=== PATIENT | female | born 1960 | race Caucasian/White ===

== ENCOUNTER 2020-01-31 08:46 | Outpatient (RCR) | payer SELFPAY ==
[2020-01-31 09:18] VITALS: BP 156/62; PULSE 88; RESP 20; TEMP 37.1; BMI 37.9
== END 2020-02-01 23:59 ==
LOC: WC 08:46
PROVIDERS: Visit Provider Nurse Practitioner
DX: Z09 Encounter for follow-up examination after completed treatment for conditions other than malignant neoplasm (principal)

== ENCOUNTER 2020-01-31 10:34 | Inpatient (IN) | payer OTHER, SELFPAY ==
[2020-01-31] VITALS (11 sets, daily range): BP systolic 129–159; BP diastolic 59–79; PULSE 82–95; RESP 16–22; TEMP 36.8–37.7; O2SAT 92–99; BMI 37.9; BMI 42.5; BMI 41.2; BMI 40.4; BMI 89.1
--- NOTE | 2020-01-31 10:47 | EKG12_ITS ---
Test Reason : Blood Pressure : / mmHG Vent. Rate : 082 BPM Atrial Rate : 082 BPM P-R Int : 172 ms QRS Dur : 098 ms QT Int : 390 ms P-R-T Axes : 049 013 017 degrees QTc Int : 455 ms Normal sinus rhythm Normal ECG Confirmed by TYESHA JOLLY, LAURA ([id number]), metropolitan editor RITIKA COCHRAN ([id number] on 02/05/2020 2:14:31 PM Referred By: CATINA/DAVID Confirmed By:LAURA ARAMBULA MD
--- NOTE | 2020-01-31 10:48 | ED.DCSUM_ITS ---
History of Present Illness Chief Complaint: Wound Check Onset: Days - Redness possibly a couple of days, Weeks - Plantar foot ulcer greater than 2 weeks Context: Gradual Onset Timing: Continuous Quality: Redness to the foot with drainage from wound Location: Left foot Current Severity: Moderate Maximum Severity: Moderate Worsened by: Diabetic foot infection Relieved by: Nothing Associated Symptoms: Subjective fever and sore lateral fifth/little toe Narrative: Patient is a 59-year-old woman with history of diabetes who is been followed at the wound center who was sent to the ER for evaluation. Patient complains of subjective fever. She has not checked her blood sugar greater than 24 hours. She denies any other medical problems. She denies groin pain. She denies URI symptoms. She denies urologic symptoms. Her only GI symptom is nausea. She states she is not allergic to any antibiotics. Prior similar symptoms: Yes Recent Illness/Hospitalization: No - Past Medical History (1) Type 2 diabetes mellitus Status: Acute Past Medical History - Allergies and Home Meds Allergies/Adverse Reactions: Allergies No Known Allergies Allergy (Verified 01/31/20 10:37) Primary Care Physician: Noah Levin DO [Primary Care Provider] - Prior records reviewed: Yes Lives: Spouse/ Significant Other Smoking Status: Never smoker Alcohol: None Drugs: None Review of Systems General: Reports: Fever, Malaise, Subjective. Denies: Chills, Sweats, Weight loss, - Eyes: Denies: Visual changes - bilaterally, Blurred Vision - bilaterally ENT: Denies: Rhinorrhea, Sore throat Cardiovascular: Denies: Chest pain, Palpitations Respiratory: Reports: Cough - Intermittent cough for greater than a month. Denies: Dyspnea, Sputum, Dyspnea on exertion, Orthopnea, Paroxysmal nocturnal dyspnea Gastrointestinal: Reports: Nausea. Denies: Abdominal pain, Vomiting, Diarrhea, Constipation, Melena, Hematochezia, -, - Genitourinary: Denies: Dysuria, Hematuria, Frequency Musculoskeletal: Reports: Swelling. Denies: Myalgias, Arthralgias, Neck pain, Back pain, Extremity Pain, -, - Neurological: Denies: Headache, Weakness Endocrine: Denies: Polyuria, Polydipsia Hematologic: Denies: Easy bruising, Easy bleeding Physical Exam Vital Signs/Narrative: Vital Signs Temp Pulse Resp BP Pulse Ox 01/31/20 10:35 98.4 F 87 18 157/79 H 98 Inital Vital Signs reviewed: Yes General: Well nourished, Well developed, No Acute Distress Head: Normocephalic, Atraumatic Eyes: Perrl, EOMI ENT: Moist mucous membranes, No rhinorrhea Neck: Supple, Nontender Cardiovascular: Regular rate, Regular rhythm, No murmurs Respiratory: No distress, CTA bilaterally, Chest nontender Abdomen: Soft, Nontender, Nondistended, Normal bowel sounds Back: Nontender, Normal Inspection Extremities: Nontender, Edema - There is pitting edema of the left foot. There is a dime size ulcer plantar surface with granulation tissue and purulent material noted with pressure applied to the plantar surface. There is also a small wound starting lateral the little toe. There is evidence of cellulitis on the dorsum of the foot. There is no lymphangitis. There is no popliteal or inguinal lymphadenopathy. Skin: Normal color, No Trauma, Rash. Negative for: Cyanosis, Diaphoresis, Jaundice Neurological: Alert, Oriented x3, Cranial nerves II-XII grossly intact, Normal Strength. Negative for: Normal Sensation - There is decreased sensation to her feet., Normal Gait Psychological: Normal affect, Normal Mood Diagnostic/Tx/Re-eval 01/31/20 10:53 Xray Foot [Foot min 3 Views] [RAD] Stat Laboratory Results 01/31/20 11:10 WBC 19.9 H RBC 3.75 L Hgb 10.7 L Hct 31.4 L MCV 83.7 MCH 28.5 MCHC 34.1 RDW Std Deviation 39.6 RDW Coeff of Leticia 13.0 Plt Count 328 MPV 10.0 Immature Gran % (Auto) 2.100 H Neut % (Auto) 78.2 H Lymph % (Auto) 12.2 L [place] % (Auto) 6.9 Eos % (Auto) 0.3 Baso % (Auto) 0.3 Absolute Neuts (auto) 15.6 H Absolute Lymphs (auto) 2.43 Nucleated RBC % 0 Foot x-ray reveals subcutaneous air. There is no periosteal elevation to suggest osteomyelitis. Sodium is 124 and chloride is 87. Lactate is normal at 1.3. - Rhythm Strip Rhythm Strip: Sinus Rhythm Rate: 79 Ectopy: None - EKG Initial EKG Interpretation: Sinus Rhythm - Sinus rhythm with ventricular rate of 82. MN interval 170 ms. QRS duration 98 ms. QT duration 390 ms. Perry is normal. EKG is normal. - Medical Decision Making Patient with diabetic foot ulcer that is infected. Will obtain x-ray to evaluate for evidence of osteomyelitis. Appropriate laboratory tests to evaluate for sepsis. She was treated with Zosyn. ED Disposition - Plan for ED Patient: Disposition: Acute Care Hospital [facility] Diagnosis: Diabetic ulcer of left foot, Cellulitis of foot associated with diabetes mellitus, Hyponatremia, Hyperglycemia due to type 2 diabetes mellitus Referrals: Noah Levin DO [Primary Care Provider] -
--- NOTE | 2020-01-31 10:50 | NURSING ---
no old ekgs
--- NOTE | 2020-01-31 10:53 | RAD_ITS ---
STUDY: X-RAY - LEFT FOOT CLINICAL: Female, 59 years old. Diabetic ulcer bottom of foot TECHNIQUE: 3 view(s) of the foot. COMPARISON: None. FINDINGS: There is an enthesophyte involving the posterior superior calcaneus at the site of insertion of the Achilles tendon. Plantar spur. Normal visualized subtalar, talonavicular, calcaneocuboid, tarsal and tarsometatarsal articulations. Normal metatarsi. Normal metatarsophalangeal joint of the great toe. Normal tibial and fibular sesamoid bones. Normal interphalangeal joint of the great toe. Normal phalanges of the great toe. Normal second through fifth metatarsophalangeal joints. Normal interphalangeal joints and phalanges of the lesser toes. Diffuse soft tissue swelling. RAD/Foot min 3 Views IMPRESSION: Diffuse soft tissue swelling. Calcaneal spurs. Electronically Signed: Bob Ojeda, at 11:44 EDT , Service support ,
[2020-01-31 11:22] LABS: Absolute Lymphocyte Count 2.43 X10^3/uL (0.83-4.51); Absolute Neutrophil Count 15.6 X10^3/uL (2.0-7.7); Basophil# 0.05 X10^3/uL; Basophil% 0.3 % (0-1); Eosinophil# 0.05 X10^3/uL; Eosinophils% 0.3 % (0-5); Hematocrit 31.4 % (37-47); Hemoglobin 10.7 g/dL (12.0-15.0); Lymphocyte # 2.43 X10^3/ul (4.0); Lymphocyte % 12.2 % (19-41); Mean Corp Hgb Conc 34.1 g/dL (32-36); Mean Corpuscular Hgb 28.5 pg (27.0-32.0); Mean Corpuscular Volume 83.7 fL (81-99); Monocyte# 1.38 X10^3/uL; Monocyte% 6.9 % (0-10); NRBC Flagged by Analyzer 0 % (0-5); Neutrophil # 15.61 X10^3/uL (2.7-7.7); Neutrophil % 78.2 % (47-70); Platelet Count 328 K/mm3 (150-450); RBC Distribution Width SD 39.6 fl (35.1-43.9); Red Blood Count 3.75 M/mm3 (4.2-5.4); White Blood Count 19.9 K/mm3 (4.4-11.0)
[2020-01-31 11:42] LABS: ALB/GLOB Ratio 0.6 RATIO (0.9-2.4); AST(SGOT) 9 U/L (15-37); Alanine Aminotransfer ALT/SGPT 23 U/L (13-56); Albumin, Serum 2.7 g/dL (3.2-5.0); Alkaline Phosphatase 86 U/L (45-117); Anion Gap 7 (5-15); BUN 8 mg/dL (7-18); BUN/Creat Ratio 13.2 RATIO (10-20); Calcium,Total 8.3 mg/dL (8.5-10.1); Chloride 90 mmol/L (98-107); EST Glomerular Filtration Rate 108 mL/min (>60); Est Glom Filt Rate - Afr Amer 131 mL/min (>60); Estimated Creatinine Clearance 77.12 ml/min; Globulin 4.5 g/dL (2.2-4.2); Glucose 268 mg/dL (74-106); Potassium 3.2 mmol/L (3.5-5.1); Protein, Total 7.2 g/dL (6.4-8.2); Sodium Level 124 mmol/L (136-145)
--- NOTE | 2020-01-31 11:43 | NURSING ---
DR GRIMES FOR DR DOMINIQUE
[2020-01-31 11:44] LABS: Lactic Acid 1.3 mmol/L (0.4-1.9)
--- NOTE | 2020-01-31 11:52 | NURSING ---
MED SURG TERELETSKY DIABETIC FOOT ULCER WITH CELLULITIS
[2020-01-31 12:30] LABS: International Normalized Ratio 1.2; Prothrombin Time (Protime)PT. 14.3 SECONDS (11.7-14.9)
[2020-01-31 13:15] LABS: Bedside Glucose 233 mg/dL (70-110)
[2020-01-31] MEDS: Lactated Ringers 1,000 ML 100 ML IV ×2 (13:40→17:47)
--- NOTE | 2020-01-31 15:38 | CON.PCM_ITS ---
Reason for Consult Date of Consultation: 01/31/20 Reason for Consultation: Left foot infection History of Present Illness: The patient is a 59 year old female with history of diabetes presented to the ED today from the wound center with necrotic ulceration and infection to the left foot. There is significant redness, swelling, drainage and maloder from the foot. Patient's WBC elevated to 19.9. Left foot xrays show gas to the base of the 4th toe and questionable to the 5th toe. Patient relates ulceration stated ~2 weeks ago, and really worsened over the past couple of days. She relates she should have taken this more seriously. She has minimal pain. Patient was admitted for further workup and evaluation. Patient is afebrile, however she relates she has not been feeling well. Past Medical History Allergies No Known Allergies Allergy (Verified 01/31/20 10:37) Home Medications: Ambulatory Orders Medication Instructions Recorded Cephalexin [Keflex] 500 mg PO 4X/DAY 01/31/20 Glimepiride [Amaryl] 4 mg PO DAILY 01/31/20 Metformin HCl 1,000 mg PO BID 01/31/20 Pioglitazone [Actos] 45 mg PO DAILY 01/31/20 Ramipril 5 mg PO DAILY 01/31/20 Triamterene 75MG/Hctz 50MG 0.5 tab PO DAILY 01/31/20 [Maxzide] Lives: Spouse/ Significant Other Smoking Status: Never smoker Tobacco Use: Non-smoker Alcohol: None Drugs: None Review of Systems Constitutional: Denies: Chills, Fever Gastrointestinal: Denies: Nausea, Vomiting Patient Problems: Active and Suspected Problems Diabetic ulcer of left foot (Acute) Cellulitis of foot associated with diabetes mellitus (Acute) Hyponatremia (Acute) Hyperglycemia due to type 2 diabetes mellitus (Acute) - Physical Exam Vitals/I&O's: Vital Signs Temp Pulse Resp BP Pulse Ox 98.5 F 82 18 155/76 H 99 01/31/20 13:03 01/31/20 13:03 01/31/20 13:03 01/31/20 13:03 01/31/20 13:03 Oxygen Delivery Method Room Air Weight: 97.069 kg Body Mass Index (BMI) 40.4 Intake and Output for Last 24 Hours 01/29/20 01/30/20 01/31/20 23:59 23:59 23:59 Intake Total 100 / 100 Balance 100 / 100 General: Alert, Oriented x3, Cooperative, No apparent distress Extremities: Capillary Refill Less than 3 Seconds, Peripheral Pulses Normal, - - There is quarter sized ulceration sub 3rd met head with significant necrosis to the margins and base, probes deep and tracks laterally to the 4th and 5th toes/met heads, there is severe cellulitis to the foot and significant edema, foot is hot to touch, there is significant purulence, and maloder to the foot, there is visible abscess to the plantar central and lateral forefoot all consistent with significant infection. There are no other open ulcerations bilateral, no evidence of infection to the right foot. Pedal pulses intact bilateral, CFT < 2 seconds to all toes bilateral. There is some tenderness to the left forefoot, but sensation significantly decreased to bilateral foot c\w diabetic neuropathy bilateral. Musculoskeletal: No Muscle Wasting Psych/Mental Status: Normal Affect, Appropriate, Alert and oriented to time, place, person, mood and affect Laboratory Results 01/31/20 11:10: WBC 19.9 H, RBC 3.75 L, Hgb 10.7 L, Hct 31.4 L, MCV 83.7, MCH 28.5, MCHC 34.1, RDW Std Deviation 39.6, RDW Coeff of Leticia 13.0, Plt Count 328, MPV 10.0, Immature Gran % (Auto) 2.100 H, Neut % (Auto) 78.2 H, Lymph % (Auto) 12.2 L, [place] % (Auto) 6.9, Eos % (Auto) 0.3, Baso % (Auto) 0.3, Absolute Neuts (auto) 15.6 H, Absolute Lymphs (auto) 2.43, Nucleated RBC % 0 01/31/20 11:10: PT 14.3, INR 1.2, APTT 29.0 01/31/20 11:10: Sodium 124 L, Potassium 3.2 L, Chloride 90 L, Carbon Dioxide 27.0, Anion Gap 7, BUN 8, Creatinine 0.60, Estim Creat Clear Calc 77.12, Est GFR (MDRD) Af Amer 131, Est GFR (MDRD) Non-Af 108, BUN/Creatinine Ratio 13.2, Glucose 268 H, Calcium 8.3 L, Total Bilirubin 0.60, AST 9 L, ALT 23, Alkaline Phosphatase 86, Total Protein 7.2, Albumin 2.7 L, Globulin 4.5 H, Albumin/Globulin Ratio 0.6 L 01/31/20 11:10: Lactic Acid 1.3 01/31/20 13:11: POC Glucose 233 H 01/31/20 15:13: S.aureus Protein A PCR Pending, MRSA (PCR) Pending Current Medications Dextrose (D50w Syringe) 0 gm IV X1 PRN; Protocol PRN Reason: Hypoglycemia Glimepiride (Amaryl) 4 mg PO DAILY@0800 PAT[facility]ICK Glucagon () 1 mg IM .X1 PRN PRN Reason: Hypoglycemia Heparin Sodium (Porcine) (Heparin Na) 5,000 unit SC Q12 [facility]ICK Piperacillin Sod/Tazobactam (Sod 3.375 gm/ Sodium Chloride) 50 mls @ 12.5 mls/hr IV Q8 PATRICK Vancomycin IV Pharmacy to Dose (1 ea/ Sodium Chloride) 500 mls @ 250 mls/hr IV X1 PRN; Protocol PRN Reason: Rx to Dose Vancomycin HCl 2,000 mg/ (Sodium Chloride) 540 mls @ 250 mls/hr IV X1 ONE Stop: 01/31/20 15:39 Last Admin: 01/31/20 13:30 Dose: 250 mls/hr Documented by: Sodium Chloride () 250 mls @ 15 mls/hr IV .[id number] PRN PRN Reason: Saline Flush Sodium Chloride () 250 mls @ 15 mls/hr IV .[id number] PRN PRN Reason: Additional IVPB Infusion Lactated Ringer's () 1,000 mls @ 100 mls/hr IV .Q10H [facility] Last Admin: 01/31/20 13:40 Dose: 100 mls/hr Documented by: Vancomycin HCl 1,500 mg/ (Sodium Chloride) 530 mls @ 250 mls/hr IV Q12H [facility] Insulin Human Lispro (Humalog Kwikpen (Bkc)) 0 unit SC ACHS [facility]; Protocol Metformin HCl (Glucophage) 1,000 mg PO BIDCM PATRICK Oxycodone HCl (Oxyir) 10 mg PO Q4H PRN PRN PRN Reason: Pain Score 6-10/10 Pioglitazone HCl (Actos) 45 mg PO DAILY PAT[facility]ICK Ramipril (Altace) 5 mg PO DAILY PAT[facility]ICK Sodium Chloride () 10 - 40 ml IV UD PRN PRN Reason: SALINE FLUSH Triamterene/HCTZ (Dyazide (G)) 1 cap PO DAILY [facility] Assessment/Plan All Active Problems Type 2 diabetes mellitus (Acute) Diabetic ulcer of left foot (Acute) Cellulitis of foot associated with diabetes mellitus (Acute) Hyponatremia (Acute) Hyperglycemia due to type 2 diabetes mellitus (Acute) Necrotic ulceration down to fascia and bone layer left foot Severe abscess, and cellulitis left foot Necrotizing fasciitis/gas gangrene left foot Diabetes w/ neuropathy Reviewed diagnostic data. Reviewed left foot xrays - there is gas present, WBC elevated. Given all of the findings we discussed urgent I+D, debridement and partial left foot amputation today. Reviewed rationale of this with patient, re viewed possible benefits vs risks, goals and expectations. Patient agreed with plan. We will plan to proceed with this today. Patient has been started on IV antibiotics - Zosyn, as well as Vancomycin, I did speak with Dr. Winter. Essential Procedure Criteria Risk to Patient if Procedure Delayed: Threat to patient's life if surgery or procedure is delayed
--- NOTE | 2020-01-31 15:42 | PCM.RX.CS ---
Consult Pharmacy has been consulted to manage selected antiobiotic: Vancomycin Type of Consult: New start Suspected Infection: Osteomyelitis Labs: Sodium 124 mmol/L (136-145) L 01/31/20 11:10 Potassium 3.2 mmol/L (3.5-5.1) L 01/31/20 11:10 Chloride 90 mmol/L (98-107) L 01/31/20 11:10 Carbon Dioxide 27.0 mmol/L (21.0-32.0) 01/31/20 11:10 Anion Gap 7 (5-15) 01/31/20 11:10 BUN 8 mg/dL (7-18) 01/31/20 11:10 Creatinine 0.60 mg/dL (0.55-1.02) 01/31/20 11:10 Est GFR (MDRD) Af Amer 131 mL/min (>60) 01/31/20 11:10 Est GFR (MDRD) Non-Af 108 mL/min (>60) 01/31/20 11:10 BUN/Creatinine Ratio 13.2 RATIO (-20) 01/31/20 11:10 Glucose 268 mg/dL (74-106) H 01/31/20 11:10 Weight used for dosin kg Estimated Creatinine Clearance: 108ml/min Goal Trough: 15-20 mcg/mL Pharmacy Plan for Drug Dosin/29--new admitt to [facility] for osteo SrCr 0.6 CrCl 77.12ml/min AdBw 67.51kg CrCl with AdBw 108.9ml/min Loading Dose of 2000mg Vancomycin IV adminsitered 01/31/20 at 1330 Per clinical pharmacology dosing calculator, recommend an initial dose of 1500mg q12h to start 02/01/20 at 0200. Trough: 02/02/20 @ 0130 Pharmacy Service will continue to monitor and adjust dosing as required. Follow-Up Labs: Trough Vancomycin - 02/01 @ 0130
--- NOTE | 2020-01-31 15:49 | ART_ITS ---
Reason For Study: ulcer Procedure A bilateral lower extremity continuous wave Doppler with analog waveform analysis,segmental pressures,and ankle brachial indexes without exercise. Left Segmental Pressures Left brachial= 155mmHg. Left posterior tibial artery = 165mmHg. Left dorsalis pedis artery = 163mmHg. Left digit = 108 mmHg. The left dorsalis pedis waveforms are triphasic. The left posterior tibial artery waveforms are triphasic. Right Segmental Pressures Right posterior tibial artery = 166mmHg. Right dorsalis pedis artery = 153mmHg. Right digit = 123 mmHg. The right dorsalis pedis waveforms are triphasic. The right posterior tibial artery waveforms are triphasic. Indices The right ankle brachial index by the dorsalis pedis is .99. The right ankle brachial index by the posterior tibial artery is 1.07. The right digital-brachial index is .79. The left ankle brachial index by the dorsalis pedis is 1.05. The left ankle brachial index by the posterior tibial artery is 1.06. The left digital-brachial index is .7. Interpretation Summary Triphasic Doppler waveforms are noted at ankle level bilaterally. Pulse-volume recording waveform amplitudes appear slightly diminished on the right. Resting ankle-brachial indices are normal bilaterally. Digital-brachial indices are normal bilaterally. There is no evidence of significant arterial occlusive disease in the lower extremities bilaterally, based upon this resting arterial study. Ordering Physician: Storm Hobbs Referring Physician: SELENA HOBBS Performed By: ELLIOT PARK T
--- NOTE | 2020-01-31 15:50 | OP.PCM_ITS ---
Report of Operation Date of Procedure: 01/31/20 Pre-Operative Diagnosis: Necrotizing fasciitis/gas gangrene left foot. 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 Debrided soft tissue and bone from left foot sent to pathology. 2. Left 4th toe bone culture sent to pathology and microbiology. 3. Left 4th metatarsal clearance fragment sent to pathology and microbiology. 4. Deep wound culture sent to microbiology Estimated Blood Loss (mL): 15mL Description of Procedure: Indications: This is a 59 year old female with history of diabetes presented to the ED today from the wound center with necrotic ulceration and infection to the left foot. There is significant redness, swelling, drainage and maloder from the foot. Patient's WBC elevated to 19.9. Left foot xrays show gas to the base of the 4th toe and questionable to the 5th toe. Patient relates ulceration stated ~2 weeks ago, and really worsened over the past couple of days. She relates she should have taken this more seriously. She has minimal pain. Patient was admitted for further workup and evaluation. Patient is afebrile, however she relates she has not been feeling well. Given the findings we discussed urgent debridement of all nonviable, infected and necrotic soft tissue and bone with partial foot amputation. This was discussed with her in detail. Reviewed the possible benefits vs risks, goals, expectations and estimated healing time. Patient understands he is at risk for further infection, amputation, loss of limb, and loss of life. Also advised patient risks also include but are not limited to need for further surgery, blood clots, weakness, transfer lesions, ischemia, bleeding, pain, chronic pain, deformity, numbness, swelling, inability to walk or wear shoes, charcot foot, complex regional pain syndrome, and again loss of limb, and loss of life. Patient expressed understanding and agreement and patient agreed to proceed forward with the procedure. All of his questions were answered. The consent form was reviewed with patient, and the patient freely signed it. Operative Procedure: The patient was brought back to the operating room and was placed on the operating room table in the supine position. The patient was carefully secured to the operating room table with a safety belt around their waist. The patient was already on IV antibiotics. A time out was performed and the patient was properly identified and the surgical plan was confirmed. The patient received a left ankle block per the anesthesia team, however the patient still has some feeling and pain, so the patient received general anesthesia per the anesthesia team. A well padded pneumatic tourniquet was applied to the left ankle. The left foot was scrubbed, prepped and draped in the usual aseptic fashion. Further attention was directed to the left foot, where there was significant necrosis plantar forefoot where there was an ulceration sub central forefoot probing and tracking deep to fascia and bone, there was significant cellulitis, edema, fluctuance, maloder, abscess, purulence, necrosis to the forefoot - 3rd, 4th and 5th distal rays. A deep wound culture was obtained and sent to microbiology. The left foot was elevated for 3 minutes and the ankle pneumatic tourniquet was inflated to 250mmHg. Using a #15 scalpel blade all nonviable, necrotic, infected tissue soft tissue was removed - this infected, necrotic and nonviable tissue was very extensive involving the sub 3rd metatarsal head, extending to the base of the 4th and 5th toes. The infection tracked all the way to the lateral aspect of the 5th toe. A wide debridement was completed down to bone removing all nonviable, infected, and necrotic tissue, this involved having to remove the 4th and 5th toes. This area debrided measured: 8cm x 7cm and deep to bone (2cm in depth). The bones of the 4th and 5th toes were arora and unhealthy appearing. The debrided tissue was sent to pathology for further evaluation. A bone specimen was obtained from the base of the 4th toe and was sent to microbiology and pathology. There did not appear to be involvement of the bone of the 3rd toe or 3rd metatarsal head. The 4th metatarsal head was visible and there were some yellowish changes otherwise appeared healthy and viable - a bone culture was obtained using different clean instruments from the 4th metatarsal head and was sent to microbiology and pathology. The head of the 5th metatarsal appeared white, and healthy appearing. The site was flushed with copious amount of normal saline solution. The remaining tissues appeared healthy and viable. The site was packed with 1/4in Iodoform gauze packing. At this time a surgical dressing of surgicel, 4x4 gauze, Kerlix, abd pads, and lauren wraps were applied to the foot. The ankle pneumatic tourniquet was deflated (total time was 27 minutes) and there was return of warmth and perfusion to the foot. CFT was less than 3 seconds to the remaining toes. The patient tolerated the above procedure and anesthesia well with no complications. Patient was transported to the recovery Room with vital signs stable and in good condition. Post operative orders were placed. No weightbearing left foot, keep foot elevated. Postoperative xrays of the foot were obtained and reviewed- s/p debridement with excision of 4th and 5th toes, no complications seen. Post-op instructions were reviewed. Patient to be followed as inpatient. Grafts/Implants Used: None - Complications None
--- NOTE | 2020-01-31 16:00 | RAD_ITS ---
STUDY: X-RAY - LEFT FOOT CLINICAL: Female, 59 years old. post op TECHNIQUE: 3 view(s) of the foot. COMPARISON: Earlier the same day FINDINGS: There is a plantar calcaneal spur. Normal visualized subtalar, talonavicular, calcaneocuboid, tarsal and tarsometatarsal articulations. Normal metatarsi. Normal metatarsophalangeal joint of the great toe. Normal tibial and fibular sesamoid bones. Normal interphalangeal joint of the great toe. Normal phalanges of the great toe. There is amputation of the phalanges of the fourth and fifth toes. There is soft tissue bandage. 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 Electronically Signed: James Landaverde MD at 16:23 EDT , Service support ,
[2020-01-31 16:01] LABS: Bedside Glucose 235 mg/dL (70-110)
--- NOTE | 2020-01-31 17:02 | HP.PCM_ITS ---
Problem List (1) Deep wound infection of the left foot Status: Acute History of Present Illness Date of Admission: 01/31/20 Chief Complaint: Deep wound infection of the left foot The patient is a 59 year old F was seen in the emergency room at [facility] after being sent over for evaluation of a left plantar foot wound. Patient has been seen in the wound center at [facility] today and was sent over for evaluation after it was noted that she had a deep wound infection of her left foot. Patient states that she does not know how long that she has had the infection but she feels that she noticed that a couple of weeks ago. She saw her PCP yesterday and he arranged for her to be seen at the wound center at [facility] today. Patient was evaluated in the emergency room by the emergency room physician, after discussing the case with the emergency room physician, I contacted podiatry who saw the patient while she was in the emergency room. The patient was then admitted to [place] [id number] but before I could examine the patient, she was taken to surgery this afternoon for debridement of her left foot wound. At the time of my examination, patient is alert and does not complain of any left foot pain, she does not complain of any chest pain or shortness of breath. 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 Lives: Spouse/ Significant Other Smoking Status: Never smoker Tobacco Use: Non-smoker Alcohol: None Drugs: None - *Family History Maternal History Items: Diabetes Paternal History Items: Heart Disease Review of Systems Constitutional: Denies: Anorexia, Chills, Fever, Night Sweats, Malaise, Weakness, Weight Change, Fatigue Eyes: Denies: Cataracts, Conjunctivae Inflammation, Double vision, Drainage HEENT: Denies: Difficulty Swallowing, Dysphasia, Ear Pain, Eye Pain, Hearing Changes, Nasal bleeding, Nasal Congestion, Post Nasal Drip Cardiovascular: Denies: Chest Pain, Claudication, Chest Pressure, Chest Tightness, Edema, Heaviness, Light Headedness, Palpitations Respiratory: Denies: Cough, Hemoptysis, Pleuritic Pain, Shortness of Breath, Shortness of breath at rest, Shortness of breath upon exertion Gastrointestinal: Denies: Abdominal Pain, Constipation, Diarrhea, Hematemesis, Hematochezia, Nausea, Melena, Vomiting Genitourinary: Denies: Dysuria, Frequency, Hematuria, Hesitancy, Nocturia, Urgency Musculoskeletal: Denies: Back Pain, Foot Pain, Hand Pain, Joint Pain, Joint stiffness, Joint swelling, Joint Tenderness, Leg Pain Skin: Reports: Wounds - left foot wound. Denies: Dryness, Jaundice, Pruritis, Rash Neurological: Reports: Numbness - bilateral decreased sensation to touch in feet. Denies: Balance problems, Blurred vision, Double vision, Change in Speech, Slurred speech, Difficulty swallowing, Focal weakness, Headaches, Incoordination, Tingling Psychiatric: Denies: Anxiety, Depression, Homicidal Ideations, Suicidal Ideations Endocrine: Denies: Change in Body Habitus, Heat/ Cold Intolerance, Polydipsia, Polyuria Hematologic/ Lymphatic: Denies: Adenopathy, Anemia, Easy Bruising, Easy Bleeding, Petechiae, Purpura VTE Information - Inpt Only VTE Present on Admission: No VTE Mechan Device Prophylaxis: None VTE Pharm Prophylaxis ordered?: Yes Patient Problems: Active and Suspected Problems Diabetic ulcer of left foot (Acute) Cellulitis of foot associated with diabetes mellitus (Acute) Hyponatremia (Acute) Hyperglycemia due to type 2 diabetes mellitus (Acute) Deep wound infection of the left foot (Acute) - Physical Exam Vitals/I&O's: Vital Signs Temp Pulse Resp BP Pulse Ox 98.4 F 85 18 129/60 H 93 01/31/20 16:44 01/31/20 16:44 01/31/20 16:44 01/31/20 16:44 01/31/20 16:44 Oxygen Delivery Method Room Air Weight: 97.069 kg Body Mass Index (BMI) 40.4 Finger Stick Blood Glucose 235 Intake and Output for Last 24 Hours 01/29/20 01/30/20 01/31/20 23:59 23:59 23:59 Intake Total 640 / 640 Balance 640 / 640 General: Alert, Oriented x3, Cooperative, No apparent distress, Well developed HEENT: Atraumatic, PERRLA, EOMI, Normocephalic Oral: Moist Mucosa Neck: Supple, No JVD, Negative Carotid Bruits, Trachea Midline, Thyroid Normal Size and Texture Lungs: Clear to auscultation, Normal air movement, No rhonchi, No wheeze Cardiovascular: Regular rate, Regular Rhythm, Normal S1, Normal S2, No murmurs, PMI Normal, No rub noted Abdomen: Bowel Sounds Present, Soft, Non Tender, Non-Distended Extremities: - - Left foot is wrapped with surgical dressing and this dressing was not removed for examination of the left foot at this time Skin: No rashes, No breakdown Musculoskeletal: No Tenderness to Palpation of Joints or Extremities Neurological: Cranial nerves II-XII grossly intact, Neuro grossly intact, Sensory exam intact to light touch and pain, Coordination normal Psych/Mental Status: Normal Affect, Appropriate, Alert and oriented to time, place, person, mood and affect Laboratory Results 01/31/20 11:10: WBC 19.9 H, RBC 3.75 L, Hgb 10.7 L, Hct 31.4 L, MCV 83.7, MCH 28.5, MCHC 34.1, RDW Std Deviation 39.6, RDW Coeff of Leticia 13.0, Plt Count 328, MPV 10.0, Immature Gran % (Auto) 2.100 H, Neut % (Auto) 78.2 H, Lymph % (Auto) 12.2 L, Hanson % (Auto) 6.9, Eos % (Auto) 0.3, Baso % (Auto) 0.3, Absolute Neuts (auto) 15.6 H, Absolute Lymphs (auto) 2.43, Nucleated RBC % 0 01/31/20 11:10: PT 14.3, INR 1.2, APTT 29.0 01/31/20 11:10: Sodium 124 L, Potassium 3.2 L, Chloride 90 L, Carbon Dioxide 27.0, Anion Gap 7, BUN 8, Creatinine 0.60, Estim Creat Clear Calc 77.12, Est GFR (MDRD) Af Amer 131, Est GFR (MDRD) Non-Af 108, BUN/Creatinine Ratio 13.2, Glucose 268 H, Calcium 8.3 L, Total Bilirubin 0.60, AST 9 L, ALT 23, Alkaline Phosphatase 86, Total Protein 7.2, Albumin 2.7 L, Globulin 4.5 H, Albumin/Globulin Ratio 0.6 L 01/31/20 11:10: Lactic Acid 1.3 01/31/20 13:11: POC Glucose 233 H 01/31/20 15:13: S.aureus Protein A PCR Pending, MRSA (PCR) Pending 01/31/20 15:54: POC Glucose 235 H Current Medications Dextrose (D50w Syringe) 0 gm IV X1 PRN; Protocol PRN Reason: Hypoglycemia Glimepiride (Amaryl) 4 mg PO DAILY@0800 [facility] Glucagon () 1 mg IM .X1 PRN PRN Reason: Hypoglycemia Heparin Sodium (Porcine) (Heparin Na) 5,000 unit SC Q12 [facility] Piperacillin Sod/Tazobactam (Sod 3.375 gm/ Sodium Chloride) 50 mls @ 12.5 mls/hr IV Q8 [facility] Vancomycin IV Pharmacy to Dose (1 ea/ Sodium Chloride) 500 mls @ 250 mls/hr IV X1 PRN; Protocol PRN Reason: Rx to Dose Sodium Chloride () 250 mls @ 15 mls/hr IV .[id number] PRN PRN Reason: Saline Flush Sodium Chloride () 250 mls @ 15 mls/hr IV .[id number] PRN PRN Reason: Additional IVPB Infusion Lactated Ringer's () 1,000 mls @ 100 mls/hr IV .Q10H [facility] Last Admin: 01/31/20 13:40 Dose: 100 mls/hr Documented by: Vancomycin HCl 1,500 mg/ (Sodium Chloride) 530 mls @ 250 mls/hr IV Q12H [facility] Insulin Human Lispro (Humalog Kwikpen (Bkc)) 0 unit SC ACHS [facility]; Protocol Metformin HCl (Glucophage) 1,000 mg PO BIDCM [facility] Oxycodone HCl (Oxyir) 10 mg PO Q4H PRN PRN PRN Reason: Pain Score 6-10/10 Pioglitazone HCl (Actos) 45 mg PO DAILY [facility] Ramipril (Altace) 5 mg PO DAILY PATRICK Sodium Chloride () 10 - 40 ml IV UD PRN PRN Reason: SALINE FLUSH Triamterene/HCTZ (Dyazide (G)) 1 cap PO DAILY PATRICK Assessment/Plan All Active Problems Diabetic ulcer of left foot (Acute) Cellulitis of foot associated with diabetes mellitus (Acute) Hyponatremia (Acute) Hyperglycemia due to type 2 diabetes mellitus (Acute) Deep wound infection of the left foot (Acute) #1 deep wound infection of the left foot-neuropathic in nature-again patient underwent surgery today for major debridement of the area, she will be maintained on vancomycin and Zosyn for now, cultures are pending of her left fo ot. #2 type 2 diabetes-I suspect her type 2 diabetes is not under good control, we will monitor blood sugars and she will be placed on sliding scale insulin per protocol. #3 neuropathy of diabetes #4 hypertension Inpatient E&M: 59011 Init Hosp L3
[2020-01-31 17:32] LABS: M R Staph aureus DNA By PCR Negative (Negative); Probe Check PASS; Staph aureus DNA By PCR POSITIVE (Negative)
[2020-01-31] MEDS: metFORMIN HCl 500 MG Tablet 1000 MG PO (17:42)
[2020-01-31 17:45] LABS: Bedside Glucose 241 mg/dL (70-110)
[2020-01-31] MEDS: Insulin Lispro 100 UNIT/ML INSULN.PEN SC ×2 (17:45→22:19)
[2020-01-31] MEDS: Heparin Injection (Vial) 5,000 UNIT/ML VIAL 5000 UNIT SC (22:22)
[2020-01-31 22:46] LABS: Bedside Glucose 293 mg/dL (70-110)
--- NOTE | 2020-02-01 | BON_PTH ---
PATIENT: SHERRI BRASHER LOC: MS3 U#:[id number] AGE/SX: 59/F ROOM: NM320 RE01/31/[address]: Dr. Josefa Murillo MD : 1960 BED: 1 DIS: 02/07/2020 SPEC #: [id number] RECD: 02/01/20 13:59 STATUS: LINDA REQ #: [id number] ARLIN: 02/01/20 00:[address]: Storm Parker DEPT: SURGICAL PATHOLOGY RECD BY: Lon Dent ENTERED: 02/02/20 10:20 SP TYPE: Bone OTHR DR: Dr. Noah Levin, DO Dr. Storm Parker, DPM Dr. Edward Winter, DO Dr. Stephen Hubbard MD Tissues: A - Bone of foot, NOS B - Bone of foot, NOS C - Bone of foot, NOS Procedures: Decalcification bone/plaque Surgery Specimen Level IV Comments: @ Ordering doctor for DEC edited from to @ by SHORTY at 02/02/20 111 @ Ordering doctor for SUIII edited from to DR.JWUNNI Barragan by SHORTY at 02/02/20 1118 @ Submitting doctor edited from to @ by SHORTY at 02/02/20 1118 HEADER OPERATION: Fourth and fifth toe amputation and debridement PRE-OP DIAGNOSIS: Infected diabetic ulcer with cellulitis, left foot TISSUE SUBMITTED: A - Clearance fragment fourth metatarsal, B - Fourth toe bone, C - Debrided soft tissue and bone, left foot MICROSCOPIC DIAGNOSIS A. Clearance fragment fourth metatarsal, biopsy: Bone and soft tissue with no significant pathologic change. No evidence of osteomyelitis. B. Fourth toe bone, biopsy: Collagenous tissue with focal cartilaginous tissue. No evidence of inflammation. C. Debrided soft tissue and bone, left foot: Skin and soft tissue with acute and chronic inflammation and abscess. Bone with reparative and reactive change. No definite evidence of acute osteomyelitis. AM:ophelia 02/07/20 COMMENT Case has been reviewed in consultation with Dr. Morris who concurs with the above diagnosis. IDC:GERMAINE MICROSCOPIC DESCRIPTION Slides are reviewed. GROSS DESCRIPTION A - Received in fixative is one container labeled with the patient's name and designated clearance fragment fourth metatarsal. The specimen consists of a piece of bone measuring 1 x 0.5 x 0.3 cm. The specimen is totally submitted in one cassette after decalcification. B - Received in fixative is one container labeled with the patient's name and designated fourth toe bone. The specimen consists of a piece of bone measuring 0.6 x 0.6 x 0.3 cm. The specimen is totally submitted in one cassette after decalcification. C - Received in fixative is one container labeled with the patient's name and designated debrided soft tissue and bone, left foot. The specimen consists of two separate pieces consisting of a portion of toe measuring 6.5 x 2 x 2 cm and 5 x 2.5 x 2 cm. The nail of both toes appears atrophic. No obvious ulceration is noted. Also present in the container is a detached piece of skin measuring 4 x 2.5 x 1.5 cm. Also present in the container are multiple detached pieces of soft tissue and skin measuring in aggregate 5 x 4 x 1 cm. Tin Can Laborer sections are submitted in four cassettes as follows: 1 & 2 - skin with underlying tissue, 3 & 4 - longitudinal section of bone from each toe submitted after decalcification. / SJ:rg 02/02/20 TC:5 CPT: 72191 x3, 28214 x3
[2020-02-01 02:19] VITALS: BP 128/78; PULSE 81; RESP 18; TEMP 36.9; O2SAT 95
[2020-02-01 05:17] LABS: Absolute Lymphocyte Count 1.98 X10^3/uL (0.83-4.51); Absolute Neutrophil Count 13.6 X10^3/uL (2.0-7.7); Basophil# 0.06 X10^3/uL; Basophil% 0.3 % (0-1); Eosinophil# 0.01 X10^3/uL; Eosinophils% 0.1 % (0-5); Hematocrit 30.6 % (37-47); Hemoglobin 10.4 g/dL (12.0-15.0); Lymphocyte # 1.98 X10^3/ul (4.0); Lymphocyte % 11.3 % (19-41); Mean Corpuscular Hgb 29.5 pg (27.0-32.0); Mean Corpuscular Volume 86.7 fL (81-99); Mean Platelet Vol. 10.1 fl (6.2-12.0); Monocyte# 1.48 X10^3/uL; Monocyte% 8.4 % (0-10); NRBC Flagged by Analyzer 0 % (0-5); Neutrophil # 13.55 X10^3/uL (2.7-7.7); Neutrophil % 77.2 % (47-70); Platelet Count 288 K/mm3 (150-450); RBC Distribution Width CV 13.2 % (11.6-14.6); RBC Distribution Width SD 40.7 fl (35.1-43.9); Red Blood Count 3.53 M/mm3 (4.2-5.4); White Blood Count 17.6 K/mm3 (4.4-11.0)
[2020-02-01 05:45] LABS: Anion Gap 9 (5-15); BUN 20 mg/dL (7-18); Calcium,Total 7.6 mg/dL (8.5-10.1); Chloride 94 mmol/L (98-107); Creatinine, Serum 1.67 mg/dL (0.55-1.02); EST Glomerular Filtration Rate 33 mL/min (>60); Est Glom Filt Rate - Afr Amer 41 mL/min (>60); Estimated Creatinine Clearance 27.71 ml/min; Glucose 249 mg/dL (74-106); Potassium 3.4 mmol/L (3.5-5.1); Sodium Level 127 mmol/L (136-145)
[2020-02-01] MEDS: Insulin Lispro 100 UNIT/ML INSULN.PEN SC ×4 (06:33→21:50)
[2020-02-01 06:41] LABS: Bedside Glucose 280 mg/dL (70-110)
[2020-02-01 09:14] VITALS: BP 145/79; PULSE 86; RESP 18; TEMP 36.7; O2SAT 96
[2020-02-01] MEDS: Glimepiride 4 MG Tablet PO (09:38)
[2020-02-01] MEDS: metFORMIN HCl 500 MG Tablet 1000 MG PO ×2 (09:38→17:10)
[2020-02-01] MEDS: Triamterene 37.5MG/Hctz 25MG Capsule 1 CAP PO (09:39)
[2020-02-01] MEDS: Pioglitazone Hydrochloride 45 MG Tablet PO (09:39)
[2020-02-01] MEDS: Ramipril 5 MG Capsule PO (09:39)
[2020-02-01] MEDS: Heparin Injection (Vial) 5,000 UNIT/ML VIAL 5000 UNIT SC ×2 (09:39→21:45)
[2020-02-01] MEDS: Lactated Ringers 1,000 ML 100 ML IV ×2 (09:43→20:06)
--- NOTE | 2020-02-01 10:59 | CASEMGMT ---
INGE BORRERO assessment: Face to Face with patient for initial transition planning/care coordination assessment. INGE BORRERO introduced self and role at [facility], pt voices understanding and consents to assessment at this time. Pt is sitting up in chair in no distress at this time. Care providers, pharmacy, and demographics verified at this time. Presentation: Sent from wound center for wound evaluation-wound to left foot, black tissue Admitting dx: Neuropathic foot infection left foot PCP: [facility] Specialists: pt states no current specialists. Preferred Pharmacy: [facility] Insurance: Self pay Prescription Benefit: Self pay Living Will/HPOA: Pt states no LW/HPOA at this time and declines AD info at this time. LNOK: [facility] Living Arrangements: Pt states lives with in 1 story home with 3-4 steps in and states no concerns at home at this time. Pt states independent with ADL's. Transportation: Pt states no transportation concerns at this time. DME/HHC: Pt states has a shower chair at home and states no need for any further DME at this time. Pt states no hx of HHC or SNF in the past. Pt states no concerns with going home at time of discharge. 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 Pt states does not smoke or drink ETOH. Pt states no further concerns/needs at this time. CM to follow for IV antibx, PT/OT evals, and for any further discharge planning/needs. Advised pt to ask for CM if any further questions/concerns/needs arise, voices understanding. Pt Goal: Home Plan: Home, pending cultures, PT/OT evals. [place] INGE BORRERO
[2020-02-01 11:50] LABS: Bedside Glucose 303 mg/dL (70-110)
--- NOTE | 2020-02-01 12:02 | PCM.PROGNOTE ---
Patient Problems: Active and Suspected Problems Diabetic ulcer of left foot (Acute) Cellulitis of foot associated with diabetes mellitus (Acute) Hyponatremia (Acute) Hyperglycemia due to type 2 diabetes mellitus (Acute) Deep wound infection of the left foot (Acute) Subjective: Patient was seen today for follow up on left foot. She relates she does not have any pain, no complaints. No complaints of fever, chills, nausea or vomiting. She is resting in recliner. - Physical Exam Vitals/I&O's: Vital Signs Temp Pulse Resp BP Pulse Ox 98.1 F 86 18 145/79 H 96 02/01/20 09:14 02/01/20 09:14 02/01/20 09:14 02/01/20 09:14 02/01/20 09:14 Oxygen Delivery Method Room Air Weight: 97.069 kg Body Mass Index (BMI) 40.4 Finger Stick Blood Glucose 235 Intake and Output for Last 24 Hours 01/30/20 01/31/20 02/01/20 23:59 23:59 23:59 Intake Total 1901.67 / 2251.67 2282.5 / 2282.5 Output Total 300 / 300 Balance 1601.67 / 1951.67 2282.5 / 2282.5 General: Alert, Oriented x3, Cooperative, No apparent distress Extremities: Capillary Refill Less than 3 Seconds, No Calf Tenderness, Peripheral Pulses Normal, - - s/p wide debridement left forefoot with open wound present, tissue granular, serous drainage, there is some purulence to the dorsal base of the 3rd toe, cellulitis much improved, no streaking, no maloder, no fluctuance, no crepitus. Minimal pain to the left foot w/ palpation. Microbiology Past 72 Hours 01/31/20 15:06 Bone - Toe Gram Stain - Final 01/31/20 15:05 Tissue - Toe Gram Stain - Final 01/31/20 15:13 Wound Drainage - Open/Non-Healing Wound Gram Stain - Final Laboratory Results 01/31/20 11:10: PT 14.3, INR 1.2, APTT 29.0 01/31/20 13:11: POC Glucose 233 H 01/31/20 15:13: S.aureus Protein A PCR POSITIVE H, MRSA (PCR) Negative 01/31/20 15:54: POC Glucose 235 H 01/31/20 17:40: POC Glucose 241 H 01/31/20 22:18: POC Glucose 293 H 02/01/20 05:00: WBC 17.6 H, RBC 3.53 L, Hgb 10.4 L, Hct 30.6 L, MCV 86.7, MCH 29.5, MCHC 34.0, RDW Std Deviation 40.7, RDW Coeff of Leticia 13.2, Plt Count 288, MPV 10.1, Immature Gran % (Auto) 2.700 H, Neut % (Auto) 77.2 H, Lymph % (Auto) 11.3 L, [place] % (Auto) 8.4, Eos % (Auto) 0.1, Baso % (Auto) 0.3, Absolute Neuts (auto) 13.6 H, Absolute Lymphs (auto) 1.98, Nucleated RBC % 0 02/01/20 05:00: Sodium 127 L, Potassium 3.4 L, Chloride 94 L, Carbon Dioxide 24.0, Anion Gap 9, BUN 20 H, Creatinine 1.67 H, Estim Creat Clear Calc 27.71, Est GFR (MDRD) Af Amer 41 L, Est GFR (MDRD) Non-Af 33 L, BUN/Creatinine Ratio 12.0, Glucose 249 H, Calcium 7.6 L 02/01/20 06:32: POC Glucose 280 H 02/01/20 07:30: Urine Color Pending, Urine Clarity Pending, Urine pH Pending, Ur Specific [place] Pending, Urine Protein Pending, Urine Glucose (UA) Pending, Urine Ketones Pending, Urine Occult Blood Pending, Urine Nitrite Pending, Urine Bilirubin Pending, Urine Urobilinogen Pending, Ur Leukocyte Esterase Pending, Urine RBC Pending, Urine WBC Pending, Ur Squamous Epith Cells Pending, Urine Bacteria Pending, Urine Mucus Pending 02/01/20 11:44: POC Glucose 303 H Current Medications Dextrose (D50w Syringe) 0 gm IV X1 PRN; Protocol PRN Reason: Hypoglycemia Glimepiride (Amaryl) 4 mg PO DAILY@0800 [facility] Last Admin: 02/01/20 09:38 Dose: 4 mg Documented by: Glucagon () 1 mg IM .X1 PRN PRN Reason: Hypoglycemia Heparin Sodium (Porcine) (Heparin Na) 5,000 unit SC Q12 [facility] Last Admin: 02/01/20 09:39 Dose: 5,000 unit Documented by: Piperacillin Sod/Tazobactam (Sod 3.375 gm/ Sodium Chloride) 50 mls @ 12.5 mls/hr IV Q8 [facility] Last Infusion: 02/01/20 09:23 Dose: Infused Documented by: Vancomycin IV Pharmacy to Dose (1 ea/ Sodium Chloride) 500 mls @ 250 mls/hr IV X1 PRN; Protocol PRN Reason: Rx to Dose Sodium Chloride () 250 mls @ 15 mls/hr IV .[id number] PRN PRN Reason: Saline Flush Last Infusion: 02/01/20 05:28 Dose: 0 mls/hr Documented by: Sodium Chloride () 250 mls @ 15 mls/hr IV .[id number] PRN PRN Reason: Additional IVPB Infusion Lactated Ringer's () 1,000 mls @ 100 mls/hr IV .Q10H [facility] Last Admin: 02/01/20 09:43 Dose: 100 mls/hr Documented by: Insulin Human Lispro (Humalog Kwikpen (Bkc)) 0 unit SC ACHS [facility]; Protocol Last Admin: 02/01/20 06:33 Dose: 9 u Documented by: Metformin HCl (Glucophage) 1,000 mg PO BIDCM [facility] Last Admin: 02/01/20 09:38 Dose: 1,000 mg Documented by: Oxycodone HCl (Oxyir) 10 mg PO Q4H PRN PRN PRN Reason: Pain Score 6-10/10 Pioglitazone HCl (Actos) 45 mg PO DAILY [facility] Last Admin: 02/01/20 09:39 Dose: 45 mg Documented by: Ramipril (Altace) 5 mg PO DAILY [facility] Last Admin: 02/01/20 09:39 Dose: 5 mg Documented by: Sodium Chloride () 10 - 40 ml IV UD PRN PRN Reason: SALINE FLUSH Triamterene/HCTZ (Dyazide (G)) 1 cap PO DAILY [facility] Last Admin: 02/01/20 09:39 Dose: 1 cap Documented by: Medical Necessity - Tobacco Use Smoking Status: Never smoker Tobacco Use: Non-smoker Assessment/Plan All Active Problems Diabetic ulcer of left foot (Acute) Cellulitis of foot associated with diabetes mellitus (Acute) Hyponatremia (Acute) Hyperglycemia due to type 2 diabetes mellitus (Acute) Deep wound infection of the left foot (Acute) Necrotic ulceration down to fascia and bone layer left foot s/p debridement 01/31/2020 Severe abscess, and cellulitis left foot Necrotizing fasciitis/gas gangrene left foot Diabetes w/ neuropathy Re-evaluation performed. Reviewed data. Cellulitis improving, WBC down to 17.6. There was some noted purulence to the dorsal base of 3rd toe which was drained. We will proceed with daily dressing changes - packing w/ Iodoform dorsal base of 3rd toe and betadine wet to dry dressing changes. Continue to follow cultures. Patient on IV antibiotics - ID following. No weightbearing left foot, keep foot elevated at all times. Discussed w/ pt nursing facility once discharged for wound care. Podiatry will continue to follow.
--- NOTE | 2020-02-01 12:50 | NURSING ---
wound photo: left foot
[2020-02-01 14:00] VITALS: BP 136/72; PULSE 82; RESP 18; TEMP 37.2; O2SAT 99
--- NOTE | 2020-02-01 14:20 | CASEMGMT ---
Addendum entered by Marianna Jenkins 02/01/20 14:56: SW received message from Anya at [facility] asking when pt may be ready for discharge, what pt will be coming to SNF for, and that they do require month up front payment of $7,440. SW in to update pt on month up front cost, pt states she will update her . MARCK placed a call back to Anya and answered her questions, Anya states she will let this worker know soon if they are able to accept. SW waiting for call back. Original Note: Social Work Note SW updated that pt is agreeable to SNF for wound care, possibly IV antibiotics at discharge. SW met with pt. SW introduced self and role at [facility]. Pt is alert and orientated x3. Pt confirms that she is agreeable to SNF and requests [facility]. SW explained that since pt has no insurance, SNF would be all private pay. Pt is listed as being Mennonite and per PFS, pt utilizes [facility] for expenses she can't afford. SW provided pt with list of SNF and self pay prices for SNF. Pt states that she would like referral sent to [facility], states that her had been there before and they really liked it. SW placed a call to Anya at [facility], left message regarding referral. SW faxed referral. Plan: [facility] pending acceptance Marianna Jenkins HARDWARE MANAGER, BUSINESS CONSULT
[2020-02-01 14:24] LABS: Vancomycin, Trough Level 24.4 ug/mL (5.0-15.0)
--- NOTE | 2020-02-01 16:06 | PCM.RX.CS ---
Consult Pharmacy has been consulted to manage selected antiobiotic: Vancomycin Type of Consult: Follow-up Suspected Infection: Osteomyelitis Labs: Sodium 127 mmol/L (136-145) L 02/01/20 05:00 Potassium 3.4 mmol/L (3.5-5.1) L 02/01/20 05:00 Chloride 94 mmol/L (98-107) L 02/01/20 05:00 Carbon Dioxide 24.0 mmol/L (21.0-32.0) 02/01/20 05:00 Anion Gap 9 (5-15) 02/01/20 05:00 BUN 20 mg/dL (7-18) H 02/01/20 05:00 Creatinine 1.67 mg/dL (0.55-1.02) H 02/01/20 05:00 Est GFR (MDRD) Af Amer 41 mL/min (>60) L 02/01/20 05:00 Est GFR (MDRD) Non-Af 33 mL/min (>60) L 02/01/20 05:00 BUN/Creatinine Ratio 12.0 RATIO (10-20) 02/01/20 05:00 Glucose 249 mg/dL (74-106) H 02/01/20 05:00 Vancomycin Trough 24.4 ug/mL (5.0-15.0) H 02/01/20 13:35 Microbiology: Microbiology 01/31/20 15:06 Bone - Toe Gram Stain - Final 01/31/20 15:06 Bone - Toe Wound Culture - Preliminary Alpha hemolytic organism Gram positive organism 01/31/20 15:05 Tissue - Toe Gram Stain - Final 01/31/20 15:05 Tissue - Toe Wound Culture - Preliminary No growth-Final to follow 01/31/20 15:13 Wound Drainage - Open/Non-Healing Wound Gram Stain - Final 01/31/20 15:13 Wound Drainage - Open/Non-Healing Wound Wound Culture - Preliminary Alpha hemolytic organism Beta hemolytic organism Goal Trough: 15-20 mcg/mL Pharmacy Plan for Drug Dosing: Pt's SrCr increased by greater than 1.0 01/31--Trough resulted at 24.4. Recommended holding additional doses and checking a random level 02/01 @ 1200. Pharmacy Service will continue to monitor and adjust dosing as required.
[2020-02-01] MEDS: Juven (unflavored) Packet 1 PACKET PO (18:12)
--- NOTE | 2020-02-01 18:34 | PCM.PROGNOTE ---
Patient Problems: Active and Suspected Problems Diabetic ulcer of left foot (Acute) Cellulitis of foot associated with diabetes mellitus (Acute) Hyponatremia (Acute) Hyperglycemia due to type 2 diabetes mellitus (Acute) Deep wound infection of the left foot (Acute) Subjective: Patient was seen and examined today, she has decided it would be a good idea to go to a skilled care facility for short-term rehab, she would like to go to the [facility] in [place]. Patient's wound cultures so far has grown out alpha and beta hemolytic organism as well as gram-negative anthony. Her bone culture grew out an alpha hemolytic organism. Patient's white blood cell count today was 17.6, potassium was slightly low at 3.4, creatinine has risen to 1.67. I have decided to stop the patient's diuretic, she is currently receiving IV fluids. Labs will be rechecked tomorrow - Physical Exam Vitals/I&O's: Vital Signs Temp Pulse Resp BP Pulse Ox 98.9 F 82 18 136/72 H 99 02/01/20 14:00 02/01/20 14:00 02/01/20 14:00 02/01/20 14:00 02/01/20 14:00 Oxygen Delivery Method Room Air Weight: 97.069 kg Body Mass Index (BMI) 40.4 Finger Stick Blood Glucose 235 Intake and Output for Last 24 Hours 01/30/20 01/31/20 02/01/20 23:59 23:59 23:59 Intake Total 1901.67 / 2251.67 3962.5 / 3962.5 Output Total 300 / 300 700 / 700 Balance 1601.67 / 1951.67 3262.5 / 3262.5 General: Alert, Oriented x3, Cooperative, No apparent distress, Well developed, Well nourished HEENT: Atraumatic, PERRLA, EOMI, Normocephalic Neck: Supple, No JVD, Negative Carotid Bruits, Trachea Midline, Thyroid Normal Size and Texture Lungs: Clear to auscultation, Normal air movement, No rhonchi, No wheeze, No rales Cardiovascular: Regular rate, Regular Rhythm, Normal S1, Normal S2, No murmurs Abdomen: Bowel Sounds Present, Soft, Non Tender, Non-Distended, Obese Extremities: No clubbing, No cyanosis, Capillary Refill Less than 3 Seconds, - - Patient's left foot is wrapped with surgical dressing and Kenneth wrap this was not removed for examination Skin: No rashes Neurological: Cranial nerves II-XII grossly intact, Neuro grossly intact, Sensory exam intact to light touch and pain, Coordination normal Psych/Mental Status: Normal Affect, Appropriate, Alert and oriented to time, place, person, mood and affect Microbiology Past 72 Hours 01/31/20 15:06 Bone - Toe Gram Stain - Final 01/31/20 15:06 Bone - Toe Wound Culture - Preliminary Alpha hemolytic organism Gram positive organism 01/31/20 15:05 Tissue - Toe Gram Stain - Final 01/31/20 15:05 Tissue - Toe Wound Culture - Preliminary No growth-Final to follow 01/31/20 15:13 Wound Drainage - Open/Non-Healing Wound Gram Stain - Final 01/31/20 15:13 Wound Drainage - Open/Non-Healing Wound Wound Culture - Preliminary Alpha hemolytic organism Beta hemolytic organism Laboratory Results 01/31/20 22:18: POC Glucose 293 H 02/01/20 05:00: WBC 17.6 H, RBC 3.53 L, Hgb 10.4 L, Hct 30.6 L, MCV 86.7, MCH 29.5, MCHC 34.0, RDW Std Deviation 40.7, RDW Coeff of Leticia 13.2, Plt Count 288, MPV 10.1, Immature Gran % (Auto) 2.700 H, Neut % (Auto) 77.2 H, Lymph % (Auto) 11.3 L, [place] % (Auto) 8.4, Eos % (Auto) 0.1, Baso % (Auto) 0.3, Absolute Neuts (auto) 13.6 H, Absolute Lymphs (auto) 1.98, Nucleated RBC % 0 02/01/20 05:00: Sodium 127 L, Potassium 3.4 L, Chloride 94 L, Carbon Dioxide 24.0, Anion Gap 9, BUN 20 H, Creatinine 1.67 H, Estim Creat Clear Calc 27.71, Est GFR (MDRD) Af Amer 41 L, Est GFR (MDRD) Non-Af 33 L, BUN/Creatinine Ratio 12.0, Glucose 249 H, Calcium 7.6 L 02/01/20 06:32: POC Glucose 280 H 02/01/20 07:30: Urine Color Pending, Urine Clarity Pending, Urine pH Pending, Ur Specific [place] Pending, Urine Protein Pending, Urine Glucose (UA) Pending, Urine Ketones Pending, Urine Occult Blood Pending, Urine Nitrite Pending, Urine Bilirubin Pending, Urine Urobilinogen Pending, Ur Leukocyte Esterase Pending, Urine RBC Pending, Urine WBC Pending, Ur Squamous Epith Cells Pending, Urine Bacteria Pending, Urine Mucus Pending 02/01/20 11:44: POC Glucose 303 H 02/01/20 13:35: Vancomycin Trough 24.4 H Current Medications Dextrose (D50w Syringe) 0 gm IV X1 PRN; Protocol PRN Reason: Hypoglycemia Glimepiride (Amaryl) 4 mg PO DAILY@0800 [facility] Last Admin: 02/01/20 09:38 Dose: 4 mg Documented by: Glucagon () 1 mg IM .X1 PRN PRN Reason: Hypoglycemia Heparin Sodium (Porcine) (Heparin Na) 5,000 unit SC Q12 [facility] Last Admin: 02/01/20 09:39 Dose: 5,000 unit Documented by: Piperacillin Sod/Tazobactam (Sod 3.375 gm/ Sodium Chloride) 50 mls @ 12.5 mls/hr IV Q8 [facility] Last Admin: 02/01/20 14:17 Dose: 12.5 mls/hr Documented by: Vancomycin IV Pharmacy to Dose (1 ea/ Sodium Chloride) 500 mls @ 250 mls/hr IV X1 PRN; Protocol PRN Reason: Rx to Dose Sodium Chloride () 250 mls @ 15 mls/hr IV .[id number] PRN PRN Reason: Saline Flush Last Infusion: 02/01/20 05:28 Dose: 0 mls/hr Documented by: Sodium Chloride () 250 mls @ 15 mls/hr IV .[id number] PRN PRN Reason: Additional IVPB Infusion Lactated Ringer's () 1,000 mls @ 100 mls/hr IV .Q10H [facility] Last Admin: 02/01/20 09:43 Dose: 100 mls/hr Documented by: Insulin Human Lispro (Humalog Kwikpen (Bkc)) 0 unit SC ACHS [facility]; Protocol Last Admin: 02/01/20 17:08 Dose: 9 u Documented by: Metformin HCl (Glucophage) 1,000 mg PO BIDCM [facility] Last Admin: 02/01/20 17:10 Dose: 1,000 mg Documented by: Oxycodone HCl (Oxyir) 10 mg PO Q4H PRN PRN PRN Reason: Pain Score 6-10/10 Pioglitazone HCl (Actos) 45 mg PO DAILY [facility] Last Admin: 02/01/20 09:39 Dose: 45 mg Documented by: Ramipril (Altace) 5 mg PO DAILY [facility] Last Admin: 02/01/20 09:39 Dose: 5 mg Documented by: Sodium Chloride () 10 - 40 ml IV UD PRN PRN Reason: SALINE FLUSH Sodium Hypochlorite (Dakins Solution 0.25% (1/2 Strength)) 1 applic TOPICAL DAILY [facility]; Protocol Triamterene/HCTZ (Dyazide (G)) 1 cap PO DAILY [facility] Last Admin: 02/01/20 09:39 Dose: 1 cap Documented by: Medical Necessity - Tobacco Use Smoking Status: Never smoker Tobacco Use: Non-smoker Assessment/Plan All Active Problems Diabetic ulcer of left foot (Acute) Cellulitis of foot associated with diabetes mellitus (Acute) Hyponatremia (Acute) Hyperglycemia due to type 2 diabetes mellitus (Acute) Deep wound infection of the left foot (Acute) #1 deep wound infection of the left foot-neuropathic in nature-again patient underwent surgery today for major debridement of the area, she will be maintained on vancomycin and Zosyn for now, final cultures with identification of the exact organism are pending of her left foot. 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 Inpatient E&M: 93746 Subs Hosp L2
[2020-02-01 19:54] VITALS: BP 148/67; PULSE 89; RESP 20; TEMP 36.9; O2SAT 96
[2020-02-01 20:00] VITALS: PULSE 89; RESP 20; O2SAT 96
[2020-02-02 00:10] LABS: Bedside Glucose 210 mg/dL (70-110)
[2020-02-02 02:43] VITALS: BP 134/54; PULSE 86; RESP 20; TEMP 36.6; O2SAT 93
[2020-02-02] MEDS: Lactated Ringers 1,000 ML 100 ML IV ×2 (05:51→14:58)
[2020-02-02 06:05] LABS: Absolute Lymphocyte Count 2.84 X10^3/uL (0.83-4.51); Absolute Neutrophil Count 13.4 X10^3/uL (2.0-7.7); Basophil# 0.07 X10^3/uL; Basophil% 0.4 % (0-1); Eosinophil# 0.08 X10^3/uL; Eosinophils% 0.4 % (0-5); Hematocrit 28.4 % (37-47); Hemoglobin 9.5 g/dL (12.0-15.0); Lymphocyte # 2.84 X10^3/ul (4.0); Lymphocyte % 15.6 % (19-41); Mean Corp Hgb Conc 33.5 g/dL (32-36); Mean Corpuscular Hgb 28.6 pg (27.0-32.0); Mean Corpuscular Volume 85.5 fL (81-99); Mean Platelet Vol. 10.1 fl (6.2-12.0); Monocyte# 1.25 X10^3/uL; Monocyte% 6.9 % (0-10); NRBC Flagged by Analyzer 0 % (0-5); Neutrophil # 13.44 X10^3/uL (2.7-7.7); Neutrophil % 73.7 % (47-70); Platelet Count 325 K/mm3 (150-450); RBC Distribution Width CV 13.1 % (11.6-14.6); RBC Distribution Width SD 40.3 fl (35.1-43.9); Red Blood Count 3.32 M/mm3 (4.2-5.4); White Blood Count 18.2 K/mm3 (4.4-11.0)
[2020-02-02 06:31] LABS: Anion Gap 10 (5-15); BUN 31 mg/dL (7-18); BUN/Creat Ratio 13.5 RATIO (10-20); Calcium,Total 7.6 mg/dL (8.5-10.1); Chloride 92 mmol/L (98-107); Creatinine, Serum 2.29 mg/dL (0.55-1.02); EST Glomerular Filtration Rate 23 mL/min (>60); Est Glom Filt Rate - Afr Amer 28 mL/min (>60); Estimated Creatinine Clearance 20.21 ml/min; Glucose 168 mg/dL (74-106); Potassium 3.2 mmol/L (3.5-5.1); Sodium Level 125 mmol/L (136-145)
[2020-02-02] MEDS: Insulin Lispro 100 UNIT/ML INSULN.PEN SC ×4 (06:38→22:47)
[2020-02-02 06:45] LABS: Bedside Glucose 174 mg/dL (70-110)
[2020-02-02 07:29] VITALS: BP 136/71; PULSE 84; RESP 16; TEMP 36.9; O2SAT 94
[2020-02-02] MEDS: metFORMIN HCl 500 MG Tablet 1000 MG PO (07:49)
[2020-02-02] MEDS: Juven (unflavored) Packet 1 PACKET PO ×2 (07:49→16:15)
[2020-02-02] MEDS: Glimepiride 4 MG Tablet PO (07:49)
--- NOTE | 2020-02-02 09:02 | CASEMGMT ---
Addendum entered by Sherron Desir 02/02/20 10:01: Social Work Per Dr. Parker pt is not ready for discharge today but possibly over the weekend. Phone call to Anya at [facility] and updated. Hens 7000 completed. [facility] IBAN Frye Original Note: Social Work Return call from Anya at [facility] and they are able to accept pt. Pt notified and agreeable. Pt states she has spoke with her about need for payment up front and will let him know admission is confirmed. [facility] IBAN Frye
[2020-02-02] MEDS: DAKIN'S SOL HALF STRENGTH (=0.25%) 1 APPLIC TOPICAL ×2 (09:26→23:22)
--- NOTE | 2020-02-02 09:26 | PCM.PROGNOTE ---
Patient Problems: Active and Suspected Problems Diabetic ulcer of left foot (Acute) Cellulitis of foot associated with diabetes mellitus (Acute) Hyponatremia (Acute) Hyperglycemia due to type 2 diabetes mellitus (Acute) Deep wound infection of the left foot (Acute) Subjective: Patient was seen today, she relates to some nausea, no fevers, chills, or vomiting. She relates she had some diarrhea. WBC up to 18.2, no fevers. Creatinine up to 2.29 - nephrology consulted. She denies foot pain. - Physical Exam Vitals/I&O's: Vital Signs Temp Pulse Resp BP Pulse Ox 98.5 F 84 16 136/71 H 94 02/02/20 07:29 02/02/20 07:29 02/02/20 07:29 02/02/20 07:02/02/20 07:29 Oxygen Delivery Method Room Air Weight: 97.069 kg Body Mass Index (BMI) 40.4 Finger Stick Blood Glucose 235 Intake and Output for Last 24 Hours 01/31/20 02/01/20 02/02/20 23:59 23:59 23:59 Intake Total 1901.67 / 2251.67 5012.5 / 5212.5 1727.75 / 1727.75 Output Total 300 / 300 700 / 1500 1600 / 1600 Balance 1601.67 / 1951.67 4312.5 / 3712.5 127.75 / 127.75 General: Alert, Oriented x3, Cooperative, No apparent distress Extremities: Capillary Refill Less than 3 Seconds, - - s/p wide debridement left forefoot with open wound present, tissue granular, serous drainage, there is some scant purulence to the base of the 3rd toe - less than yesterday, cellulitis is resolving, no streaking, no maloder, no fluctuance, no crepitus. Minimal pain to the left foot w/ palpation. Psych/Mental Status: Appropriate, Alert and oriented to time, place, person, mood and affect Microbiology Past 72 Hours 01/31/20 15:05 Tissue - Toe Gram Stain - Final 01/31/20 15:05 Tissue - Toe Wound Culture - Preliminary No growth-Final to follow 01/31/20 15:05 Tissue - Toe Anaerobic Culture - Preliminary No growth in 48 hours. 01/31/20 15:06 Bone - Toe Gram Stain - Final 01/31/20 15:06 Bone - Toe Wound Culture - Preliminary Alpha hemolytic organism Gram positive organism 01/31/20 15:13 Wound Drainage - Open/Non-Healing Wound Gram Stain - Final 01/31/20 15:13 Wound Drainage - Open/Non-Healing Wound Wound Culture - Preliminary Alpha hemolytic organism Beta hemolytic organism Laboratory Results 02/01/20 07:30: Urine Color Cancelled, Urine Clarity Cancelled, Urine pH Cancelled, Ur Specific [place] Cancelled, U Specif Grav (Refrac) Cancelled, Urine Protein Cancelled, Urine Glucose (UA) Cancelled, Urine Ketones Cancelled, Urine Occult Blood Cancelled, Urine Nitrite Cancelled, Urine Bilirubin Cancelled, Urine Urobilinogen Cancelled, Ur Leukocyte Esterase Cancelled, Urine RBC Cancelled, Urine WBC Cancelled, Ur Squamous Epith Cells Cancelled, Ur Transition Epith Cell Cancelled, Ur Renal Epithelial Cell Cancelled, Calcium Oxalate Crystal Cancelled, Uric Acid Crystals Cancelled, Triple Phos Crystals Cancelled, Other Crystals Cancelled, Amorphous Sediment Cancelled, Urine Bacteria Cancelled, Hyaline Casts Cancelled, Fine Granular Casts Cancelled, Coarse Granular Casts Cancelled, Waxy Casts Cancelled, RBC Casts Cancelled, WBC Casts Cancelled, Urine Mucus Cancelled, Urine Trichomonas Cancelled, Urine Yeast Cancelled 02/01/20 11:44: POC Glucose 303 H 02/01/20 13:35: Vancomycin Trough 24.4 H 02/01/20 21:49: POC Glucose 210 H 02/02/20 05:12: WBC 18.2 H, RBC 3.32 L, Hgb 9.5 L, Hct 28.4 L, MCV 85.5, MCH 28.6, MCHC 33.5, RDW Std Deviation 40.3, RDW Coeff of Leticia 13.1, Plt Count 325, MPV 10.1, Immature Gran % (Auto) 3.000 H, Neut % (Auto) 73.7 H, Lymph % (Auto) 15.6 L, [place] % (Auto) 6.9, Eos % (Auto) 0.4, Baso % (Auto) 0.4, Absolute Neuts (auto) 13.4 H, Absolute Lymphs (auto) 2.84, Nucleated RBC % 0 02/02/20 05:12: Sodium 125 L, Potassium 3.2 L, Chloride 92 L, Carbon Dioxide 23.0, Anion Gap 10, BUN 31 H, Creatinine 2.29 H, Estim Creat Clear Calc 20.21, Est GFR (MDRD) Af Amer 28 L, Est GFR (MDRD) Non-Af 23 L, BUN/Creatinine Ratio 13.5, Glucose 168 H, Calcium 7.6 L 02/02/20 06:37: POC Glucose 174 H Current Medications Dextrose (D50w Syringe) 0 gm IV X1 PRN; Protocol PRN Reason: Hypoglycemia Glimepiride (Amaryl) 4 mg PO DAILY@0800 [facility] Last Admin: 02/02/20 07:49 Dose: 4 mg Documented by: Glucagon () 1 mg IM .X1 PRN PRN Reason: Hypoglycemia Heparin Sodium (Porcine) (Heparin Na) 5,000 unit SC Q12 [facility] Last Admin: 02/01/20 21:45 Dose: 5,000 unit Documented by: Piperacillin Sod/Tazobactam (Sod 3.375 gm/ Sodium Chloride) 50 mls @ 12.5 mls/hr IV Q8 [facility] Last Admin: 02/02/20 05:15 Dose: 12.5 mls/hr Documented by: Vancomycin IV Pharmacy to Dose (1 ea/ Sodium Chloride) 500 mls @ 250 mls/hr IV X1 PRN; Protocol PRN Reason: Rx to Dose Sodium Chloride () 250 mls @ 15 mls/hr IV .[id number] PRN PRN Reason: Saline Flush Last Infusion: 02/02/20 05:15 Dose: 0 mls/hr Documented by: Sodium Chloride () 250 mls @ 15 mls/hr IV .[id number] PRN PRN Reason: Additional IVPB Infusion Lactated Ringer's () 1,000 mls @ 100 mls/hr IV .Q10H [facility] Last Admin: 02/02/20 05:51 Dose: 100 mls/hr Documented by: Insulin Human Lispro (Humalog Kwikpen (Bkc)) 0 unit SC ACHS [facility]; Protocol Last Admin: 02/02/20 06:38 Dose: 3 u Documented by: Metformin HCl (Glucophage) 1,000 mg PO BIDCM [facility] Last Admin: 02/02/20 07:49 Dose: 1,000 mg Documented by: Oxycodone HCl (Oxyir) 10 mg PO Q4H PRN PRN PRN Reason: Pain Score 6-10/10 Pioglitazone HCl (Actos) 45 mg PO DAILY [facility] Last Admin: 02/01/20 09:39 Dose: 45 mg Documented by: Ramipril (Altace) 5 mg PO DAILY [facility] Last Admin: 02/01/20 09:39 Dose: 5 mg Documented by: Sodium Chloride () 10 - 40 ml IV UD PRN PRN Reason: SALINE FLUSH Sodium Hypochlorite (Dakins Solution 0.25% (1/2 Strength)) 1 applic TOPICAL DAILY [facility]; Protocol Medical Necessity - Tobacco Use Smoking Status: Never smoker Tobacco Use: Non-smoker Assessment/Plan All Active Problems Diabetic ulcer of left foot (Acute) Cellulitis of foot associated with diabetes mellitus (Acute) Hyponatremia (Acute) Hyperglycemia due to type 2 diabetes mellitus (Acute) Deep wound infection of the left foot (Acute) Necrotic ulceration down to fascia and bone layer left foot s/p debridement 01/31/2020 Severe abscess, and cellulitis left foot Necrotizing fasciitis/gas gangrene left foot Diabetes w/ neuropathy Re-evaluation performed. Reviewed data. WBC still elevated, but no fevers and clinical improvement to foot noted, there was some small scant purulence to base of 3rd toe, but less than yesterday, cellulitis is receding and overall tissues appear healthy and viable. Site flushed out with normal saline solution, continue w/ dressing changes - packing w/ Iodoform dorsal base of 3rd toe and Dakins wet to dry dressing changes but switch to BID - discussed with Dee/wound nurse. Continue to follow cultures. Patient on IV antibiotics - ID/Dr. Hubbard consulted. No weightbearing left foot, keep foot elevated at all times. Patient planning to go to nursing facility once discharged for wound care. Discussed with Dr. Winter. Podiatry will continue to follow.
[2020-02-02] MEDS: Heparin Injection (Vial) 5,000 UNIT/ML VIAL 5000 UNIT SC ×2 (11:28→22:48)
[2020-02-02] MEDS: Ramipril 5 MG Capsule PO (11:28)
[2020-02-02] MEDS: Pioglitazone Hydrochloride 45 MG Tablet PO (11:28)
[2020-02-02 11:56] LABS: Bedside Glucose 247 mg/dL (70-110)
[2020-02-02 12:47] LABS: Vancomycin, Random Level 16.3 ug/mL (0.0-15.0)
[2020-02-02 14:00] VITALS: BP 134/64; PULSE 77; RESP 18; TEMP 36.6; O2SAT 98
[2020-02-02 16:25] LABS: Bedside Glucose 177 mg/dL (70-110)
--- NOTE | 2020-02-02 16:37 | CT_ITS ---
Exam: Noncontrast CT of the left foot. Recent amputations of the fourth and fifth digits. HISTORY: Left foot ulcer. COMPARISON: Radiographs 01/31/2020 FINDINGS: Amputations are seen of the fourth and fifth digits. Extensive soft tissue wound. The heads of the fourth and fifth metatarsals are directly exposed with no overlying soft tissues. This appearance is almost by definition osteomyelitis and in fact there is a focal osteolytic lesion in the head of the fourth metatarsal. Diffuse soft tissue swelling without definite focal fluid collection or abscess. No gross soft tissue air. No other acute abnormalities. CT/Extremity Lower without Contra IMPRESSION: Amputations of the fourth and fifth digits, with a very large soft tissue defect through which the heads of the fourth and fifth metatarsals protrude. Correlate with physical exam. No gross focal fluid collection, abscess or soft tissue air. Electronically Signed: Angel Luis Badillo MD at 17:35 EDT , Service support ,
--- NOTE | 2020-02-02 16:41 | CON.PCM_ITS ---
Problem List (1) Cellulitis of foot associated with diabetes mellitus Status: Acute Reason for Consult: osteo Consulted by: Dr. Winter History of Present Illness: The patient is a 59 year old F with DM, presented 01/30 with several weeks of progressive L foot wound with redness, swelling, odor. Denies fever/chills, no drainage, no pain. Denies any h/o neuropathy. Seen by podiatry, started on vanc/zosyn, taken to OR for nec fasc and removal of 4th and 5th toes. Feeling ok, no pain. Now with worsening CHRISTINA. No n/v/d. Full ROS Performed and neg except as noted above. - Medical History Past Medical History (Chronic Problems): Chronic Problems Type 2 diabetes mellitus (Chronic) Allergies/Adverse Reactions: Allergies No Known Allergies Allergy (Verified 01/31/20 10:37) Home Medications: Ambulatory Orders Medication Instructions Recorded Cephalexin [Keflex] 500 mg PO 4X/DAY 01/31/20 Glimepiride [Amaryl] 4 mg PO DAILY 01/31/20 Metformin HCl 1,000 mg PO BID 01/31/20 Pioglitazone [Actos] 45 mg PO DAILY 01/31/20 Ramipril 5 mg PO DAILY 01/31/20 Triamterene 75MG/Hctz 50MG 0.5 tab PO DAILY 01/31/20 [Maxzide] - Social History Tobacco Use: non-smoker Vital Signs Temp Pulse Resp BP Pulse Ox 97.9 F 77 18 134/64 H 98 02/02/20 14:00 02/02/20 14:00 02/02/20 14:00 02/02/20 14:00 02/02/20 14:00 Oxygen Delivery Method Room Air Weight: 97.069 kg Body Mass Index (BMI) 40.4 Finger Stick Blood Glucose 235 Microbiology Past 72 Hours 01/31/20 15:06 Gram Stain - Final Bone - Toe Wound Culture - Preliminary Staphylococcus species Gram positive organism Gram positive anthony Gram positive organism#2 Anaerobic Culture - Preliminary 01/31/20 15:13 Gram Stain - Final Wound Drainage - Open/Non-Healing Wound Wound Culture - Preliminary Gram positive anthony Streptococcus group B Alpha hemolytic organism Anaerobic Culture - Preliminary Checking for anaerobes, further studies to follow. 02/01/20 11:30 Urine Culture - Preliminary Urine, Clean Catch Culture exhibits no growth. 01/31/20 15:05 Gram Stain - Final Tissue - Toe Wound Culture - Preliminary No growth-Final to follow Anaerobic Culture - Preliminary No growth in 48 hours. Laboratory Tests Past 24 Hrs 02/01/20 02/02/20 02/02/20 07:30 05:12 05:12 WBC 18.2 H RBC 3.32 L Hgb 9.5 L Hct 28.4 L MCV 85.5 MCH 28.6 MCHC 33.5 RDW Std Deviation 40.3 RDW Coeff of Leticia 13.1 Plt Count 325 MPV 10.1 Immature Gran % (Auto) 3.000 H Neut % (Auto) 73.7 H Lymph % (Auto) 15.6 L [place] % (Auto) 6.9 Eos % (Auto) 0.4 Baso % (Auto) 0.4 Absolute Neuts (auto) 13.4 H Absolute Lymphs (auto) 2.84 Nucleated RBC % 0 Sodium 125 L Potassium 3.2 L Chloride 92 L Carbon Dioxide 23.0 Anion Gap 10 BUN 31 H Creatinine 2.29 H Estim Creat Clear Calc 20.21 Est GFR (MDRD) Af Amer 28 L Est GFR (MDRD) Non-Af 23 L BUN/Creatinine Ratio 13.5 Glucose 168 H Calcium 7.6 L Urine Color Cancelled Urine Clarity Cancelled Urine pH Cancelled Ur Specific [place] Cancelled U Specif Grav (Refrac) Cancelled Urine Protein Cancelled Urine Glucose (UA) Cancelled Urine Ketones Cancelled Urine Occult Blood Cancelled Urine Nitrite Cancelled Urine Bilirubin Cancelled Urine Urobilinogen Cancelled Ur Leukocyte Esterase Cancelled Urine RBC Cancelled Urine WBC Cancelled Ur Squamous Epith Cells Cancelled Ur Transition Epith Cell Cancelled Ur Renal Epithelial Cell Cancelled Calcium Oxalate Crystal Cancelled Uric Acid Crystals Cancelled Triple Phos Crystals Cancelled Other Crystals Cancelled Amorphous Sediment Cancelled Urine Bacteria Cancelled Hyaline Casts Cancelled Fine Granular Casts Cancelled Coarse Granular Casts Cancelled Waxy Casts Cancelled RBC Casts Cancelled WBC Casts Cancelled Urine Mucus Cancelled Urine Trichomonas Cancelled Urine Yeast Cancelled Random Vancomycin 02/02/20 12:05 WBC RBC Hgb Hct MCV MCH MCHC RDW Std Deviation RDW Coeff of Leticia Plt Count MPV Immature Gran % (Auto) Neut % (Auto) Lymph % (Auto) [place] % (Auto) Eos % (Auto) Baso % (Auto) Absolute Neuts (auto) Absolute Lymphs (auto) Nucleated RBC % Sodium Potassium Chloride Carbon Dioxide Anion Gap BUN Creatinine Estim Creat Clear Calc Est GFR (MDRD) Af Amer Est GFR (MDRD) Non-Af BUN/Creatinine Ratio Glucose Calcium Urine Color Urine Clarity Urine pH Ur Specific [place] U Specif Grav (Refrac) Urine Protein Urine Glucose (UA) Urine Ketones Urine Occult Blood Urine Nitrite Urine Bilirubin Urine Urobilinogen Ur Leukocyte Esterase Urine RBC Urine WBC Ur Squamous Epith Cells Ur Transition Epith Cell Ur Renal Epithelial Cell Calcium Oxalate Crystal Uric Acid Crystals Triple Phos Crystals Other Crystals Amorphous Sediment Urine Bacteria Hyaline Casts Fine Granular Casts Coarse Granular Casts Waxy Casts RBC Casts WBC Casts Urine Mucus Urine Trichomonas Urine Yeast Random Vancomycin 16.3 H - Other Studies Radiology: [] reviewed Other Studies: [] Route of nutrition/ use of supplements: [] Nutritional Intake: [] IV Site: [] [place] Catheter: [] - Physical Exam General: Alert, Oriented x3, Cooperative, No apparent distress HEENT: Atraumatic, PERRLA, EOMI Neck: Supple, No Nodes Lungs: Clear to auscultation, Normal air movement Cardiovascular: Regular rate, Regular Rhythm, No murmurs Abdomen: Soft, Non Tender, Non-Distended Extremities: Edema - LLE Skin: Ulcer/ Wound - foot wrapped IV Site: Peripheral, without redness Musculoskeletal: No Tenderness to Palpation of Joints or Extremities Neurological: Cranial nerves II-XII grossly intact - Assessment/Plan Antibiotics: [] Assessment/Plan: [] Active and Suspected Problems Diabetic ulcer of left foot (Acute) Cellulitis of foot associated with diabetes mellitus (Acute) Hyponatremia (Acute) Hyperglycemia due to type 2 diabetes mellitus (Acute) Deep wound infection of the left foot (Acute) L foot necrotizing fasciitis and osteo with h/o DM - taken to OR 01/31/[address] Parker. Clearance fragment showing some bacteria. Surgical/wound cxs with GPR , GBS, alpha hemolytic organism, staph. MRSA screen neg. Now with CHRISTINA. Wbc still elevated. On vanc/zosyn. Will check L foot noncontrast CT to help eval for any gas/necrosis deeper in the foot. Will stop vanc due to CHRISTINA, change to linezolid and cefepime. Adding clinda for anti-toxin effect in setting of nec fasc. Will follow, thank you, d/w Dr. Winter.
--- NOTE | 2020-02-02 17:10 | PCM.CONS.R ---
Problem List (1) CHRISTINA (acute kidney injury) Status: Acute Consultation - Renal 02/02/20 PCP/ Referring MD: Requesting physician: [] Primary care physician: Noah Levin DO Reason for Consultation:: CHRISTINA - History of Present Illness History of Present Illness: The patient is a 59 year old F admitted with left foot cellulitis and necrotizing fasciitis. s/p debridement and toe resection. baseline cr normal cr on admission normal now more than 2 no contrast no NSAIDs abx for cellulitis - Allergies Allergies: Allergies No Known Allergies Allergy (Verified 01/31/20 10:37) - Current Medications Current Medications: Current Medications Dextrose (D50w Syringe) 0 gm IV X1 PRN; Protocol PRN Reason: Hypoglycemia Glimepiride (Amaryl) 4 mg PO DAILY@0800 [facility] Last Admin: 02/02/20 07:49 Dose: 4 mg Documented by: Glucagon () 1 mg IM .X1 PRN PRN Reason: Hypoglycemia Guaifenesin (Robitussin Dm) 10 ml PO Q6H PRN PRN PRN Reason: COUGH Heparin Sodium (Porcine) (Heparin Na) 5,000 unit SC Q12 [facility] Last Admin: 02/02/20 11:28 Dose: 5,000 unit Documented by: Sodium Chloride () 250 mls @ 15 mls/hr IV .[id number] PRN PRN Reason: Saline Flush Last Infusion: 02/02/20 05:15 Dose: 0 mls/hr Documented by: Sodium Chloride () 250 mls @ 15 mls/hr IV .[id number] PRN PRN Reason: Additional IVPB Infusion Lactated Ringer's () 1,000 mls @ 100 mls/hr IV .Q10H [facility] Last Admin: 02/02/20 14:58 Dose: 100 mls/hr Documented by: Clindamycin Phosphate 600 mg/ (Dextrose) 54 mls @ 100 mls/hr IV Q8 [facility] Last Infusion: 02/02/20 15:31 Dose: Infused Documented by: Cefepime HCl 1 gm/ Sodium (Chloride) 50 mls @ 100 mls/hr IV Q24@2200 [facility] Insulin Human Lispro (Humalog Kwikpen (Bkc)) 0 unit SC ACHS [facility]; Protocol Last Admin: 02/02/20 16:15 Dose: 3 u Documented by: Linezolid (Zyvox) 600 mg PO BID [facility] Oxycodone HCl (Oxyir) 10 mg PO Q4H PRN PRN PRN Reason: Pain Score 6-10/10 Pioglitazone HCl (Actos) 45 mg PO DAILY [facility] Last Admin: 02/02/20 11:28 Dose: 45 mg Documented by: Sodium Chloride () 10 - 40 ml IV UD PRN PRN Reason: SALINE FLUSH Sodium Hypochlorite (Dakins Solution 0.25% (1/2 Strength)) 1 applic TOPICAL BID [facility]; Protocol - Past Medical History Past Medical History (Chronic Problems): Chronic Problems Type 2 diabetes mellitus (Chronic) - Past Surgical History Surgical History: no surgical history - Social History Smoking Status: Never smoker Alcohol: None Drugs: None - Family History Maternal History Items: Diabetes Paternal History Items: Heart Disease Review of Systems Constitutional: Denies: Chills, Fever, Weight Change HEENT: Denies: Head Aches, Sinus Congestion, Sinus Drainage Cardiovascular: Denies: Chest Pain, Palpitations Respiratory: Denies: Cough, Shortness of breath at rest, Sputum production Gastrointestinal: Denies: Abdominal Pain, Nausea, Vomiting Genitourinary: Denies: Dysuria Musculoskeletal: Denies: Joint Pain, Joint Tenderness Skin: Denies: Rash, Wounds Neurological: Denies: Numbness, Tingling, Focal weakness Psychiatric: Denies: Anxiety, Depression, Homicidal Ideations, Suicidal Ideations Hematologic/ Lymphatic: Denies: Easy Bruising, Easy Bleeding Patient Problems: Active and Suspected Problems CHRISTINA (acute kidney injury) (Acute) Diabetic ulcer of left foot (Acute) Cellulitis of foot associated with diabetes mellitus (Acute) Hyponatremia (Acute) Hyperglycemia due to type 2 diabetes mellitus (Acute) Deep wound infection of the left foot (Acute) - Physical Exam Vitals/I&O's: Vital Signs Temp Pulse Resp BP Pulse Ox 97.9 F 77 18 134/64 H 98 02/02/20 14:00 02/02/20 14:00 02/02/20 14:00 02/02/20 14:02/02/20 14:00 Oxygen Delivery Method Room Air Weight: 97.069 kg Body Mass Index (BMI) 40.4 Finger Stick Blood Glucose 235 Intake and Output for Last 24 Hours 01/31/20 02/01/20 02/02/20 23:59 23:59 23:59 Intake Total 1901.67 / 2251.67 5012.5 / 5212.5 3801.55 / 3801.55 Output Total 300 / 300 700 / 1500 1600 / 1600 Balance 1601.67 / 1951.67 4312.5 / 3712.5 2201.55 / 2201.55 General: Alert, Oriented x3, Cooperative HEENT: Atraumatic, PERRLA, EOMI, Normocephalic Neck: Supple, No JVD, Negative Carotid Bruits Lungs: Clear to auscultation, Normal air movement Cardiovascular: Regular rate, No murmurs Abdomen: Bowel Sounds Present, Soft, Non Tender Extremities: No edema, Capillary Refill Less than 3 Seconds Skin: No rashes, No breakdown Musculoskeletal: No Tenderness to Palpation of Joints or Extremities Neurological: Cranial nerves II-XII grossly intact Psych/Mental Status: Normal Affect, Appropriate Microbiology Past 72 Hours 01/31/20 15:06 Bone - Toe Gram Stain - Final 01/31/20 15:06 Bone - Toe Wound Culture - Preliminary Staphylococcus species Gram positive organism Gram positive anthony Gram positive organism#2 01/31/20 15:06 Bone - Toe Anaerobic Culture - Preliminary 01/31/20 15:13 Wound Drainage - Open/Non-Healing Wound Gram Stain - Final 01/31/20 15:13 Wound Drainage - Open/Non-Healing Wound Wound Culture - Preliminary Gram positive anthony Streptococcus group B Alpha hemolytic organism 01/31/20 15:13 Wound Drainage - Open/Non-Healing Wound Anaerobic Culture - Preliminary Checking for anaerobes, further studies to follow. 02/01/20 11:30 Urine, Clean Catch Urine Culture - Preliminary Culture exhibits no growth. 01/31/20 15:05 Tissue - Toe Gram Stain - Final 01/31/20 15:05 Tissue - Toe Wound Culture - Preliminary No growth-Final to follow 01/31/20 15:05 Tissue - Toe Anaerobic Culture - Preliminary No growth in 48 hours. Laboratory Results 02/01/20 07:30: Urine Color Cancelled, Urine Clarity Cancelled, Urine pH Cancelled, Ur Specific [place] Cancelled, U Specif Grav (Refrac) Cancelled, Urine Protein Cancelled, Urine Glucose (UA) Cancelled, Urine Ketones Cancelled, Urine Occult Blood Cancelled, Urine Nitrite Cancelled, Urine Bilirubin Cancelled, Urine Urobilinogen Cancelled, Ur Leukocyte Esterase Cancelled, Urine RBC Cancelled, Urine WBC Cancelled, Ur Squamous Epith Cells Cancelled, Ur Transition Epith Cell Cancelled, Ur Renal Epithelial Cell Cancelled, Calcium Oxalate Crystal Cancelled, Uric Acid Crystals Cancelled, Triple Phos Crystals Cancelled, Other Crystals Cancelled, Amorphous Sediment Cancelled, Urine Bacteria Cancelled, Hyaline Casts Cancelled, Fine Granular Casts Cancelled, Coarse Granular Casts Cancelled, Waxy Casts Cancelled, RBC Casts Cancelled, WBC Casts Cancelled, Urine Mucus Cancelled, Urine Trichomonas Cancelled, Urine Yeast Cancelled 02/01/20 21:49: POC Glucose 210 H 02/02/20 05:12: WBC 18.2 H, RBC 3.32 L, Hgb 9.5 L, Hct 28.4 L, MCV 85.5, MCH 28.6, MCHC 33.5, RDW Std Deviation 40.3, RDW Coeff of Leticia 13.1, Plt Count 325, MPV 10.1, Immature Gran % (Auto) 3.000 H, Neut % (Auto) 73.7 H, Lymph % (Auto) 15.6 L, Clare % (Auto) 6.9, Eos % (Auto) 0.4, Baso % (Auto) 0.4, Absolute Neuts (auto) 13.4 H, Absolute Lymphs (auto) 2.84, Nucleated RBC % 0 02/02/20 05:12: Sodium 125 L, Potassium 3.2 L, Chloride 92 L, Carbon Dioxide 23.0, Anion Gap 10, BUN 31 H, Creatinine 2.29 H, Estim Creat Clear Calc 20.21, Est GFR (MDRD) Af Amer 28 L, Est GFR (MDRD) Non-Af 23 L, BUN/Creatinine Ratio 13.5, Glucose 168 H, Calcium 7.6 L 02/02/20 06:37: POC Glucose 174 H 02/02/20 11:26: POC Glucose 247 H 02/02/20 12:05: Random Vancomycin 16.3 H 02/02/20 16:13: POC Glucose 177 H Current Medications Dextrose (D50w Syringe) 0 gm IV X1 PRN; Protocol PRN Reason: Hypoglycemia Glimepiride (Amaryl) 4 mg PO DAILY@0800 [facility] Last Admin: 02/02/20 07:49 Dose: 4 mg Documented by: Glucagon () 1 mg IM .X1 PRN PRN Reason: Hypoglycemia Guaifenesin (Robitussin Dm) 10 ml PO Q6H PRN PRN PRN Reason: COUGH Heparin Sodium (Porcine) (Heparin Na) 5,000 unit SC Q12 [facility] Last Admin: 02/02/20 11:28 Dose: 5,000 unit Documented by: Sodium Chloride () 250 mls @ 15 mls/hr IV .[id number] PRN PRN Reason: Saline Flush Last Infusion: 02/02/20 05:15 Dose: 0 mls/hr Documented by: Sodium Chloride () 250 mls @ 15 mls/hr IV .[id number] PRN PRN Reason: Additional IVPB Infusion Lactated Ringer's () 1,000 mls @ 100 mls/hr IV .Q10H [facility] Last Admin: 02/02/20 14:58 Dose: 100 mls/hr Documented by: Clindamycin Phosphate 600 mg/ (Dextrose) 54 mls @ 100 mls/hr IV Q8 [facility] Last Infusion: 02/02/20 15:31 Dose: Infused Documented by: Cefepime HCl 1 gm/ Sodium (Chloride) 50 mls @ 100 mls/hr IV Q24@2200 [facility] Insulin Human Lispro (Humalog Kwikpen (Bkc)) 0 unit SC ACHS [facility]; Protocol Last Admin: 02/02/20 16:15 Dose: 3 u Documented by: Linezolid (Zyvox) 600 mg PO BID [facility] Oxycodone HCl (Oxyir) 10 mg PO Q4H PRN PRN PRN Reason: Pain Score 6-10/10 Pioglitazone HCl (Actos) 45 mg PO DAILY [facility] Last Admin: 02/02/20 11:28 Dose: 45 mg Documented by: Sodium Chloride () 10 - 40 ml IV UD PRN PRN Reason: SALINE FLUSH Sodium Hypochlorite (Dakins Solution 0.25% (1/2 Strength)) 1 applic TOPICAL BID [facility]; Protocol Assessment/Plan All Active Problems CHRISTINA (acute kidney injury) (Acute) Diabetic ulcer of left foot (Acute) Cellulitis of foot associated with diabetes mellitus (Acute) Hyponatremia (Acute) Hyperglycemia due to type 2 diabetes mellitus (Acute) Deep wound infection of the left foot (Acute) CHRISTINA. normal baseline. no obstructive symptoms. ? sepsis related vs vanco related. dorita ID. vanco will be stopped today. hyponatremia. ? hypovolemic. continue fluids for now hypokalemia. repleted this am dorita Winter
--- NOTE | 2020-02-02 17:19 | PCM.PROGNOTE ---
Patient Problems: Active and Suspected Problems CHRISTINA (acute kidney injury) (Acute) Diabetic ulcer of left foot (Acute) Cellulitis of foot associated with diabetes mellitus (Acute) Hyponatremia (Acute) Hyperglycemia due to type 2 diabetes mellitus (Acute) Deep wound infection of the left foot (Acute) Subjective: She was seen and examined today, she has no complaints of any shortness of breath or chest pain. Patient's white blood cell count today remains elevated, she is afebrile however - Physical Exam Vitals/I&O's: Vital Signs Temp Pulse Resp BP Pulse Ox 97.9 F 77 18 134/64 H 98 02/02/20 14:00 02/02/20 14:00 02/02/20 14:00 02/02/20 14:00 02/02/20 14:00 Oxygen Delivery Method Room Air Weight: 97.069 kg Body Mass Index (BMI) 40.4 Finger Stick Blood Glucose 235 Intake and Output for Last 24 Hours 01/31/20 02/01/20 02/02/20 23:59 23:59 23:59 Intake Total 1901.67 / 2251.67 5012.5 / 5212.5 3801.55 / 3801.55 Output Total 300 / 300 700 / 1500 1600 / 1600 Balance 1601.67 / 1951.67 4312.5 / 3712.5 2201.55 / 2201.55 General: Alert, Oriented x3, Cooperative HEENT: Atraumatic, PERRLA, EOMI, Normocephalic Oral: Moist Mucosa Neck: Supple, No JVD, Negative Carotid Bruits, Trachea Midline, Thyroid Normal Size and Texture Lungs: Clear to auscultation, Normal air movement, No rhonchi, No wheeze, No rales Cardiovascular: Regular rate, Regular Rhythm, Normal S1, Normal S2, No murmurs, PMI Normal, No rub noted, No Gallop Abdomen: Bowel Sounds Present, Soft, Non Tender, Non-Distended, No hernias noted Extremities: No clubbing, No cyanosis, Capillary Refill Less than 3 Seconds, - - Left lower leg is wrapped with surgical dressing and Kenneth wrap, this was not removed for examination Skin: No rashes, No breakdown Neurological: Cranial nerves II-XII grossly intact, Neuro grossly intact, Sensory exam intact to light touch and pain Psych/Mental Status: Normal Affect, Appropriate, Alert and oriented to time, place, person, mood and affect Microbiology Past 72 Hours 01/31/20 15:06 Bone - Toe Gram Stain - Final 01/31/20 15:06 Bone - Toe Wound Culture - Preliminary Staphylococcus species Gram positive organism Gram positive anthony Gram positive organism#2 01/31/20 15:06 Bone - Toe Anaerobic Culture - Preliminary 01/31/20 15:13 Wound Drainage - Open/Non-Healing Wound Gram Stain - Final 01/31/20 15:13 Wound Drainage - Open/Non-Healing Wound Wound Culture - Preliminary Gram positive anthony Streptococcus group B Alpha hemolytic organism 01/31/20 15:13 Wound Drainage - Open/Non-Healing Wound Anaerobic Culture - Preliminary Checking for anaerobes, further studies to follow. 02/01/20 11:30 Urine, Clean Catch Urine Culture - Preliminary Culture exhibits no growth. 01/31/20 15:05 Tissue - Toe Gram Stain - Final 01/31/20 15:05 Tissue - Toe Wound Culture - Preliminary No growth-Final to follow 01/31/20 15:05 Tissue - Toe Anaerobic Culture - Preliminary No growth in 48 hours. Laboratory Results 02/01/20 07:30: Urine Color Cancelled, Urine Clarity Cancelled, Urine pH Cancelled, Ur Specific [place] Cancelled, U Specif Grav (Refrac) Cancelled, Urine Protein Cancelled, Urine Glucose (UA) Cancelled, Urine Ketones Cancelled, Urine Occult Blood Cancelled, Urine Nitrite Cancelled, Urine Bilirubin Cancelled, Urine Urobilinogen Cancelled, Ur Leukocyte Esterase Cancelled, Urine RBC Cancelled, Urine WBC Cancelled, Ur Squamous Epith Cells Cancelled, Ur Transition Epith Cell Cancelled, Ur Renal Epithelial Cell Cancelled, Calcium Oxalate Crystal Cancelled, Uric Acid Crystals Cancelled, Triple Phos Crystals Cancelled, Other Crystals Cancelled, Amorphous Sediment Cancelled, Urine Bacteria Cancelled, Hyaline Casts Cancelled, Fine Granular Casts Cancelled, Coarse Granular Casts Cancelled, Waxy Casts Cancelled, RBC Casts Cancelled, WBC Casts Cancelled, Urine Mucus Cancelled, Urine Trichomonas Cancelled, Urine Yeast Cancelled 02/01/20 21:49: POC Glucose 210 H 02/02/20 05:12: WBC 18.2 H, RBC 3.32 L, Hgb 9.5 L, Hct 28.4 L, MCV 85.5, MCH 28.6, MCHC 33.5, RDW Std Deviation 40.3, RDW Coeff of Leticia 13.1, Plt Count 325, MPV 10.1, Immature Gran % (Auto) 3.000 H, Neut % (Auto) 73.7 H, Lymph % (Auto) 15.6 L, [place] % (Auto) 6.9, Eos % (Auto) 0.4, Baso % (Auto) 0.4, Absolute Neuts (auto) 13.4 H, Absolute Lymphs (auto) 2.84, Nucleated RBC % 0 02/02/20 05:12: Sodium 125 L, Potassium 3.2 L, Chloride 92 L, Carbon Dioxide 23.0, Anion Gap 10, BUN 31 H, Creatinine 2.29 H, Estim Creat Clear Calc 20.21, Est GFR (MDRD) Af Amer 28 L, Est GFR (MDRD) Non-Af 23 L, BUN/Creatinine Ratio 13.5, Glucose 168 H, Calcium 7.6 L 02/02/20 06:37: POC Glucose 174 H 02/02/20 11:26: POC Glucose 247 H 02/02/20 12:05: Random Vancomycin 16.3 H 02/02/20 16:13: POC Glucose 177 H Current Medications Dextrose (D50w Syringe) 0 gm IV X1 PRN; Protocol PRN Reason: Hypoglycemia Glimepiride (Amaryl) 4 mg PO DAILY@0800 [facility] Last Admin: 02/02/20 07:49 Dose: 4 mg Documented by: Glucagon () 1 mg IM .X1 PRN PRN Reason: Hypoglycemia Guaifenesin (Robitussin Dm) 10 ml PO Q6H PRN PRN PRN Reason: COUGH Heparin Sodium (Porcine) (Heparin Na) 5,000 unit SC Q12 [facility] Last Admin: 02/02/20 11:28 Dose: 5,000 unit Documented by: Sodium Chloride () 250 mls @ 15 mls/hr IV .[id number] PRN PRN Reason: Saline Flush Last Infusion: 02/02/20 05:15 Dose: 0 mls/hr Documented by: Sodium Chloride () 250 mls @ 15 mls/hr IV .[id number] PRN PRN Reason: Additional IVPB Infusion Lactated Ringer's () 1,000 mls @ 100 mls/hr IV .Q10H [facility] Last Admin: 02/02/20 14:58 Dose: 100 mls/hr Documented by: Clindamycin Phosphate 600 mg/ (Dextrose) 54 mls @ 100 mls/hr IV Q8 [facility] Last Infusion: 02/02/20 15:31 Dose: Infused Documented by: Cefepime HCl 1 gm/ Sodium (Chloride) 50 mls @ 100 mls/hr IV Q24@2200 [facility] Insulin Human Lispro (Humalog Kwikpen (Bkc)) 0 unit SC ACHS [facility]; Protocol Last Admin: 02/02/20 16:15 Dose: 3 u Documented by: Linezolid (Zyvox) 600 mg PO BID [facility] Oxycodone HCl (Oxyir) 10 mg PO Q4H PRN PRN PRN Reason: Pain Score 6-10/10 Pioglitazone HCl (Actos) 45 mg PO DAILY [facility] Last Admin: 02/02/20 11:28 Dose: 45 mg Documented by: Sodium Chloride () 10 - 40 ml IV UD PRN PRN Reason: SALINE FLUSH Sodium Hypochlorite (Dakins Solution 0.25% (1/2 Strength)) 1 applic TOPICAL BID [facility]; Protocol Medical Necessity - Tobacco Use Smoking Status: Never smoker Tobacco Use: Non-smoker Assessment/Plan All Active Problems CHRISTINA (acute kidney injury) (Acute) Diabetic ulcer of left foot (Acute) Cellulitis of foot associated with diabetes mellitus (Acute) Hyponatremia (Acute) Hyperglycemia due to type 2 diabetes mellitus (Acute) Deep wound infection of the left foot (Acute) #1 deep wound infection of the left foot-neuropathic in nature, gram-positive anthony, strep group B and and alpha hemolytic organism and staph- Postop day #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 Infectious diseases has ordered a CT of the patient's left foot for today. #2 type 2 diabetes- continue present care #3 neuropathy of diabetes #4 hypertension #5 elevated creatinine-etiology unclear at this time, continue to administer IV fluids and monitor creatinine, patient is no longer on vancomycin, nephrology is seeing the patient in consultation. It is planned that the patient will go to a longterm facility for a short-term stay for rehab services when she is stable to be discharged from the hospital. Inpatient E&M: 56768 Subs Hosp L2
[2020-02-02 23:00] LABS: Bedside Glucose 160 mg/dL (70-110)
[2020-02-02] MEDS: Linezolid 600 MG Tablet PO (23:02)
[2020-02-02 23:48] VITALS: BP 138/69; PULSE 81; RESP 20; TEMP 36.9; O2SAT 97
[2020-02-03 03:08] VITALS: BP 115/59; PULSE 79; RESP 20; TEMP 37.2; O2SAT 94
[2020-02-03] MEDS: Lactated Ringers 1,000 ML 100 ML IV (05:04)
[2020-02-03] MEDS: Insulin Lispro 100 UNIT/ML INSULN.PEN SC ×4 (06:37→21:42)
[2020-02-03 07:15] LABS: Bedside Glucose 160 mg/dL (70-110)
[2020-02-03 07:49] LABS: Absolute Neutrophil Count 12.1 X10^3/uL (2.0-7.7); Basophil# 0.06 X10^3/uL; Basophil% 0.4 % (0-1); Eosinophil# 0.11 X10^3/uL; Eosinophils% 0.6 % (0-5); Hematocrit 28.3 % (37-47); Hemoglobin 9.5 g/dL (12.0-15.0); Lymphocyte % 17.6 % (19-41); Mean Corp Hgb Conc 33.6 g/dL (32-36); Mean Corpuscular Hgb 28.1 pg (27.0-32.0); Mean Corpuscular Volume 83.7 fL (81-99); Mean Platelet Vol. 9.9 fl (6.2-12.0); Monocyte# 1.15 X10^3/uL; Monocyte% 6.7 % (0-10); NRBC Flagged by Analyzer 0 % (0-5); Neutrophil # 12.06 X10^3/uL (2.7-7.7); Neutrophil % 70.7 % (47-70); POSITIVE MORPHOLOGY YES; Platelet Count 345 K/mm3 (150-450); RBC Distribution Width CV 13.1 % (11.6-14.6); RBC Distribution Width SD 39.8 fl (35.1-43.9); Red Blood Count 3.38 M/mm3 (4.2-5.4); White Blood Count 17.1 K/mm3 (4.4-11.0)
[2020-02-03 07:52] LABS: Differential Indicated SCAN CRITERIA MET
[2020-02-03 08:14] LABS: Anion Gap 10 (5-15); BUN 38 mg/dL (7-18); BUN/Creat Ratio 14.6 RATIO (10-20); Calcium,Total 7.7 mg/dL (8.5-10.1); Chloride 90 mmol/L (98-107); EST Glomerular Filtration Rate 20 mL/min (>60); Est Glom Filt Rate - Afr Amer 24 mL/min (>60); Glucose 157 mg/dL (74-106); Potassium 3.2 mmol/L (3.5-5.1); Sodium Level 123 mmol/L (136-145)
[2020-02-03 09:01] LABS: Reactive Lymphocyte 1+
--- NOTE | 2020-02-03 09:09 | PCM.PROGNOTE ---
Patient Problems: Active and Suspected Problems CHRISTINA (acute kidney injury) (Acute) Diabetic ulcer of left foot (Acute) Cellulitis of foot associated with diabetes mellitus (Acute) Hyponatremia (Acute) Hyperglycemia due to type 2 diabetes mellitus (Acute) Deep wound infection of the left foot (Acute) Subjective: Patient was seen this morning for follow up on left foot. She denies any foot pain, she has no new complaints. She denies fever, chills, or vomiting. She relates nausea is getting better. WBC still elevated at 17.1, creatinine going up to 2.6. - Physical Exam Vitals/I&O's: Vital Signs Temp Pulse Resp BP Pulse Ox 98.9 F 79 20 H 115/59 L 94 02/03/20 03:08 02/03/20 03:08 02/03/20 03:08 02/03/20 03:08 02/03/20 03:08 Oxygen Delivery Method Room Air Weight: 97.069 kg Body Mass Index (BMI) 40.4 Finger Stick Blood Glucose 235 Intake and Output for Last 24 Hours 02/01/20 02/02/20 02/03/20 23:59 23:59 23:59 Intake Total 5012.5 / 5212.5 6185.55 / 6685.55 1717.33 / 1717.33 Output Total 700 / 1500 2800 / 3700 2400 / 2400 Balance 4312.5 / 3712.5 3385.55 / 2985.55 -682.67 / -682.67 General: Alert, Oriented x3, Cooperative, No apparent distress Extremities: Capillary Refill Less than 3 Seconds, No Calf Tenderness, Peripheral Pulses Normal, - - s/p wide debridement left forefoot with open wound present, tissue granular, some serous drainage, no visible abscess, minimal to no remaining cellulitis, no streaking, no maloder, no fluctuance, no crepitus, clinically infection much improved. Minimal pain to the left foot w/ palpation. Psych/Mental Status: Alert and oriented to time, place, person, mood and affect Microbiology Past 72 Hours 02/01/20 11:30 Urine, Clean Catch Urine Culture - Final Culture exhibits no growth. 01/31/20 15:13 Wound Drainage - Open/Non-Healing Wound Gram Stain - Final 01/31/20 15:13 Wound Drainage - Open/Non-Healing Wound Wound Culture - Preliminary Streptococcus group B Alpha hemolytic organism GPC Poss Enterococcus sp Gram positive anthony 01/31/20 15:13 Wound Drainage - Open/Non-Healing Wound Anaerobic Culture - Preliminary Checking for anaerobes, further studies to follow. 01/31/20 15:06 Bone - Toe Gram Stain - Final 01/31/20 15:06 Bone - Toe Wound Culture - Preliminary Staphylococcus epidermidis Staphylococcus carnosus carnos Gram positive anthony Gram positive organism#2 01/31/20 15:05 Tissue - Toe Gram Stain - Final 01/31/20 15:05 Tissue - Toe Wound Culture - Preliminary No growth-Final to follow 01/31/20 15:05 Tissue - Toe Anaerobic Culture - Preliminary No growth in 48 hours. Laboratory Results 02/02/20 11:26: POC Glucose 247 H 02/02/20 12:05: Random Vancomycin 16.3 H 02/02/20 16:13: POC Glucose 177 H 02/02/20 22:43: POC Glucose 160 H 02/03/20 06:37: POC Glucose 160 H 02/03/20 07:08: Sodium 123 L, Potassium 3.2 L, Chloride 90 L, Carbon Dioxide 23.0, Anion Gap 10, BUN 38 H, Creatinine 2.60 H, Estim Creat Clear Calc 17.80, Est GFR (MDRD) Af Amer 24 L, Est GFR (MDRD) Non-Af 20 L, BUN/Creatinine Ratio 14.6, Glucose 157 H, Calcium 7.7 L 02/03/20 07:08: Hemoglobin A1c Pending 02/03/20 07:08: WBC 17.1 H, RBC 3.38 L, Hgb 9.5 L, Hct 28.3 L, MCV 83.7, MCH 28.1, MCHC 33.6, RDW Std Deviation 39.8, RDW Coeff of Leticia 13.1, Plt Count 345, MPV 9.9, Immature Gran % (Auto) 4.000 H, Neut % (Auto) 70.7 H, Lymph % (Auto) 17.6 L, [place] % (Auto) 6.7, Eos % (Auto) 0.6, Baso % (Auto) 0.4, Absolute Neuts (auto) 12.1 H, Absolute Lymphs (auto) 3.00, Nucleated RBC % 0, Reactive Lymphocytes 1+ Current Medications Dextrose (D50w Syringe) 0 gm IV X1 PRN; Protocol PRN Reason: Hypoglycemia Glimepiride (Amaryl) 4 mg PO DAILY@0800 [facility] Last Admin: 02/02/20 07:49 Dose: 4 mg Documented by: Glucagon () 1 mg IM .X1 PRN PRN Reason: Hypoglycemia Guaifenesin (Robitussin Dm) 10 ml PO Q6H PRN PRN PRN Reason: COUGH Heparin Sodium (Porcine) (Heparin Na) 5,000 unit SC Q12 [facility] Last Admin: 02/02/20 22:48 Dose: 5,000 unit Documented by: Sodium Chloride () 250 mls @ 15 mls/hr IV .[id number] PRN PRN Reason: Saline Flush Last Infusion: 02/02/20 17:36 Dose: Infused Documented by: Sodium Chloride () 250 mls @ 15 mls/hr IV .[id number] PRN PRN Reason: Additional IVPB Infusion Lactated Ringer's () 1,000 mls @ 100 mls/hr IV .Q10H [facility] Last Infusion: 02/03/20 07:02 Dose: 100 mls/hr Documented by: Clindamycin Phosphate 600 mg/ (Dextrose) 54 mls @ 100 mls/hr IV Q8 [facility] Last Infusion: 02/03/20 07:03 Dose: Infused Documented by: Cefepime HCl 1 gm/ Sodium (Chloride) 50 mls @ 100 mls/hr IV Q24@2200 [facility] Last Infusion: 02/02/20 23:21 Dose: Infused Documented by: Insulin Human Lispro (Humalog Kwikpen (Bkc)) 0 unit SC ACHS [facility]; Protocol Last Admin: 02/03/20 06:37 Dose: 3 u Documented by: Linezolid (Zyvox) 600 mg PO BID [facility] Last Admin: 02/02/20 23:02 Dose: 600 mg Documented by: Oxycodone HCl (Oxyir) 10 mg PO Q4H PRN PRN PRN Reason: Pain Score 6-10/10 Pioglitazone HCl (Actos) 45 mg PO DAILY [facility] Last Admin: 02/02/20 11:28 Dose: 45 mg Documented by: Sodium Chloride () 10 - 40 ml IV UD PRN PRN Reason: SALINE FLUSH Sodium Hypochlorite (Dakins Solution 0.25% (1/2 Strength)) 1 applic TOPICAL BID [facility]; Protocol Last Admin: 02/02/20 23:22 Dose: 1 applicatio Documented by: Medical Necessity - Tobacco Use Smoking Status: Never smoker Tobacco Use: Non-smoker Assessment/Plan All Active Problems CHRISTINA (acute kidney injury) (Acute) Diabetic ulcer of left foot (Acute) Cellulitis of foot associated with diabetes mellitus (Acute) Hyponatremia (Acute) Hyperglycemia due to type 2 diabetes mellitus (Acute) Deep wound infection of the left foot (Acute) Necrotic ulceration down to fascia and bone layer left foot s/p debridement 01/31/2020 Severe abscess, and cellulitis left foot Necrotizing fasciitis/gas gangrene left foot Diabetes w/ neuropathy Re-evaluation performed. Reviewed data. WBC still elevated, but no fevers and clinically foot significantly improved. Reviewed CT scan and no remaining gas and no abscess noted. Area of osteolysis 4th metatarsal could be from bone biopsy - reviewed culture results and no growth from 4th metatarsal clearance fragment. Continue to follow cultures - growing multiple organisms. Patient on antibiotics - linezolid, clindamycin, and cefepime per ID/Dr. Hubbard. Nephrology following for CHRISTINA. Again noted clinical improvement to foot, minimal to no cellulitis remaining, clinically tissues appear healthy and viable. Site flushed out with normal saline solution, continue w/ dressing changes - Dakins wet to dry dressing changes but switch to BID. No weightbearing left foot, keep foot elevated at all times. Patient planning to go to nursing facility once discharged for wound care - maybe discharge Wednesday. Podiatry will continue to follow.
[2020-02-03] MEDS: Glimepiride 4 MG Tablet PO (09:14)
[2020-02-03] MEDS: Pioglitazone Hydrochloride 45 MG Tablet PO (09:14)
[2020-02-03] MEDS: Linezolid 600 MG Tablet PO ×2 (09:15→21:39)
[2020-02-03] MEDS: DAKIN'S SOL HALF STRENGTH (=0.25%) 1 APPLIC TOPICAL ×2 (09:15→21:39)
[2020-02-03] MEDS: Heparin Injection (Vial) 5,000 UNIT/ML VIAL 5000 UNIT SC ×2 (09:15→21:38)
[2020-02-03] MEDS: Juven (unflavored) Packet 1 PACKET PO ×2 (09:15→16:38)
[2020-02-03 09:16] LABS: Hemoglobin A1c 9.4 % (4.2-6.3)
[2020-02-03 09:22] VITALS: BP 156/69; PULSE 75; RESP 18; TEMP 36.4; O2SAT 97
--- NOTE | 2020-02-03 10:47 | PCM.PN.HOSP ---
Patient Problems: Active and Suspected Problems CHRISTINA (acute kidney injury) (Acute) Diabetic ulcer of left foot (Acute) Cellulitis of foot associated with diabetes mellitus (Acute) Hyponatremia (Acute) Hyperglycemia due to type 2 diabetes mellitus (Acute) Deep wound infection of the left foot (Acute) Subjective: Patient seen and examined. She had no complaints this morning and felt well. Review of systems otherwise negative. Labs and vitals reviewed. Sodium is down to 123 today creatinine of trended up to 2.6. Potassium is also 3.2. WBC is 17.1. Vitals/I&O's: Vital Signs Temp Pulse Resp BP Pulse Ox 97.5 F L 75 18 156/69 H 97 02/03/20 09:22 02/03/20 09:22 02/03/20 09:22 02/03/20 09:22 02/03/20 09:22 Oxygen Delivery Method Room Air Weight: 214 lb 0.008 oz Body Mass Index (BMI) 40.4 Finger Stick Blood Glucose 235 Intake and Output for Last 24 Hours 02/01/20 02/02/20 02/03/20 23:59 23:59 23:59 Intake Total 5012.5 / 5212.5 6185.55 / 6685.55 1717.33 / 1717.33 Output Total 700 / 1500 2800 / 3700 2400 / 2400 Balance 4312.5 / 3712.5 3385.55 / 2985.55 -682.67 / -682.67 General: Alert, Oriented x3, Cooperative HEENT: Atraumatic, PERRLA, EOMI, Normocephalic Oral: Moist Mucosa Neck: Supple, No JVD, Negative Carotid Bruits Lungs: Clear to auscultation, Normal air movement, No rhonchi, No wheeze Cardiovascular: Regular rate, Regular Rhythm, Normal S1, Normal S2, No murmurs Abdomen: Bowel Sounds Present, Soft, Non Tender, Non-Distended, No Hepato-splenomegaly Extremities: No clubbing, No cyanosis, No edema, Capillary Refill Less than 3 Seconds, - - left foot wrapped in bandage. Skin: - - left foot wrapped in bandage Musculoskeletal: No Tenderness to Palpation of Joints or Extremities Neurological: Cranial nerves II-XII grossly intact Psych/Mental Status: Normal Affect, Appropriate, Alert and oriented to time, place, person, mood and affect Microbiology Past 72 Hours 01/31/20 15:05 Tissue - Toe Gram Stain - Final 01/31/20 15:05 Tissue - Toe Wound Culture - Preliminary Streptococcus agalactiae (B) 01/31/20 15:05 Tissue - Toe Anaerobic Culture - Preliminary No growth in 48 hours. 02/01/20 11:30 Urine, Clean Catch Urine Culture - Final Culture exhibits no growth. 01/31/20 15:13 Wound Drainage - Open/Non-Healing Wound Gram Stain - Final 01/31/20 15:13 Wound Drainage - Open/Non-Healing Wound Wound Culture - Preliminary Streptococcus group B Alpha hemolytic organism GPC Poss Enterococcus sp Gram positive anthony 01/31/20 15:13 Wound Drainage - Open/Non-Healing Wound Anaerobic Culture - Preliminary Checking for anaerobes, further studies to follow. 01/31/20 15:06 Bone - Toe Gram Stain - Final 01/31/20 15:06 Bone - Toe Wound Culture - Preliminary Staphylococcus epidermidis Staphylococcus carnosus carnos Gram positive anthony Gram positive organism#2 Laboratory Results 02/02/20 11:26: POC Glucose 247 H 02/02/20 12:05: Random Vancomycin 16.3 H 02/02/20 16:13: POC Glucose 177 H 02/02/20 22:43: POC Glucose 160 H 02/03/20 06:37: POC Glucose 160 H 02/03/20 07:08: Sodium 123 L, Potassium 3.2 L, Chloride 90 L, Carbon Dioxide 23.0, Anion Gap 10, BUN 38 H, Creatinine 2.60 H, Estim Creat Clear Calc 17.80, Est GFR (MDRD) Af Amer 24 L, Est GFR (MDRD) Non-Af 20 L, BUN/Creatinine Ratio 14.6, Glucose 157 H, Calcium 7.7 L 02/03/20 07:08: Hemoglobin A1c 9.4 H 02/03/20 07:08: WBC 17.1 H, RBC 3.38 L, Hgb 9.5 L, Hct 28.3 L, MCV 83.7, MCH 28.1, MCHC 33.6, RDW Std Deviation 39.8, RDW Coeff of Leticia 13.1, Plt Count 345, MPV 9.9, Immature Gran % (Auto) 4.000 H, Neut % (Auto) 70.7 H, Lymph % (Auto) 17.6 L, [place] % (Auto) 6.7, Eos % (Auto) 0.6, Baso % (Auto) 0.4, Absolute Neuts (auto) 12.1 H, Absolute Lymphs (auto) 3.00, Nucleated RBC % 0, Reactive Lymphocytes 1+ Diagnostic Data Foot X-Ray 01/31/20 16:00 IMPRESSION: Amputation of the fourth and fifth phalanges. Electronically Signed: James Landaverde MD at 16:23 EDT , Service support , Lower Extremity CT 02/02/20 16:37 IMPRESSION: Amputations of the fourth and fifth digits, with a very large soft tissue defect through which the heads of the fourth and fifth metatarsals protrude. Correlate with physical exam. No gross focal fluid collection, abscess or soft tissue air. Electronically Signed: Angel Luis Badillo MD at 17:35 EDT , Service support , Current Medications Dextrose (D50w Syringe) 0 gm IV X1 PRN; Protocol PRN Reason: Hypoglycemia Glimepiride (Amaryl) 4 mg PO DAILY@0800 [facility] Last Admin: 02/03/20 09:14 Dose: 4 mg Documented by: Glucagon () 1 mg IM .X1 PRN PRN Reason: Hypoglycemia Guaifenesin (Robitussin Dm) 10 ml PO Q6H PRN PRN PRN Reason: COUGH Heparin Sodium (Porcine) (Heparin Na) 5,000 unit SC Q12 [facility] Last Admin: 02/03/20 09:15 Dose: 5,000 unit Documented by: Sodium Chloride () 250 mls @ 15 mls/hr IV .[id number] PRN PRN Reason: Saline Flush Last Infusion: 02/02/20 17:36 Dose: Infused Documented by: Sodium Chloride () 250 mls @ 15 mls/hr IV .[id number] PRN PRN Reason: Additional IVPB Infusion Lactated Ringer's () 1,000 mls @ 100 mls/hr IV .Q10H [facility] Last Infusion: 02/03/20 07:02 Dose: 100 mls/hr Documented by: Clindamycin Phosphate 600 mg/ (Dextrose) 54 mls @ 100 mls/hr IV Q8 [facility] Last Infusion: 02/03/20 07:03 Dose: Infused Documented by: Cefepime HCl 1 gm/ Sodium (Chloride) 50 mls @ 100 mls/hr IV Q24@2200 [facility] Last Infusion: 02/02/20 23:21 Dose: Infused Documented by: Insulin Human Lispro (Humalog Kwikpen (Bkc)) 0 unit SC ACHS [facility]; Protocol Last Admin: 02/03/20 06:37 Dose: 3 u Documented by: Linezolid (Zyvox) 600 mg PO BID [facility] Last Admin: 02/03/20 09:15 Dose: 600 mg Documented by: Oxycodone HCl (Oxyir) 10 mg PO Q4H PRN PRN PRN Reason: Pain Score 6-10/10 Pioglitazone HCl (Actos) 45 mg PO DAILY [facility] Last Admin: 02/03/20 09:14 Dose: 45 mg Documented by: Sodium Chloride () 10 - 40 ml IV UD PRN PRN Reason: SALINE FLUSH Sodium Hypochlorite (Dakins Solution 0.25% (1/2 Strength)) 1 applic TOPICAL BID [facility]; Protocol Last Admin: 02/03/20 09:15 Dose: 1 applicatio Documented by: STROKE Vital Signs/Narrative: Vital Signs Temp Pulse Resp BP Pulse Ox 02/03/20 09:22 97.5 F L 75 18 156/69 H 97 Medical Necessity - Tobacco Use Smoking Status: Never smoker Tobacco Use: Non-smoker Assessment/Plan All Active Problems CHRISTINA (acute kidney injury) (Acute) Diabetic ulcer of left foot (Acute) Cellulitis of foot associated with diabetes mellitus (Acute) Hyponatremia (Acute) Hyperglycemia due to type 2 diabetes mellitus (Acute) Deep wound infection of the left foot (Acute) 1.Necrotising fasciitis of left foot due to diabetic neuropathy Status post debridement of left foot by podiatry. Today's postop day 3. WBC is around 17. CT of the left foot done on 02/02/2020 showed amputation of the fourth and fifth digits with a very large soft tissue defect through which the heads of the fourth and fifth metatarsals protrude with no gross focal fluid collection, abscess or soft tissue air ID and podiatry on board. On IV vancomycin and cefepime. wound cultures grew Str possible enterococcus. Bone cultures grew Staph carnosus and staph epidermidis with a gram-positive anthony. Strep Grp B, Gram positive rods on IV cefepime and clindamycin 2. Hyponatremia sodium is 123 today;has trended down gradually on IV RInger's lactate; will switch to IV normal saline check serum and urine osmolality, as well as urine sodium nephrology on board 3. CHRISTINA Creatinine today is up to 2.6. Cause of CHRISTINA is not clear. Creatinine was 0.6 on 01/31/2020. Patient had been on vancomycin so this could possibly be contributing to her CHRISTINA. Nephrology on board. Vancomycin DC'd. Will switch IV fluids to normal saline 150 cc/h. Renal ultrasound ordered. Nephrology on board. Await recs. Will check urinalysis. 4. Hypokalemia: Potassium is 3.2 today. Will replace and monitor. 5. Diabetes with neuropathy: on glimepiride and p.o. glitazone. Insulin sliding scale. Accu-Cheks AC at bedtime. 6. Hypertension: Ramipril and Maxide on hold on account of CHRISTINA. IV hydralazine PRN. DVT prophylaxis: heparin Disposition: Plan is for patient to go to [facility] [place] when she is medically stable. Inpatient E&M: [id number] [place] [id number]
[2020-02-03] MEDS: 0.9% Normal Saline 1,000 ML 150 ML IV ×2 (11:34→17:56)
[2020-02-03 11:59] LABS: Osmolality, Serum 270 mOsm/KG (275-295)
[2020-02-03 12:16] LABS: Bedside Glucose 241 mg/dL (70-110)
[2020-02-03 13:55] LABS: Bacteria 0 SEEN /hpf (None Seen); Mucous, Urine 0 SEEN /hpf (<or=2+); Red Blood Cells-Urine 0 SEEN /hpf (0-5); White Blood Cells 0 SEEN /hpf (0-5)
[2020-02-03 13:56] LABS: Color, Urine Yellow (Yellow); Glucose, Dipstick 100 mg/dl (Normal); Ketone-Dipstick Negative (Negative); Leukocyte Esterase-Dipstick Negative /ul (Negative); Nitrite-Dipstick Negative (Negative); Occult Blood-Urine 10 /ul (Negative); Protein-Dipstick Negative (Negative); Specific Gravity, Urine 1.005 (1.002-1.030); Urine Bilirubin Dipstick Negative (Negative); Urine Clarity Clear (Clear); Urine Urobilinogen Normal (Normal); Urine pH 6.5 (5.0 - 8.0)
[2020-02-03 13:59] LABS: Urine Sodium 32 mmol/L (Not Establ.)
[2020-02-03 14:10] LABS: Osmolality, Urine 147 mOsm/KG
[2020-02-03 14:12] LABS: Squamous Epithelial Cells - UA 0-5 SEEN /hpf (5-10)
[2020-02-03 15:25] VITALS: BP 149/77; PULSE 71; RESP 18; TEMP 36.7; O2SAT 98
[2020-02-03 16:03] LABS: Anion Gap 8 (5-15); BUN 43 mg/dL (7-18); BUN/Creat Ratio 16.3 RATIO (10-20); Calcium,Total 7.6 mg/dL (8.5-10.1); Chloride 92 mmol/L (98-107); Creatinine, Serum 2.64 mg/dL (0.55-1.02); EST Glomerular Filtration Rate 20 mL/min (>60); Est Glom Filt Rate - Afr Amer 24 mL/min (>60); Estimated Creatinine Clearance 17.53 ml/min; Glucose 192 mg/dL (74-106); Potassium 3.3 mmol/L (3.5-5.1); Sodium Level 124 mmol/L (136-145)
[2020-02-03 16:46] LABS: Bedside Glucose 192 mg/dL (70-110)
--- NOTE | 2020-02-03 18:05 | PN.RENAL_ITS ---
Patient Problems: Active and Suspected Problems CHRISTINA (acute kidney injury) (Acute) Diabetic ulcer of left foot (Acute) Cellulitis of foot associated with diabetes mellitus (Acute) Hyponatremia (Acute) Hyperglycemia due to type 2 diabetes mellitus (Acute) Deep wound infection of the left foot (Acute) Subjective: no new complaints - Physical Exam Vitals/I&O's: Vital Signs Temp Pulse Resp BP Pulse Ox 98.1 F 71 18 149/77 H 98 02/03/20 15:25 02/03/20 15:25 02/03/20 15:25 02/03/20 15:25 02/03/20 15:25 Oxygen Delivery Method Room Air Weight: 97.069 kg Body Mass Index (BMI) 40.4 Finger Stick Blood Glucose 235 Intake and Output for Last 24 Hours 02/01/20 02/02/20 02/03/20 23:59 23:59 23:59 Intake Total 5012.5 / 5212.5 6185.55 / 6685.55 5093.83 / 5093.83 Output Total 700 / 1500 2800 / 3700 4100 / 4100 Balance 4312.5 / 3712.5 3385.55 / 2985.55 993.83 / 993.83 General: Alert, Oriented x3, Cooperative HEENT: Atraumatic, PERRLA, EOMI, Normocephalic Neck: Supple, No JVD, Negative Carotid Bruits Lungs: Clear to auscultation, Normal air movement Cardiovascular: Regular rate, No murmurs Abdomen: Bowel Sounds Present, Soft, Non Tender Extremities: No edema, Capillary Refill Less than 3 Seconds Skin: No rashes, No breakdown Musculoskeletal: No Tenderness to Palpation of Joints or Extremities Neurological: Cranial nerves II-XII grossly intact Psych/Mental Status: Normal Affect, Appropriate Microbiology Past 72 Hours 01/31/20 15:13 Wound Drainage - Open/Non-Healing Wound Gram Stain - Final 01/31/20 15:13 Wound Drainage - Open/Non-Healing Wound Wound Culture - Preliminary Streptococcus group B Alpha hemolytic organism GPC Poss Enterococcus sp Gram positive anthony 01/31/20 15:13 Wound Drainage - Open/Non-Healing Wound Anaerobic Culture - Preliminary Checking for anaerobes, further studies to follow. 01/31/20 15:05 Tissue - Toe Gram Stain - Final 01/31/20 15:05 Tissue - Toe Wound Culture - Preliminary Streptococcus agalactiae (B) 01/31/20 15:05 Tissue - Toe Anaerobic Culture - Preliminary No growth in 48 hours. 02/01/20 11:30 Urine, Clean Catch Urine Culture - Final Culture exhibits no growth. 01/31/20 15:06 Bone - Toe Gram Stain - Final 01/31/20 15:06 Bone - Toe Wound Culture - Preliminary Staphylococcus epidermidis Staphylococcus carnosus carnos Gram positive anthony Gram positive organism#2 Laboratory Results 02/02/20 22:43: POC Glucose 160 H 02/03/20 06:37: POC Glucose 160 H 02/03/20 07:08: Sodium 123 L, Potassium 3.2 L, Chloride 90 L, Carbon Dioxide 23.0, Anion Gap 10, BUN 38 H, Creatinine 2.60 H, Estim Creat Clear Calc 17.80, Est GFR (MDRD) Af Amer 24 L, Est GFR (MDRD) Non-Af 20 L, BUN/Creatinine Ratio 14.6, Glucose 157 H, Calcium 7.7 L 02/03/20 07:08: Hemoglobin A1c 9.4 H 02/03/20 07:08: WBC 17.1 H, RBC 3.38 L, Hgb 9.5 L, Hct 28.3 L, MCV 83.7, MCH 28.1, MCHC 33.6, RDW Std Deviation 39.8, RDW Coeff of Leticia 13.1, Plt Count 345, MPV 9.9, Immature Gran % (Auto) 4.000 H, Neut % (Auto) 70.7 H, Lymph % (Auto) 17.6 L, [place] % (Auto) 6.7, Eos % (Auto) 0.6, Baso % (Auto) 0.4, Absolute Neuts (auto) 12.1 H, Absolute Lymphs (auto) 3.00, Nucleated RBC % 0, Reactive Lymphocytes 1+ 02/03/20 11:20: Serum Osmolality 270 L 02/03/20 11:29: POC Glucose 241 H 02/03/20 13:20: Urine Osmolality 147 02/03/20 13:20: Ur Random Sodium 32 02/03/20 13:20: Urine Color Yellow, Urine Clarity Clear, Urine pH 6.5, Ur Specific [place] 1.005, Urine Protein Negative, Urine Glucose (UA) 100 H, Urine Ketones Negative, Urine Occult Blood 10 H, Urine Nitrite Negative, Urine Bilirubin Negative, Urine Urobilinogen Normal, Ur Leukocyte Esterase Negative, Urine RBC 0 SEEN, Urine WBC 0 SEEN, Ur Squamous Epith Cells 0-5 SEEN, Urine Bacteria 0 SEEN, Urine Mucus 0 SEEN 02/03/20 15:40: Sodium 124 L, Potassium 3.3 L, Chloride 92 L, Carbon Dioxide 24.0, Anion Gap 8, BUN 43 H, Creatinine 2.64 H, Estim Creat Clear Calc 17.53, Est GFR (MDRD) Af Amer 24 L, Est GFR (MDRD) Non-Af 20 L, BUN/Creatinine Ratio 16.3, Glucose 192 H, Calcium 7.6 L 02/03/20 16:36: POC Glucose 192 H Current Medications Dextrose (D50w Syringe) 0 gm IV X1 PRN; Protocol PRN Reason: Hypoglycemia Glimepiride (Amaryl) 4 mg PO DAILY@0800 [facility] Last Admin: 02/03/20 09:14 Dose: 4 mg Documented by: Glucagon () 1 mg IM .X1 PRN PRN Reason: Hypoglycemia Guaifenesin (Robitussin Dm) 10 ml PO Q6H PRN PRN PRN Reason: COUGH Heparin Sodium (Porcine) (Heparin Na) 5,000 unit SC Q12 [facility] Last Admin: 02/03/20 09:15 Dose: 5,000 unit Documented by: Sodium Chloride () 250 mls @ 15 mls/hr IV .[id number] PRN PRN Reason: Saline Flush Last Infusion: 02/02/20 17:36 Dose: Infused Documented by: Sodium Chloride () 250 mls @ 15 mls/hr IV .[id number] PRN PRN Reason: Additional IVPB Infusion Clindamycin Phosphate 600 mg/ (Dextrose) 54 mls @ 100 mls/hr IV Q8 [facility] Last Infusion: 02/03/20 16:20 Dose: Infused Documented by: Cefepime HCl 1 gm/ Sodium (Chloride) 50 mls @ 100 mls/hr IV Q24@2200 [facility] Last Infusion: 02/02/20 23:21 Dose: Infused Documented by: Sodium Chloride () 1,000 mls @ 150 mls/hr IV .[id number] [facility] Stop: 02/04/20 00:34 Last Admin: 02/03/20 17:56 Dose: 150 mls/hr Documented by: Insulin Human Lispro (Humalog Kwikpen (Bkc)) 0 unit SC ACHS [facility]; Protocol Last Admin: 02/03/20 16:37 Dose: 3 u Documented by: Linezolid (Zyvox) 600 mg PO BID [facility] Last Admin: 02/03/20 09:15 Dose: 600 mg Documented by: Oxycodone HCl (Oxyir) 10 mg PO Q4H PRN PRN PRN Reason: Pain Score 6-10/10 Pioglitazone HCl (Actos) 45 mg PO DAILY [facility] Last Admin: 02/03/20 09:14 Dose: 45 mg Documented by: Sodium Chloride () 10 - 40 ml IV UD PRN PRN Reason: SALINE FLUSH Sodium Hypochlorite (Dakins Solution 0.25% (1/2 Strength)) 1 applic TOPICAL BID [facility]; Protocol Last Admin: 02/03/20 09:15 Dose: 1 applicatio Documented by: Medical Necessity - Tobacco Use Smoking Status: Never smoker Tobacco Use: Non-smoker Assessment/Plan All Active Problems CHRISTINA (acute kidney injury) (Acute) Diabetic ulcer of left foot (Acute) Cellulitis of foot associated with diabetes mellitus (Acute) Hyponatremia (Acute) Hyperglycemia due to type 2 diabetes mellitus (Acute) Deep wound infection of the left foot (Acute) CHRISTINA. normal baseline. no obstructive symptoms. Creatinine has increased over the last 2 days. From yesterday to today, creatinine is about the same. Repeat urine analysis is fairly benign except for microscopic hematuria. Renal ultrasound has been ordered, pending. Given CHRISTINA in hospital most likely this is either sepsis related or antibiotic related. Non-oliguric. Since creatinine is about the same today, compared to yesterday hopefully she will recover soon. hyponatremia. Urine osmolality is 140. In acute renal failure setting, this is relatively low urine osmolality. Most likely some polydipsia complement. I did advise her to cut back on oral fluid intake for now. Continue IV fluid. Urine sodium is more than 20. hypokalemia. repleted this am
[2020-02-03 20:01] LABS: Anion Gap 8 (5-15); BUN 45 mg/dL (7-18); Calcium,Total 7.7 mg/dL (8.5-10.1); Chloride 94 mmol/L (98-107); Creatinine, Serum 2.64 mg/dL (0.55-1.02); EST Glomerular Filtration Rate 20 mL/min (>60); Est Glom Filt Rate - Afr Amer 24 mL/min (>60); Estimated Creatinine Clearance 17.53 ml/min; Glucose 263 mg/dL (74-106); Sodium Level 126 mmol/L (136-145)
[2020-02-03 21:23] VITALS: BP 152/60; PULSE 80; RESP 18; TEMP 37.3; O2SAT 98
[2020-02-03 22:15] LABS: Bedside Glucose 235 mg/dL (70-110)
[2020-02-04 02:14] VITALS: BP 148/64; PULSE 80; RESP 18; TEMP 36.9; O2SAT 98
[2020-02-04 05:38] LABS: Hematocrit 28.6 % (37-47); Hemoglobin 9.6 g/dL (12.0-15.0); Mean Corp Hgb Conc 33.6 g/dL (32-36); Mean Corpuscular Hgb 28.5 pg (27.0-32.0); Mean Corpuscular Volume 84.9 fL (81-99); Mean Platelet Vol. 9.9 fl (6.2-12.0); POSITIVE COUNT YES; POSITIVE MORPHOLOGY YES; Platelet Count 333 K/mm3 (150-450); RBC Distribution Width CV 13.2 % (11.6-14.6); Red Blood Count 3.37 M/mm3 (4.2-5.4)
[2020-02-04 05:47] LABS: Differential Indicated MANUAL DIFF
[2020-02-04 06:01] LABS: Anion Gap 8 (5-15); BUN 45 mg/dL (7-18); Calcium,Total 7.3 mg/dL (8.5-10.1); Chloride 98 mmol/L (98-107); Creatinine, Serum 2.65 mg/dL (0.55-1.02); EST Glomerular Filtration Rate 20 mL/min (>60); Est Glom Filt Rate - Afr Amer 24 mL/min (>60); Estimated Creatinine Clearance 17.46 ml/min; Glucose 183 mg/dL (74-106); Potassium 3.9 mmol/L (3.5-5.1); Sodium Level 128 mmol/L (136-145)
[2020-02-04 06:20] LABS: Absolute Lymphocyte Count 2.56 X10^3/uL (0.83-4.51); Lymphocyte # 2.56 X10^3/ul (4.0); Neutrophil # 10.97 X10^3/uL (2.7-7.7)
[2020-02-04 06:21] LABS: Monocyte# 1.05 X10^3/uL
[2020-02-04] MEDS: Insulin Lispro 100 UNIT/ML INSULN.PEN SC ×4 (06:41→21:32)
[2020-02-04 06:55] LABS: Bedside Glucose 175 mg/dL (70-110)
[2020-02-04 08:08] VITALS: BP 152/71; PULSE 82; RESP 18; TEMP 36.7; O2SAT 96
[2020-02-04] MEDS: DAKIN'S SOL HALF STRENGTH (=0.25%) 1 APPLIC TOPICAL ×2 (08:12→21:31)
[2020-02-04] MEDS: Pioglitazone Hydrochloride 45 MG Tablet PO (08:12)
[2020-02-04] MEDS: Linezolid 600 MG Tablet PO ×2 (08:12→21:33)
[2020-02-04] MEDS: Juven (unflavored) Packet 1 PACKET PO ×2 (08:12→16:52)
[2020-02-04] MEDS: Heparin Injection (Vial) 5,000 UNIT/ML VIAL 5000 UNIT SC ×2 (08:12→21:32)
[2020-02-04] MEDS: Glimepiride 4 MG Tablet PO (08:12)
--- NOTE | 2020-02-04 10:06 | PN_ITS ---
Patient Problems: Active and Suspected Problems CHRISTINA (acute kidney injury) (Acute) Diabetic ulcer of left foot (Acute) Cellulitis of foot associated with diabetes mellitus (Acute) Hyponatremia (Acute) Hyperglycemia due to type 2 diabetes mellitus (Acute) Deep wound infection of the left foot (Acute) Subjective: Patient was seen this morning for follow up on left foot. She relates nausea has resolved. No complaints of fever, chills, or vomiting. She is resting comfortable in bed. WBC down to 15.0, creatine at 2.65; patient afebrile. No complaints of foot pain. - Physical Exam Vitals/I&O's: Vital Signs Temp Pulse Resp BP Pulse Ox 98.0 F 82 18 152/71 H 96 02/04/20 08:08 02/04/20 08:08 02/04/20 08:08 02/04/20 08:08 02/04/20 08:08 Oxygen Delivery Method Room Air Weight: 97.069 kg Body Mass Index (BMI) 40.4 Finger Stick Blood Glucose 235 Intake and Output for Last 24 Hours 02/02/20 02/03/20 02/04/20 23:59 23:59 23:59 Intake Total 6185.55 / 6685.55 5800.33 / 5800.33 961.5 / 961.5 Output Total 2800 / 3700 5760 / 5760 1000 / 1000 Balance 3385.55 / 2985.55 40.33 / 40.33 -38.5 / -38.5 General: Alert, Oriented x3, Cooperative, No apparent distress Extremities: Capillary Refill Less than 3 Seconds, No Calf Tenderness, - - s/p wide debridement left forefoot with open wound present, tissue granular, some serous drainage, no visible abscess, trace to no remaining cellulitis, no s treaking, no maloder, no fluctuance, no crepitus, clinically foot continues to improve. Minimal pain to the left foot w/ palpation. Microbiology Past 72 Hours 01/31/20 15:06 Bone - Toe Gram Stain - Final 01/31/20 15:06 Bone - Toe Wound Culture - Preliminary Staphylococcus epidermidis Staphylococcus carnosus carnos Staphylococcus caprae Streptococcus parasanguinis Alpha hemolytic organism 01/31/20 15:13 Wound Drainage - Open/Non-Healing Wound Gram Stain - Final 01/31/20 15:13 Wound Drainage - Open/Non-Healing Wound Wound Culture - Preliminary Streptococcus agalactiae (B) Alpha hemolytic organism GPC Poss Enterococcus sp Alpha Hemolytic Streptococcus Gram positive anthony 01/31/20 15:13 Wound Drainage - Open/Non-Healing Wound Anaerobic Culture - Preliminary Checking for anaerobes, further studies to follow. 01/31/20 15:05 Tissue - Toe Gram Stain - Final 01/31/20 15:05 Tissue - Toe Wound Culture - Final Streptococcus agalactiae (B) 01/31/20 15:05 Tissue - Toe Anaerobic Culture - Preliminary No growth in 48 hours. 02/01/20 11:30 Urine, Clean Catch Urine Culture - Final Culture exhibits no growth. Laboratory Results 02/03/20 11:20: Serum Osmolality 270 L 02/03/20 11:29: POC Glucose 241 H 02/03/20 13:20: Urine Osmolality 147 02/03/20 13:20: Ur Random Sodium 32 02/03/20 13:20: Urine Color Yellow, Urine Clarity Clear, Urine pH 6.5, Ur Specific [place] 1.005, Urine Protein Negative, Urine Glucose (UA) 100 H, Urine Ketones Negative, Urine Occult Blood 10 H, Urine Nitrite Negative, Urine Bilirubin Negative, Urine Urobilinogen Normal, Ur Leukocyte Esterase Negative, Urine RBC 0 SEEN, Urine WBC 0 SEEN, Ur Squamous Epith Cells 0-5 SEEN, Urine Bacteria 0 SEEN, Urine Mucus 0 SEEN 02/03/20 15:40: Sodium 124 L, Potassium 3.3 L, Chloride 92 L, Carbon Dioxide 24.0, Anion Gap 8, BUN 43 H, Creatinine 2.64 H, Estim Creat Clear Calc 17.53, Est GFR (MDRD) Af Amer 24 L, Est GFR (MDRD) Non-Af 20 L, BUN/Creatinine Ratio 16.3, Glucose 192 H, Calcium 7.6 L 02/03/20 16:36: POC Glucose 192 H 02/03/20 19:30: Sodium 126 L, Potassium 4.0, Chloride 94 L, Carbon Dioxide 24.0, Anion Gap 8, BUN 45 H, Creatinine 2.64 H, Estim Creat Clear Calc 17.53, Est GFR (MDRD) Af Amer 24 L, Est GFR (MDRD) Non-Af 20 L, BUN/Creatinine Ratio 17.0, Glucose 263 H, Calcium 7.7 L 02/03/20 21:42: POC Glucose 235 H 02/04/20 05:21: WBC 15.0 H, RBC 3.37 L, Hgb 9.6 L, Hct 28.6 L, MCV 84.9, MCH 28.5, MCHC 33.6, RDW Std Deviation 41.0, RDW Coeff of Leticia 13.2, Plt Count 333, MPV 9.9, Neut % (Auto) Not Reportable, Absolute Neuts (auto) 11.0 H, Absolute Lymphs (auto) 2.56, Diff Path Review February02/04/20 05:21: Sodium 128 L, Potassium 3.9, Chloride 98, Carbon Dioxide 22.0, Anion Gap 8, BUN 45 H, Creatinine 2.65 H, Estim Creat Clear Calc 17.46, Est GFR (MDRD) Af Amer 24 L, Est GFR (MDRD) Non-Af 20 L, BUN/Creatinine Ratio 17.0, Glucose 183 H, Calcium 7.3 L 02/04/20 06:41: POC Glucose 175 H Current Medications Dextrose (D50w Syringe) 0 gm IV X1 PRN; Protocol PRN Reason: Hypoglycemia Glimepiride (Amaryl) 4 mg PO DAILY@0800 [facility] Last Admin: 02/04/20 08:12 Dose: 4 mg Documented by: Glucagon () 1 mg IM .X1 PRN PRN Reason: Hypoglycemia Guaifenesin (Robitussin Dm) 10 ml PO Q6H PRN PRN PRN Reason: COUGH Heparin Sodium (Porcine) (Heparin Na) 5,000 unit SC Q12 [facility] Last Admin: 02/04/20 08:12 Dose: 5,000 unit Documented by: Sodium Chloride () 250 mls @ 15 mls/hr IV .[id number] PRN PRN Reason: Saline Flush Last Infusion: 02/02/20 17:36 Dose: Infused Documented by: Sodium Chloride () 250 mls @ 15 mls/hr IV .[id number] PRN PRN Reason: Additional IVPB Infusion Clindamycin Phosphate 600 mg/ (Dextrose) 54 mls @ 100 mls/hr IV Q8 [facility] Last Infusion: 02/04/20 07:21 Dose: Infused Documented by: Cefepime HCl 1 gm/ Sodium (Chloride) 50 mls @ 100 mls/hr IV Q24@2200 [facility] Last Infusion: 02/03/20 22:33 Dose: Infused Documented by: Insulin Human Lispro (Humalog Kwikpen (Bkc)) 0 unit SC ACHS [facility]; Protocol Last Admin: 02/04/20 06:41 Dose: 3 u Documented by: Linezolid (Zyvox) 600 mg PO BID [facility] Last Admin: 02/04/20 08:12 Dose: 600 mg Documented by: Oxycodone HCl (Oxyir) 10 mg PO Q4H PRN PRN PRN Reason: Pain Score 6-10/10 Pioglitazone HCl (Actos) 45 mg PO DAILY [facility] Last Admin: 02/04/20 08:12 Dose: 45 mg Documented by: Sodium Chloride () 10 - 40 ml IV UD PRN PRN Reason: SALINE FLUSH Sodium Hypochlorite (Dakins Solution 0.25% (1/2 Strength)) 1 applic TOPICAL BID [facility]; Protocol Last Admin: 02/04/20 08:12 Dose: 1 applicatio Documented by: Medical Necessity - Tobacco Use Smoking Status: Never smoker Tobacco Use: Non-smoker Assessment/Plan All Active Problems CHRISTINA (acute kidney injury) (Acute) Diabetic ulcer of left foot (Acute) Cellulitis of foot associated with diabetes mellitus (Acute) Hyponatremia (Acute) Hyperglycemia due to type 2 diabetes mellitus (Acute) Deep wound infection of the left foot (Acute) Necrotic ulceration down to fascia and bone layer left foot s/p debridement 01/31/2020 Severe abscess, and cellulitis left foot Necrotizing fasciitis/gas gangrene left foot Diabetes w/ neuropathy Re-evaluation performed. Reviewed data. WBC still elevated but down to 15.0, no fevers and clinically foot continues to improve, CT scan and no remaining gas and no abscess noted. Continue to follow cultures - growing multiple organisms. 4th metatarsal clearance fragment with strep B. Patient on antibiotics - linezolid, clindamycin, and cefepime per ID/Dr. Hubbard. Nephrology following for CHRISTINA. Again noted clinical improvement to foot, minimal to no cellulitis remaining, clinically tissues appear healthy and viable. Site flushed out with normal saline solution, continue w/ dressing changes - Dakins wet to dry dressing changes BID. LEAS reviewed and good arterial flow to foot. No weightbearing left foot, keep foot elevated at all times. Noted patient's ha1c was 9.4 - reviewed importance of proper blood sugar control. Diabetes management per medicine team, patient will need close follow up by PCP/practice support specialist as outpt for diabetes management. Patient planning to go to nursing facility once discharged for wound care - maybe discharge Wednesday. Podiatry will continue to follow.
--- NOTE | 2020-02-04 11:07 | PN_ITS ---
Patient Problems: Active and Suspected Problems CHRISTINA (acute kidney injury) (Acute) Diabetic ulcer of left foot (Acute) Cellulitis of foot associated with diabetes mellitus (Acute) Hyponatremia (Acute) Hyperglycemia due to type 2 diabetes mellitus (Acute) Deep wound infection of the left foot (Acute) Subjective: Patient seen and examined. She has no complaints and an uneventful night. Review systems otherwise negative. Labs and vitals reviewed. She has remained hemodynamically stable. Sodium is up to 128 today. Creatinine has remained stable at 2.65. White cell count is down to 15 and calcium is down to 7.3 today. Vitals/I&O's: Vital Signs Temp Pulse Resp BP Pulse Ox 98.0 F 82 18 152/71 H 96 02/04/20 08:08 02/04/20 08:08 02/04/20 08:08 02/04/20 08:08 02/04/20 08:08 Oxygen Delivery Method Room Air Weight: 214 lb 0.008 oz Body Mass Index (BMI) 40.4 Finger Stick Blood Glucose 235 Intake and Output for Last 24 Hours 02/02/20 02/03/20 02/04/20 23:59 23:59 23:59 Intake Total 6185.55 / 6685.55 5800.33 / 5800.33 961.5 / 961.5 Output Total 2800 / 3700 5760 / 5760 1000 / 1000 Balance 3385.55 / 2985.55 40.33 / 40.33 -38.5 / -38.5 General: Alert, Oriented x3, Cooperative HEENT: Atraumatic, PERRLA, EOMI, Normocephalic Oral: Moist Mucosa Neck: Supple, No JVD, Negative Carotid Bruits Lungs: Clear to auscultation, Normal air movement, No rhonchi, No wheeze Cardiovascular: Regular rate, Regular Rhythm, Normal S1, Normal S2, No murmurs Abdomen: Bowel Sounds Present, Soft, Non Tender, Non-Distended, No Hepato- splenomegaly Extremities: No clubbing, No cyanosis, No edema, Capillary Refill Less than 3 Seconds, - - left foot wrapped in bandage. Skin: - - left foot wrapped in bandage Musculoskeletal: No Tenderness to Palpation of Joints or Extremities Neurological: Cranial nerves II-XII grossly intact Psych/Mental Status: Normal Affect, Appropriate, Alert and oriented to time, place, person, mood and affect Microbiology Past 72 Hours 01/31/20 15:06 Bone - Toe Gram Stain - Final 01/31/20 15:06 Bone - Toe Wound Culture - Preliminary Staphylococcus epidermidis Staphylococcus carnosus carnos Staphylococcus caprae Streptococcus parasanguinis Alpha hemolytic organism 01/31/20 15:13 Wound Drainage - Open/Non-Healing Wound Gram Stain - Final 01/31/20 15:13 Wound Drainage - Open/Non-Healing Wound Wound Culture - Preliminary Streptococcus agalactiae (B) Alpha hemolytic organism GPC Poss Enterococcus sp Alpha Hemolytic Streptococcus Gram positive anthony 01/31/20 15:13 Wound Drainage - Open/Non-Healing Wound Anaerobic Culture - Preliminary Checking for anaerobes, further studies to follow. 01/31/20 15:05 Tissue - Toe Gram Stain - Final 01/31/20 15:05 Tissue - Toe Wound Culture - Final Streptococcus agalactiae (B) 01/31/20 15:05 Tissue - Toe Anaerobic Culture - Preliminary No growth in 48 hours. 02/01/20 11:30 Urine, Clean Catch Urine Culture - Final Culture exhibits no growth. Laboratory Results 02/03/20 11:20: Serum Osmolality 270 L 02/03/20 11:29: POC Glucose 241 H 02/03/20 13:20: Urine Osmolality 147 02/03/20 13:20: Ur Random Sodium 32 02/03/20 13:20: Urine Color Yellow, Urine Clarity Clear, Urine pH 6.5, Ur Specific [place] 1.005, Urine Protein Negative, Urine Glucose (UA) 100 H, Urine Ketones Negative, Urine Occult Blood 10 H, Urine Nitrite Negative, Urine Bilirubin Negative, Urine Urobilinogen Normal, Ur Leukocyte Esterase Negative, Urine RBC 0 SEEN, Urine WBC 0 SEEN, Ur Squamous Epith Cells 0-5 SEEN, Urine Bacteria 0 SEEN, Urine Mucus 0 SEEN 02/03/20 15:40: Sodium 124 L, Potassium 3.3 L, Chloride 92 L, Carbon Dioxide 24.0, Anion Gap 8, BUN 43 H, Creatinine 2.64 H, Estim Creat Clear Calc 17.53, Est GFR (MDRD) Af Amer 24 L, Est GFR (MDRD) Non-Af 20 L, BUN/Creatinine Ratio 16.3, Glucose 192 H, Calcium 7.6 L 02/03/20 16:36: POC Glucose 192 H 02/03/20 19:30: Sodium 126 L, Potassium 4.0, Chloride 94 L, Carbon Dioxide 24.0, Anion Gap 8, BUN 45 H, Creatinine 2.64 H, Estim Creat Clear Calc 17.53, Est GFR (MDRD) Af Amer 24 L, Est GFR (MDRD) Non-Af 20 L, BUN/Creatinine Ratio 17.0, Glucose 263 H, Calcium 7.7 L 02/03/20 21:42: POC Glucose 235 H 02/04/20 05:21: WBC 15.0 H, RBC 3.37 L, Hgb 9.6 L, Hct 28.6 L, MCV 84.9, MCH 28.5, MCHC 33.6, RDW Std Deviation 41.0, RDW Coeff of Leticia 13.2, Plt Count 333, MPV 9.9, Neut % (Auto) Not Reportable, Absolute Neuts (auto) 11.0 H, Absolute Lymphs (auto) 2.56, Diff Path Review February02/04/20 05:21: Sodium 128 L, Potassium 3.9, Chloride 98, Carbon Dioxide 22.0, A nion Gap 8, BUN 45 H, Creatinine 2.65 H, Estim Creat Clear Calc 17.46, Est GFR (MDRD) Af Amer 24 L, Est GFR (MDRD) Non-Af 20 L, BUN/Creatinine Ratio 17.0, Glucose 183 H, Calcium 7.3 L 02/04/20 06:41: POC Glucose 175 H Current Medications Dextrose (D50w Syringe) 0 gm IV X1 PRN; Protocol PRN Reason: Hypoglycemia Glimepiride (Amaryl) 4 mg PO DAILY@0800 [facility] Last Admin: 02/04/20 08:12 Dose: 4 mg Documented by: Glucagon () 1 mg IM .X1 PRN PRN Reason: Hypoglycemia Guaifenesin (Robitussin Dm) 10 ml PO Q6H PRN PRN PRN Reason: COUGH Heparin Sodium (Porcine) (Heparin Na) 5,000 unit SC Q12 [facility] Last Admin: 02/04/20 08:12 Dose: 5,000 unit Documented by: Sodium Chloride () 250 mls @ 15 mls/hr IV .[id number] PRN PRN Reason: Saline Flush Last Infusion: 02/02/20 17:36 Dose: Infused Documented by: Sodium Chloride () 250 mls @ 15 mls/hr IV .[id number] PRN PRN Reason: Additional IVPB Infusion Clindamycin Phosphate 600 mg/ (Dextrose) 54 mls @ 100 mls/hr IV Q8 [facility] Last Infusion: 02/04/20 07:21 Dose: Infused Documented by: Cefepime HCl 1 gm/ Sodium (Chloride) 50 mls @ 100 mls/hr IV Q24@2200 [facility] Last Infusion: 02/03/20 22:33 Dose: Infused Documented by: Insulin Human Lispro (Humalog Kwikpen (Bkc)) 0 unit SC ACHS [facility]; Protocol Last Admin: 02/04/20 06:41 Dose: 3 u Documented by: Linezolid (Zyvox) 600 mg PO BID [facility] Last Admin: 02/04/20 08:12 Dose: 600 mg Documented by: Oxycodone HCl (Oxyir) 10 mg PO Q4H PRN PRN PRN Reason: Pain Score 6-10/10 Pioglitazone HCl (Actos) 45 mg PO DAILY [facility] Last Admin: 02/04/20 08:12 Dose: 45 mg Documented by: Sodium Chloride () 10 - 40 ml IV UD PRN PRN Reason: SALINE FLUSH Sodium Hypochlorite (Dakins Solution 0.25% (1/2 Strength)) 1 applic TOPICAL BID [facility]; Protocol Last Admin: 02/04/20 08:12 Dose: 1 applicatio Documented by: STROKE Vital Signs/Narrative: Vital Signs Temp Pulse Resp BP Pulse Ox 02/04/20 08:08 98.0 F 82 18 152/71 H 96 Medical Necessity - Tobacco Use Smoking Status: Never smoker Tobacco Use: Non-smoker Assessment/Plan All Active Problems CHRISTINA (acute kidney injury) (Acute) Diabetic ulcer of left foot (Acute) Cellulitis of foot associated with diabetes mellitus (Acute) Hyponatremia (Acute) Hyperglycemia due to type 2 diabetes mellitus (Acute) Deep wound infection of the left foot (Acute) 1.Necrotising fasciitis of left foot due to diabetic neuropathy * Status post debridement of left foot by podiatry. Today's postop day 4 * WBC is 15 today * ID and podiatry on board. On IV vancomycin and cefepime. * wound cultures grew Str possible enterococcus. Bone cultures grew Staph carnosus and staph epidermidis with a gram-positive anthony. Strep Grp B, Gram positive rods * on IV cefepime and clindamycin * 2. Hyponatremia * sodium is up to 128 today * on IV normal saline * serum osmolality was low at 270; urine osmolality was 147 and urine sodium was 132. * nephrology on board * * 3. CHRISTINA * Creatinine today is 2.65. Cause of CHRISTINA is not clear. Creatinine was 0.6 on 01/31/2020. * Patient had been on vancomycin so this could possibly be contributing to her CHRISTINA. * Nephrology on board. Vancomycin DC'd. * on IV normal saline * Renal ultrasound ordered and pending * Nephrology on board. * 4. Hypokalemia: Potassium is 3.9 today. 5. Diabetes with neuropathy: on glimepiride and p.o. glitazone. Insulin sliding scale. Accu-Cheks AC at bedtime. 6. Hypertension: Ramipril and Maxide on hold on account of CHRISTINA. IV hydralazine PRN. DVT prophylaxis: heparin Disposition: Plan is for patient to go to [facility] when she is medically stable. Inpatient E&M: [id number] [facility] L3
[2020-02-04 12:20] LABS: Bedside Glucose 238 mg/dL (70-110)
[2020-02-04 13:58] VITALS: BP 132/59; PULSE 80; RESP 18; TEMP 36.6; O2SAT 97
[2020-02-04 16:45] LABS: Bedside Glucose 201 mg/dL (70-110)
--- NOTE | 2020-02-04 17:00 | PN.RENAL_ITS ---
Patient Problems: Active and Suspected Problems CHRISTINA (acute kidney injury) (Acute) Diabetic ulcer of left foot (Acute) Cellulitis of foot associated with diabetes mellitus (Acute) Hyponatremia (Acute) Hyperglycemia due to type 2 diabetes mellitus (Acute) Deep wound infection of the left foot (Acute) Subjective: no new complaints - Physical Exam Vitals/I&O's: Vital Signs Temp Pulse Resp BP Pulse Ox 97.9 F 80 18 132/59 H 97 02/04/20 13:58 02/04/20 13:58 02/04/20 13:58 02/04/20 13:58 02/04/20 13:58 Oxygen Delivery Method Room Air Weight: 97.069 kg Body Mass Index (BMI) 40.4 Finger Stick Blood Glucose 235 Intake and Output for Last 24 Hours 02/02/20 02/03/20 02/04/20 23:59 23:59 23:59 Intake Total 6185.55 / 6685.55 5800.33 / 5800.33 1815.5 / 1815.5 Output Total 2800 / 3700 5760 / 5760 2500 / 2500 Balance 3385.55 / 2985.55 40.33 / 40.33 -684.5 / -684.5 General: Alert, Oriented x3, Cooperative HEENT: Atraumatic, PERRLA, EOMI, Normocephalic Neck: Supple, No JVD, Negative Carotid Bruits Lungs: Clear to auscultation, Normal air movement Cardiovascular: Regular rate, No murmurs Abdomen: Bowel Sounds Present, Soft, Non Tender Extremities: No edema, Capillary Refill Less than 3 Seconds Skin: No rashes, No breakdown Musculoskeletal: No Tenderness to Palpation of Joints or Extremities Neurological: Cranial nerves II-XII grossly intact Psych/Mental Status: Normal Affect, Appropriate Microbiology Past 72 Hours 01/31/20 15:06 Bone - Toe Gram Stain - Final 01/31/20 15:06 Bone - Toe Wound Culture - Preliminary Staphylococcus epidermidis Staphylococcus carnosus carnos Staphylococcus caprae Streptococcus parasanguinis Alpha hemolytic organism 01/31/20 15:13 Wound Drainage - Open/Non-Healing Wound Gram Stain - Final 01/31/20 15:13 Wound Drainage - Open/Non-Healing Wound Wound Culture - Preliminary Streptococcus agalactiae (B) Alpha hemolytic organism GPC Poss Enterococcus sp Alpha Hemolytic Streptococcus Gram positive anthony 01/31/20 15:13 Wound Drainage - Open/Non-Healing Wound Anaerobic Culture - Preliminary Checking for anaerobes, further studies to follow. 01/31/20 15:05 Tissue - Toe Gram Stain - Final 01/31/20 15:05 Tissue - Toe Wound Culture - Final Streptococcus agalactiae (B) 01/31/20 15:05 Tissue - Toe Anaerobic Culture - Preliminary No growth in 48 hours. 02/01/20 11:30 Urine, Clean Catch Urine Culture - Final Culture exhibits no growth. Laboratory Results 02/03/20 19:30: Sodium 126 L, Potassium 4.0, Chloride 94 L, Carbon Dioxide 24.0, Anion Gap 8, BUN 45 H, Creatinine 2.64 H, Estim Creat Clear Calc 17.53, Est GFR (MDRD) Af Amer 24 L, Est GFR (MDRD) Non-Af 20 L, BUN/Creatinine Ratio 17.0, Glucose 263 H, Calcium 7.7 L 02/03/20 21:42: POC Glucose 235 H 02/04/20 05:21: WBC 15.0 H, RBC 3.37 L, Hgb 9.6 L, Hct 28.6 L, MCV 84.9, MCH 28.5, MCHC 33.6, RDW Std Deviation 41.0, RDW Coeff of Leticia 13.2, Plt Count 333, MPV 9.9, Neut % (Auto) Not Reportable, Absolute Neuts (auto) 11.0 H, Absolute Lymphs (auto) 2.56, Diff Path Review February02/04/20 05:21: Sodium 128 L, Potassium 3.9, Chloride 98, Carbon Dioxide 22.0, Anion Gap 8, BUN 45 H, Creatinine 2.65 H, Estim Creat Clear Calc 17.46, Est GFR (MDRD) Af Amer 24 L, Est GFR (MDRD) Non-Af 20 L, BUN/Creatinine Ratio 17.0, Glucose 183 H, Calcium 7.3 L 02/04/20 06:41: POC Glucose 175 H 02/04/20 12:13: POC Glucose 238 H 02/04/20 16:39: POC Glucose 201 H Current Medications Dextrose (D50w Syringe) 0 gm IV X1 PRN; Protocol PRN Reason: Hypoglycemia Glimepiride (Amaryl) 4 mg PO DAILY@0800 [facility] Last Admin: 02/04/20 08:12 Dose: 4 mg Documented by: Glucagon () 1 mg IM .X1 PRN PRN Reason: Hypoglycemia Guaifenesin (Robitussin Dm) 10 ml PO Q6H PRN PRN PRN Reason: COUGH Heparin Sodium (Porcine) (Heparin Na) 5,000 unit SC Q12 [facility] Last Admin: 02/04/20 08:12 Dose: 5,000 unit Documented by: Sodium Chloride () 250 mls @ 15 mls/hr IV .[id number] PRN PRN Reason: Saline Flush Last Infusion: 02/02/20 17:36 Dose: Infused Documented by: Sodium Chloride () 250 mls @ 15 mls/hr IV .[id number] PRN PRN Reason: Additional IVPB Infusion Clindamycin Phosphate 600 mg/ (Dextrose) 54 mls @ 100 mls/hr IV Q8 [facility] Last Infusion: 02/04/20 15:16 Dose: Infused Documented by: Cefepime HCl 1 gm/ Sodium (Chloride) 50 mls @ 100 mls/hr IV Q24@2200 [facility] Last Infusion: 02/03/20 22:33 Dose: Infused Documented by: Insulin Human Lispro (Humalog Kwikpen (Bkc)) 0 unit SC ACHS [facility]; Protocol Last Admin: 02/04/20 16:52 Dose: 3 u Documented by: Linezolid (Zyvox) 600 mg PO BID [facility] Last Admin: 02/04/20 08:12 Dose: 600 mg Documented by: Oxycodone HCl (Oxyir) 10 mg PO Q4H PRN PRN PRN Reason: Pain Score 6-10/10 Pioglitazone HCl (Actos) 45 mg PO DAILY [facility] Last Admin: 02/04/20 08:12 Dose: 45 mg Documented by: Sodium Chloride () 10 - 40 ml IV UD PRN PRN Reason: SALINE FLUSH Sodium Hypochlorite (Dakins Solution 0.25% (1/2 Strength)) 1 applic TOPICAL BID [facility]; Protocol Last Admin: 02/04/20 08:12 Dose: 1 applicatio Documented by: Medical Necessity - Tobacco Use Smoking Status: Never smoker Tobacco Use: Non-smoker Assessment/Plan All Active Problems CHRISTINA (acute kidney injury) (Acute) Diabetic ulcer of left foot (Acute) Cellulitis of foot associated with diabetes mellitus (Acute) Hyponatremia (Acute) Hyperglycemia due to type 2 diabetes mellitus (Acute) Deep wound infection of the left foot (Acute) CHRISTINA. normal baseline. no obstructive symptoms. Creatinine has increased over the last 3 days. From yesterday to today, creatinine is about the same. Repeat urine analysis is fairly benign except for microscopic hematuria. Renal ultrasound has been ordered, pending. Given CHRISTINA in hospital most likely this is either sepsis related or antibiotic related. Non-oliguric. Since creatinine is about the same today, compared to yesterday hopefully she will recover soon. hyponatremia. Urine osmolality is 140. In acute renal failure setting, this is relatively low urine osmolality. Most likely some polydipsia complement. I did advise her to cut back on oral fluid intake for now. Continue IV fluid. Urine sodium is more than 20. sodium is better at 128 hypokalemia. better
[2020-02-04 20:00] VITALS: BP 158/79; PULSE 82; RESP 18; TEMP 36.8; O2SAT 98
[2020-02-04 21:11] LABS: Bedside Glucose 231 mg/dL (70-110)
[2020-02-05 03:00] VITALS: BP 132/53; PULSE 95; RESP 18; TEMP 37.2; O2SAT 96
[2020-02-05] MEDS: Insulin Lispro 100 UNIT/ML INSULN.PEN SC ×4 (06:50→21:18)
[2020-02-05 06:56] LABS: Bedside Glucose 158 mg/dL (70-110)
--- NOTE | 2020-02-05 07:15 | US_ITS ---
STUDY: RENAL ULTRASOUND - COMPLETE REASON FOR EXAM: Female, 59 years old. CHRISTINA TECHNIQUE: Ultrasound evaluation of the kidneys was performed with real-time and static patrick-scale imaging. COMPARISON: None. FINDINGS: RIGHT KIDNEY: Normal location of the right kidney, which is normal in size. The right kidney measures 14 cm x 6.7 cm x 5.5 cm. There is a normal cortex of the right kidney. The renal cortex measures 1.5 cm. There is no right renal mass or cyst. There are no right renal calculi. There is no right hydronephrosis. DISTAL RIGHT URETER: There is non-visualization of the distal right ureter. There is no demonstrated right ureterovesical junction calculus. There is a visualized right ureteral jet. LEFT KIDNEY: Normal location of the left kidney, which is normal in size. The left kidney measures 14.2 cm x 5.7 cm x 6.4 cm. There is a normal cortex of the left kidney. The renal cortex measures 1.4 cm. There is no left renal mass or cyst. There are no left renal calculi. There is no left hydronephrosis. DISTAL LEFT URETER: There is non-visualization of the distal left ureter. There is no demonstrated left ureterovesical junction calculus. There is a visualized left ureteral jet. BLADDER: The distended urinary bladder has a volume of 578 ml. There is a normal wall thickness of the distended urinary bladder. There is no demonstrated mass within the urinary bladder. There are no demonstrated bladder calculi. US/Kidney and Bladder IMPRESSION: Normal ultrasound of the kidneys and urinary bladder. Electronically Signed: Bob Ojeda, at 8:26 EDT , Service support ,
[2020-02-05 07:28] LABS: Differential Indicated MANUAL DIFF; Hematocrit 28.2 % (37-47); Hemoglobin 9.5 g/dL (12.0-15.0); Mean Corp Hgb Conc 33.7 g/dL (32-36); Mean Corpuscular Hgb 28.9 pg (27.0-32.0); Mean Corpuscular Volume 85.7 fL (81-99); Mean Platelet Vol. 9.6 fl (6.2-12.0); POSITIVE COUNT YES; POSITIVE MORPHOLOGY YES; Platelet Count 362 K/mm3 (150-450); RBC Distribution Width CV 13.8 % (11.6-14.6); RBC Distribution Width SD 43.4 fl (35.1-43.9); Red Blood Count 3.29 M/mm3 (4.2-5.4); White Blood Count 16.3 K/mm3 (4.4-11.0)
[2020-02-05 07:45] LABS: Lymphocyte 23 % (19-41); Metamyelocyte 5 % (0-1); Monocyte 5 % (0-10); Neutrophil-Band 2 % (0-5); Neutrophil-Segmented 64 % (47-70)
[2020-02-05 07:46] LABS: Absolute Lymphocyte Count 3.74 X10^3/uL (0.83-4.51); Absolute Neutrophil Count 10.7 X10^3/uL (2.0-7.7); Lymphocyte # 3.74 X10^3/ul (4.0); Neutrophil # 10.74 X10^3/uL (2.7-7.7)
[2020-02-05 07:47] LABS: Monocyte# 0.81 X10^3/uL
[2020-02-05 07:53] LABS: Anion Gap 7 (5-15); BUN 53 mg/dL (7-18); BUN/Creat Ratio 17.3 RATIO (10-20); Calcium,Total 7.8 mg/dL (8.5-10.1); Chloride 106 mmol/L (98-107); Creatinine, Serum 3.06 mg/dL (0.55-1.02); EST Glomerular Filtration Rate 17 mL/min (>60); Est Glom Filt Rate - Afr Amer 20 mL/min (>60); Estimated Creatinine Clearance 15.12 ml/min; Glucose 162 mg/dL (74-106); Sodium Level 135 mmol/L (136-145)
[2020-02-05 09:25] VITALS: BP 146/67; PULSE 84; RESP 18; TEMP 36.9; O2SAT 96
[2020-02-05] MEDS: Pioglitazone Hydrochloride 45 MG Tablet PO (09:29)
[2020-02-05] MEDS: Juven (unflavored) Packet 1 PACKET PO ×2 (09:29→17:07)
[2020-02-05] MEDS: Glimepiride 4 MG Tablet PO (09:30)
[2020-02-05] MEDS: Linezolid 600 MG Tablet PO ×2 (09:30→21:09)
[2020-02-05] MEDS: Heparin Injection (Vial) 5,000 UNIT/ML VIAL 5000 UNIT SC ×2 (09:31→21:08)
[2020-02-05 11:17] LABS: Pathologist Review Reviewed
[2020-02-05 11:41] LABS: Bedside Glucose 202 mg/dL (70-110)
--- NOTE | 2020-02-05 11:57 | PN_ITS ---
Patient Problems: Active and Suspected Problems CHRISTINA (acute kidney injury) (Acute) Diabetic ulcer of left foot (Acute) Cellulitis of foot associated with diabetes mellitus (Acute) Hyponatremia (Acute) Hyperglycemia due to type 2 diabetes mellitus (Acute) Deep wound infection of the left foot (Acute) Subjective: Patient seen and examined. She had no complaints today. Review of systems is otherwise negative. Vitals/I&O's: Vital Signs Temp Pulse Resp BP Pulse Ox 98.5 F 84 18 146/67 H 96 02/05/20 09:25 02/05/20 09:25 02/05/20 09:25 02/05/20 09:25 02/05/20 09:25 Oxygen Delivery Method Room Air Weight: 214 lb 0.008 oz Body Mass Index (BMI) 40.4 Finger Stick Blood Glucose 235 Intake and Output for Last 24 Hours 02/03/20 02/04/20 02/05/20 23:59 23:59 23:59 Intake Total 5800.33 / 5800.33 2919.5 / 2919.5 504 / 504 Output Total 5760 / 5760 4250 / 5250 2700 / 2700 Balance 40.33 / 40.33 -1330.5 / -2330.5 -2196 / -2196 General: Alert, Oriented x3, Cooperative HEENT: Atraumatic, PERRLA, EOMI, Normocephalic Oral: Moist Mucosa Neck: Supple, No JVD, Negative Carotid Bruits Lungs: Clear to auscultation, Normal air movement, No rhonchi, No wheeze Cardiovascular: Regular rate, Regular Rhythm, Normal S1, Normal S2, No murmurs Abdomen: Bowel Sounds Present, Soft, Non Tender, Non-Distended, No Hepato- splenomegaly Extremities: No clubbing, No cyanosis, No edema, Capillary Refill Less than 3 Seconds, - - left foot wrapped in bandage. Skin: - - left foot wrapped in bandage Musculoskeletal: No Tenderness to Palpation of Joints or Extremities Neurological: Cranial nerves II-XII grossly intact Psych/Mental Status: Normal Affect, Appropriate, Alert and oriented to time, place, person, mood and affect Microbiology Past 72 Hours 01/31/20 15:05 Tissue - Toe Gram Stain - Final 01/31/20 15:05 Tissue - Toe Wound Culture - Final Streptococcus agalactiae (B) 01/31/20 15:05 Tissue - Toe Anaerobic Culture - Final No anaerobic bacteria isolated. 01/31/20 15:13 Wound Drainage - Open/Non-Healing Wound Gram Stain - Final 01/31/20 15:13 Wound Drainage - Open/Non-Healing Wound Wound Culture - Preliminary Streptococcus agalactiae (B) Streptococcus mitis/ oralis Enterococcus faecalis Streptococcus intermedius Bacillus species 01/31/20 15:13 Wound Drainage - Open/Non-Healing Wound Anaerobic Culture - Preliminary Checking for anaerobes, further studies to follow. 01/31/20 15:06 Bone - Toe Gram Stain - Final 01/31/20 15:06 Bone - Toe Wound Culture - Final Streptococcus intermedius Staphylococcus carnosus carnos Staphylococcus caprae Streptococcus parasanguinis 02/01/20 11:30 Urine, Clean Catch Urine Culture - Final Culture exhibits no growth. Laboratory Results 02/03/20 13:20: Eos Smear Total Cells Pending, Complement C3 Pending, Complement C4 Pending 02/04/20 05:21: Diff Path Review Reviewed 02/04/20 12:13: POC Glucose 238 H 02/04/20 16:39: POC Glucose 201 H 02/04/20 21:05: POC Glucose 231 H 02/05/20 06:47: POC Glucose 158 H 02/05/20 07:05: WBC 16.3 H, RBC 3.29 L, Hgb 9.5 L, Hct 28.2 L, MCV 85.7, MCH 28.9, MCHC 33.7, RDW Std Deviation 43.4, RDW Coeff of Leticia 13.8, Plt Count 362, MPV 9.6, Neut % (Auto) Not Reportable, Absolute Neuts (auto) 10.7 H, Absolute Lymphs (auto) 3.74, Neutrophils % (Manual) 64, Band Neutrophils % 2, Lymphocytes % (Manual) 23, Monocytes % (Manual) 5, Metamyelocytes % 5 H, Diff Path Review May 02/05/20 07:05: Sodium 135 L, Potassium 4.0, Chloride 106, Carbon Dioxide 22.0, Anion Gap 7, BUN 53 H, Creatinine 3.06 H, Estim Creat Clear Calc 15.12, Est GFR (MDRD) Af Amer 20 L, Est GFR (MDRD) Non-Af 17 L, BUN/Creatinine Ratio 17.3, Glucose 162 H, Calcium 7.8 L 02/05/20 11:33: POC Glucose 202 H Current Medications Dextrose (D50w Syringe) 0 gm IV X1 PRN; Protocol PRN Reason: Hypoglycemia Glimepiride (Amaryl) 4 mg PO DAILY@0800 [facility] Last Admin: 02/05/20 09:30 Dose: 4 mg Documented by: Glucagon () 1 mg IM .X1 PRN PRN Reason: Hypoglycemia Guaifenesin (Robitussin Dm) 10 ml PO Q6H PRN PRN PRN Reason: COUGH Heparin Sodium (Porcine) (Heparin Na) 5,000 unit SC Q12 [facility] Last Admin: 02/05/20 09:31 Dose: 5,000 unit Documented by: Sodium Chloride () 250 mls @ 15 mls/hr IV .[id number] PRN PRN Reason: Saline Flush Last Infusion: 02/02/20 17:36 Dose: Infused Documented by: Sodium Chloride () 250 mls @ 15 mls/hr IV .[id number] PRN PRN Reason: Additional IVPB Infusion Clindamycin Phosphate 600 mg/ (Dextrose) 54 mls @ 100 mls/hr IV Q8 [facility] Last Infusion: 02/05/20 05:44 Dose: Infused Documented by: Cefepime HCl 1 gm/ Sodium (Chloride) 50 mls @ 100 mls/hr IV Q24@2200 [facility] Last Infusion: 02/04/20 22:11 Dose: Infused Documented by: Insulin Human Lispro (Humalog Kwikpen (Bkc)) 0 unit SC ACHS [facility]; Protocol Last Admin: 02/05/20 11:35 Dose: 3 u Documented by: Linezolid (Zyvox) 600 mg PO BID [facility] Last Admin: 02/05/20 09:30 Dose: 600 mg Documented by: Oxycodone HCl (Oxyir) 10 mg PO Q4H PRN PRN PRN Reason: Pain Score 6-10/10 Pioglitazone HCl (Actos) 45 mg PO DAILY [facility] Last Admin: 02/05/20 09:29 Dose: 45 mg Documented by: Sodium Chloride () 10 - 40 ml IV UD PRN PRN Reason: SALINE FLUSH Sodium Hypochlorite (Dakins Solution 0.25% (1/2 Strength)) 1 applic TOPICAL BID [facility]; Protocol Last Admin: 02/04/20 21:31 Dose: 1 applicatio Documented by: STROKE Vital Signs/Narrative: Vital Signs Temp Pulse Resp BP Pulse Ox 02/05/20 09:25 98.5 F 84 18 146/67 H 96 Medical Necessity - Tobacco Use Smoking Status: Never smoker Tobacco Use: Non-smoker Assessment/Plan All Active Problems CHRISTINA (acute kidney injury) (Acute) Diabetic ulcer of left foot (Acute) Cellulitis of foot associated with diabetes mellitus (Acute) Hyponatremia (Acute) Hyperglycemia due to type 2 diabetes mellitus (Acute) Deep wound infection of the left foot (Acute) 1.Necrotising fasciitis of left foot due to diabetic neuropathy * Status post debridement of left foot by podiatry. Today's postop day 5 * WBC is 16 today * ID and podiatry on board. On IV vancomycin and cefepime. * wound cultures grew Strep enterococcus. Bone cultures grew Staph carnosus and staph epidermidis with a gram-positive anthony. Strep Grp B, Gram positive rods * on IV cefepime and clindamycin * 2. Hyponatremia * sodium is up to 135 today * on IV normal saline * nephrology on board * * 3. CHRISTINA * Creatinine today is up to 3.06. Cause of CHRISTINA is not clear. Creatinine was 0.6 on 01/31/2020. * Patient had been on vancomycin so this could possibly be contributing to her CHRISTINA. * Nephrology on board. * on IV normal saline * Renal ultrasound ordered showed normal kidneys and bladder. * Nephrology on board. 4. Diabetes with neuropathy: on glimepiride and p.o. glitazone. Insulin sliding scale. Accu-Cheks AC at bedtime. 5. Hypertension: Ramipril and Maxide on hold on account of CHRISTINA. IV hydralazine PRN. DVT prophylaxis: heparin Disposition: Plan is for patient to go to [facility] when she is medically stable. Inpatient E&M: 79138 Subs Hosp L2
--- NOTE | 2020-02-05 12:00 | CASEMGMT ---
Social Work Note Plan is for pt to discharge to [facility] once medically cleared. SW faxed updated clinicals to [facility]. Plan: [facility] once medically cleared Marianna Jenkins [employer] [place], [employer]
--- NOTE | 2020-02-05 13:22 | PCM.PROGNOTE ---
Patient Problems: Active and Suspected Problems CHRISTINA (acute kidney injury) (Acute) Diabetic ulcer of left foot (Acute) Cellulitis of foot associated with diabetes mellitus (Acute) Hyponatremia (Acute) Hyperglycemia due to type 2 diabetes mellitus (Acute) Deep wound infection of the left foot (Acute) Subjective: Patient was seen today for follow up on left foot. She has no new complaints. - Physical Exam Vitals/I&O's: Vital Signs Temp Pulse Resp BP Pulse Ox 98.5 F 84 18 146/67 H 96 02/05/20 09:25 02/05/20 09:25 02/05/20 09:25 02/05/20 09:25 02/05/20 09:25 Oxygen Delivery Method Room Air Weight: 97.069 kg Body Mass Index (BMI) 40.4 Finger Stick Blood Glucose 235 Intake and Output for Last 24 Hours 02/03/20 02/04/20 02/05/20 23:59 23:59 23:59 Intake Total 5800.33 / 5800.33 2919.5 / 2919.5 504 / 504 Output Total 5760 / 5760 4250 / 5250 2700 / 2700 Balance 40.33 / 40.33 -1330.5 / -2330.5 -2196 / -2196 General: Alert, Oriented x3, Cooperative, No apparent distress Extremities: Capillary Refill Less than 3 Seconds, No Calf Tenderness, - - s/p wide debridement left forefoot with open wound present, tissue granular, some serous drainage, no visible abscess, no streaking, no maloder, no fluctuance, no crepitus, clinically foot continues to improve. Minimal pain to the left foot w/ palpation. Psych/Mental Status: Alert and oriented to time, place, person, mood and affect Microbiology Past 72 Hours 01/31/20 11:15 Blood Culture (Wb) - Right Hand Blood Culture - Final No growth in 5 days. 01/31/20 11:10 Blood Culture (Wb) - Left Forearm Blood Culture - Final No growth in 5 days. 01/31/20 15:05 Tissue - Toe Gram Stain - Final 01/31/20 15:05 Tissue - Toe Wound Culture - Final Streptococcus agalactiae (B) 01/31/20 15:05 Tissue - Toe Anaerobic Culture - Final No anaerobic bacteria isolated. 01/31/20 15:13 Wound Drainage - Open/Non-Healing Wound Gram Stain - Final 01/31/20 15:13 Wound Drainage - Open/Non-Healing Wound Wound Culture - Preliminary Streptococcus agalactiae (B) Streptococcus mitis/ oralis Enterococcus faecalis Streptococcus intermedius Bacillus species 01/31/20 15:13 Wound Drainage - Open/Non-Healing Wound Anaerobic Culture - Preliminary Checking for anaerobes, further studies to follow. 01/31/20 15:06 Bone - Toe Gram Stain - Final 01/31/20 15:06 Bone - Toe Wound Culture - Final Streptococcus intermedius Staphylococcus carnosus carnos Staphylococcus caprae Streptococcus parasanguinis 02/01/20 11:30 Urine, Clean Catch Urine Culture - Final Culture exhibits no growth. Laboratory Results 02/03/20 13:20: Eos Smear Total Cells Pending, Complement C3 Pending, Complement C4 Pending 02/04/20 05:21: Diff Path Review Reviewed 02/04/20 16:39: POC Glucose 201 H 02/04/20 21:05: POC Glucose 231 H 02/05/20 06:47: POC Glucose 158 H 02/05/20 07:05: WBC 16.3 H, RBC 3.29 L, Hgb 9.5 L, Hct 28.2 L, MCV 85.7, MCH 28.9, MCHC 33.7, RDW Std Deviation 43.4, RDW Coeff of Leticia 13.8, Plt Count 362, MPV 9.6, Neut % (Auto) Not Reportable, Absolute Neuts (auto) 10.7 H, Absolute Lymphs (auto) 3.74, Neutrophils % (Manual) 64, Band Neutrophils % 2, Lymphocytes % (Manual) 23, Monocytes % (Manual) 5, Metamyelocytes % 5 H, Diff Path Review May 02/05/20 07:05: Sodium 135 L, Potassium 4.0, Chloride 106, Carbon Dioxide 22.0, Anion Gap 7, BUN 53 H, Creatinine 3.06 H, Estim Creat Clear Calc 15.12, Est GFR (MDRD) Af Amer 20 L, Est GFR (MDRD) Non-Af 17 L, BUN/Creatinine Ratio 17.3, Glucose 162 H, Calcium 7.8 L 02/05/20 11:33: POC Glucose 202 H Current Medications Dextrose (D50w Syringe) 0 gm IV X1 PRN; Protocol PRN Reason: Hypoglycemia Glimepiride (Amaryl) 4 mg PO DAILY@0800 [facility] Last Admin: 02/05/20 09:30 Dose: 4 mg Documented by: Glucagon () 1 mg IM .X1 PRN PRN Reason: Hypoglycemia Guaifenesin (Robitussin Dm) 10 ml PO Q6H PRN PRN PRN Reason: COUGH Heparin Sodium (Porcine) (Heparin Na) 5,000 unit SC Q12 [facility] Last Admin: 02/05/20 09:31 Dose: 5,000 unit Documented by: Sodium Chloride () 250 mls @ 15 mls/hr IV .[id number] PRN PRN Reason: Saline Flush Last Infusion: 02/02/20 17:36 Dose: Infused Documented by: Sodium Chloride () 250 mls @ 15 mls/hr IV .[id number] PRN PRN Reason: Additional IVPB Infusion Clindamycin Phosphate 600 mg/ (Dextrose) 54 mls @ 100 mls/hr IV Q8 [facility] Last Infusion: 02/05/20 05:44 Dose: Infused Documented by: Cefepime HCl 1 gm/ Sodium (Chloride) 50 mls @ 100 mls/hr IV Q24@2200 [facility] Last Infusion: 02/04/20 22:11 Dose: Infused Documented by: Insulin Human Lispro (Humalog Kwikpen (Bkc)) 0 unit SC ACHS [facility]; Protocol Last Admin: 02/05/20 11:35 Dose: 3 u Documented by: Linezolid (Zyvox) 600 mg PO BID [facility] Last Admin: 02/05/20 09:30 Dose: 600 mg Documented by: Oxycodone HCl (Oxyir) 10 mg PO Q4H PRN PRN PRN Reason: Pain Score 6-10/10 Pioglitazone HCl (Actos) 45 mg PO DAILY [facility] Last Admin: 02/05/20 09:29 Dose: 45 mg Documented by: Sodium Chloride () 10 - 40 ml IV UD PRN PRN Reason: SALINE FLUSH Sodium Hypochlorite (Dakins Solution 0.25% (1/2 Strength)) 1 applic TOPICAL BID [facility]; Protocol Last Admin: 02/04/20 21:31 Dose: 1 applicatio Documented by: Medical Necessity - Tobacco Use Smoking Status: Never smoker Tobacco Use: Non-smoker Assessment/Plan All Active Problems CHRISTINA (acute kidney injury) (Acute) Diabetic ulcer of left foot (Acute) Cellulitis of foot associated with diabetes mellitus (Acute) Hyponatremia (Acute) Hyperglycemia due to type 2 diabetes mellitus (Acute) Deep wound infection of the left foot (Acute) Necrotic ulceration down to fascia and bone layer left foot s/p debridement 01/31/2020 Severe abscess, and cellulitis left foot Necrotizing fasciitis/gas gangrene left foot Diabetes w/ neuropathy Re-evaluation performed. Reviewed data. WBC still elevated, no fevers and clinically foot with no clinical evidence of remaining infection, tissues appear healthy and viable, CT scan w/ no remaining gas and no abscess noted. Continue to follow cultures - growing multiple organisms. 4th metatarsal clearance fragment with strep B. Patient on antibiotics - linezolid, clindamycin, and cefepime per ID/Dr. Hubbard. Nephrology following for CHRISTINA. Continue w/ dressing changes - Dakins wet to dry dressing changes BID. LEAS reviewed and good arterial flow to foot. No weightbearing left foot, keep foot elevated at all times. Noted patient's ha1c was 9.4 - reviewed importance of proper blood sugar control. Diabetes management per medicine team, patient will need close follow up by PCP/digital content specialist as outpt for diabetes management. Patient planning to go to nursing facility once discharged for wound care. Podiatry will continue to follow.
--- NOTE | 2020-02-05 13:26 | DCINST_ITS ---
Weight Bearing Status: No weight bearing - No weightbearing left foot, keep foot elevated. Keep extremity elevated above heart level: Left Leg Call your doctor if your incision/area has: Sudden Increased Bleeding, Increased Pain/ Swelling, Increased Redness, Foul Smelling Discharge Call your doctor if you observe: Fever of 101 or Higher Cleanse incision/area with: - - Dressing changes left foot - Dakins wet to dry dressing changes w/ gauze, kerlix and lauren dressing - change BID. Allergies/Adverse Reactions: Allergies No Known Allergies Allergy (Verified 01/31/20 10:37) Medications to take at Discharge Cephalexin [Keflex] 500 mg PO 4X/DAY 01/31/20 Glimepiride [Amaryl] 4 mg PO DAILY 01/31/20 Metformin HCl 1,000 mg PO BID 01/31/20 Pioglitazone [Actos] 45 mg PO DAILY 01/31/20 Ramipril 5 mg PO DAILY 01/31/20 Triamterene 75MG/Hctz 50MG [Maxzide] 0.5 tab PO DAILY 01/31/20 Primary Care Physician: Noah Levin DO [Primary Care Provider] - Test Results: Test results from this visit will be discussed in further detail at your follow- up appointment, if applicable. Please Follow Up With: Arlyn Godwin DPM When: at [facility] in 1 week, sooner if needed
[2020-02-05] MEDS: 0.9% Normal Saline 1,000 ML 125 ML IV ×2 (14:14→21:13)
[2020-02-05] MEDS: 0.9% Saline Lock 10 ML Syringe IV (14:15)
--- NOTE | 2020-02-05 15:24 | NURSING ---
wound photo: left foot
--- NOTE | 2020-02-05 15:25 | NURSING ---
wound photo: left foot
[2020-02-05 15:41] VITALS: BP 149/74; PULSE 82; RESP 18; TEMP 36.3; O2SAT 99
[2020-02-05 17:16] LABS: Bedside Glucose 151 mg/dL (70-110)
--- NOTE | 2020-02-05 17:42 | PN.RENAL_ITS ---
Patient Problems: Active and Suspected Problems CHRISTINA (acute kidney injury) (Acute) Diabetic ulcer of left foot (Acute) Cellulitis of foot associated with diabetes mellitus (Acute) Hyponatremia (Acute) Hyperglycemia due to type 2 diabetes mellitus (Acute) Deep wound infection of the left foot (Acute) Subjective: no new complaints - Physical Exam Vitals/I&O's: Vital Signs Temp Pulse Resp BP Pulse Ox 97.4 F L 82 18 149/74 H 99 02/05/20 15:41 02/05/20 15:41 02/05/20 15:41 02/05/20 15:41 02/05/20 15:41 Oxygen Delivery Method Room Air Weight: 97.069 kg Body Mass Index (BMI) 40.4 Finger Stick Blood Glucose 235 Intake and Output for Last 24 Hours 02/03/20 02/04/20 02/05/20 23:59 23:59 23:59 Intake Total 5800.33 / 5800.33 2919.5 / 2919.5 2560.08 / 2560.08 Output Total 5760 / 5760 4250 / 5250 5700 / 5700 Balance 40.33 / 40.33 -1330.5 / -2330.5 -3139.92 / -3139.92 General: Alert, Oriented x3, Cooperative HEENT: Atraumatic, PERRLA, EOMI, Normocephalic Neck: Supple, No JVD, Negative Carotid Bruits Lungs: Clear to auscultation, Normal air movement Cardiovascular: Regular rate, No murmurs Abdomen: Bowel Sounds Present, Soft, Non Tender Extremities: No edema, Capillary Refill Less than 3 Seconds Skin: No rashes, No breakdown Musculoskeletal: No Tenderness to Palpation of Joints or Extremities Neurological: Cranial nerves II-XII grossly intact Psych/Mental Status: Normal Affect, Appropriate Microbiology Past 72 Hours 01/31/20 11:15 Blood Culture (Wb) - Right Hand Blood Culture - Final No growth in 5 days. 01/31/20 11:10 Blood Culture (Wb) - Left Forearm Blood Culture - Final No growth in 5 days. 01/31/20 15:05 Tissue - Toe Gram Stain - Final 01/31/20 15:05 Tissue - Toe Wound Culture - Final Streptococcus agalactiae (B) 01/31/20 15:05 Tissue - Toe Anaerobic Culture - Final No anaerobic bacteria isolated. 01/31/20 15:13 Wound Drainage - Open/Non-Healing Wound Gram Stain - Final 01/31/20 15:13 Wound Drainage - Open/Non-Healing Wound Wound Culture - Preliminary Streptococcus agalactiae (B) Streptococcus mitis/ oralis Enterococcus faecalis Streptococcus intermedius Bacillus species 01/31/20 15:13 Wound Drainage - Open/Non-Healing Wound Anaerobic Culture - Preliminary Checking for anaerobes, further studies to follow. 01/31/20 15:06 Bone - Toe Gram Stain - Final 01/31/20 15:06 Bone - Toe Wound Culture - Final Streptococcus intermedius Staphylococcus carnosus carnos Staphylococcus caprae Streptococcus parasanguinis 02/01/20 11:30 Urine, Clean Catch Urine Culture - Final Culture exhibits no growth. Laboratory Results 02/03/20 13:20: Eos Smear Total Cells Pending, Complement C3 Pending, Complement C4 Pending 02/04/20 05:21: Diff Path Review Reviewed 02/04/20 21:05: POC Glucose 231 H 02/05/20 06:47: POC Glucose 158 H 02/05/20 07:05: WBC 16.3 H, RBC 3.29 L, Hgb 9.5 L, Hct 28.2 L, MCV 85.7, MCH 28.9, MCHC 33.7, RDW Std Deviation 43.4, RDW Coeff of Leticia 13.8, Plt Count 362, MPV 9.6, Neut % (Auto) Not Reportable, Absolute Neuts (auto) 10.7 H, Absolute Lymphs (auto) 3.74, Neutrophils % (Manual) 64, Band Neutrophils % 2, Lymphocytes % (Manual) 23, Monocytes % (Manual) 5, Metamyelocytes % 5 H, Diff Path Review May 02/05/20 07:05: Sodium 135 L, Potassium 4.0, Chloride 106, Carbon Dioxide 22.0, Anion Gap 7, BUN 53 H, Creatinine 3.06 H, Estim Creat Clear Calc 15.12, Est GFR (MDRD) Af Amer 20 L, Est GFR (MDRD) Non-Af 17 L, BUN/Creatinine Ratio 17.3, Glucose 162 H, Calcium 7.8 L 02/05/20 11:33: POC Glucose 202 H 02/05/20 17:03: POC Glucose 151 H Current Medications Dextrose (D50w Syringe) 0 gm IV X1 PRN; Protocol PRN Reason: Hypoglycemia Glimepiride (Amaryl) 4 mg PO DAILY@0800 [facility] Last Admin: 02/05/20 09:30 Dose: 4 mg Documented by: Glucagon () 1 mg IM .X1 PRN PRN Reason: Hypoglycemia Guaifenesin (Robitussin Dm) 10 ml PO Q6H PRN PRN PRN Reason: COUGH Heparin Sodium (Porcine) (Heparin Na) 5,000 unit SC Q12 [facility] Last Admin: 02/05/20 09:31 Dose: 5,000 unit Documented by: Sodium Chloride () 250 mls @ 15 mls/hr IV .[id number] PRN PRN Reason: Saline Flush Last Infusion: 02/02/20 17:36 Dose: Infused Documented by: Sodium Chloride () 250 mls @ 15 mls/hr IV .[id number] PRN PRN Reason: Additional IVPB Infusion Clindamycin Phosphate 600 mg/ (Dextrose) 54 mls @ 100 mls/hr IV Q8 [facility] Last Infusion: 02/05/20 14:50 Dose: Infused Documented by: Cefepime HCl 1 gm/ Sodium (Chloride) 50 mls @ 100 mls/hr IV Q24@2200 [facility] Last Infusion: 02/04/20 22:11 Dose: Infused Documented by: Sodium Chloride () 1,000 mls @ 125 mls/hr IV .Q8H [facility] Stop: 02/06/20 13:39 Last Infusion: 02/05/20 15:11 Dose: 125 mls/hr Documented by: Insulin Human Lispro (Humalog Kwikpen (Bkc)) 0 unit SC ACHS [facility]; Protocol Last Admin: 02/05/20 17:07 Dose: 3 u Documented by: Linezolid (Zyvox) 600 mg PO BID [facility] Last Admin: 02/05/20 09:30 Dose: 600 mg Documented by: Nutritional Formula ([place] Flavor) [facility] Last Admin: 02/05/20 17:06 Dose: Not Given Documented by: Oxycodone HCl (Oxyir) 10 mg PO Q4H PRN PRN PRN Reason: Pain Score 6-10/10 Pioglitazone HCl (Actos) 45 mg PO DAILY [facility] Last Admin: 02/05/20 09:29 Dose: 45 mg Documented by: Sodium Chloride () 10 - 40 ml IV UD PRN PRN Reason: SALINE FLUSH Last Admin: 02/05/20 14:15 Dose: 10 ml Documented by: Sodium Hypochlorite (Dakins Solution 0.25% (1/2 Strength)) 1 applic TOPICAL BID [facility]; Protocol Last Admin: 02/05/20 14:03 Dose: Not Given Documented by: Medical Necessity - Tobacco Use Smoking Status: Never smoker Tobacco Use: Non-smoker Assessment/Plan All Active Problems CHRISTINA (acute kidney injury) (Acute) Diabetic ulcer of left foot (Acute) Cellulitis of foot associated with diabetes mellitus (Acute) Hyponatremia (Acute) Hyperglycemia due to type 2 diabetes mellitus (Acute) Deep wound infection of the left foot (Acute) CHRISTINA. normal baseline. no obstructive symptoms. Creatinine has increased over the last 3 days. From yesterday to today, creatinine is about the same. Repeat urine analysis is fairly benign except for microscopic hematuria. Renal ultrasound has been ordered and is ok. Given CHRISTINA in hospital most likely this is either sepsis related or antibiotic related. Non-oliguric. start fluids. check complements and urine eos for now. dorita Murillo hyponatremia. Urine osmolality is 140. In acute renal failure setting, this is relatively low urine osmolality. Most likely some polydipsia complement. I did advise her to cut back on oral fluid intake for now. Continue IV fluid. Urine sodium is more than 20. sodium is better at 135 hypokalemia. better
[2020-02-05 21:36] LABS: Bedside Glucose 244 mg/dL (70-110)
[2020-02-05 21:40] VITALS: BP 151/64; PULSE 86; RESP 16; TEMP 36.8; O2SAT 97
--- NOTE | 2020-02-05 21:51 | PCM.PN.ID ---
Patient Problems: Active and Suspected Problems CHRISTINA (acute kidney injury) (Acute) Diabetic ulcer of left foot (Acute) Cellulitis of foot associated with diabetes mellitus (Acute) Hyponatremia (Acute) Hyperglycemia due to type 2 diabetes mellitus (Acute) Deep wound infection of the left foot (Acute) Subjective: Feeling better, no fever, no n/v/d. - Physical Exam Vitals/I&O's: Vital Signs Temp Pulse Resp BP Pulse Ox 97.4 F L 82 18 149/74 H 99 02/05/20 15:41 02/05/20 15:41 02/05/20 15:41 02/05/20 15:41 02/05/20 15:41 Oxygen Delivery Method Room Air Weight: 97.069 kg Body Mass Index (BMI) 40.4 Finger Stick Blood Glucose 235 Intake and Output for Last 24 Hours 02/03/20 02/04/20 02/05/20 23:59 23:59 23:59 Intake Total 5800.33 / 5800.33 2919.5 / 2919.5 3314.25 / 3314.25 Output Total 5760 / 5760 4250 / 5250 5700 / 5700 Balance 40.33 / 40.33 -1330.5 / -2330.5 -2385.75 / -2385.75 General: Alert, Cooperative Lungs: Clear to auscultation, Normal air movement Cardiovascular: Regular rate, Regular Rhythm Abdomen: Soft, Non Tender, Non-Distended Skin: Ulcer/ Wound - reviewed photo Microbiology Past 72 Hours 01/31/20 11:15 Blood Culture (Wb) - Right Hand Blood Culture - Final No growth in 5 days. 01/31/20 11:10 Blood Culture (Wb) - Left Forearm Blood Culture - Final No growth in 5 days. 01/31/20 15:05 Tissue - Toe Gram Stain - Final 01/31/20 15:05 Tissue - Toe Wound Culture - Final Streptococcus agalactiae (B) 01/31/20 15:05 Tissue - Toe Anaerobic Culture - Final No anaerobic bacteria isolated. 01/31/20 15:13 Wound Drainage - Open/Non-Healing Wound Gram Stain - Final 01/31/20 15:13 Wound Drainage - Open/Non-Healing Wound Wound Culture - Preliminary Streptococcus agalactiae (B) Streptococcus mitis/ oralis Enterococcus faecalis Streptococcus intermedius Bacillus species 01/31/20 15:13 Wound Drainage - Open/Non-Healing Wound Anaerobic Culture - Preliminary Checking for anaerobes, further studies to follow. 01/31/20 15:06 Bone - Toe Gram Stain - Final 01/31/20 15:06 Bone - Toe Wound Culture - Final Streptococcus intermedius Staphylococcus carnosus carnos Staphylococcus caprae Streptococcus parasanguinis 02/01/20 11:30 Urine, Clean Catch Urine Culture - Final Culture exhibits no growth. Laboratory Results 02/03/20 13:20: Eos Smear Total Cells Pending, Complement C3 Pending, Complement C4 Pending 02/04/20 05:21: Diff Path Review Reviewed 02/05/20 06:47: POC Glucose 158 H 02/05/20 07:05: WBC 16.3 H, RBC 3.29 L, Hgb 9.5 L, Hct 28.2 L, MCV 85.7, MCH 28.9, MCHC 33.7, RDW Std Deviation 43.4, RDW Coeff of Leticia 13.8, Plt Count 362, MPV 9.6, Neut % (Auto) Not Reportable, Absolute Neuts (auto) 10.7 H, Absolute Lymphs (auto) 3.74, Neutrophils % (Manual) 64, Band Neutrophils % 2, Lymphocytes % (Manual) 23, Monocytes % (Manual) 5, Metamyelocytes % 5 H, Diff Path Review May 02/05/20 07:05: Sodium 135 L, Potassium 4.0, Chloride 106, Carbon Dioxide 22.0, Anion Gap 7, BUN 53 H, Creatinine 3.06 H, Estim Creat Clear Calc 15.12, Est GFR (MDRD) Af Amer 20 L, Est GFR (MDRD) Non-Af 17 L, BUN/Creatinine Ratio 17.3, Glucose 162 H, Calcium 7.8 L 02/05/20 11:33: POC Glucose 202 H 02/05/20 17:03: POC Glucose 151 H 02/05/20 21:18: POC Glucose 244 H Current Medications Dextrose (D50w Syringe) 0 gm IV X1 PRN; Protocol PRN Reason: Hypoglycemia Glimepiride (Amaryl) 4 mg PO DAILY@0800 [facility] Last Admin: 02/05/20 09:30 Dose: 4 mg Documented by: Glucagon () 1 mg IM .X1 PRN PRN Reason: Hypoglycemia Guaifenesin (Robitussin Dm) 10 ml PO Q6H PRN PRN PRN Reason: COUGH Heparin Sodium (Porcine) (Heparin Na) 5,000 unit SC Q12 [facility] Last Admin: 02/05/20 21:08 Dose: 5,000 unit Documented by: Sodium Chloride () 250 mls @ 15 mls/hr IV .[id number] PRN PRN Reason: Saline Flush Last Infusion: 02/02/20 17:36 Dose: Infused Documented by: Sodium Chloride () 250 mls @ 15 mls/hr IV .[id number] PRN PRN Reason: Additional IVPB Infusion Cefepime HCl 1 gm/ Sodium (Chloride) 50 mls @ 100 mls/hr IV Q24@2200 [facility] Last Admin: 02/05/20 21:20 Dose: 100 mls/hr Documented by: Sodium Chloride () 1,000 mls @ 125 mls/hr IV .Q8H [facility] Stop: 02/06/20 13:39 Last Admin: 02/05/20 21:13 Dose: 125 mls/hr Documented by: Insulin Human Lispro (Humalog Kwikpen (Bkc)) 0 unit SC ACHS [facility]; Protocol Last Admin: 02/05/20 21:18 Dose: 6 u Documented by: Linezolid (Zyvox) 600 mg PO BID [facility] Last Admin: 02/05/20 21:09 Dose: 600 mg Documented by: Nutritional Formula (Bartolome - [place] Flavor) 1 packet PO BIDCM [facility] Last Admin: 02/05/20 17:06 Dose: Not Given Documented by: Oxycodone HCl (Oxyir) 10 mg PO Q4H PRN PRN PRN Reason: Pain Score 6-10/10 Pioglitazone HCl (Actos) 45 mg PO DAILY [facility] Last Admin: 02/05/20 09:29 Dose: 45 mg Documented by: Sodium Chloride () 10 - 40 ml IV UD PRN PRN Reason: SALINE FLUSH Last Admin: 02/05/20 14:15 Dose: 10 ml Documented by: Sodium Hypochlorite (Dakins Solution 0.25% (1/2 Strength)) 1 applic TOPICAL BID [facility]; Protocol Last Admin: 02/05/20 14:03 Dose: Not Given Documented by: Medical Necessity - Tobacco Use Smoking Status: Never smoker Tobacco Use: Non-smoker Route of nutrition/ use of supplements: [] Nutritional Intake: [] IV Site: [] [place] Catheter: [] - Assessment/Plan Antibiotics: [] Assessment/Plan: [] Active and Suspected Problems Diabetic ulcer of left foot (Acute) Cellulitis of foot associated with diabetes mellitus (Acute) Hyponatremia (Acute) Hyperglycemia due to type 2 diabetes mellitus (Acute) Deep wound infection of the left foot (Acute) L foot necrotizing fasciitis and osteo with h/o DM - taken to OR 01/31/[address] Parker. Clearance fragment showing some bacteria. Surgical/wound cxs with CoNS x2, enterococcus, strep x4, GPR. No sign of residual gas/abscess on CT. Will stop clinda. Still with worsening CHRISTINA. Cont linezolid/cefepime. Will follow
[2020-02-05] MEDS: DAKIN'S SOL HALF STRENGTH (=0.25%) 1 APPLIC TOPICAL (22:55)
--- NOTE | 2020-02-06 06:50 | PN_ITS ---
Patient Problems: Active and Suspected Problems CHRISTINA (acute kidney injury) (Acute) Diabetic ulcer of left foot (Acute) Cellulitis of foot associated with diabetes mellitus (Acute) Hyponatremia (Acute) Hyperglycemia due to type 2 diabetes mellitus (Acute) Deep wound infection of the left foot (Acute) Subjective: This 59-year-old female seen postoperative day 6 left foot debridement of nonviable soft tissue and bone including fourth and fifth toe amputations. She denies fever, chill, nausea, vomiting. She denies pain. - Physical Exam Vitals/I&O's: Vital Signs Temp Pulse Resp BP Pulse Ox 98.3 F 86 16 151/64 H 97 02/05/20 21:40 02/05/20 21:40 02/05/20 21:40 02/05/20 21:40 02/05/20 21:40 Oxygen Delivery Method Room Air Weight: 97.069 kg Body Mass Index (BMI) 40.4 Finger Stick Blood Glucose 235 Intake and Output for Last 24 Hours 02/04/20 02/05/20 02/06/20 23:59 23:59 23:59 Intake Total 2919.5 / 2919.5 3418.25 / 4018.25 600 / 600 Output Total 4250 / 5250 5700 / 6200 500 / 500 Balance -1330.5 / -2330.5 -2281.75 / -2181.75 100 / 100 General: Alert, Oriented x3, Cooperative HEENT: Atraumatic Extremities: No cyanosis, Capillary Refill Less than 3 Seconds - To adjacent amputation site and digits 1, 2, 3 left foot, No Calf Tenderness - Negative Richard and Camejo sign left, Peripheral Pulses Normal - Palpable left DP pulse Skin: Ulcer/ Wound - Granular and fibrous base fourth and fifth toe amputation site with widespread debridement. There is no purulence on expression, odor, erythema, streaking. There is no necrosis. There is no adjacent bogginess or fluctuance. The skin is atrophic and hairless. Musculoskeletal: No Tenderness to Palpation of Joints or Extremities, Muscle Wasting, - - Open fourth and fifth toe amputation Neurological: - - Lack of normal epicritic sensation light touch is consistent with neuropathy status Psych/Mental Status: Normal Affect, Appropriate Microbiology Past 72 Hours 01/31/20 11:15 Blood Culture (Wb) - Right Hand Blood Culture - Final No growth in 5 days. 01/31/20 11:10 Blood Culture (Wb) - Left Forearm Blood Culture - Final No growth in 5 days. 01/31/20 15:05 Tissue - Toe Gram Stain - Final 01/31/20 15:05 Tissue - Toe Wound Culture - Final Streptococcus agalactiae (B) 01/31/20 15:05 Tissue - Toe Anaerobic Culture - Final No anaerobic bacteria isolated. 01/31/20 15:13 Wound Drainage - Open/Non-Healing Wound Gram Stain - Final 01/31/20 15:13 Wound Drainage - Open/Non-Healing Wound Wound Culture - Preliminary Streptococcus agalactiae (B) Streptococcus mitis/ oralis Enterococcus faecalis Streptococcus intermedius Bacillus species 01/31/20 15:13 Wound Drainage - Open/Non-Healing Wound Anaerobic Culture - Preliminary Checking for anaerobes, further studies to follow. 01/31/20 15:06 Bone - Toe Gram Stain - Final 01/31/20 15:06 Bone - Toe Wound Culture - Final Streptococcus intermedius Staphylococcus carnosus carnos Staphylococcus caprae Streptococcus parasanguinis 02/01/20 11:30 Urine, Clean Catch Urine Culture - Final Culture exhibits no growth. Laboratory Results 02/03/20 13:20: Eos Smear Total Cells Pending, Complement C3 Pending, Complement C4 Pending 02/04/20 05:21: Diff Path Review Reviewed 02/05/20 06:47: POC Glucose 158 H 02/05/20 07:05: WBC 16.3 H, RBC 3.29 L, Hgb 9.5 L, Hct 28.2 L, MCV 85.7, MCH 28.9, MCHC 33.7, RDW Std Deviation 43.4, RDW Coeff of Leticia 13.8, Plt Count 362, MPV 9.6, Neut % (Auto) Not Reportable, Absolute Neuts (auto) 10.7 H, Absolute Lymphs (auto) 3.74, Neutrophils % (Manual) 64, Band Neutrophils % 2, Lymphocytes % (Manual) 23, Monocytes % (Manual) 5, Metamyelocytes % 5 H, Diff Path Review May 02/05/20 07:05: Sodium 135 L, Potassium 4.0, Chloride 106, Carbon Dioxide 22.0, Anion Gap 7, BUN 53 H, Creatinine 3.06 H, Estim Creat Clear Calc 15.12, Est GFR (MDRD) Af Amer 20 L, Est GFR (MDRD) Non-Af 17 L, BUN/Creatinine Ratio 17.3, Glucose 162 H, Calcium 7.8 L 02/05/20 11:33: POC Glucose 202 H 02/05/20 17:03: POC Glucose 151 H 02/05/20 21:18: POC Glucose 244 H Current Medications Dextrose (D50w Syringe) 0 gm IV X1 PRN; Protocol PRN Reason: Hypoglycemia Glimepiride (Amaryl) 4 mg PO DAILY@0800 [facility] Last Admin: 02/05/20 09:30 Dose: 4 mg Documented by: Glucagon () 1 mg IM .X1 PRN PRN Reason: Hypoglycemia Guaifenesin (Robitussin Dm) 10 ml PO Q6H PRN PRN PRN Reason: COUGH Heparin Sodium (Porcine) (Heparin Na) 5,000 unit SC Q12 [facility] Last Admin: 02/05/20 21:08 Dose: 5,000 unit Documented by: Sodium Chloride () 250 mls @ 15 mls/hr IV .[id number] PRN PRN Reason: Saline Flush Last Infusion: 02/02/20 17:36 Dose: Infused Documented by: Sodium Chloride () 250 mls @ 15 mls/hr IV .[id number] PRN PRN Reason: Additional IVPB Infusion Cefepime HCl 1 gm/ Sodium (Chloride) 50 mls @ 100 mls/hr IV Q24@2200 [facility] Last Infusion: 02/05/20 22:56 Dose: Infused Documented by: Sodium Chloride () 1,000 mls @ 125 mls/hr IV .Q8H [facility] Stop: 02/06/20 13:39 Last Admin: 02/05/20 21:13 Dose: 125 mls/hr Documented by: Insulin Human Lispro (Humalog Kwikpen (Bkc)) 0 unit SC ACHS [facility]; Protocol Last Admin: 02/05/20 21:18 Dose: 6 u Documented by: Linezolid (Zyvox) 600 mg PO BID [facility] Last Admin: 02/05/20 21:09 Dose: 600 mg Documented by: Nutritional Formula (Bartolome - [place] Flavor) 1 packet PO BIDCM [facility] Last Admin: 02/05/20 17:06 Dose: Not Given Documented by: Oxycodone HCl (Oxyir) 10 mg PO Q4H PRN PRN PRN Reason: Pain Score 6-10/10 Pioglitazone HCl (Actos) 45 mg PO DAILY [facility] Last Admin: 02/05/20 09:29 Dose: 45 mg Documented by: Sodium Chloride () 10 - 40 ml IV UD PRN PRN Reason: SALINE FLUSH Last Admin: 02/05/20 14:15 Dose: 10 ml Documented by: Sodium Hypochlorite (Dakins Solution 0.25% (1/2 Strength)) 1 applic TOPICAL BID [facility]; Protocol Last Admin: 02/05/20 22:55 Dose: 1 applicatio Documented by: Medical Necessity - Tobacco Use Smoking Status: Never smoker Tobacco Use: Non-smoker Assessment/Plan All Active Problems CHRISTINA (acute kidney injury) (Acute) Diabetic ulcer of left foot (Acute) Cellulitis of foot associated with diabetes mellitus (Acute) Hyponatremia (Acute) Hyperglycemia due to type 2 diabetes mellitus (Acute) Deep wound infection of the left foot (Acute) Necrotic ulceration down to fascia and bone layer left foot s/p debridement 01/31/2020 Severe abscess, and cellulitis left foot Necrotizing fasciitis/gas gangrene left foot Diabetes w/ neuropathy Re-evaluation performed. Reviewed data. WBC still elevated, no fevers and clinically foot with no clinical evidence of remaining infection, tissues appear healthy and viable, CT scan w/ no remaining gas and no abscess noted. Continue to follow cultures - growing multiple organisms (strep x 4, CoNS x2, enterococcus, GPR). 4th metatarsal clearance fragment with strep B. Patient on antibiotics - linezolid, and cefepime per ID/Dr. Hubbard. Nephrology following for acute kidney injury. Continue w/ dressing changes - Dakins wet to dry dressing changes BID. LEAS reviewed and good arterial flow to foot. No weightbearing left foot, keep foot elevated at all times. Noted patient's ha1c was 9.4 - reviewed importance of proper blood sugar control. Diabetes management per medicine team, patient will need close follow up by PCP/corporate law specialist as outpt for diabetes management. Patient planning to go to nursing facility once discharged for wound care. Podiatry will continue to follow. Arlyn Godwin DPM, [facility] [phone]
[2020-02-06] MEDS: Insulin Lispro 100 UNIT/ML INSULN.PEN SC ×4 (07:20→21:16)
[2020-02-06 07:36] LABS: Bedside Glucose 187 mg/dL (70-110)
[2020-02-06 07:43] LABS: Hematocrit 29.9 % (37-47); Hemoglobin 9.9 g/dL (12.0-15.0); Mean Corp Hgb Conc 33.1 g/dL (32-36); Mean Corpuscular Hgb 29.4 pg (27.0-32.0); Mean Corpuscular Volume 88.7 fL (81-99); Mean Platelet Vol. 9.5 fl (6.2-12.0); POSITIVE COUNT YES; POSITIVE MORPHOLOGY YES; Platelet Count 371 K/mm3 (150-450); RBC Distribution Width CV 14.4 % (11.6-14.6); RBC Distribution Width SD 46.1 fl (35.1-43.9); Red Blood Count 3.37 M/mm3 (4.2-5.4); White Blood Count 16.1 K/mm3 (4.4-11.0)
--- NOTE | 2020-02-06 07:43 | NURSING ---
Dr Godwin was in this am to change dressing to the left foot.
[2020-02-06 08:04] LABS: Anion Gap 5 (5-15); BUN 54 mg/dL (7-18); BUN/Creat Ratio 18.5 RATIO (10-20); Calcium,Total 7.5 mg/dL (8.5-10.1); Chloride 110 mmol/L (98-107); Creatinine, Serum 2.92 mg/dL (0.55-1.02); EST Glomerular Filtration Rate 18 mL/min (>60); Est Glom Filt Rate - Afr Amer 21 mL/min (>60); Estimated Creatinine Clearance 15.85 ml/min; Glucose 181 mg/dL (74-106); Potassium 4.1 mmol/L (3.5-5.1); Sodium Level 138 mmol/L (136-145)
[2020-02-06 08:06] LABS: Differential Indicated MANUAL DIFF
[2020-02-06] MEDS: 0.9% Normal Saline 1,000 ML 125 ML IV (08:33)
[2020-02-06] MEDS: Pioglitazone Hydrochloride 45 MG Tablet PO (08:34)
[2020-02-06] MEDS: Juven (unflavored) Packet 1 PACKET PO ×2 (08:34→16:16)
[2020-02-06] MEDS: Glimepiride 4 MG Tablet PO (08:34)
[2020-02-06] MEDS: Linezolid 600 MG Tablet PO ×2 (08:34→21:13)
[2020-02-06 09:16] LABS: Eosinophil 2 % (0-5); Lymphocyte 17 % (19-41); Monocyte 7 % (0-10); Myelocyte 5 (0-0); Neutrophil-Band 7 % (0-5); Neutrophil-Segmented 61 % (47-70); Promyelocyte 1 (0-0); Total Cells Counted 100 (MANUAL DIFF)
[2020-02-06 09:17] LABS: Platelet Estimate ADEQUATE (ADEQ); Red Cell Morphology NORM C+C NORMAL (NORM C&C)
[2020-02-06 09:19] LABS: Absolute Lymphocyte Count 2.74 X10^3/uL (0.83-4.51); Absolute Neutrophil Count 10.9 X10^3/uL (2.0-7.7)
[2020-02-06 09:23] LABS: Pathologist Review Reviewed
[2020-02-06 09:50] VITALS: BP 148/80; PULSE 84; RESP 18; TEMP 36.7; O2SAT 98
[2020-02-06] MEDS: Heparin Injection (Vial) 5,000 UNIT/ML VIAL 5000 UNIT SC ×2 (09:51→21:11)
[2020-02-06 12:05] LABS: Bedside Glucose 170 mg/dL (70-110)
--- NOTE | 2020-02-06 12:29 | NURSING ---
pt notifying her family of POC
--- NOTE | 2020-02-06 15:04 | CASEMGMT ---
Social Work Note MARCK received call from Anya at [facility] asking about discharge for pt. MARCK informed Anya that pt's labs were being rechecked and this worker is not sure if pt will still be discharged today or tomorrow. MARCK faxed updated clinicals to [facility]. Plan: [facility] once medically cleared Marianna Jenkins [employer] DEVEL[employer], [employer]
--- NOTE | 2020-02-06 15:13 | PN_ITS ---
Patient Problems: Active and Suspected Problems CHRISTINA (acute kidney injury) (Acute) Diabetic ulcer of left foot (Acute) Cellulitis of foot associated with diabetes mellitus (Acute) Hyponatremia (Acute) Hyperglycemia due to type 2 diabetes mellitus (Acute) Deep wound infection of the left foot (Acute) Subjective: Patient seen and examined. She had no complaints. Review systems otherwise negative. Labs and vitals reviewed. Creatinine is trended down slightly to 2.92. She has remained hemodynamically stable. Vitals/I&O's: Vital Signs Temp Pulse Resp BP Pulse Ox 98.1 F 84 18 148/80 H 98 02/06/20 09:50 02/06/20 09:50 02/06/20 09:50 02/06/20 09:50 02/06/20 09:50 Oxygen Delivery Method Room Air Weight: 214 lb 0.008 oz Body Mass Index (BMI) 40.4 Finger Stick Blood Glucose 235 Intake and Output for Last 24 Hours 02/04/20 02/05/20 02/06/20 23:59 23:59 23:59 Intake Total 2919.5 / 2919.5 3418.25 / 4018.25 2600 / 2600 Output Total 4250 / 5250 5700 / 6200 3100 / 3100 Balance -1330.5 / -2330.5 -2281.75 / -2181.75 -500 / -500 General: Alert, Oriented x3, Cooperative HEENT: Atraumatic, PERRLA, EOMI, Normocephalic Oral: Moist Mucosa Neck: Supple, No JVD, Negative Carotid Bruits Lungs: Clear to auscultation, Normal air movement, No rhonchi, No wheeze Cardiovascular: Regular rate, Regular Rhythm, Normal S1, Normal S2, No murmurs Abdomen: Bowel Sounds Present, Soft, Non Tender, Non-Distended, No Hepato- splenomegaly Extremities: No clubbing, No cyanosis, No edema, Capillary Refill Less than 3 Seconds, - - left foot wrapped in bandage. Skin: - - left foot wrapped in bandage Musculoskeletal: No Tenderness to Palpation of Joints or Extremities Neurological: Cranial nerves II-XII grossly intact Psych/Mental Status: Normal Affect, Appropriate, Alert and oriented to time, place, person, mood and affect Microbiology Past 72 Hours 01/31/20 15:06 Bone - Toe Gram Stain - Final 01/31/20 15:06 Bone - Toe Wound Culture - Final Streptococcus intermedius Staphylococcus carnosus carnos Staphylococcus caprae Streptococcus parasanguinis 01/31/20 15:06 Bone - Toe Anaerobic Culture - Final Prevotella bivia Prevotella disiens 01/31/20 11:15 Blood Culture (Wb) - Right Hand Blood Culture - Final No growth in 5 days. 01/31/20 11:10 Blood Culture (Wb) - Left Forearm Blood Culture - Final No growth in 5 days. 01/31/20 15:05 Tissue - Toe Gram Stain - Final 01/31/20 15:05 Tissue - Toe Wound Culture - Final Streptococcus agalactiae (B) 01/31/20 15:05 Tissue - Toe Anaerobic Culture - Final No anaerobic bacteria isolated. 01/31/20 15:13 Wound Drainage - Open/Non-Healing Wound Gram Stain - Final 01/31/20 15:13 Wound Drainage - Open/Non-Healing Wound Wound Culture - Preliminary Streptococcus agalactiae (B) Streptococcus mitis/ oralis Enterococcus faecalis Streptococcus intermedius Bacillus species 01/31/20 15:13 Wound Drainage - Open/Non-Healing Wound Anaerobic Culture - Preliminary Checking for anaerobes, further studies to follow. Laboratory Results 02/05/20 07:05: Diff Path Review Reviewed 02/05/20 17:03: POC Glucose 151 H 02/05/20 21:18: POC Glucose 244 H 02/06/20 07:11: POC Glucose 187 H 02/06/20 07:30: WBC 16.1 H, RBC 3.37 L, Hgb 9.9 L, Hct 29.9 L, MCV 88.7, MCH 29.4, MCHC 33.1, RDW Std Deviation 46.1 H, RDW Coeff of Leticia 14.4, Plt Count 371, MPV 9.5, Neut % (Auto) Not Reportable, Absolute Neuts (auto) 10.9 H, Absolute Lymphs (auto) 2.74, Total Counted 100, Neutrophils % (Manual) 61, Band Neutr ophils % 7 H, Lymphocytes % (Manual) 17 L, Monocytes % (Manual) 7, Eosinophils % (Manual) 2, Myelocytes % 5 H, Promyelocytes % 1 H, Diff Path Review May , Platelet Estimate ADEQUATE, RBC Morphology NORM C+C 02/06/20 07:30: Sodium 138, Potassium 4.1, Chloride 110 H, Carbon Dioxide 23.0, Anion Gap 5, BUN 54 H, Creatinine 2.92 H, Estim Creat Clear Calc 15.85, Est GFR (MDRD) Af Amer 21 L, Est GFR (MDRD) Non-Af 18 L, BUN/Creatinine Ratio 18.5, Glucose 181 H, Calcium 7.5 L 02/06/20 11:57: POC Glucose 170 H Current Medications Dextrose (D50w Syringe) 0 gm IV X1 PRN; Protocol PRN Reason: Hypoglycemia Glimepiride (Amaryl) 4 mg PO DAILY@0800 [facility] Last Admin: 02/06/20 08:34 Dose: 4 mg Documented by: Glucagon () 1 mg IM .X1 PRN PRN Reason: Hypoglycemia Guaifenesin (Robitussin Dm) 10 ml PO Q6H PRN PRN PRN Reason: COUGH Heparin Sodium (Porcine) (Heparin Na) 5,000 unit SC Q12 [facility] Last Admin: 02/06/20 09:51 Dose: 5,000 unit Documented by: Sodium Chloride () 250 mls @ 15 mls/hr IV .[id number] PRN PRN Reason: Saline Flush Last Infusion: 02/02/20 17:36 Dose: Infused Documented by: Sodium Chloride () 250 mls @ 15 mls/hr IV .[id number] PRN PRN Reason: Additional IVPB Infusion Cefepime HCl 1 gm/ Sodium (Chloride) 50 mls @ 100 mls/hr IV Q24@2200 [facility] Last Infusion: 02/05/20 22:56 Dose: Infused Documented by: Insulin Human Lispro (Humalog Kwikpen (Bkc)) 0 unit SC ACHS [facility]; Protocol Last Admin: 02/06/20 11:59 Dose: 3 u Documented by: Linezolid (Zyvox) 600 mg PO BID [facility] Last Admin: 02/06/20 08:34 Dose: 600 mg Documented by: Nutritional Formula (Bartolome - [place] Flavor) [facility] Last Admin: 02/06/20 08:34 Dose: Not Given Documented by: Oxycodone HCl (Oxyir) 10 mg PO Q4H PRN PRN PRN Reason: Pain Score 6-10/10 Pioglitazone HCl (Actos) 45 mg PO DAILY [facility] Last Admin: 02/06/20 08:34 Dose: 45 mg Documented by: Sodium Chloride () 10 - 40 ml IV UD PRN PRN Reason: SALINE FLUSH Last Admin: 02/05/20 14:15 Dose: 10 ml Documented by: Sodium Hypochlorite (Dakins Solution 0.25% (1/2 Strength)) 1 applic TOPICAL BID [facility]; Protocol Last Admin: 02/06/20 08:34 Dose: Not Given Documented by: Medical Necessity - Tobacco Use Smoking Status: Never smoker Tobacco Use: Non-smoker Assessment/Plan All Active Problems CHRISTINA (acute kidney injury) (Acute) Diabetic ulcer of left foot (Acute) Cellulitis of foot associated with diabetes mellitus (Acute) Hyponatremia (Acute) Hyperglycemia due to type 2 diabetes mellitus (Acute) Deep wound infection of the left foot (Acute) 1.Necrotising fasciitis of left foot due to diabetic neuropathy * Status post debridement of left foot by podiatry. Today's postop day 6 * ID and podiatry on board. On IV vancomycin and cefepime. * wound cultures grew Strep enterococcus. Bone cultures grew Staph carnosus and staph epidermidis with a gram-positive anthony. Strep Grp B, Gram positive rods * Under my cystoscopy. ID. To continue linezolid on IV cefepime. * 2. Hyponatremia * sodium is up to 138 today * 3. CHRISTINA * Creatinine today is 2.92. * Nephrology on board. * on IV normal saline * Renal ultrasound ordered showed normal kidneys and bladder. * Nephrology on board. 4. Diabetes with neuropathy: * on glimepiride and p.o. glitazone. * Insulin sliding scale. Accu-Cheks AC at bedtime. 5. Hypertension: * Ramipril and Maxide on hold on account of CHRISTINA. * IV hydralazine PRN. * will start oN PO amlodipine 10 mg daily as blood pressure has been in the 140s and 150s systolic. DVT prophylaxis: heparin Disposition: Plan is for patient to go to [facility] when she is medically stable. Inpatient E&M: [id number] [facility] L[facility]
--- NOTE | 2020-02-06 15:27 | PN.RENAL_ITS ---
Patient Problems: Active and Suspected Problems CHRISTINA (acute kidney injury) (Acute) Diabetic ulcer of left foot (Acute) Cellulitis of foot associated with diabetes mellitus (Acute) Hyponatremia (Acute) Hyperglycemia due to type 2 diabetes mellitus (Acute) Deep wound infection of the left foot (Acute) Subjective: no new complaints - Physical Exam Vitals/I&O's: Vital Signs Temp Pulse Resp BP Pulse Ox 98.1 F 84 18 148/80 H 98 02/06/20 09:50 02/06/20 09:50 02/06/20 09:50 02/06/20 09:50 02/06/20 09:50 Oxygen Delivery Method Room Air Weight: 97.069 kg Body Mass Index (BMI) 40.4 Finger Stick Blood Glucose 235 Intake and Output for Last 24 Hours 02/04/20 02/05/20 02/06/20 23:59 23:59 23:59 Intake Total 2919.5 / 2919.5 3418.25 / 4018.25 2600 / 2600 Output Total 4250 / 5250 5700 / 6200 3100 / 3100 Balance -1330.5 / -2330.5 -2281.75 / -2181.75 -500 / -500 General: Alert, Oriented x3, Cooperative HEENT: Atraumatic, PERRLA, EOMI, Normocephalic Neck: Supple, No JVD, Negative Carotid Bruits Lungs: Clear to auscultation, Normal air movement Cardiovascular: Regular rate, No murmurs Abdomen: Bowel Sounds Present, Soft, Non Tender Extremities: No edema, Capillary Refill Less than 3 Seconds Skin: No rashes, No breakdown Musculoskeletal: No Tenderness to Palpation of Joints or Extremities Neurological: Cranial nerves II-XII grossly intact Psych/Mental Status: Normal Affect, Appropriate Microbiology Past 72 Hours 01/31/20 15:06 Bone - Toe Gram Stain - Final 01/31/20 15:06 Bone - Toe Wound Culture - Final Streptococcus intermedius Staphylococcus carnosus carnos Staphylococcus caprae Streptococcus parasanguinis 01/31/20 15:06 Bone - Toe Anaerobic Culture - Final Prevotella bivia Prevotella disiens 01/31/20 11:15 Blood Culture (Wb) - Right Hand Blood Culture - Final No growth in 5 days. 01/31/20 11:10 Blood Culture (Wb) - Left Forearm Blood Culture - Final No growth in 5 days. 01/31/20 15:05 Tissue - Toe Gram Stain - Final 01/31/20 15:05 Tissue - Toe Wound Culture - Final Streptococcus agalactiae (B) 01/31/20 15:05 Tissue - Toe Anaerobic Culture - Final No anaerobic bacteria isolated. 01/31/20 15:13 Wound Drainage - Open/Non-Healing Wound Gram Stain - Final 01/31/20 15:13 Wound Drainage - Open/Non-Healing Wound Wound Culture - Preliminary Streptococcus agalactiae (B) Streptococcus mitis/ oralis Enterococcus faecalis Streptococcus intermedius Bacillus species 01/31/20 15:13 Wound Drainage - Open/Non-Healing Wound Anaerobic Culture - Preliminary Checking for anaerobes, further studies to follow. Laboratory Results 02/05/20 07:05: Diff Path Review Reviewed 02/05/20 17:03: POC Glucose 151 H 02/05/20 21:18: POC Glucose 244 H 02/06/20 07:11: POC Glucose 187 H 02/06/20 07:30: WBC 16.1 H, RBC 3.37 L, Hgb 9.9 L, Hct 29.9 L, MCV 88.7, MCH 29.4, MCHC 33.1, RDW Std Deviation 46.1 H, RDW Coeff of Leticia 14.4, Plt Count 371, MPV 9.5, Neut % (Auto) Not Reportable, Absolute Neuts (auto) 10.9 H, Absolute Lymphs (auto) 2.74, Total Counted 100, Neutrophils % (Manual) 61, Band Neutrophils % 7 H, Lymphocytes % (Manual) 17 L, Monocytes % (Manual) 7, Eosinophils % (Manual) 2, Myelocytes % 5 H, Promyelocytes % 1 H, Diff Path Review May , Platelet Estimate ADEQUATE, RBC Morphology NORM C+C 02/06/20 07:30: Sodium 138, Potassium 4.1, Chloride 110 H, Carbon Dioxide 23.0, Anion Gap 5, BUN 54 H, Creatinine 2.92 H, Estim Creat Clear Calc 15.85, Est GFR (MDRD) Af Amer 21 L, Est GFR (MDRD) Non-Af 18 L, BUN/Creatinine Ratio 18.5, Glucose 181 H, Calcium 7.5 L 02/06/20 11:57: POC Glucose 170 H Current Medications Amlodipine Besylate (Norvasc) 10 mg PO DAILY [facility] Dextrose (D50w Syringe) 0 gm IV X1 PRN; Protocol PRN Reason: Hypoglycemia Glimepiride (Amaryl) 4 mg PO DAILY@0800 [facility] Last Admin: 02/06/20 08:34 Dose: 4 mg Documented by: Glucagon () 1 mg IM .X1 PRN PRN Reason: Hypoglycemia Guaifenesin (Robitussin Dm) 10 ml PO Q6H PRN PRN PRN Reason: COUGH Heparin Sodium (Porcine) (Heparin Na) 5,000 unit SC Q12 [facility] Last Admin: 02/06/20 09:51 Dose: 5,000 unit Documented by: Sodium Chloride () 250 mls @ 15 mls/hr IV .[id number] PRN PRN Reason: Saline Flush Last Infusion: 02/02/20 17:36 Dose: Infused Documented by: Sodium Chloride () 250 mls @ 15 mls/hr IV .[id number] PRN PRN Reason: Additional IVPB Infusion Cefepime HCl 1 gm/ Sodium (Chloride) 50 mls @ 100 mls/hr IV Q24@2200 [facility] Last Infusion: 02/05/20 22:56 Dose: Infused Documented by: Insulin Human Lispro (Humalog Kwikpen (Bkc)) 0 unit SC ACHS [facility]; Protocol Last Admin: 02/06/20 11:59 Dose: 3 u Documented by: Linezolid (Zyvox) 600 mg PO BID [facility] Last Admin: 02/06/20 08:34 Dose: 600 mg Documented by: Nutritional Formula (Bartolome - [place] Flavor) 1 packet PO BIDCM [facility] Last Admin: 02/06/20 08:34 Dose: Not Given Documented by: Oxycodone HCl (Oxyir) 10 mg PO Q4H PRN PRN PRN Reason: Pain Score 6-10/10 Pioglitazone HCl (Actos) 45 mg PO DAILY [facility] Last Admin: 02/06/20 08:34 Dose: 45 mg Documented by: Sodium Chloride () 10 - 40 ml IV UD PRN PRN Reason: SALINE FLUSH Last Admin: 02/05/20 14:15 Dose: 10 ml Documented by: Sodium Hypochlorite (Dakins Solution 0.25% (1/2 Strength)) 1 applic TOPICAL BID [facility]; Protocol Last Admin: 02/06/20 08:34 Dose: Not Given Documented by: Medical Necessity - Tobacco Use Smoking Status: Never smoker Tobacco Use: Non-smoker Assessment/Plan All Active Problems CHRISTINA (acute kidney injury) (Acute) Diabetic ulcer of left foot (Acute) Cellulitis of foot associated with diabetes mellitus (Acute) Hyponatremia (Acute) Hyperglycemia due to type 2 diabetes mellitus (Acute) Deep wound infection of the left foot (Acute) CHRISTINA. normal baseline. no obstructive symptoms. Creatinine has increased over the last 3 days. From yesterday to today, creatinine is about the same. Repeat urine analysis is fairly benign except for microscopic hematuria. Renal ultrasound has been ordered and is ok. Given CHRISTINA in hospital most likely this is either sepsis related or antibiotic related. Non-oliguric. cr is about the same. continue same meds for now. if cr better tomorrow, likely can dc. urine eos, complements are pending. hyponatremia. Urine osmolality is 140. In acute renal failure setting, this is relatively low urine osmolality. Most likely some polydipsia complement. I did advise her to cut back on oral fluid intake for now. Continue IV fluid. Urine sodium is more than 20. sodium is better at [address] better [address] Dr Murillo
[2020-02-06 16:07] VITALS: BP 153/64; PULSE 70; RESP 18; TEMP 36.4; O2SAT 99
[2020-02-06 16:07] LABS: Complement C3 116 mg/dL (82-167)
[2020-02-06] MEDS: amLODIPine 10 MG Tablet PO (16:15)
[2020-02-06 16:20] LABS: Bedside Glucose 275 mg/dL (70-110)
--- NOTE | 2020-02-06 17:12 | PN.ID_ITS ---
Patient Problems: Active and Suspected Problems CHRISTINA (acute kidney injury) (Acute) Diabetic ulcer of left foot (Acute) Cellulitis of foot associated with diabetes mellitus (Acute) Hyponatremia (Acute) Hyperglycemia due to type 2 diabetes mellitus (Acute) Deep wound infection of the left foot (Acute) Subjective: Feeling ok, no fever, no n/v/d. - Physical Exam Vitals/I&O's: Vital Signs Temp Pulse Resp BP Pulse Ox 97.6 F L 70 18 153/64 H 99 02/06/20 16:07 02/06/20 16:07 02/06/20 16:07 02/06/20 16:07 02/06/20 16:07 Oxygen Delivery Method Room Air Weight: 97.069 kg Body Mass Index (BMI) 40.4 Finger Stick Blood Glucose 235 Intake and Output for Last 24 Hours 02/04/20 02/05/20 02/06/20 23:59 23:59 23:59 Intake Total 2919.5 / 2919.5 3418.25 / 4018.25 3600 / 3600 Output Total 4250 / 5250 5700 / 6200 3100 / 3100 Balance -1330.5 / -2330.5 -2281.75 / -2181.75 500 / 500 General: Alert, Cooperative, No apparent distress Lungs: Clear to auscultation, Normal air movement Cardiovascular: Regular rate, Regular Rhythm Abdomen: Soft, Non Tender, Non-Distended Skin: Ulcer/ Wound - foot wrapped Microbiology Past 72 Hours 01/31/20 15:06 Bone - Toe Gram Stain - Final 01/31/20 15:06 Bone - Toe Wound Culture - Final Streptococcus intermedius Staphylococcus carnosus carnos Staphylococcus caprae Streptococcus parasanguinis 01/31/20 15:06 Bone - Toe Anaerobic Culture - Final Prevotella bivia Prevotella disiens 01/31/20 11:15 Blood Culture (Wb) - Right Hand Blood Culture - Final No growth in 5 days. 01/31/20 11:10 Blood Culture (Wb) - Left Forearm Blood Culture - Final No growth in 5 days. 01/31/20 15:05 Tissue - Toe Gram Stain - Final 01/31/20 15:05 Tissue - Toe Wound Culture - Final Streptococcus agalactiae (B) 01/31/20 15:05 Tissue - Toe Anaerobic Culture - Final No anaerobic bacteria isolated. 01/31/20 15:13 Wound Drainage - Open/Non-Healing Wound Gram Stain - Final 01/31/20 15:13 Wound Drainage - Open/Non-Healing Wound Wound Culture - Preliminary Streptococcus agalactiae (B) Streptococcus mitis/ oralis Enterococcus faecalis Streptococcus intermedius Bacillus species 01/31/20 15:13 Wound Drainage - Open/Non-Healing Wound Anaerobic Culture - Preliminary Checking for anaerobes, further studies to follow. Laboratory Results 02/05/20 07:05: Diff Path Review Reviewed 02/05/20 17:03: POC Glucose 151 H 02/05/20 21:18: POC Glucose 244 H 02/06/20 07:11: POC Glucose 187 H 02/06/20 07:30: WBC 16.1 H, RBC 3.37 L, Hgb 9.9 L, Hct 29.9 L, MCV 88.7, MCH 29.4, MCHC 33.1, RDW Std Deviation 46.1 H, RDW Coeff of Leticia 14.4, Plt Count 371, MPV 9.5, Neut % (Auto) Not Reportable, Absolute Neuts (auto) 10.9 H, Absolute Lymphs (auto) 2.74, Total Counted 100, Neutrophils % (Manual) 61, Band Neutrophils % 7 H, Lymphocytes % (Manual) 17 L, Monocytes % (Manual) 7, Eosinop hils % (Manual) 2, Myelocytes % 5 H, Promyelocytes % 1 H, Diff Path Review May , Platelet Estimate ADEQUATE, RBC Morphology NORM C+C 02/06/20 07:30: Sodium 138, Potassium 4.1, Chloride 110 H, Carbon Dioxide 23.0, Anion Gap 5, BUN 54 H, Creatinine 2.92 H, Estim Creat Clear Calc 15.85, Est GFR (MDRD) Af Amer 21 L, Est GFR (MDRD) Non-Af 18 L, BUN/Creatinine Ratio 18.5, Glucose 181 H, Calcium 7.5 L 02/06/20 11:57: POC Glucose 170 H 02/06/20 16:14: POC Glucose 275 H Current Medications Amlodipine Besylate (Norvasc) 10 mg PO DAILY [facility] Last Admin: 02/06/20 16:15 Dose: 10 mg Documented by: Dextrose (D50w Syringe) 0 gm IV X1 PRN; Protocol PRN Reason: Hypoglycemia Glimepiride (Amaryl) 4 mg PO DAILY@0800 [facility] Last Admin: 02/06/20 08:34 Dose: 4 mg Documented by: Glucagon () 1 mg IM .X1 PRN PRN Reason: Hypoglycemia Guaifenesin (Robitussin Dm) 10 ml PO Q6H PRN PRN PRN Reason: COUGH Heparin Sodium (Porcine) (Heparin Na) 5,000 unit SC Q12 [facility] Last Admin: 02/06/20 09:51 Dose: 5,000 unit Documented by: Sodium Chloride () 250 mls @ 15 mls/hr IV .[id number] PRN PRN Reason: Saline Flush Last Infusion: 02/02/20 17:36 Dose: Infused Documented by: Sodium Chloride () 250 mls @ 15 mls/hr IV .[id number] PRN PRN Reason: Additional IVPB Infusion Cefepime HCl 1 gm/ Sodium (Chloride) 50 mls @ 100 mls/hr IV Q24@2200 [facility] Last Infusion: 02/05/20 22:56 Dose: Infused Documented by: Insulin Human Lispro (Humalog Kwikpen (Bkc)) 0 unit SC ACHS [facility]; Protocol Last Admin: 02/06/20 16:15 Dose: 9 u Documented by: Linezolid (Zyvox) 600 mg PO BID [facility] Last Admin: 02/06/20 08:34 Dose: 600 mg Documented by: Nutritional Formula (Bartolome - [place] Flavor) 1 packet PO BIDCM [facility] Last Admin: 02/06/20 16:16 Dose: Not Given Documented by: Oxycodone HCl (Oxyir) 10 mg PO Q4H PRN PRN PRN Reason: Pain Score 6-10/10 Pioglitazone HCl (Actos) 45 mg PO DAILY [facility] Last Admin: 02/06/20 08:34 Dose: 45 mg Documented by: Sodium Chloride () 10 - 40 ml IV UD PRN PRN Reason: SALINE FLUSH Last Admin: 02/05/20 14:15 Dose: 10 ml Documented by: Sodium Hypochlorite (Dakins Solution 0.25% (1/2 Strength)) 1 applic TOPICAL BID [facility]; Protocol Last Admin: 02/06/20 08:34 Dose: Not Given Documented by: Medical Necessity - Tobacco Use Smoking Status: Never smoker Tobacco Use: Non-smoker Route of nutrition/ use of supplements: [] Nutritional Intake: [] IV Site: [] [place] Catheter: [] - Assessment/Plan Antibiotics: [] Assessment/Plan: [] Active and Suspected Problems Diabetic ulcer of left foot (Acute) Cellulitis of foot associated with diabetes mellitus (Acute) Hyponatremia (Acute) Hyperglycemia due to type 2 diabetes mellitus (Acute) Deep wound infection of the left foot (Acute) L foot necrotizing fasciitis and osteo with h/o DM - taken to OR 01/31/[address] Parker. Clearance fragment showing some bacteria. Surgical/wound cxs with CoNS x2, enterococcus, strep x4, GPR. No sign of residual gas/abscess on CT. Cr slightly improved today. Cont linezolid/cefepime. Plan is for home with po abx. Will follow
[2020-02-06 21:01] LABS: Eosinophil Ct. Urine No Eosinophils Seen % (.)
[2020-02-06] MEDS: DAKIN'S SOL HALF STRENGTH (=0.25%) 1 APPLIC TOPICAL (21:14)
[2020-02-06 21:26] LABS: Bedside Glucose 267 mg/dL (70-110)
[2020-02-06 22:00] VITALS: BP 158/73; PULSE 87; RESP 16; TEMP 37; O2SAT 99
[2020-02-07 04:00] VITALS: BP 154/81; PULSE 82; RESP 16; TEMP 36.8; O2SAT 97
[2020-02-07] MEDS: Insulin Lispro 100 UNIT/ML INSULN.PEN SC ×2 (06:29→12:30)
[2020-02-07 06:36] LABS: Bedside Glucose 170 mg/dL (70-110)
[2020-02-07 07:48] LABS: Anion Gap 8 (5-15); BUN 52 mg/dL (7-18); BUN/Creat Ratio 19.5 RATIO (10-20); Calcium,Total 7.8 mg/dL (8.5-10.1); Chloride 107 mmol/L (98-107); Creatinine, Serum 2.67 mg/dL (0.55-1.02); EST Glomerular Filtration Rate 20 mL/min (>60); Est Glom Filt Rate - Afr Amer 24 mL/min (>60); Estimated Creatinine Clearance 17.33 ml/min; Glucose 164 mg/dL (74-106); Sodium Level 138 mmol/L (136-145)
[2020-02-07] MEDS: Glimepiride 4 MG Tablet PO (08:06)
[2020-02-07] MEDS: Juven (unflavored) Packet 1 PACKET PO (08:06)
--- NOTE | 2020-02-07 08:59 | DCINST_ITS ---
Discharge Activity: Use Walker Weight Bearing Status: No weight bearing - No weightbearing left foot, keep foot elevated. Keep extremity elevated above heart level: Left Leg Call your doctor if your incision/area has: Sudden Increased Bleeding, Increased Pain/ Swelling, Increased Redness, Foul Smelling Discharge Call your doctor if you observe: Fever of 101 or Higher Cleanse incision/area with: - - Dressing changes left foot - aquacell ag daily, gauze, abd, kerlix, lauren wrap Allergies/Adverse Reactions: Allergies No Known Allergies Allergy (Verified 01/31/20 10:37) Medications to take at Discharge Cephalexin [Keflex] 500 mg PO 4X/DAY 01/31/20 Glimepiride [Amaryl] 4 mg PO DAILY 01/31/20 Metformin HCl 1,000 mg PO BID 01/31/20 Pioglitazone [Actos] 45 mg PO DAILY 01/31/20 Ramipril 5 mg PO DAILY 01/31/20 Triamterene 75MG/Hctz 50MG [Maxzide] 0.5 tab PO DAILY 01/31/20 Primary Care Physician: Noah Levin DO [Primary Care Provider] - Test Results: Test results from this visit will be discussed in further detail at your follow- up appointment, if applicable. Please Follow Up With: Dr. Godwin or Dr. Parker When: wound center or [facility] 1 [phone] Proposed Discharge Date: 02/07/20
[2020-02-07 09:24] VITALS: BP 132/50; PULSE 90; RESP 18; TEMP 36.7; O2SAT 94
[2020-02-07] MEDS: 0.9% Saline Lock 10 ML Syringe IV (09:25)
[2020-02-07] MEDS: Linezolid 600 MG Tablet PO (09:26)
[2020-02-07] MEDS: Pioglitazone Hydrochloride 45 MG Tablet PO (09:26)
[2020-02-07] MEDS: Heparin Injection (Vial) 5,000 UNIT/ML VIAL 5000 UNIT SC (09:26)
[2020-02-07] MEDS: amLODIPine 10 MG Tablet PO (09:29)
[2020-02-07] MEDS: DAKIN'S SOL HALF STRENGTH (=0.25%) 1 APPLIC TOPICAL (09:29)
[2020-02-07 11:50] LABS: Bedside Glucose 224 mg/dL (70-110)
--- NOTE | 2020-02-07 11:51 | PCM.PN.REN ---
Patient Problems: Active and Suspected Problems CHRISTINA (acute kidney injury) (Acute) Diabetic ulcer of left foot (Acute) Cellulitis of foot associated with diabetes mellitus (Acute) Hyponatremia (Acute) Hyperglycemia due to type 2 diabetes mellitus (Acute) Deep wound infection of the left foot (Acute) Subjective: no new complaints - Physical Exam Vitals/I&O's: Vital Signs Temp Pulse Resp BP Pulse Ox 98.1 F 90 18 132/50 H 94 02/07/20 09:24 02/07/20 09:24 02/07/20 09:24 02/07/20 09:24 02/07/20 09:24 Oxygen Delivery Method Room Air Weight: 97.069 kg Body Mass Index (BMI) 40.4 Finger Stick Blood Glucose 235 Intake and Output for Last 24 Hours 02/05/20 02/06/20 02/07/20 23:59 23:59 23:59 Intake Total 3418.25 / 4018.25 4000 / 4000 890 / 890 Output Total 5700 / 6200 3100 / 3100 900 / 900 Balance -2281.75 / -2181.75 900 / 900 -10 / -10 General: Alert, Oriented x3, Cooperative HEENT: Atraumatic, PERRLA, EOMI, Normocephalic Neck: Supple, No JVD, Negative Carotid Bruits Lungs: Clear to auscultation, Normal air movement Cardiovascular: Regular rate, No murmurs Abdomen: Bowel Sounds Present, Soft, Non Tender Extremities: No edema, Capillary Refill Less than 3 Seconds Skin: No rashes, No breakdown Musculoskeletal: No Tenderness to Palpation of Joints or Extremities Neurological: Cranial nerves II-XII grossly intact Psych/Mental Status: Normal Affect, Appropriate Microbiology Past 72 Hours 01/31/20 15:06 Bone - Toe Gram Stain - Final 01/31/20 15:06 Bone - Toe Wound Culture - Final Streptococcus intermedius Staphylococcus carnosus carnos Staphylococcus caprae Streptococcus parasanguinis 01/31/20 15:06 Bone - Toe Anaerobic Culture - Final Prevotella bivia Prevotella disiens 01/31/20 11:15 Blood Culture (Wb) - Right Hand Blood Culture - Final No growth in 5 days. 01/31/20 11:10 Blood Culture (Wb) - Left Forearm Blood Culture - Final No growth in 5 days. 01/31/20 15:05 Tissue - Toe Gram Stain - Final 01/31/20 15:05 Tissue - Toe Wound Culture - Final Streptococcus agalactiae (B) 01/31/20 15:05 Tissue - Toe Anaerobic Culture - Final No anaerobic bacteria isolated. 01/31/20 15:13 Wound Drainage - Open/Non-Healing Wound Gram Stain - Final 01/31/20 15:13 Wound Drainage - Open/Non-Healing Wound Wound Culture - Preliminary Streptococcus agalactiae (B) Streptococcus mitis/ oralis Enterococcus faecalis Streptococcus intermedius Bacillus species 01/31/20 15:13 Wound Drainage - Open/Non-Healing Wound Anaerobic Culture - Preliminary Checking for anaerobes, further studies to follow. Laboratory Results 02/03/20 13:20: Eos Smear Total Cells No Eosinophils Seen, Complement C3 116, Complement C4 11 L 02/06/20 11:57: POC Glucose 170 H 02/06/20 16:14: POC Glucose 275 H 02/06/20 21:16: POC Glucose 267 H 02/07/20 06:27: POC Glucose 170 H 02/07/20 07:05: Sodium 138, Potassium 4.0, Chloride 107, Carbon Dioxide 23.0, Anion Gap 8, BUN 52 H, Creatinine 2.67 H, Estim Creat Clear Calc 17.33, Est GFR (MDRD) Af Amer 24 L, Est GFR (MDRD) Non-Af 20 L, BUN/Creatinine Ratio 19.5, Glucose 164 H, Calcium 7.8 L 02/07/20 11:35: POC Glucose 224 H Current Medications Amlodipine Besylate (Norvasc) 10 mg PO DAILY [facility] Last Admin: 02/07/20 09:29 Dose: 10 mg Documented by: Dextrose (D50w Syringe) 0 gm IV X1 PRN; Protocol PRN Reason: Hypoglycemia Glimepiride (Amaryl) 4 mg PO DAILY@0800 [facility] Last Admin: 02/07/20 08:06 Dose: 4 mg Documented by: Glucagon () 1 mg IM .X1 PRN PRN Reason: Hypoglycemia Guaifenesin (Robitussin Dm) 10 ml PO Q6H PRN PRN PRN Reason: COUGH Heparin Sodium (Porcine) (Heparin Na) 5,000 unit SC Q12 [facility] Last Admin: 02/07/20 09:26 Dose: 5,000 unit Documented by: Sodium Chloride () 250 mls @ 15 mls/hr IV .[id number] PRN PRN Reason: Saline Flush Last Infusion: 02/02/20 17:36 Dose: Infused Documented by: Sodium Chloride () 250 mls @ 15 mls/hr IV .[id number] PRN PRN Reason: Additional IVPB Infusion Cefepime HCl 1 gm/ Sodium (Chloride) 50 mls @ 100 mls/hr IV Q24@2200 [facility] Last Infusion: 02/07/20 00:05 Dose: Infused Documented by: Insulin Human Lispro (Humalog Kwikpen (Bkc)) 0 unit SC ACHS [facility]; Protocol Last Admin: 02/07/20 06:29 Dose: 3 u Documented by: Linezolid (Zyvox) 600 mg PO BID [facility] Last Admin: 02/07/20 09:26 Dose: 600 mg Documented by: Nutritional Formula (Bartolome - [place] Flavor) 1 packet PO BIDCM [facility] Last Admin: 02/07/20 08:07 Dose: Not Given Documented by: Oxycodone HCl (Oxyir) 10 mg PO Q4H PRN PRN PRN Reason: Pain Score 6-10/10 Pioglitazone HCl (Actos) 45 mg PO DAILY [facility] Last Admin: 02/07/20 09:26 Dose: 45 mg Documented by: Sodium Chloride () 10 - 40 ml IV UD PRN PRN Reason: SALINE FLUSH Last Admin: 02/07/20 09:25 Dose: 10 ml Documented by: Sodium Hypochlorite (Dakins Solution 0.25% (1/2 Strength)) 1 applic TOPICAL BID [facility]; Protocol Last Admin: 02/07/20 09:29 Dose: 1 applicatio Documented by: Medical Necessity - Tobacco Use Smoking Status: Never smoker Tobacco Use: Non-smoker Assessment/Plan All Active Problems CHRISTINA (acute kidney injury) (Acute) Diabetic ulcer of left foot (Acute) Cellulitis of foot associated with diabetes mellitus (Acute) Hyponatremia (Acute) Hyperglycemia due to type 2 diabetes mellitus (Acute) Deep wound infection of the left foot (Acute) CHRISTINA. normal baseline. no obstructive symptoms. Creatinine has increased over the last 3 days. From yesterday to today, creatinine is about the same. Repeat urine analysis is fairly benign except for microscopic hematuria. Renal ultrasound has been ordered and is ok. Given CHRISTINA in hospital most likely this is either sepsis related or antibiotic related. Non-oliguric. cr is about the same. continue same meds for now. cr better hyponatremia. Urine osmolality is 140. In acute renal failure setting, this is relatively low urine osmolality. Most likely some polydipsia complement. I did advise her to cut back on oral fluid intake for now. Continue IV fluid. Urine sodium is more than 20. sodium is better at [address] better dw Dr Lidia lane to dc today
[2020-02-07 12:01] LABS: Pathologist Review Reviewed
--- NOTE | 2020-02-07 13:43 | PCM.TXEXTCAR ---
- Diet 02/01/20 12:30 Diet: Calorie Controlled Food consistency:: Regular Liquid Consistency:: Regular/Thin Is pt able to select menu?: Yes How many daily calories?: 1800 calorie - Routine Orders/Code Status Enema Type: Fleetz Enema Frequency: Daily PRN Suppository Type: Dulcolax 10mg Suppository Frequency: Daily PRN O2 Frequency: PRN Keep PO Greater than or Equal to (%): 90 - Wound(s) bottom lt foot Wound Type: Neuropathic/Diabetic Foot Ulcer left foot Wound Type: Neuropathic/Diabetic Foot Ulcer Dressing Change: Dakins moistened gazue - Therapies Weight Bearing: Non weight bearing Physical Therapy: Eval and Treat Occupational Therapy: Eval and Treat - Allergies/Procedures Done in Hospital Allergies/Adverse Reactions: Allergies No Known Allergies Allergy (Verified 01/31/20 10:37) Procedures: None - Type of Care/Length of Stay Estimated LOS: Convalescent Care Less Than 30 days Type of Care Needed: Skilled Rehab Potential: Fair Prognosis: Fair - Additional Orders/Day of Discharge Day of Discharge: 02/07/20 - Dietary and Speech Recommendations Dietitian Recommendations/Changes: Continue 1800 calorie controlled diet and Bartolome BID to help w/ wound healing. - Follow Up Care Primary Care Physician: Noah Levin DO [Primary Care Provider] - Please follow up with your Primary Care Physician in: 1-2 weeks Please Follow Up With: Dr. Godwin or Dr. Parker When: wound center or [facility] 1 [phone] Please Follow Up With: Lakshmi Aguirre MD When: 1-2 weeks Please Follow Up With: Storm Parker DPM When: 1-2 weeks
--- NOTE | 2020-02-07 13:45 | PCM.DC.SUM ---
Discharge Date and Diagnosis Date of Admission: 01/31/20 Date of Discharge: 02/07/20 - Primary Discharge Diagnosis Active and Suspected Problems CHRISTINA (acute kidney injury) (Acute) Diabetic ulcer of left foot (Acute) Cellulitis of foot associated with diabetes mellitus (Acute) Hyponatremia (Acute) Hyperglycemia due to type 2 diabetes mellitus (Acute) Deep wound infection of the left foot (Acute) - Secondary Discharge Diagnosis Chronic Problems Type 2 diabetes mellitus (Chronic) Hospital Course and Treatment Imaging Results: Diagnostic Data Foot X-Ray 01/31/20 16:00 IMPRESSION: Amputation of the fourth and fifth phalanges. Electronically Signed: James Landaverde MD at 16:23 EDT , Service support , Lower Extremity CT 02/02/20 16:37 IMPRESSION: Amputations of the fourth and fifth digits, with a very large soft tissue defect through which the heads of the fourth and fifth metatarsals protrude. Correlate with physical exam. No gross focal fluid collection, abscess or soft tissue air. Electronically Signed: Angel Luis Badillo MD at 17:35 EDT , Service support , Renal Ultrasound 02/05/20 07:15 IMPRESSION: Normal ultrasound of the kidneys and urinary bladder. Electronically Signed: Bob Ojeda at 8:26 EDT , Service support , Consultations 02/01/20 12:07 Consult: Onc/Wound/industrial relations commissioner Routine Comment: left foot wound podiatry nephrology infectious diseases Procedures: None Summary of Care Provided: The patient is a 59 year old F with a past medical history as outlined was admitted through the ED on 01/31/2020 after being sent over from the wound care center for a deep wound infection of her left foot. She could not tell how long she had had the infection but thought it may have been a couple of weeks at the very least. She had no associated fever or chills. Patient had diabetes with neuropathy. She was admitted to manage for left foot ulceration and cellulitis due to diabetic foot. Podiatry was consulted. She was started on IV vancomycin and Zosyn. She had amputation of the left fourth and fifth toes with debridement of necrotic tissue of the left foot. Wound cultures gram-positive rods with strep group B and alpha hemolytic organism and Staphylococcus carnosus and Staph carprae. Patient subsequently developed CHRISTINA with creatinine trending upwards. Vancomycin was discontinued. Stay was also further complicated by hyponatremia and hypokalemia. And peaked at around 3 but subsequently started trending downwards. Hyponatremia also resolved with IV fluid administration. Her ramipril and Maxide were held on account of CHRISTINA. Patient remains clinically stable. Factious disease was also on board on account of necrotizing fasciitis of the left foot. Creatinine gradually trended down and was at 2.6 at time of discharge. Of note her baseline was around 0.6. Patient remained stable and was discharged to the [facility] on 02/07/2020. She was discharged on p.o. amoxicillin 1 tablet twice daily for 6-week course. Her lisinopril and Maxide were discontinued on account of CHRISTINA and she was started on amlodipine to be taken together with her metoprolol for blood pressure control. She is to follow-up with her primary care doctor, podiatry and nephrology and infectious diseases. Patient seen and examined prior to discharge. She had no complaints and felt well. Review of symptoms otherwise negative. Labs and vitals reviewed. Home medication reviewed and reconciled. o/e: Vital Signs Temp Pulse Resp BP Pulse Ox 98.6 F 97 18 156/71 H 97 02/07/20 14:47 02/07/20 14:47 02/07/20 14:47 02/07/20 14:47 02/07/20 14:47 [] General: Alert, Oriented x3, Cooperative HEENT: Atraumatic, PERRLA, EOMI, Normocephalic Oral: Moist Mucosa Neck: Supple, No JVD, Negative Carotid Bruits Lungs: Clear to auscultation, Normal air movement, No rhonchi, No wheeze Cardiovascular: Regular rate, Regular Rhythm, Normal S1, Normal S2, No murmurs Abdomen: Bowel Sounds Present, Soft, Non Tender, Non-Distended, No Hepato-splenomegaly Extremities: No clubbing, No cyanosis, No edema, Capillary Refill Less than 3 Seconds, - - left foot wrapped in bandage. Skin: - - left foot wrapped in bandage Musculoskeletal: No Tenderness to Palpation of Joints or Extremities Neurological: Cranial nerves II-XII grossly intact Psych/Mental Status: Normal Affect, Appropriate, Alert and oriented to time, place, person, mood and affect Plan is for discharge to [facility] today. Of note, she is to have periodic BMPs to assess kidney function. - Physical Exam Vitals/I&O's: Vital Signs Temp Pulse Resp BP Pulse Ox 98.1 F 90 18 132/50 H 94 02/07/20 09:24 02/07/20 09:24 02/07/20 09:24 02/07/20 09:24 02/07/20 09:24 Oxygen Delivery Method Room Air Weight: 214 lb 0.008 oz Body Mass Index (BMI) 40.4 Finger Stick Blood Glucose 235 Intake and Output for Last 24 Hours 02/05/20 02/06/20 02/07/20 23:59 23:59 23:59 Intake Total 3418.25 / 4018.25 4000 / 4000 890 / 890 Output Total 5700 / 6200 3100 / 3100 900 / 900 Balance -2281.75 / -2181.75 900 / 900 -10 / -10 Microbiology Past 72 Hours 01/31/20 15:06 Bone - Toe Gram Stain - Final 01/31/20 15:06 Bone - Toe Wound Culture - Final Streptococcus intermedius Staphylococcus carnosus carnos Staphylococcus caprae Streptococcus parasanguinis 01/31/20 15:06 Bone - Toe Anaerobic Culture - Final Prevotella bivia Prevotella disiens 01/31/20 11:15 Blood Culture (Wb) - Right Hand Blood Culture - Final No growth in 5 days. 01/31/20 11:10 Blood Culture (Wb) - Left Forearm Blood Culture - Final No growth in 5 days. 01/31/20 15:05 Tissue - Toe Gram Stain - Final 01/31/20 15:05 Tissue - Toe Wound Culture - Final Streptococcus agalactiae (B) 01/31/20 15:05 Tissue - Toe Anaerobic Culture - Final No anaerobic bacteria isolated. 01/31/20 15:13 Wound Drainage - Open/Non-Healing Wound Gram Stain - Final 01/31/20 15:13 Wound Drainage - Open/Non-Healing Wound Wound Culture - Preliminary Streptococcus agalactiae (B) Streptococcus mitis/ oralis Enterococcus faecalis Streptococcus intermedius Bacillus species 01/31/20 15:13 Wound Drainage - Open/Non-Healing Wound Anaerobic Culture - Preliminary Checking for anaerobes, further studies to follow. Laboratory Results 02/03/20 13:20: Eos Smear Total Cells No Eosinophils Seen, Complement C3 116, Complement C4 11 L 02/06/20 07:30: Diff Path Review Reviewed 02/06/20 16:14: POC Glucose 275 H 02/06/20 21:16: POC Glucose 267 H 02/07/20 06:27: POC Glucose 170 H 02/07/20 07:05: Sodium 138, Potassium 4.0, Chloride 107, Carbon Dioxide 23.0, Anion Gap 8, BUN 52 H, Creatinine 2.67 H, Estim Creat Clear Calc 17.33, Est GFR (MDRD) Af Amer 24 L, Est GFR (MDRD) Non-Af 20 L, BUN/Creatinine Ratio 19.5, Glucose 164 H, Calcium 7.8 L 02/07/20 11:35: POC Glucose 224 H Current Medications Amlodipine Besylate (Norvasc) 10 mg PO DAILY [facility] Last Admin: 02/07/20 09:29 Dose: 10 mg Documented by: Dextrose (D50w Syringe) 0 gm IV X1 PRN; Protocol PRN Reason: Hypoglycemia Glimepiride (Amaryl) 4 mg PO DAILY@0800 [facility] Last Admin: 02/07/20 08:06 Dose: 4 mg Documented by: Glucagon () 1 mg IM .X1 PRN PRN Reason: Hypoglycemia Guaifenesin (Robitussin Dm) 10 ml PO Q6H PRN PRN PRN Reason: COUGH Heparin Sodium (Porcine) (Heparin Na) 5,000 unit SC Q12 [facility] Last Admin: 02/07/20 09:26 Dose: 5,000 unit Documented by: Sodium Chloride () 250 mls @ 15 mls/hr IV .[id number] PRN PRN Reason: Saline Flush Last Infusion: 02/02/20 17:36 Dose: Infused Documented by: Sodium Chloride () 250 mls @ 15 mls/hr IV .[id number] PRN PRN Reason: Additional IVPB Infusion Cefepime HCl 1 gm/ Sodium (Chloride) 50 mls @ 100 mls/hr IV Q24@2200 [facility] Last Infusion: 02/07/20 00:05 Dose: Infused Documented by: Insulin Human Lispro (Humalog Kwikpen (Bkc)) 0 unit SC ACHS [facility]; Protocol Last Admin: 02/07/20 12:30 Dose: 6 u Documented by: Linezolid (Zyvox) 600 mg PO BID [facility] Last Admin: 02/07/20 09:26 Dose: 600 mg Documented by: Oxycodone HCl (Oxyir) 10 mg PO Q4H PRN PRN PRN Reason: Pain Score 6-10/10 Pioglitazone HCl (Actos) 45 mg PO DAILY [facility] Last Admin: 02/07/20 09:26 Dose: 45 mg Documented by: Sodium Chloride () 10 - 40 ml IV UD PRN PRN Reason: SALINE FLUSH Last Admin: 02/07/20 09:25 Dose: 10 ml Documented by: Sodium Hypochlorite (Dakins Solution 0.25% (1/2 Strength)) 1 applic TOPICAL BID [facility]; Protocol Last Admin: 02/07/20 09:29 Dose: 1 applicatio Documented by: Discharge Diet: Low fat/ Low Cholesterol Discharge Activity: Use Walker Weight Bearing Status: No weight bearing - No weightbearing left foot, keep foot elevated. Keep extremity elevated above heart level: Left Leg Call your doctor if your incision/area has: Sudden Increased Bleeding, Increased Pain/ Swelling, Increased Redness, Foul Smelling Discharge Call your doctor if you observe: Fever of 101 or Higher Cleanse incision/area with: - - Dressing changes left foot - aquacell ag daily, gauze, abd, kerlix, lauren wrap Home Medications: Medications to take at Discharge Glimepiride [Amaryl] 4 mg PO DAILY 01/31/20 Pioglitazone [Actos] 45 mg PO DAILY 01/31/20 Amlodipine [Norvasc] 10 mg PO DAILY #30 tab 02/07/20 Amoxicillin/Potassium Clav [Augmentin 500-125 Tablet] 1 ea PO BID #80 tab 02/07/20 Metoprolol Tartrate 25 mg PO BID #60 tab 02/07/20 Following Prescrptions Were Given to Patient: Amoxicillin/Potassium Clav [Augmentin 500-125 Tablet] 1 ea PO BID #80 tab Prescription Printed Metoprolol Tartrate 25 mg PO BID #60 tab Prescription Printed Amlodipine [Norvasc] 10 mg PO DAILY #30 tab Prescription Printed Primary Care Physician: Noah Levin DO [Primary Care Provider] - Please follow up with your Primary Care Physician in: 1-2 weeks Please Follow Up With: Dr. Godwin or Dr. Parker When: wound center [facility] 1 [phone] Please Follow Up With: Lakshmi Aguirre MD When: 1-2 weeks Please Follow Up With: Storm Parker DPM When: 1-2 weeks Disposition: [facility] facility Minutes spent on discharge:: 50 Patient Condition:: Stable Medical Necessity - Tobacco Use Smoking Status: Never smoker Tobacco Use: Non-smoker Meaningful Use Info Meaningful Use Diagnoses (Choose all that apply): None applicable Inpatient E&M: [id number] [facility]
--- NOTE | 2020-02-07 14:26 | CASEMGMT ---
Social Work Note Pt is discharging today to [facility]. MARCK faxed completed discharge paperwork to Anya at [facility] including transfer to extended care facility, signed medication list and any scripts. Hospital to Post-Acute COVID 19 transfer communication tool also completed and faxed to [facility], copy on pt's chart. Original in SNF folder and copy on pt's chart. HENS was completed previously for pt this [facility] admission, original HENS in SNF folder and copy on pt's chart. SW spoke with pt, updated her on discharge. Pt states that her is able to transport pt and will be at [facility] at around 3:00pm. SW updated RN. SW placed a call to Anya at [facility] and updated her on discharge and transportation time. Plan: [facility] skilled today with pt's transporting pt at 3:00pm Marianna BUI, AMMUNITION OFFICER
[2020-02-07 14:47] VITALS: BP 156/71; PULSE 97; RESP 18; TEMP 37; O2SAT 97
--- NOTE | 2020-02-07 15:07 | NURSING ---
report called and talked with lolis dennison at [facility]
== END 2020-02-07 15:00 | disposition skilled nursing facility (03) | DRG 255 ==
LOC: ED 11:43 → MS3 12:05
PROVIDERS: Internal Medicine Infectious Disease; Internal Medicine Nephrology; Podiatrist; Admitting Provider Internal Medicine; Emergency Provider Emergency Medicine; PCP Family Medicine; Visit Provider Student in an Organized Health Care Education/Training Program
PROC: 0Y6W0Z0 Detachment at Left 4th Toe, Complete, Open Approach (ICD-10-PCS; principal; 2020-01-31 13:40)
DX: E11.52 Type 2 diabetes mellitus with diabetic peripheral angiopathy with gangrene (principal); A48.0 Gas gangrene; M72.6 Necrotizing fasciitis; L03.116 Cellulitis of left lower limb; L02.612 Cutaneous abscess of left foot; E87.1 Hypo-osmolality and hyponatremia; N17.9 Acute kidney failure, unspecified; B95.1 Streptococcus, group B, as the cause of diseases classified elsewhere; B95.8 Unspecified staphylococcus as the cause of diseases classified elsewhere; E11.621 Type 2 diabetes mellitus with foot ulcer; L97.524 Non-pressure chronic ulcer of other part of left foot with necrosis of bone; E11.40 Type 2 diabetes mellitus with diabetic neuropathy, unspecified; E11.65 Type 2 diabetes mellitus with hyperglycemia; E87.6 Hypokalemia; E86.1 Hypovolemia; R31.29 Other microscopic hematuria; E11.628 Type 2 diabetes mellitus with other skin complications; I10 Essential (primary) hypertension; Z78.0 Asymptomatic menopausal state; Z79.84 Long term (current) use of oral hypoglycemic drugs; Z79.899 Other long term (current) drug therapy
CPT/HCPCS: 36415; 73630; 73700; 76770; 80048; 80053; 80202; 81001; 82962; 83036; 83605; 83930; 83935; 84300; 85025; 85610; 85730; 86160; 87015; 87040; 87070; 87075; 87077; 87086; 87102; 87106; 87116; 87176; 87186; 87205; 87206; 87640; 88304; 88305; 88311; 93005; 93923; 97110; 97116; 97161; 97166; 97530; 97535; 97803; 99285; J7030; J7040; J7050; J7120; A4216; J0610; J3490

== ENCOUNTER → 2020-02-07 15:50 | Outpatient (REF) | payer SELFPAY ==
[2020-01-31 13:12] VITALS: BMI 40.4
== END ==
LOC: OLS.ACH 15:50
PROVIDERS: PCP Family Medicine; Visit Provider Family Medicine
DX: M86.172 Other acute osteomyelitis, left ankle and foot (principal)
CPT/HCPCS: 87635; U0004

== ENCOUNTER → 2020-02-12 04:30 | Outpatient (REF) | payer SELFPAY ==
[2020-01-31 13:12] VITALS: BMI 40.4
[2020-02-12 08:56] LABS: Vitamin B12 225 pg/mL (211-911)
[2020-02-12 09:20] LABS: Anion Gap 11 (5-15); BUN 39 mg/dL (7-18); BUN/Creat Ratio 24.4 RATIO (10-20); Calcium,Total 7.2 mg/dL (8.5-10.1); Chloride 108 mmol/L (98-107); EST Glomerular Filtration Rate 35 mL/min (>60); Est Glom Filt Rate - Afr Amer 43 mL/min (>60); Ferritin 238 ng/mL (8-252); Glucose 145 mg/dL (74-106); Iron 60 ug/dL (50-170); Iron Binding Capacity,Total 529 ug/dL (250-450); PERCENT IRON SATURATION 11.3 % (15.0-55.0); Potassium 4.4 mmol/L (3.5-5.1); Sodium Level 138 mmol/L (136-145)
[2020-02-13 14:07] LABS: PROEL- A/G Ratio 0.8 (0.7-1.7); PROEL- Albumin 2.8 g/dL (2.9-4.4); PROEL- Alpha-1 Globulin 0.3 g/dL (0.0-0.4); PROEL- Alpha-2 Globulin 0.9 g/dL (0.4-1.0); PROEL- Beta Globulin 1.2 g/dL (0.7-1.3); PROEL- Gamma Globulin 1.2 g/dL (0.4-1.8); PROEL- Globulin, Total 3.5 g/dL (2.2-3.9); PROEL- TOTAL PROTEIN 6.3 g/dL (6.0-8.5)
== END ==
LOC: OLS.ACH 04:30
PROVIDERS: PCP Family Medicine; Visit Provider Family Medicine
DX: E87.1 Hypo-osmolality and hyponatremia (principal); E87.6 Hypokalemia; E11.40 Type 2 diabetes mellitus with diabetic neuropathy, unspecified; I10 Essential (primary) hypertension; M86.172 Other acute osteomyelitis, left ankle and foot; N17.9 Acute kidney failure, unspecified; Z89.422 Acquired absence of other left toe(s)
CPT/HCPCS: 36415; 80048; 82607; 82728; 83540; 83550; 84165

== ENCOUNTER → 2020-02-22 05:00 | Outpatient (REF) | payer SELFPAY ==
[2020-01-31 13:12] VITALS: BMI 40.4
[2020-02-22 08:47] LABS: Absolute Lymphocyte Count 3.02 X10^3/uL (0.83-4.51); Absolute Neutrophil Count 3.6 X10^3/uL (2.0-7.7); Basophil# 0.07 X10^3/uL; Basophil% 0.9 % (0-1); Eosinophil# 0.51 X10^3/uL; Eosinophils% 6.5 % (0-5); Hematocrit 31.3 % (37-47); Hemoglobin 10.1 g/dL (12.0-15.0); Lymphocyte # 3.02 X10^3/ul (4.0); Lymphocyte % 38.6 % (19-41); Mean Corp Hgb Conc 32.3 g/dL (32-36); Mean Corpuscular Hgb 28.4 pg (27.0-32.0); Mean Corpuscular Volume 87.9 fL (81-99); Mean Platelet Vol. 11.4 fl (6.2-12.0); Monocyte# 0.58 X10^3/uL; Monocyte% 7.4 % (0-10); NRBC Flagged by Analyzer 0 % (0-5); Neutrophil # 3.61 X10^3/uL (2.7-7.7); Neutrophil % 46.1 % (47-70); Platelet Count 292 K/mm3 (150-450); RBC Distribution Width CV 13.8 % (11.6-14.6); RBC Distribution Width SD 44.3 fl (35.1-43.9); Red Blood Count 3.56 M/mm3 (4.2-5.4); White Blood Count 7.8 K/mm3 (4.4-11.0)
[2020-02-22 08:56] LABS: Anion Gap 5 (5-15); BUN 25 mg/dL (7-18); BUN/Creat Ratio 28.2 RATIO (10-20); Chloride 107 mmol/L (98-107); Creatinine, Serum 0.89 mg/dL (0.55-1.02); EST Glomerular Filtration Rate 69 mL/min (>60); Est Glom Filt Rate - Afr Amer 84 mL/min (>60); Glucose 159 mg/dL (74-106); Sodium Level 141 mmol/L (136-145)
== END ==
LOC: OLS.ACH 05:00
PROVIDERS: PCP Family Medicine; Visit Provider Family Medicine
DX: E11.621 Type 2 diabetes mellitus with foot ulcer (principal)
CPT/HCPCS: 36415; 80048; 85025

== ENCOUNTER → 2020-07-04 | Outpatient (CLI) | payer SELFPAY ==
[2020-01-31 13:12] VITALS: BMI 40.4
== END | disposition home or self-care (01) ==
PROVIDERS: PCP Family Medicine; Referring Provider Podiatrist; Visit Provider Podiatrist
DX: L97.529 Non-pressure chronic ulcer of other part of left foot with unspecified severity (principal)
CPT/HCPCS: 87070; 87186; 87205

== ENCOUNTER → 2020-08-19 | Outpatient (CLI) | payer SELFPAY ==
[2020-01-31 13:12] VITALS: BMI 40.4
== END | disposition home or self-care (01) ==
PROVIDERS: PCP Family Medicine; Referring Provider Podiatrist; Visit Provider Podiatrist
DX: L97.529 Non-pressure chronic ulcer of other part of left foot with unspecified severity (principal); L03.116 Cellulitis of left lower limb
CPT/HCPCS: 87070; 87075; 87077; 87186; 87205

== ENCOUNTER 2025-02-28 08:15 | Outpatient (RCR) | payer SELFPAY ==
[2025-02-01 09:23] VITALS: BP 166/67; PULSE 64; RESP 16; TEMP 36.3; BMI 50.0
--- NOTE | 2025-02-01 11:25 | RAD_ITS ---
EXAM: Foot minimum three views x-ray CLINICAL HISTORY: Ulcer COMPARISON: 01/31/2020 TECHNIQUE: Three views left foot FINDINGS: No fracture or dislocation. There is again note of amputation of the 4th and 5th phalanges. There appears to be a soft tissue ulceration at the dorsal aspect of the amputation site near the 3rd ray seen on the oblique and lateral views, clinically correlate. No radiopaque foreign body identified. Since 2019 there now appears to be cortical thickening of the 3rd and lateral aspect of the 2nd proximal phalanx which may represent sequela of previous osteomyelitis with a chronic osteomyelitis not excluded. No osseous destruction identified. 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 Forefoot soft tissue swelling. Enthesophyte formation at the plantar greater than Achilles surfaces of the calcaneus. Vascular calcifications. RAD/Foot min 3 Views IMPRESSION: No fracture or dislocation. There is again note of amputation of the 4th and 5th phalanges. There appears to be a soft tissue ulceration at the dorsal aspect of the amputa tion site near the 3rd ray seen on the oblique and lateral views, clinically correlate. No radiopaque foreign body identified. Since 2019 there now appears to be cortical thickening of the 3rd and lateral a spect of the 2nd proximal phalanx which may represent sequela of previous osteomyelitis with a chronic osteomyelitis not ex cluded. No osseous destruction identified. Forefoot soft tissue swelling. Reading Location: [id number]
[2025-02-01 11:47] LABS: Erythrocyte Sedimentation Rate 26 mm/hr (0-30)
[2025-02-01 11:52] LABS: Absolute Neutrophil Count 5.8 X10^3/uL (2.0-7.7); Basophil# 0.06 X10^3/uL; Basophil% 0.6 % (0-1); Hematocrit 37.8 % (37-47); Hemoglobin 12.7 g/dL (12.0-15.0); Lymphocyte % 30.9 % (19-41); Mean Corp Hgb Conc 33.6 g/dL (32-36); Mean Corpuscular Hgb 29.3 pg (27.0-32.0); Mean Corpuscular Volume 87.1 fL (81-99); Mean Platelet Vol. 10.7 fl (6.2-12.0); Monocyte# 0.66 X10^3/uL; Monocyte% 6.8 % (0-10); NRBC Flagged by Analyzer 0 % (0-5); Neutrophil # 5.84 X10^3/uL (2.7-7.7); Neutrophil % 60.1 % (47-70); Platelet Count 312 K/mm3 (150-450); RBC Distribution Width CV 14.6 % (11.6-14.6); RBC Distribution Width SD 46.3 fl (35.1-43.9); Red Blood Count 4.34 M/mm3 (4.2-5.4); White Blood Count 9.7 K/mm3 (4.4-11.0)
[2025-02-01 12:06] LABS: Hemoglobin A1c 7.6 % (<=5.6)
--- NOTE | 2025-02-01 12:48 | HP.PCM_ITS ---
History of Present Illness Date of Service: 02/01/25 Chief Complaint: Left foot ulcer History of Wound: Ms. Lowe is a 64-year-old who presents to the wound center due to nonhealing left foot ulcer. Believes that it started almost 2 months ago. Just noted it. No known precipitating factor. Does not have as much feeling in her foot due to diabetes. Prior history of diabetic foot surgery/amputation. She states that over the last 2 months, she has been applying peroxide however due to none improvement her daughter recommended she come to the wound center. Had seen podiatry in the past but last saw podiatry a few years ago. She states that she was given a however it was too tight so she does not wear these. Walks barefooted at home. Not sure about her diabetes control but reports compliance with her medication. Feels well otherwise. Reports a good diet [facility] Medical History (Updated 02/01/25 @ 13:[address] Laney Jackson MD) History of necrotizing fasciitis Obesity Deep wound infection of the left foot Home Medications ?Medication ?Instructions ?Recorded ?Last Taken ?Type glimepiride 4 mg tablet 4 mg PO DAILY diabetes 01/30 Unknown History pioglitazone 45 mg tablet 90 mg PO DAILY diabetes 01/03 06/23 Unknown History metoprolol tartrate 25 mg tablet 25 mg PO BID #60 tabs 02/07/20 Unknown Rx amlodipine 10 mg tablet 5 mg PO DAILY 02/01/25 Unkno wn History metformin 500 mg tablet,extended 1,000 mg PO BID 02/01 Unknown History release 24 hr ramipril 5 mg capsule (Altace) 5 mg PO DAILY 02/01/25 Unknown History rosuvastatin 20 mg tablet (Crestor) 20 mg PO .COMPLEX 02/01/25 Unknown History Allergy/AdvReac Type Severity Reaction Status Date / Time No Known Allergies Allergy Verified 02/01/25 09:35 Surgical History (Updated 02/01/25 @ 13:[address] Laney Jackson MD) History of partial amputation of toe of left foot Social History Smoking Status: Former smoker ROS Constitutional Constitutional: Denies anorexia, body ache(s), fatigue, fever(s), frequent falls or headache(s) Eyes Eyes: Denies blindness, blind spots, change in eye color, change in vision, discharge from eye(s) or discongugate gaze ENT HEENT: Denies bleeding gums, change in voice, dysphagia, ear discharge, facial pain, foreign body in nose, halitosis or headache(s) Cardiovascular Cardiovascular: Denies abdominal pain, chest pain with activity, claudication, clubbing, cold extremities, cyanosis, dyspnea on exertion, easily tiring during activity or flutter in chest Respiratory/Chest Respiratory/Chest: Denies change in mental status, change in phlegm color, chest congestion, chest tightness, hoarseness, inability to speak or nail bed cyanosis Gastrointestinal Gastrointestinal: Denies abdominal pain, change in bowel habits, chewing difficulty, coffee ground emesis, dry heaves or fecal incontinence Genitourinary Genitourinary: Denies abdominal discomfort, burning urination, difficulty urinating or flank pain Musculoskeletal Musculoskeletal: Denies joint stiffness, muscle spasms, muscle weakness, stiffness, tingling or tremors Integumentary Integumentary: Reports skin ulcer; Denies change in hair, changing lesions, erythema, hirsutism or jaundice Neurologic Neurologic: Denies abnormal speech, behavior changes, frequent falls, lack of coordination, memory loss or numbness Psychiatric Psychiatric: Denies auditory hallucinations, behavioral changes, change in appetite, cognitive impairment, confusion, difficulty concentrating or hallucinations Endocrine Endocrinology: Denies cold intolerance, deepening of the voice, excessive sweating, fatigue or flushing Hematologic/Lymphatic Hematologic/Lymphatic: Denies easy bleeding or lymphadenopathy Allergic/Immunologic Allergic/Immunologic: Denies lip swelling, rhinitis, throat swelling, tongue swelling, hives or wheezing Vital Signs Vital Signs Vital Signs: 02/01/25 09:23 Temperature 97.4 F L Temperature Source Temporal Pulse Rate 64 Respiratory Rate 16 Blood Pressure 166/67 H Blood Pressure Mean 100 Blood Pressure Source Monitor Blood Pressure Position Semi-Fowlers Blood Pressure Location Right Arm Weight Weight: 256 lb Body Mass Index (BMI) 50.0 Physical Exam Const alert, oriented x3 and no apparent distress General Appearance: cooperative, comfortable and well kempt HEENT normocephalic and head/scalp atraumatic Head and Scalp: normal to inspection Eyes EOMs intact bilaterally General Eye: normal appearance of both eyes Neck full ROM and supple General: normal visual inspection Resp normal respiratory effort, normal air movement and clear to auscultation bilaterally Effort and Inspection: able to speak in complete sentences Cardio regular rate, regular rhythm, S1 normal heart sound and S2 normal heart sound GI soft to palpation and non-tender Extremity General Extremity: edema Skin Wounds: wounds noted size Size: See clinical note, bed granulating well and with undermining, margins well approximated, no odor and open Neuro oriented x3, CN's II-XII intact bilaterally, moves all extremities and no focal motor deficits Psych mental status grossly normal, thought process normal, cooperative and affect normal Debridement Note Debridement Note Wound debrided: Left foot (plantar) Type of Debridement: Excisional debridement Anesthesia Used: 5% Lidocaine Gel Depth: Down to and including healthy tissue and in the subcutaneous layer Percentage of wound debrided: 100 Instrument Used: 7mm curette Severity: Fat Layer Exposed Amount of bleeding with debridement: Mild Bleeding Controlled with: Pressure Patient tolerated procedure: Patient tolerated procedure well Post-Debridement Measurements and Additional Note: Post-Debridement Measurements/Treatment - Nurse 1 - General Ulcer Assessment Start: 02/01/25 09:21 Freq: Status: Active Protocol: YONAS Activity Type Activity Date Activity User E-sign Co-sign Detail Recorded Client Recorded Date Recorded By Document 02/01/25 09:23 [id number] 02/01/25 09:35 CP 02/01/25 09:23 - Today's Visit Information Type of service Follow-up Visit (Physician/WIRING INSPECTOR ) Arrival Mode Ambulatory Patient Identification Verified (Name & Yes ) Patient Requires Transmission-Based No Precautions Finger Stick Blood Sugar(mg/dl) (if 124 indicated): Blood Sugar Stated by Patient Height and Weight Height 5 ft Weight 256 lb Weight in Pounds 256.0 lbs Weight Measurement Method Standing Scale Body Mass Index (BMI) 50.0 BMI Classification Obese Vital Signs Temperature (97.8 F-99.1 F) 97.4 F L Temperature Source Temporal Pulse Rate (60-100) 64 Pulse Location Monitor Respiratory Rate (12-18) 16 Respiratory rate source Observation Blood Pressure (90/60-120/80) 166/67 H Blood Pressure Mean 100 Source Monitor Position Semi-Fowlers Blood Pressure Location Right Arm History Since Last Visit- (Skip if this is Patient's initial visit) Left Footwear Regular Shoe Right Footwear Regular Shoe Pain Scale: 0-10 Numeric Is Patient Pain Free? Yes Lower Extremity Assessment/ Foot Assessment/ Toe Nail Assessment Right -Posterior Tibial Palpable Yes -Posterior Tibial Doppler Multiphasic -Dorsalis Pedis Palpable Yes -Dorsalis Pedis Doppler Multiphasic -Extremity Color Normal -Hair Growth on Legs Yes -Hair Growth on Toes No -Temperature of Extremity Warm -Capillary Refill Less than 3 Seconds -Dependent Rubor No -Blanched when Elevated No -Prior Foot Ulcer No -Prior Amputation No -Thick Yes -Deformed Yes -Improper Length & Hygeine No Left -Posterior Tibial Palpable Yes -Posterior Tibial Doppler Multiphasic -Dorsalis Pedis Palpable Yes -Dorsalis Pedis Doppler Multiphasic -Extremity Color Normal -Hair Growth on Legs Yes -Hair Growth on Toes No -Temperature of Extremity Warm -Capillary Refill Less than 3 Seconds -Dependent Rubor No -Blanched when Elevated No -Lipodermatosclerosis No -Prior Foot Ulcer Yes -Prior Amputation Yes -Thick Yes -Deformed Yes -Improper Length & Hygeine No Neuropathy Assessment Feet - Top Side and Bottom <Entered> (a) Communication Assessment Preferred language Algerian Waste Picker Required No Able to Read Yes Able to Write Yes Communication Tools None Caregiver Communication Skills No Impairment Impairment Right Hearing Abillity Normal Left Hearing Abillity Normal Visual Assistive Devices Glasses Teaching Assessment Preferences Verbal,Written, Demonstration Barriers to Learning Knowledge Deficit Readiness To Learn Excellent Willingness to Engage in Self Management High Activies Readiness to Engage in Self Management High Activities Anxiety Level Calm Cooperation Cooperative Perception Coherent Interest in Health Problem Asks Questions Education Importance Acknowledges Need Does Patient Smoke tobacco or other No substances Smoking Status Former smoker Is Patient Diabetic Yes Functional Assessment Recent Decline in Ability to Perform Denies Any Declines Culture/Sabianism/Process Improvement Specialist Cultural/Sabianism Needs that may affect No Treatment Plan (a) 1 - - 2 - + 3 - + 4 - + WC - Nurse 1 - General Ulcer Measurement Start: 02/01/25 09:21 Freq: Status: Active Protocol: Activity Type Activity Date Activity User E-sign Co-sign Detail Recorded Client Recorded Date Recorded By Document 02/01/25 09:23 CP [id number] 02/01/25 09:35 CP 02/01/25 09:23 Wound Center Nurse 1 #1 L Plantar -Current Size (cm) - Length 1 -Current Size (cm) - Width 1.1 -Current Size (cm) - Depth 0.3 -Total Square Cm 1.1 -Date of Last Picture (Recall this 05/01/25 field) -Photo Taken Yes -Epithelialization None Present -Tunneling No -Undermining/Tunneling Yes -Undermining/Tunneling Starts (O'clock 11 ) -Undermining/Tunneling Ends (O'clock) 5 -Maximum Distance (cm) 0.5 -Circular Undermining Yes -Exudate Amt Small -Exudate Type Serosanguineous -Wound Margin Thickened & Rolled Under -Granulation Amt Large (67-100%) -Granulation Quality [place] -Slough/Fibrin No -Structure Exposed N/A -Texture (Kelsi-wound Skin Appearance) Callus -Moisture (Kelsi-wound Skin Appearance) No Abnormality -Color (Kelsi-wound Skin Appearance) No Abnormality -Temperature (Kelsi-wound Skin No Abnormality Appearance) (Pt Warm) -Tenderness on Palpation (Kelsi-wound No Skin Appearance) -Ulcer Cleansing Soap and Water -Foul Odor after Cleansing No -Anesthetic Used 5% Lidocaine Gel WC - Nurse 2 - General Ulcer CM Notes Start: 02/01/25 09:21 Freq: Status: Active Protocol: Activity Type Activity Date Activity User E-sign Co-sign Detail Recorded Client Recorded Date Recorded By Document 02/01/25 09:50 [id number] 02/01/25 10:04 02/01/25 09:50 Wound Center Nurse 2 -Time 09:51 -Correct Patient Yes -Correct Side, Site, Position Yes -Correct Procedure Yes -Procedure Performed Yes -Type of Procedure Debridement -Clinical Debridement Subcutaneous -Tissue Removed Subcutaneous -Post Debridement (cm) - Length 1.7 -Post Debridement (cm) - Width 1.0 -Post Debridement (cm) - Depth 0.4 -Total Square (Post) (cm) 1.70 -Area of Debridement (cm) - Length 1.7 -Area of Debridement (cm) - Width 1.0 -Total Square (Area) (cm) 1.70 -Tunneling Yes -Tunneling Position (O'clock) 2 -Tunneling Distance (cm) 0.5 -Undermining/Tunneling No -Circular Undermining No -Wound/Ulcer Outcome Not Healed -Ulcer Cleansing Rinsed/ Irrigated with Saline -Foul Odor after Cleansing No -Bioengineered Tissue No -Bleeding Controlled with Pressure -Treatment Response Procedure Tolerated Well -Offloading No -Debridement - Subq, 1st 20sq cm Yes Pain Scale: 0-10 Numeric Is Patient Pain Free? Yes WC - Nurse 3 - General Ulcer D/C NN Start: 02/01/25 09:21 Freq: Status: Active Protocol: Activity Type Activity Date Activity User E-sign Co-sign Detail Recorded Client Recorded Date Recorded By Document 02/01/25 10:35 CP [id number] 02/01/25 10:37 CP Edit Result 02/01/25 10:35 CP (1) [id number] 02/01/25 11:53 CP (1) #1 L Plantar - Primary Dressing Applied Fibracol Plus 4x4 => Fibracol Plus 4x4, => Silicone Border => Foam 4x4 BLE - Tubular Bandage => Double Layer - Size of Tubigrip Used => Size F - Size F ($) => 2 02/01/25 10:35 Wound Care Center Nurse 3 #1 L Plantar -Ulcer Cleansing Rinsed/ Irrigated with Saline -Foul Odor after Cleansing No -Primary Dressing Applied Fibracol Plus 4x4,Silicone Border Foam 4x4 -Fibracol Plus 4x4 1 -Silicone Border Foam 4x4 1 BLE -Tubular Bandage Double Layer -Size of Tubigrip Used Size F -Size F ($) 2 Pain Scale: 0-10 Numeric Is Patient Pain Free? Yes WC - Visit Discharge Discharge Condition Stable Ambulatory Status Ambulatory Transportation Private Auto Clinical Summary of Care Provided Yes Orders Sent Yes Lab / Micro Data 02/01/25 11:11 02/01/25 11:11 Labs: Laboratory Results - last 24 hr 02/01/25 11:11: WBC 9.7, RBC 4.34, Hgb 12.7, Hct 37.8, MCV 87.1, MCH 29.3, MCHC 33.6, RDW Std Deviation 46.3 H, RDW Coeff of Leticia 14.6, Plt Count 312, MPV 10.7, Immature Gran % (Auto) 0.600, Neut % (Auto) 60.1, Lymph % (Auto) 30.9, [place] % (Auto) 6.8, Eos % (Auto) 1.0, Baso % (Auto) 0.6, Absolute Neuts (auto) 5.8, Absolute Lymphs (auto) 3.00, Nucleated RBC % 0, ESR 26, Hemoglobin A1c 7.6 H Charges/Coding Visit Charges Office Visits / Consults: [id number] OV L4 New 45min Procedures Integumentary [id number]: [id number] Peyton subq tissue 20 sq cm/< Assessment/Plan Assessment/Plan (1) Diabetic ulcer of left foot: CODE(S): E11.621 - Type 2 diabetes mellitus with foot ulcer; L97.529 - Non-pressure chronic ulcer of other part of left foot with unspecified severity PLAN: Clarke II (2) Type 2 diabetes mellitus with diabetic polyneuropathy: CODE(S): E11.42 - Type 2 diabetes mellitus with diabetic polyneuropathy (3) Type 2 diabetes mellitus: CODE(S): E11.9 - Type 2 diabetes mellitus without complications (4) Obesity: CODE(S): E66.9 - Obesity, unspecified (5) History of partial amputation of toe of left foot: CODE(S): Z89.422 - Acquired absence of other left toe(s) (6) History of necrotizing fasciitis: CODE(S): Z87.39 - Personal history of other diseases of the musculoskeletal system and connective tissue PLAN: Plan Debridement done as documented above, procedure was well-tolerated. At this time, no clinical concern for infection however due to prior history including history of necrotizing fasciitis and status post left 4th and 5th toe amputation due to significant infection/abscess, cultures and x-ray ordered, will review. CBC, CMP, ESR, CRP and A1c also ordered, will review. Very lengthy discussion had with the patient and her , at significant risk for further amputation and recurrent diabetic foot ulcers due to prior history and poorly controlled diabetes. Close follow-up with a solutions development analyst and recommendation on footwear strongly recommended, she voiced understanding. For now, Fibracol daily to twice daily, cover with foam dressing. She was advised to wear her offloading boots as previously recommended and if she has any problems with this, discuss with her solutions development analyst, again she voiced understanding. Will hold off a total contact cast at this time. I am concerned about ambulating well with 1. Continue metformin, Actos and glimepiride for diabetes control, dietary modifications also very strongly recommended. Their questions were answered and they were advised to let us know if they have any further questions or concerns. Follow-up in a week or sooner if needed. This note was generated with [employer] software. It may contain incorrect words, spelling, and punctuation that were not noted in checking the note before signing.
[2025-02-01 13:21] LABS: ALB/GLOB Ratio 1.5 RATIO (0.9-2.4); AST(SGOT) 21 U/L (<=31); Alanine Aminotransfer ALT/SGPT 17 U/L (<=34); Albumin, Serum 4.1 g/dL (3.4-4.8); Alkaline Phosphatase 88 U/L (35-104); Anion Gap 12 (5-15); BUN 12 mg/dL (4-19); BUN/Creat Ratio 16.3 RATIO (10-20); CRP 4.76 mg/L (0.0-3.0); Calcium,Total 8.9 mg/dL (7.6-11.0); Carbon Dioxide 23.8 mmol/L (21.0-32.0); Chloride 104 mmol/L (98-108); Creatinine, Serum 0.71 mg/dL (0.70-1.20); EST Glomerular Filtration Rate 95 (>60); Estimated Creatinine Clearance 94.42 ml/min (50-250); Globulin 2.8 g/dL (2.2-4.2); Glucose 127 mg/dL (70-99); Potassium 4.2 mmol/L (3.3-5.1); Protein, Total 6.9 g/dL (5.9-8.4); Sodium Level 140 mmol/L (133-145); Total Bilirubin 0.38 mg/dL (0.00-1.30)
[2025-02-02 04:07] LABS: Prealbumin 25 mg/dL (10-36)
--- NOTE | 2025-02-02 12:11 | WC ---
PHOTO 02/01/25 LEFT PLANTAR FOOT
--- NOTE | 2025-02-07 10:02 | WC ---
Called patient in regards to positive wound culture, left voicemail letting patient know Dr. Jackson called in 2 antibiotics and for her to call back if she has any questions.
[2025-02-08 09:32] VITALS: BP 153/66; PULSE 71; RESP 18; TEMP 36.3; BMI 50.0
--- NOTE | 2025-02-08 11:21 | PCM.WC.PN ---
History of Present Illness Date of Service: 02/08/25 Chief Complaint: Left foot ulcer History of Wound: Ms. Lowe is a 64-year-old who presents to the wound center due to nonhealing left foot ulcer. Believes that it started almost 2 months ago. Just noted it. No known precipitating factor. Does not have as much feeling in her foot due to diabetes. Prior history of diabetic foot surgery/amputation. She states that over the last 2 months, she has been applying peroxide however due to none improvement her daughter recommended she come to the wound center. Had seen podiatry in the past but last saw podiatry a few years ago. She states that she was given a however it was too tight so she does not wear these. Walks barefooted at home. Not sure about her diabetes control but reports compliance with her medication. Feels well otherwise. Reports a good diet Progress of Wound: No new concerns reported at this time she states that she has been doing dressing changes as recommended. No significant drainage reported. 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 Objective Data Objective Data Vital Signs: Vital Signs Temp Pulse Resp BP 97.4 F L 71 18 153/66 H 02/08/25 09:32 02/08/25 09:32 02/08/25 09:32 02/08/25 09:32 Weight: 256 lb Body Mass Index (BMI) 50.0 Lab / Micro Data 02/01/25 11:11 02/01/25 11:11 Micro: Microbiology 02/01/25 10:03 Wound - Left Foot Gram Stain - Final 02/01/25 10:03 Wound - Left Foot Wound Culture - Final Streptococcus agalactiae (B) Staphylococcus aureus [place] odontolyticus 02/01/25 10:03 Wound - Left Foot Anaerobic Culture - Final Bacteroides fragilis Anaerobic cocci Charges/Coding Procedures Integumentary 111xxx-113xx: [id number] [place] subq tissue 20 sq cm/< Physical Exam Const alert, oriented x3 and no apparent distress General Appearance: cooperative, comfortable and well kempt HEENT normocephalic and head/scalp atraumatic Head and Scalp: normal to inspection Eyes EOMs intact bilaterally General Eye: normal appearance of both eyes Neck full ROM and supple General: normal visual inspection Resp normal respiratory effort and normal air movement Effort and Inspection: able to speak in complete sentences Extremity General Extremity: edema Skin Wounds: wounds noted size Size: See clinical note, bed granulating well and with undermining, margins well approximated, no odor and open Neuro oriented x3, CN's II-XII intact bilaterally, moves all extremities and no focal motor deficits Psych mental status grossly normal, thought process normal, cooperative and affect normal Debridement Note Debridement Note Wound debrided: Left foot (plantar) Type of Debridement: Excisional debridement Anesthesia Used: 5% Lidocaine Gel Depth: Down to and including healthy tissue and in the subcutaneous layer Instrument Used: 5mm curette and 7mm curette Tissue Removed: Slough and devitalized tissue Severity: Fat Layer Exposed Amount of bleeding with debridement: Mild Bleeding Controlled with: Pressure Patient tolerated procedure: Patient tolerated procedure well Post-Debridement Measurements and Additional Note: Post-Debridement Measurements/Treatment - Nurse 1 - General Ulcer Assessment Start: 02/01/25 09:21 Freq: Status: Active Protocol: YONAS Activity Type Activity Date Activity User E-sign Co-sign Detail Recorded Client Recorded Date Recorded By Document 02/01/25 09:23 [id number] 02/01/25 09:35 Document 02/08/25 09:32 TN [id number] 02/08/25 09:41 TN 02/01/25 02/08/25 09:23 09:32 - Today's Visit Information Type of service Follow-up Visit Follow-up Visit (Physician/MATERIAL STRESS TESTER (Physician/MATERIAL STRESS TESTER ) ) Arrival Mode Ambulatory Ambulatory Accompanied by ELA Patient Identification Verified (Name & Yes Yes ) Patient Requires Transmission-Based No Precautions Safety Precautions Fall Prevention Finger Stick Blood Sugar(mg/dl) (if 124 120 indicated): Blood Sugar Stated by Stated by Patient Patient Height and Weight Height 5 ft Weight 256 lb Weight in Pounds 256.0 lbs Weight Measurement Method Standing Scale Body Mass Index (BMI) 50.0 50.0 BMI Classification Obese Obese Vital Signs Temperature (97.8 F-99.1 F) 97.4 F L 97.4 F L Temperature Source Temporal Temporal Pulse Rate (60-100) 64 71 Pulse Location Monitor Monitor Respiratory Rate (12-18) 16 18 Respiratory rate source Observation Observation Blood Pressure (90/60-120/80) 166/67 H 153/66 H Blood Pressure Mean (mm Hg) 100 95 Source Monitor Monitor Position Semi-Fowlers Sitting Blood Pressure Location Right Arm Left Arm History Since Last Visit- (Skip if this is Patient's initial visit) Has dressing in place as prescribed Yes Has compression in place as prescribed Yes Has offloadiing in place as prescribed Yes Experienced any changes in pain level or Yes management Left Footwear Regular Shoe Regular Shoe Right Footwear Regular Shoe Regular Shoe Pain Scale: 0-10 Numeric Is Patient Pain Free? Yes Yes Lower Extremity Assessment/ Foot Assessment/ Toe Nail Assessment Right -Posterior Tibial Palpable Yes -Posterior Tibial Doppler Multiphasic -Dorsalis Pedis Palpable Yes -Dorsalis Pedis Doppler Multiphasic -Extremity Color Normal -Hair Growth on Legs Yes -Hair Growth on Toes No -Temperature of Extremity Warm -Capillary Refill Less than 3 Seconds -Dependent Rubor No -Blanched when Elevated No -Prior Foot Ulcer No -Prior Amputation No -Thick Yes -Deformed Yes -Improper Length & Hygeine No Left -Posterior Tibial Palpable Yes -Posterior Tibial Doppler Multiphasic -Dorsalis Pedis Palpable Yes -Dorsalis Pedis Doppler Multiphasic -Extremity Color Normal -Hair Growth on Legs Yes -Hair Growth on Toes No -Temperature of Extremity Warm -Capillary Refill Less than 3 Seconds -Dependent Rubor No -Blanched when Elevated No -Lipodermatosclerosis No -Prior Foot Ulcer Yes -Prior Amputation Yes -Thick Yes -Deformed Yes -Improper Length & Hygeine No Neuropathy Assessment Feet - Top Side and Bottom <Entered> (a) Communication Assessment Preferred language Thai Topper Packer Required No Able to Read Yes Able to Write Yes Communication Tools None Caregiver Communication Skills No Impairment Impairment Right Hearing Abillity Normal Left Hearing Abillity Normal Visual Assistive Devices Glasses Teaching Assessment Preferences Verbal,Written, Demonstration Barriers to Learning Knowledge Deficit Readiness To Learn Excellent Willingness to Engage in Self Management High Activies Readiness to Engage in Self Management High Activities Anxiety Level Calm Cooperation Cooperative Perception Coherent Interest in Health Problem Asks Questions Education Importance Acknowledges Need Does Patient Smoke tobacco or other No substances Smoking Status Former smoker Is Patient Diabetic Yes Functional Assessment Recent Decline in Ability to Perform Denies Any Declines Culture/Anglican/Wellness Assistant Cultural/Anglican Needs that may affect No Treatment Plan (a) 1 - - 2 - + 3 - + 4 - + WC - Nurse 1 - General Ulcer Measurement Start: 02/01/25 09:21 Freq: Status: Active Protocol: Activity Type Activity Date Activity User E-sign Co-sign Detail Recorded Client Recorded Date Recorded By Document 02/01/25 09:23 CP [id number] 02/01/25 09:35 CP Document 02/08/25 09:32 MT [id number] 02/08/25 09:41 TN 02/01/25 02/08/25 09:23 09:32 Wound Center Nurse 1 #1 L Plantar -Current Size (cm) - Length 1 1.5 -Current Size (cm) - Width 1.1 1.4 -Current Size (cm) - Depth 0.3 0.3 -Total Square Cm 1.1 2.10 -Date of Last Picture (Recall this 02/01/25 02/08/25 field) -Photo Taken Yes Yes -Epithelialization None Present Small 1-33% -Tunneling No No -Undermining/Tunneling Yes No -Undermining/Tunneling Starts (O'clock 11 ) -Undermining/Tunneling Ends (O'clock) 5 -Maximum Distance (cm) 0.5 -Circular Undermining Yes Yes -Exudate Amt Small Medium -Exudate Type Serosanguineous Serosanguineous -Wound Margin Thickened & Thickened & Rolled Under Rolled Under -Granulation Amt Large (67-100%) Medium (34-66%) -Granulation Quality [place] Pale,[place] -Slough/Fibrin No -Necrosis Amt Medium (34-66%) -Necrotic Tissue Type Adherent Slough -Structure Exposed N/A -Texture (Kelsi-wound Skin Appearance) Callus Assessed,Callus -Moisture (Kelsi-wound Skin Appearance) No Abnormality Assessed -Color (Kelsi-wound Skin Appearance) No Abnormality Assessed -Temperature (Kelsi-wound Skin No Abnormality No Abnormality Appearance) (Pt Warm) (Pt Warm) -Tenderness on Palpation (Kelsi-wound No No Skin Appearance) -Ulcer Cleansing Soap and Water Soap and Water -Foul Odor after Cleansing No No -Anesthetic Used 5% Lidocaine 5% Lidocaine Gel Gel WC - Nurse 2 - General Ulcer CM Notes Start: 02/01/25 09:21 Freq: Status: Active Protocol: Activity Type Activity Date Activity User E-sign Co-sign Detail Recorded Client Recorded Date Recorded By Document 02/01/25 09:50 GM [id number] 02/01/25 10:04 GM Document 02/08/25 09:50 [id number] 02/08/25 09:59 GM 02/01/25 02/08/25 09:50 09:50 Wound Center Nurse 2 #1 L Plantar -Time 09:51 09:50 -Correct Patient Yes Yes -Correct Side, Site, Position Yes Yes -Correct Procedure Yes Yes -Procedure Performed Yes Yes -Type of Procedure Debridement Debridement -Clinical Debridement Subcutaneous Subcutaneous -Tissue Removed Subcutaneous Subcutaneous -Post Debridement (cm) - Length 1.7 1.2 -Post Debridement (cm) - Width 1.0 1.0 -Post Debridement (cm) - Depth 0.4 0.3 -Total Square (Post) (cm) 1.70 1.20 -Area of Debridement (cm) - Length 1.7 1.2 -Area of Debridement (cm) - Width 1.0 1.0 -Total Square (Area) (cm) 1.70 1.20 -Tunneling Yes Yes -Tunneling Position (O'clock) 2 2 -Tunneling Distance (cm) 0.5 0.5 -Undermining/Tunneling No No -Circular Undermining No No -Wound/Ulcer Outcome Not Healed Not Healed -Ulcer Cleansing Rinsed/ Rinsed/ Irrigated with Irrigated with Saline Saline -Foul Odor after Cleansing No No -Bioengineered Tissue No No -Bleeding Controlled with Pressure Pressure -Treatment Response Procedure Procedure Tolerated Well Tolerated Well -Offloading No Yes -Type of Offloading Surgical Shoe -Total Non-Weight Bearing to Left Lower Extremity -Debridement - Subq, 1st 20sq cm Yes Yes Pain Scale: 0-10 Numeric Is Patient Pain Free? Yes Yes WC - Nurse 3 - General Ulcer D/C NN Start: 02/01/25 09:21 Freq: Status: Active Protocol: Activity Type Activity Date Activity User E-sign Co-sign Detail Recorded Client Recorded Date Recorded By Document 02/01/25 10:35 CP [id number] 02/01/25 10:37 CP Edit Result 02/01/25 10:35 CP (1) [id number] 02/01/25 11:53 CP Document 02/08/25 10:31 RB [id number] 02/08/25 10:32 RB (1) #1 L Plantar - Primary Dressing Applied Fibracol Plus 4x4 => Fibracol Plus 4x4, => Silicone Border => Foam 4x4 BLE - Tubular Bandage => Double Layer - Size of Tubigrip Used => Size F - Size F ($) => 2 02/01/25 02/08/25 10:35 10:31 Wound Care Center Nurse 3 #1 L Plantar -Ulcer Cleansing Rinsed/ Rinsed/ Irrigated with Irrigated with Saline Saline -Foul Odor after Cleansing No -Primary Dressing Applied Fibracol Plus Fibracol Plus 4x4,Silicone 4x4,Silicone Border Foam 4x4 Border Foam 4x4 -Fibracol Plus 4x4 1 1 -Silicone Border Foam 4x4 1 1 BLE -Tubular Bandage Double Layer -Size of Tubigrip Used Size F -Size F ($) 2 -Stockings Yes: PT OWN DOUBLE TUBIGRIP Treatment Response Procedure Tolerated Well Pain Scale: 0-10 Numeric Is Patient Pain Free? Yes Yes WC - Visit Discharge Discharge Condition Stable Stable Ambulatory Status Ambulatory Ambulatory Transportation Private Auto Private Auto Accompanied by Medication Reconcilliation completed & No provided to patient/care provider Clinical Summary of Care Provided Yes Yes Orders Sent Yes Assessment/Plan Assessment/Plan (1) Diabetic ulcer of left foot: CODE(S): E11.621 - Type 2 diabetes mellitus with foot ulcer; L97.529 - Non-pressure chronic ulcer of other part of left foot with unspecified severity PLAN: Clarke II (2) Type 2 diabetes mellitus with diabetic polyneuropathy: CODE(S): E11.42 - Type 2 diabetes mellitus with diabetic polyneuropathy (3) Type 2 diabetes mellitus: CODE(S): E11.9 - Type 2 diabetes mellitus without complications (4) Obesity: CODE(S): E66.9 - Obesity, unspecified (5) History of partial amputation of toe of left foot: CODE(S): Z89.422 - Acquired absence of other left toe(s) (6) History of necrotizing fasciitis: CODE(S): Z87.39 - Personal history of other diseases of the musculoskeletal system and connective tissue PLAN: Plan Debridement done as documented above, procedure was well-tolerated. No acute concerns reported at this time. Some improvement since her last visit, as above she states that she has been doing dressing changes consistently and trying to stay off of the foot. Prescription for clindamycin and metronidazole sent per culture and sensitivity however, she is yet to begin this. Strongly advised that she take clindamycin with probiotics and call if she notes any concern for diarrhea, she voiced understanding. X-ray with no significant concern for acute osteomyelitis. However, there was concern for possible sequelae of prior osteomyelitis or chronic osteomyelitis. Will get an MRI, if chronic osteomyelitis is present she will benefit from HBO. Labs also grossly unremarkable. Total white count within range, ESR 26 and CRP very slightly elevated at 4.73 likely due to obesity than an infectious process. Continue Fibracol daily to twice daily, cover with foam dressing. 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 Offloading strongly recommended. Will hold off a total contact cast at this time. I am concerned about ambulating well with 1. Continue metformin, Actos and glimepiride for diabetes control, dietary modifications also very strongly recommended. Recent A1c was at 7.6, goal is for an A1c of less than 7. Their questions were answered and they were advised to let us know if they have any further questions or concerns. Follow-up in a week or sooner if needed. This note was generated with [employer] dictation software. It may contain incorrect words, spelling, and punctuation that were not noted in checking the note before signing.
--- NOTE | 2025-02-09 10:00 | WC ---
PHOTO 02/08/25 LEFT PLANTAR
[2025-02-15 09:38] VITALS: BP 143/73; PULSE 69; RESP 18; TEMP 36.3; BMI 50.0
--- NOTE | 2025-02-15 11:53 | PCM.WC.PN ---
History of Present Illness Date of Service: 02/15/25 Chief Complaint: Left foot ulcer History of Wound: Ms. Lowe is a 64-year-old who presents to the wound center due to nonhealing left foot ulcer. Believes that it started almost 2 months ago. Just noted it. No known precipitating factor. Does not have as much feeling in her foot due to diabetes. Prior history of diabetic foot surgery/amputation. She states that over the last 2 months, she has been applying peroxide however due to none improvement her daughter recommended she come to the wound center. Had seen podiatry in the past but last saw podiatry a few years ago. She states that she was given a however it was too tight so she does not wear these. Walks barefooted at home. Not sure about her diabetes control but reports compliance with her medication. Feels well otherwise. Reports a good diet Progress of Wound: No new concerns reported at this time. Has started antibiotics and denies any concerns with this. Stable ulcer. Objective Data Objective Data Vital Signs: Vital Signs Temp Pulse Resp BP 97.3 F L 69 18 143/73 H 02/15/25 09:38 02/15/25 09:38 02/15/25 09:38 02/15/25 09:38 Weight: 256 lb Body Mass Index (BMI) 50.0 Lab / Micro Data 02/01/25 11:11 02/01/25 11:11 Micro: Microbiology 02/01/25 10:03 Wound - Left Foot Gram Stain - Final 02/01/25 10:03 Wound - Left Foot Wound Culture - Final Streptococcus agalactiae (B) Staphylococcus aureus [place] odontolyticus 02/01/25 10:03 Wound - Left Foot Anaerobic Culture - Final Bacteroides fragilis Anaerobic cocci Charges/Coding Procedures Integumentary [id number]: [id number] Peyton subq tissue 20 sq cm/< Physical Exam Const alert, oriented x3 and no apparent distress General Appearance: cooperative, comfortable and well kempt HEENT normocephalic and head/scalp atraumatic Head and Scalp: normal to inspection Eyes EOMs intact bilaterally General Eye: normal appearance of both eyes Neck full ROM and supple General: normal visual inspection Resp normal respiratory effort Effort and Inspection: able to speak in complete sentences Extremity General Extremity: edema Skin Wounds: wounds noted size Size: See clinical note, bed granulating well and with undermining, margins well approximated, no odor and open Neuro oriented x3, CN's II-XII intact bilaterally, moves all extremities and no focal motor deficits Psych mental status grossly normal, thought process normal, cooperative and affect normal Debridement Note Debridement Note Wound debrided: Left foot (plantar) Type of Debridement: Excisional debridement Anesthesia Used: 5% Lidocaine Gel Depth: Down to and including healthy tissue and in the subcutaneous layer Percentage of wound debrided: 100 Instrument Used: 5mm curette Tissue Removed: Slough and devitalized tissue Severity: Fat Layer Exposed Amount of bleeding with debridement: Mild Bleeding Controlled with: Pressure Patient tolerated procedure: Patient tolerated procedure well Post-Debridement Measurements and Additional Note: Post-Debridement Measurements/Treatment - Nurse 1 - General Ulcer Assessment Start: 02/01/25 09:21 Freq: Status: Active Protocol: YONAS Activity Type Activity Date Activity User E-sign Co-sign Detail Recorded Client Recorded Date Recorded By Document 02/01/25 09:23 CP [id number] 02/01/25 09:35 CP Document 02/08/25 09:32 MT [id number] 02/08/25 09:41 MT Document 02/15/25 09:38 DL [id number] 02/15/25 09:46 DL 02/01/25 02/08/25 02/15/25 09:23 09:32 09:38 - Today's Visit Information Type of service Follow-up Visit Follow-up Visit Follow-up Visit (Physician/INSURANCE AND FINANCIAL SERVICES AGENT (Physician/INSURANCE AND FINANCIAL SERVICES AGENT (Physician/INSURANCE AND FINANCIAL SERVICES AGENT ) ) ) Arrival Mode Ambulatory Ambulatory Ambulatory Transfer Assistance None Accompanied by ELA Patient Identification Verified (Name & Yes Yes Yes ) Patient Requires Transmission-Based No No Precautions Safety Precautions Fall Prevention Finger Stick Blood Sugar(mg/dl) (if 124 120 indicated): Blood Sugar Stated by Stated by Patient Patient Height and Weight Height 5 ft Weight 256 lb Weight in Pounds 256.0 lbs Weight Measurement Method Standing Scale Body Mass Index (BMI) 50.0 50.0 50.0 BMI Classification Obese Obese Obese Vital Signs Temperature (97.8 F-99.1 F) 97.4 F L 97.4 F L 97.3 F L Temperature Source Temporal Temporal Temporal Pulse Rate (60-100) 64 71 69 Pulse Location Monitor Monitor Monitor Respiratory Rate (12-18) 16 18 18 Respiratory rate source Observation Observation Observation Blood Pressure (90/60-120/80) 166/67 H 153/66 H 143/73 H Blood Pressure Mean (mm Hg) 100 95 96 Source Monitor Monitor Monitor Position Semi-Fowlers Sitting Blood Pressure Location Right Arm Left Arm History Since Last Visit- (Skip if this is Patient's initial visit) Have you changed medications since your No last visit? Any new allergies or adverse reactions No Had a fall/change in ADL's that may No increase risk of falls Signs or symptoms of abuse and/or No neglect since last visit Have you been in the hospital since your No last visit? Has dressing in place as prescribed Yes Yes Has compression in place as prescribed Yes No Has offloadiing in place as prescribed Yes N/A Experienced any changes in pain level or Yes No management Left Footwear Regular Shoe Regular Shoe Right Footwear Regular Shoe Regular Shoe Pain Scale: 0-10 Numeric Is Patient Pain Free? Yes Yes Yes Lower Extremity Assessment/ Foot Assessment/ Toe Nail Assessment Right -Posterior Tibial Palpable Yes -Posterior Tibial Doppler Multiphasic -Dorsalis Pedis Palpable Yes -Dorsalis Pedis Doppler Multiphasic -Extremity Color Normal -Hair Growth on Legs Yes -Hair Growth on Toes No -Temperature of Extremity Warm -Capillary Refill Less than 3 Seconds -Dependent Rubor No -Blanched when Elevated No -Prior Foot Ulcer No -Prior Amputation No -Thick Yes -Deformed Yes -Improper Length & Hygeine No Left -Posterior Tibial Palpable Yes -Posterior Tibial Doppler Multiphasic -Dorsalis Pedis Palpable Yes -Dorsalis Pedis Doppler Multiphasic -Extremity Color Normal -Hair Growth on Legs Yes -Hair Growth on Toes No -Temperature of Extremity Warm -Capillary Refill Less than 3 Seconds -Dependent Rubor No -Blanched when Elevated No -Lipodermatosclerosis No -Prior Foot Ulcer Yes -Prior Amputation Yes -Thick Yes -Deformed Yes -Improper Length & Hygeine No Neuropathy Assessment Feet - Top Side and Bottom <Entered> (a) Communication Assessment Preferred language Moroccan Candlemaker Required No Able to Read Yes Able to Write Yes Communication Tools None Caregiver Communication Skills No Impairment Impairment Right Hearing Abillity Normal Left Hearing Abillity Normal Visual Assistive Devices Glasses Teaching Assessment Preferences Verbal,Written, Demonstration Barriers to Learning Knowledge Deficit Readiness To Learn Excellent Willingness to Engage in Self Management High Activies Readiness to Engage in Self Management High Activities Anxiety Level Calm Cooperation Cooperative Perception Coherent Interest in Health Problem Asks Questions Education Importance Acknowledges Need Does Patient Smoke tobacco or other No substances Smoking Status Former smoker Is Patient Diabetic Yes Functional Assessment Recent Decline in Ability to Perform Denies Any Declines 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 Cultural/Voodoo Needs that may affect No Treatment Plan (a) 1 - - 2 - + 3 - + 4 - + WC - Nurse 1 - General Ulcer Measurement Start: 02/01/25 09:21 Freq: Status: Active Protocol: Activity Type Activity Date Activity User E-sign Co-sign Detail Recorded Client Recorded Date Recorded By Document 02/01/25 09:23 CP [id number] 02/01/25 09:35 CP Document 02/08/25 09:32 MT [id number] 02/08/25 09:41 MT Document 02/15/25 09:38 DL [id number] 02/15/25 09:46 DL 02/01/25 02/08/25 02/15/25 09:23 09:32 09:38 Wound Center Nurse 1 #1 L Plantar -Current Size (cm) - Length 1 1.5 1.1 -Current Size (cm) - Width 1.1 1.4 1 -Current Size (cm) - Depth 0.3 0.3 0.2 -Total Square Cm 1.1 2.10 1.1 -Date of Last Picture (Recall this 02/01/25 02/08/25 field) -Photo Taken Yes Yes -Epithelialization None Present Small 1-33% -Tunneling No No -Undermining/Tunneling Yes No -Undermining/Tunneling Starts (O'clock 11 2 ) -Undermining/Tunneling Ends (O'clock) 5 4 -Maximum Distance (cm) 0.5 0.2 -Circular Undermining Yes Yes -Exudate Amt Small Medium Medium -Exudate Type Serosanguineous Serosanguineous Serosanguineous -Wound Margin Thickened & Thickened & Distinct, Rolled Under Rolled Under Outline Attached -Granulation Amt Large (67-100%) Medium (34-66%) Large (67-100%) -Granulation Quality [place] Pale,[place] Red -Slough/Fibrin No -Necrosis Amt Medium (34-66%) Small (1-33%) -Necrotic Tissue Type Adherent Slough Adherent Slough -Structure Exposed N/A N/A -Texture (Kelsi-wound Skin Appearance) Callus Assessed,Callus Scarring -Moisture (Kelsi-wound Skin Appearance) No Abnormality Assessed Maceration -Color (Kelsi-wound Skin Appearance) No Abnormality Assessed No Abnormality -Temperature (Kelsi-wound Skin No Abnormality No Abnormality No Abnormality Appearance) (Pt Warm) (Pt Warm) (Pt Warm) -Tenderness on Palpation (Kelsi-wound No No No Skin Appearance) -Ulcer Cleansing Soap and Water Soap and Water Soap and Water -Foul Odor after Cleansing No No No -Anesthetic Used 5% Lidocaine 5% Lidocaine 5% Lidocaine Gel Gel Gel Left Calf (cm) 45 Left Ankle (cm) 27 WC - Nurse 2 - General Ulcer CM Notes Start: 02/01/25 09:21 Freq: Status: Active Protocol: Activity Type Activity Date Activity User E-sign Co-sign Detail Recorded Client Recorded Date Recorded By Document 02/01/25 09:50 [id number] 02/01/25 10:04 Document 02/08/25 09:50 [id number] 02/08/25 09:59 Document 02/15/25 10:15 [id number] 02/15/25 10:50 GM 02/01/25 02/08/25 02/15/25 09:50 09:50 10:15 Wound Center Nurse 2 #1 L Plantar -Time 09:51 09:50 10:18 -Correct Patient Yes Yes Yes -Correct Side, Site, Position Yes Yes Yes -Correct Procedure Yes Yes Yes -Procedure Performed Yes Yes Yes -Type of Procedure Debridement Debridement Debridement -Clinical Debridement Subcutaneous Subcutaneous Subcutaneous -Tissue Removed Subcutaneous Subcutaneous Subcutaneous -Post Debridement (cm) - Length 1.7 1.2 1.2 -Post Debridement (cm) - Width 1.0 1.0 1.0 -Post Debridement (cm) - Depth 0.4 0.3 0.3 -Total Square (Post) (cm) 1.70 1.20 1.20 -Area of Debridement (cm) - Length 1.7 1.2 1.2 -Area of Debridement (cm) - Width 1.0 1.0 1.0 -Total Square (Area) (cm) 1.70 1.20 1.20 -Tunneling Yes Yes Yes -Tunneling Position (O'clock) 2 2 2 -Tunneling Distance (cm) 0.5 0.5 0.4 -Undermining/Tunneling No No No -Circular Undermining No No No -Wound/Ulcer Outcome Not Healed Not Healed Not Healed -Ulcer Cleansing Rinsed/ Rinsed/ Rinsed/ Irrigated with Irrigated with Irrigated with Saline Saline Saline -Foul Odor after Cleansing No No No -Bioengineered Tissue No No No -Bleeding Controlled with Pressure Pressure Pressure -Treatment Response Procedure Procedure Procedure Tolerated Well Tolerated Well Tolerated Well -Offloading No Yes No -Type of Offloading Surgical Shoe -Total Non-Weight Bearing to Left Lower Extremity -Debridement - Subq, 1st 20sq cm Yes Yes Yes Pain Scale: 0-10 Numeric Is Patient Pain Free? Yes Yes Yes WC - Nurse 3 - General Ulcer D/C NN Start: 02/01/25 09:21 Freq: Status: Active Protocol: Activity Type Activity Date Activity User E-sign Co-sign Detail Recorded Client Recorded Date Recorded By Document 02/01/25 10:35 CP [id number] 02/01/25 10:37 CP Edit Result 02/01/25 10:35 CP (1) [id number] 02/01/25 11:53 CP Document 02/08/25 10:31 RB [id number] 02/08/25 10:32 RB Document 02/15/25 10:54 KW [id number] 02/15/25 10:54 KW (1) #1 L Plantar - Primary Dressing Applied Fibracol Plus 4x4 => Fibracol Plus 4x4, => Silicone Border => Foam 4x4 BLE - Tubular Bandage => Double Layer - Size of Tubigrip Used => Size F - Size F ($) => 2 02/01/25 02/08/25 02/15/25 10:35 10:31 10:54 Wound Care Center Nurse 3 #1 L Plantar -Ulcer Cleansing Rinsed/ Rinsed/ Irrigated with Irrigated with Saline Saline -Foul Odor after Cleansing No -Primary Dressing Applied Fibracol Plus Fibracol Plus Fibracol Plus 4x4,Silicone 4x4,Silicone 4x4,Silicone Border Foam 4x4 Border Foam 4x4 Border Foam 4x4 -Fibracol Plus 4x4 1 1 1 -Silicone Border Foam 4x4 1 1 1 BLE -Tubular Bandage Double Layer -Size of Tubigrip Used Size F -Size F ($) 2 -Stockings Yes: PT OWN DOUBLE TUBIGRIP Treatment Response Procedure Tolerated Well Pain Scale: 0-10 Numeric Is Patient Pain Free? Yes Yes Yes WC - Visit Discharge Discharge Condition Stable Stable Stable Ambulatory Status Ambulatory Ambulatory Ambulatory Transportation Private Auto Private Auto Private Auto Accompanied by Medication Reconcilliation completed & No No provided to patient/care provider Clinical Summary of Care Provided Yes Yes Yes Orders Sent Yes Assessment/Plan Assessment/Plan (1) Diabetic ulcer of left foot: CODE(S): E11.621 - Type 2 diabetes mellitus with foot ulcer; L97.529 - Non-pressure chronic ulcer of other part of left foot with unspecified severity PLAN: Clarke II (2) Type 2 diabetes mellitus with diabetic polyneuropathy: CODE(S): E11.42 - Type 2 diabetes mellitus with diabetic polyneuropathy (3) Type 2 diabetes mellitus: CODE(S): E11.9 - Type 2 diabetes mellitus without complications (4) Obesity: CODE(S): E66.9 - Obesity, unspecified (5) History of partial amputation of toe of left foot: CODE(S): Z89.422 - Acquired absence of other left toe(s) (6) History of necrotizing fasciitis: CODE(S): Z87.39 - Personal history of other diseases of the musculoskeletal system and connective tissue PLAN: Plan Debridement done as documented above, procedure was well-tolerated. No acute concerns reported at this time. No significant change since her last visit, stable. Currently on clindamycin and metronidazole per culture and sensitivity. An MRI was ordered following x-ray due to concern for possible sequelae of prior osteomyelitis or chronic osteomyelitis. If chronic osteomyelitis is present, she will benefit from hyperbaric oxygen therapy. Continue Fibracol daily to twice daily, cover with foam dressing. Still yet to get in touch with her field marketing lead. Will transfer her care to podiatry at the wound center/partner to her primary field marketing lead. Offloading strongly recommended. Continue metformin, Actos and glimepiride for diabetes control, dietary modifications also very strongly recommended. Recent A1c was at 7.6, goal is for an A1c of less than 7. Their questions were answered and they were advised to let us know if they have any further questions or concerns. Follow-up in a week or sooner if needed. This note was generated with [facility] software. It may contain incorrect words, spelling, and punctuation that were not noted in checking the note before signing.
[2025-02-21 10:54] VITALS: BP 150/69; PULSE 77; RESP 18; TEMP 37.2; BMI 50.0
--- NOTE | 2025-02-21 12:56 | PCM.WC.PN ---
History of Present Illness Date of Service: 02/21/25 Chief Complaint: Left foot ulcer History of Wound: Ms. Lowe is a 64-year-old who presents to the wound center due to nonhealing left foot ulcer. Believes that it started almost 2 months ago. Just noted it. No known precipitating factor. Does not have as much feeling in her foot due to diabetes. Prior history of diabetic foot surgery/amputation. She states that over the last 2 months, she has been applying peroxide however due to none improvement her daughter recommended she come to the wound center. Had seen podiatry in the past but last saw podiatry a few years ago. She states that she was given a however it was too tight so she does not wear these. Walks barefooted at home. Not sure about her diabetes control but reports compliance with her medication. Feels well otherwise. Reports a good diet Progress of Wound: Full-thickness wound plantar aspect left foot stable no sign of infection. Subjective Subjective Mrs. Lowe is a 64-year-old diabetic female referred from the office of Dr. Jackson for follow-up evaluation of slow healing full-thickness wound to the plantar aspect of the left foot. 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 Patient has been treated with oral antibiotics and is currently taking them at this time. She was referred to my clinic for continued care and possible surgical intervention. She is diabetic and is well-controlled. She denies any trauma. Denies constitutional symptoms. No other pedal complaints at this time. Objective Data Objective Data Vital Signs: Vital Signs Temp Pulse Resp BP O2 Del Method 98.9 F 77 18 150/69 H Room Air 02/21/25 10:54 02/21/25 10:54 02/21/25 10:54 02/21/25 10:54 02/21/25 10:54 Oxygen Delivery Method Room Air Weight: 116.12 kg Body Mass Index (BMI) 50.0 Lab / Micro Data 02/01/25 11:11 02/01/25 11:11 Micro: Microbiology 02/01/25 10:03 Wound - Left Foot Gram Stain - Final 02/01/25 10:03 Wound - Left Foot Wound Culture - Final Streptococcus agalactiae (B) Staphylococcus aureus Schaalia odontolyticus 02/01/25 10:03 Wound - Left Foot Anaerobic Culture - Final Bacteroides fragilis Anaerobic cocci Physical Exam Narrative Vascular: DP and PT pulse are palpable to left lower extremity. CFT is brisk. Skin, great is warm to warm from proximal ankle to distal digits left lower extremity. Skin is supple in nature. Neurological: Light touch intact. Protective station is diminished. Dermatological: Full-thickness wound to the plantar aspect of the subthird metatarsal head measuring 1.1 x 1.1 x 0.1 cm. Wound base is granular with no sign of infection. Negative probe to bone. Excisional debridement down to including subcutaneous tissue with a number 3 mm dermal curette to the plantar aspect left foot full-thickness wound done without incident.. Right measurement was 0.9 x 1.0 x 0.1 cm. Postdebridement measurement is 1.1 x 1.1 x 0.1 cm. Musculoskeletal: Evidence of cocked up second digit left foot secondary to flexor tenotomy. Evidence of hammertoe deformity to the third digit left foot. No pain on palpation to full-thickness wound plantar aspect left foot. No pain with calf pressure. Debridement Note Debridement Note Debridement Free Text: Excisional debridement down to including subcutaneous tissue with a number 3 mm dermal curette to the plantar aspect left foot full-thickness wound done without incident.. Right measurement was 0.9 x 1.0 x 0.1 cm. Postdebridement measurement is 1.1 x 1.1 x 0.1 cm. Post-Debridement Measurements and Additional Note: Post-Debridement Measurements/Treatment - Nurse 1 - General Ulcer Assessment Start: 02/01/25 09:21 Freq: Status: Active Protocol: YONAS Activity Type Activity Date Activity User E-sign Co-sign Detail Recorded Client Recorded Date Recorded By Document 02/01/25 09:23 CP [id number] 02/01/25 09:35 CP Document 02/08/25 09:32 MT [id number] 02/08/25 09:41 MT Document 02/15/25 09:38 DL [id number] 02/15/25 09:46 DL Document 02/21/25 10:54 KW [id number] 02/21/25 10:58 KW 02/01/25 02/08/25 02/15/25 09:23 09:32 09:38 WC - Today's Visit Information Type of service Follow-up Visit Follow-up Visit Follow-up Visit (Physician/HARVESTING SUPERVISOR (Physician/HARVESTING SUPERVISOR (Physician/HARVESTING SUPERVISOR ) ) ) Arrival Mode Ambulatory Ambulatory Ambulatory Transfer Assistance None Accompanied by ELA Patient Identification Verified (Name & Yes Yes Yes ) Patient Requires Transmission-Based No No Precautions Safety Precautions Fall Prevention Finger Stick Blood Sugar(mg/dl) (if 124 120 indicated): Blood Sugar Stated by Stated by Patient Patient Height and Weight Height 5 ft Weight 116.12 kg Weight in Pounds 256.0 lbs Weight Measurement Method Standing Scale Body Mass Index (BMI) 50.0 50.0 50.0 BMI Classification Obese Obese Obese Vital Signs Temperature (97.8 F-99.1 F) 97.4 F L 97.4 F L 97.3 F L Temperature Source Temporal Temporal Temporal Pulse Rate (60-100) 64 71 69 Pulse Location Monitor Monitor Monitor Respiratory Rate (12-18) 16 18 18 Respiratory rate source Observation Observation Observation Oxygen Delivery Method Blood Pressure (90/60-120/80) 166/67 H 153/66 H 143/73 H Blood Pressure Mean (mm Hg) 100 95 96 Source Monitor Monitor Monitor Position Semi-Fowlers Sitting Blood Pressure Location Right Arm Left Arm History Since Last Visit- (Skip if this is Patient's initial visit) Have you changed medications since your No last visit? Any new allergies or adverse reactions No Had a fall/change in ADL's that may No increase risk of falls Signs or symptoms of abuse and/or No neglect since last visit Have you been in the hospital since your No last visit? Has dressing in place as prescribed Yes Yes Has compression in place as prescribed Yes No Has offloadiing in place as prescribed Yes N/A Experienced any changes in pain level or Yes No management Left Footwear Regular Shoe Regular Shoe Right Footwear Regular Shoe Regular Shoe Pain Scale: 0-10 Numeric Is Patient Pain Free? Yes Yes Yes Lower Extremity Assessment/ Foot Assessment/ Toe Nail Assessment Right -Posterior Tibial Palpable Yes -Posterior Tibial Doppler Multiphasic -Dorsalis Pedis Palpable Yes -Dorsalis Pedis Doppler Multiphasic -Extremity Color Normal -Hair Growth on Legs Yes -Hair Growth on Toes No -Temperature of Extremity Warm -Capillary Refill Less than 3 Seconds -Dependent Rubor No -Blanched when Elevated No -Prior Foot Ulcer No -Prior Amputation No -Thick Yes -Deformed Yes -Improper Length & Hygeine No Left -Posterior Tibial Palpable Yes -Posterior Tibial Doppler Multiphasic -Dorsalis Pedis Palpable Yes -Dorsalis Pedis Doppler Multiphasic -Extremity Color Normal -Hair Growth on Legs Yes -Hair Growth on Toes No -Temperature of Extremity Warm -Capillary Refill Less than 3 Seconds -Dependent Rubor No -Blanched when Elevated No -Lipodermatosclerosis No -Prior Foot Ulcer Yes -Prior Amputation Yes -Thick Yes -Deformed Yes -Improper Length & Hygeine No Neuropathy Assessment Feet - Top Side and Bottom <Entered> (a) Communication Assessment Preferred language Pashto Automatic Spinning Lathe Operator Required No Able to Read Yes Able to Write Yes Communication Tools None Caregiver Communication Skills No Impairment Impairment Right Hearing Abillity Normal Left Hearing Abillity Normal Visual Assistive Devices Glasses Teaching Assessment Preferences Verbal,Written, Demonstration Barriers to Learning Knowledge Deficit Readiness To Learn Excellent Willingness to Engage in Self Management High Activies Readiness to Engage in Self Management High Activities Anxiety Level Calm Cooperation Cooperative Perception Coherent Interest in Health Problem Asks Questions Education Importance Acknowledges Need Does Patient Smoke tobacco or other No substances Smoking Status Former smoker Is Patient Diabetic Yes Functional Assessment Recent Decline in Ability to Perform Denies Any Declines Culture/Sikhism/Patient Resource Specialist Cultural/Sikhism Needs that may affect No Treatment Plan 02/21/25 10:54 WC - Today's Visit Information Type of service Follow-up Visit (Physician/HARVESTING SUPERVISOR ) Arrival Mode Ambulatory Transfer Assistance Accompanied by Patient Identification Verified (Name & Yes ) Patient Requires Transmission-Based Precautions Safety Precautions Finger Stick Blood Sugar(mg/dl) (if indicated): Blood Sugar Height and Weight Height Weight Weight in Pounds Weight Measurement Method Body Mass Index (BMI) 50.0 BMI Classification Obese Vital Signs Temperature (97.8 F-99.1 F) 98.9 F Temperature Source Temporal Pulse Rate (60-100) 77 Pulse Location Monitor Respiratory Rate (12-18) 18 Respiratory rate source Observation Oxygen Delivery Method Room Air Blood Pressure (90/60-120/80) 150/69 H Blood Pressure Mean (mm Hg) 96 Source Monitor Position Semi-Fowlers Blood Pressure Location Right Arm History Since Last Visit- (Skip if this is Patient's initial visit) Have you changed medications since your No last visit? Any new allergies or adverse reactions No Had a fall/change in ADL's that may No increase risk of falls Signs or symptoms of abuse and/or No neglect since last visit Have you been in the hospital since your No last visit? Has dressing in place as prescribed Yes Has compression in place as prescribed N/A Has offloadiing in place as prescribed N/A Experienced any changes in pain level or No management Left Footwear Regular Shoe Right Footwear Regular Shoe Pain Scale: 0-10 Numeric Is Patient Pain Free? Yes Lower Extremity Assessment/ Foot Assessment/ Toe Nail Assessment Right -Posterior Tibial Palpable -Posterior Tibial Doppler -Dorsalis Pedis Palpable -Dorsalis Pedis Doppler -Extremity Color -Hair Growth on Legs -Hair Growth on Toes -Temperature of Extremity -Capillary Refill -Dependent Rubor -Blanched when Elevated -Prior Foot Ulcer -Prior Amputation -Thick -Deformed -Improper Length & Hygeine Left -Posterior Tibial Palpable -Posterior Tibial Doppler -Dorsalis Pedis Palpable -Dorsalis Pedis Doppler -Extremity Color -Hair Growth on Legs -Hair Growth on Toes -Temperature of Extremity -Capillary Refill -Dependent Rubor -Blanched when Elevated -Lipodermatosclerosis -Prior Foot Ulcer -Prior Amputation -Thick -Deformed -Improper Length & Hygeine Neuropathy Assessment Feet - Top Side and Bottom Communication Assessment Preferred speech language pathologist prn Required Able to Read Able to Write Communication Tools Caregiver Communication Skills Impairment Right Hearing Abillity Left Hearing Abillity Visual Assistive Devices Teaching Assessment Preferences Barriers to Learning Readiness To Learn Willingness to Engage in Self Management Activies Readiness to Engage in Self Management Activities Anxiety Level Cooperation Perception Interest in Health Problem Education Importance Does Patient Smoke tobacco or other substances Smoking Status Is Patient Diabetic Functional Assessment Recent Decline in Ability to Perform Culture/Sikhism/Patient Resource Specialist Cultural/Sikhism Needs that may affect Treatment Plan (a) 1 - - 2 - + 3 - + 4 - + WC - Nurse 1 - General Ulcer Measurement Start: 02/01/25 09:21 Freq: Status: Active Protocol: Activity Type Activity Date Activity User E-sign Co-sign Detail Recorded Client Recorded Date Recorded By Document 02/01/25 09:23 CP [id number] 02/01/25 09:35 CP Document 02/08/25 09:32 MT [id number] 02/08/25 09:41 MT Document 02/15/25 09:38 DL [id number] 02/15/25 09:46 DL Document 02/21/25 10:54 KW [id number] 02/21/25 10:58 KW 02/01/25 02/08/25 02/15/25 09:23 09:32 09:38 Wound Center Nurse 1 #1 L Plantar -Current Size (cm) - Length 1 1.5 1.1 -Current Size (cm) - Width 1.1 1.4 1 -Current Size (cm) - Depth 0.3 0.3 0.2 -Total Square Cm 1.1 2.10 1.1 -Date of Last Picture (Recall this 02/01/25 02/08/25 field) -Photo Taken Yes Yes -Epithelialization None Present Small 1-33% -Tunneling No No -Undermining/Tunneling Yes No -Undermining/Tunneling Starts (O'clock 11 2 ) -Undermining/Tunneling Ends (O'clock) 5 4 -Maximum Distance (cm) 0.5 0.2 -Circular Undermining Yes Yes -Exudate Amt Small Medium Medium -Exudate Type Serosanguineous Serosanguineous Serosanguineous -Wound Margin Thickened & Thickened & Distinct, Rolled Under Rolled Under Outline Attached -Granulation Amt Large (67-100%) Medium (34-66%) Large (67-100%) -Granulation Quality Garnett Pale,Garnett Red -Slough/Fibrin No -Necrosis Amt Medium (34-66%) Small (1-33%) -Necrotic Tissue Type Adherent Slough Adherent Slough -Structure Exposed N/A N/A -Texture (Kelsi-wound Skin Appearance) Callus Assessed,Callus Scarring -Moisture (Kelsi-wound Skin Appearance) No Abnormality Assessed Maceration -Color (Kelsi-wound Skin Appearance) No Abnormality Assessed No Abnormality -Temperature (Kelsi-wound Skin No Abnormality No Abnormality No Abnormality Appearance) (Pt Warm) (Pt Warm) (Pt Warm) -Tenderness on Palpation (Kelsi-wound No No No Skin Appearance) -Ulcer Cleansing Soap and Water Soap and Water Soap and Water -Foul Odor after Cleansing No No No -Anesthetic Used 5% Lidocaine 5% Lidocaine 5% Lidocaine Gel Gel Gel Left Calf (cm) 45 Left Ankle (cm) 27 02/21/25 10:54 Wound Center Nurse 1 #1 L Plantar -Current Size (cm) - Length 1 -Current Size (cm) - Width 0.8 -Current Size (cm) - Depth 0.2 -Total Square Cm 0.8 -Date of Last Picture (Recall this field) -Photo Taken -Epithelialization -Tunneling -Undermining/Tunneling -Undermining/Tunneling Starts (O'clock ) -Undermining/Tunneling Ends (O'clock) -Maximum Distance (cm) -Circular Undermining -Exudate Amt Medium -Exudate Type Serosanguineous -Wound Margin Distinct, Outline Attached -Granulation Amt Large (67-100%) -Granulation Quality Red -Slough/Fibrin -Necrosis Amt Small (1-33%) -Necrotic Tissue Type Adherent Slough -Structure Exposed -Texture (Kelsi-wound Skin Appearance) Assessed,Callus -Moisture (Kelsi-wound Skin Appearance) Assessed, Maceration -Color (Kelsi-wound Skin Appearance) Assessed -Temperature (Kelsi-wound Skin No Abnormality Appearance) (Pt Warm) -Tenderness on Palpation (Kelsi-wound No Skin Appearance) -Ulcer Cleansing Rinsed/ Irrigated with Saline -Foul Odor after Cleansing No -Anesthetic Used 5% Lidocaine Gel Left Calf (cm) 45.4 Left Ankle (cm) 27 WC - Nurse 2 - General Ulcer CM Notes Start: 02/01/25 09:21 Freq: Status: Active Protocol: Activity Type Activity Date Activity User E-sign Co-sign Detail Recorded Client Recorded Date Recorded By Document 02/01/25 09:50 [id number] 02/01/25 10:04 Document 02/08/25 09:50 [id number] 02/08/25 09:59 Document 02/15/25 10:15 [id number] 02/15/25 10:50 Document 02/21/25 11:08 [id number] 02/21/25 11:16 02/01/25 02/08/25 02/15/25 09:50 09:50 10:15 Wound Center Nurse 2 #1 L Plantar -Time 09:51 09:50 10:18 -Correct Patient Yes Yes Yes -Correct Side, Site, Position Yes Yes Yes -Correct Procedure Yes Yes Yes -Procedure Performed Yes Yes Yes -Type of Procedure Debridement Debridement Debridement -Clinical Debridement Subcutaneous Subcutaneous Subcutaneous -Tissue Removed Subcutaneous Subcutaneous Subcutaneous -Post Debridement (cm) - Length 1.7 1.2 1.2 -Post Debridement (cm) - Width 1.0 1.0 1.0 -Post Debridement (cm) - Depth 0.4 0.3 0.3 -Total Square (Post) (cm) 1.70 1.20 1.20 -Area of Debridement (cm) - Length 1.7 1.2 1.2 -Area of Debridement (cm) - Width 1.0 1.0 1.0 -Total Square (Area) (cm) 1.70 1.20 1.20 -Tunneling Yes Yes Yes -Tunneling Position (O'clock) 2 2 2 -Tunneling Distance (cm) 0.5 0.5 0.4 -Undermining/Tunneling No No No -Circular Undermining No No No -Wound/Ulcer Outcome Not Healed Not Healed Not Healed -Ulcer Cleansing Rinsed/ Rinsed/ Rinsed/ Irrigated with Irrigated with Irrigated with Saline Saline Saline -Foul Odor after Cleansing No No No -Bioengineered Tissue No No No -Bleeding Controlled with Pressure Pressure Pressure -Treatment Response Procedure Procedure Procedure Tolerated Well Tolerated Well Tolerated Well -Offloading No Yes No -Type of Offloading Surgical Shoe -Total Non-Weight Bearing to Left Lower Extremity -Debridement - Subq, 1st 20sq cm Yes Yes Yes Pain Scale: 0-10 Numeric Is Patient Pain Free? Yes Yes Yes 02/21/25 11:08 Wound Center Nurse 2 #1 L Plantar -Time 11:08 -Correct Patient Yes -Correct Side, Site, Position Yes -Correct Procedure Yes -Procedure Performed Yes -Type of Procedure Debridement -Clinical Debridement Subcutaneous -Tissue Removed Subcutaneous -Post Debridement (cm) - Length 1.1 -Post Debridement (cm) - Width 1.1 -Post Debridement (cm) - Depth 0.1 -Total Square (Post) (cm) 1.21 -Area of Debridement (cm) - Length 1.1 -Area of Debridement (cm) - Width 1.1 -Total Square (Area) (cm) 1.21 -Tunneling No -Tunneling Position (O'clock) -Tunneling Distance (cm) -Undermining/Tunneling No -Circular Undermining No -Wound/Ulcer Outcome Not Healed -Ulcer Cleansing Rinsed/ Irrigated with Saline -Foul Odor after Cleansing No -Bioengineered Tissue No -Bleeding Controlled with Pressure -Treatment Response Procedure Tolerated Well -Offloading No -Type of Offloading -Total Non-Weight Bearing to -Debridement - Subq, 1st 20sq cm Yes Pain Scale: 0-10 Numeric Is Patient Pain Free? Yes - Nurse 3 - General Ulcer D/C NN Start: 02/01/25 09:21 Freq: Status: Active Protocol: Activity Type Activity Date Activity User E-sign Co-sign Detail Recorded Client Recorded Date Recorded By Document 02/01/25 10:35 CP [id number] 02/01/25 10:37 CP Edit Result 02/01/25 10:35 CP (1) [id number] 02/01/25 11:53 CP Document 02/08/25 10:31 RB [id number] 02/08/25 10:32 RB Document 02/15/25 10:54 KW [id number] 02/15/25 10:54 KW Document 02/21/25 11:24 CP [id number] 02/21/25 11:25 CP (1) #1 L Plantar - Primary Dressing Applied Fibracol Plus 4x4 => Fibracol Plus 4x4, => Silicone Border => Foam 4x4 BLE - Tubular Bandage => Double Layer - Size of Tubigrip Used => Size F - Size F ($) => 2 02/01/25 02/08/25 02/15/25 10:35 10:31 10:54 Wound Care Center Nurse 3 #1 L Plantar -Ulcer Cleansing Rinsed/ Rinsed/ Irrigated with Irrigated with Saline Saline -Foul Odor after Cleansing No -Primary Dressing Applied Fibracol Plus Fibracol Plus Fibracol Plus 4x4,Silicone 4x4,Silicone 4x4,Silicone Border Foam 4x4 Border Foam 4x4 Border Foam 4x4 -Fibracol Plus 4x4 1 1 1 -Silicone Border Foam 4x4 1 1 1 -Wound Comment(s) BLE -Tubular Bandage Double Layer -Size of Tubigrip Used Size F -Size F ($) 2 -Stockings Yes: PT OWN DOUBLE TUBIGRIP Treatment Response Procedure Tolerated Well Pain Scale: 0-10 Numeric Is Patient Pain Free? Yes Yes Yes WC - Visit Discharge Discharge Condition Stable Stable Stable Ambulatory Status Ambulatory Ambulatory Ambulatory Transportation Private Auto Private Auto Private Auto Accompanied by Medication Reconcilliation completed & No No provided to patient/care provider Clinical Summary of Care Provided Yes Yes Yes Orders Sent Yes 02/21/25 11:24 Wound Care Center Nurse 3 #1 L Plantar -Ulcer Cleansing Rinsed/ Irrigated with Saline -Foul Odor after Cleansing -Primary Dressing Applied -Fibracol Plus 4x4 -Silicone Border Foam 4x4 -Wound Comment(s) betadine paint to ulcer. cover with gauze BLE -Tubular Bandage -Size of Tubigrip Used -Size F ($) -Stockings Treatment Response Pain Scale: 0-10 Numeric Is Patient Pain Free? Yes WC - Visit Discharge Discharge Condition Stable Ambulatory Status Ambulatory Transportation Private Auto Accompanied by Medication Reconcilliation completed & provided to patient/care provider Clinical Summary of Care Provided Yes Orders Sent Assessment/Plan Assessment/Plan (1) Non-pressure chronic ulcer of other part of left foot with fat layer exposed: CODE(S): L97.522 - Non-pressure chronic ulcer of other part of left foot with fat layer exposed PLAN: Patient was examined and evaluated. All findings were discussed with the patient. All questions were answered to the patient's satisfaction. Excisional debridement down to including subcutaneous tissue with a number 3 mm dermal curette to the plantar aspect left foot full-thickness wound done without incident.. Right measurement was 0.9 x 1.0 x 0.1 cm. Postdebridement measurement is 1.1 x 1.1 x 0.1 cm. The areas were cleaned and patted dry. Betadine paint followed by sterile Band-Aid was applied. Patient will continue daily dressing changes. Educated patient on diabetic control and to continue to have her blood sugar between 100 to 150 mg/dL. Educated the patient to check her feet twice per day and apply lotion twice a day which she is understanding of. Due to the deformity of the second digit as well as wound underneath the subthird metatarsal head we move forward with surgical intervention consisting of second digit extensor tenotomy with capsulotomy as well as dorsiflexor osteotomy to the third metatarsal head via MIS. All risk and benefits discussed with patient great detail. Will move forward with surgical booking. Patient will continue antibiotics as prescribed by her previous doctor. Follow-up at the wound care center with Dr. Pham in 1 week. (2) Hammer toe of left foot: CODE(S): M20.42 - Other hammer toe(s) (acquired), left foot (3) Acute painful diabetic polyneuropathy: CODE(S): E11.42 - Type 2 diabetes mellitus with diabetic polyneuropathy
--- NOTE | 2025-02-22 10:26 | WC ---
PHOTO 02/21/25 LEFT PLANTAR
[2025-02-28 08:31] VITALS: BP 138/55; PULSE 74; RESP 16; TEMP 36.3; BMI 50.0
--- NOTE | 2025-02-28 11:35 | PN.PCM_ITS ---
History of Present Illness Date of Service: 02/28/25 Chief Complaint: Left foot ulcer History of Wound: Ms. Lowe is a 64-year-old who presents to the wound center due to nonhealing left foot ulcer. Believes that it started almost 2 months ago. Just noted it. No known precipitating factor. Does not have as much feeling in her foot due to diabetes. Prior history of diabetic foot surgery/amputation. She states that over the last 2 months, she has been applying peroxide however due to none improvement her daughter recommended she come to the wound center. Had seen podiatry in the past but last saw podiatry a few years ago. She states that she was given a however it was too tight so she does not wear these. Walks barefooted at home. Not sure about her diabetes control but reports compliance with her medication. Feels well otherwise. Reports a good diet Progress of Wound: Full-thickness wound plantar aspect left foot stable no sign of infection. Subjective Subjective Patient is a 64-year-old diabetic female presented wound care center today for follow-up evaluation of plantar full-thickness wound left foot. She has been compliant with dressing changes. She does admit to walking more than usual and admits to some drainage to the area. Denies any redness or pain. Blood sugars been well-controlled. Denies trauma. Denies constitutional symptoms. No other pedal complaints at this time. Objective Data Objective Data Vital Signs: Vital Signs Temp Pulse Resp BP O2 Del Method 97.3 F L 74 16 138/55 H Room Air 02/28/25 08:31 02/28/25 08:31 02/28/25 08:31 02/28/25 08:31 02/28/25 08:31 Oxygen Delivery Method Room Air Weight: 116.12 kg Body Mass Index (BMI) 50.0 Lab / Micro Data 02/01/25 11:11 02/01/25 11:11 Micro: Microbiology 02/01/25 10:03 Wound - Left Foot Gram Stain - Final 02/01/25 10:03 Wound - Left Foot Wound Culture - Final Streptococcus agalactiae (B) Staphylococcus aureus Scha[place] odontolyticus 02/01/25 10:03 Wound - Left Foot Anaerobic Culture - Final Bacteroides fragilis Anaerobic cocci Physical Exam Narrative Vascular: DP and PT pulse are palpable to left lower extremity. CFT is brisk. Skin, great is warm to warm from proximal ankle to distal digits left lower extremity. Skin is supple in nature. Neurological: Light touch intact. Protective station is diminished. Dermatological: Full-thickness wound to the plantar aspect of the subthird metatarsal head measuring 1.3 x 1.4 x 0.1 cm. Wound base is granular with no sign of infection. Negative probe to bone. Excisional debridement down to including subcutaneous tissue with a number 3 mm dermal curette to the plantar aspect left foot full-thickness wound done without incident.. Right measurement was 1.1 x 1.2 x 0.1 cm. Postdebridement measurement is 1.3 x 1.4 x 0.1 cm. Musculoskeletal: Evidence of cocked up second digit left foot secondary to flexor tenotomy. Evidence of hammertoe deformity to the third digit left foot. No pain on palpation to full-thickness wound plantar aspect left foot. No pain with calf pressure. Debridement Note Debridement Note Debridement Free Text: Excisional debridement down to including subcutaneous tissue with a number 3 mm dermal curette to the plantar aspect left foot full- thickness wound done without incident.. Right measurement was 1.1 x 1.2 x 0.1 cm. Postdebridement measurement is 1.3 x 1.4 x 0.1 cm. Post-Debridement Measurements and Additional Note: Post-Debridement Measurements/Treatment - Nurse 1 - General Ulcer Assessment Start: 02/01/25 09:21 Freq: Status: Active Protocol: .LOWEXT Activity Type Activity Date Activity User E-sign Co-sign Detail Recorded Client Recorded Date Recorded By Document 02/01/25 09:23 CP [id number] 02/01/25 09:35 CP Document 02/08/25 09:32 MT [id number] 02/08/25 09:41 MT Document 02/15/25 09:38 DL [id number] 02/15/25 09:46 DL Document 02/21/25 10:54 KW [id number] 02/21/25 10:58 KW Document 02/28/25 08:31 GM [id number] 02/28/25 08:32 GM 02/01/25 02/08/25 02/15/25 09:23 09:32 09:38 - Today's Visit Information Type of service Follow-up Visit Follow-up Visit Follow-up Visit (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 (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 (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 ) ) ) Arrival Mode Ambulatory Ambulatory Ambulatory Transfer Assistance None Accompanied by ELA Patient Identification Verified (Name & Yes Yes Yes ) Patient Requires Transmission-Based No No Precautions Safety Precautions Fall Prevention Finger Stick Blood Sugar(mg/dl) (if 124 120 indicated): Blood Sugar Stated by Stated by Patient Patient Height and Weight Height 5 ft Weight 116.12 kg Weight in Pounds 256.0 lbs Weight Measurement Method Standing Scale Body Mass Index (BMI) 50.0 50.0 50.0 BMI Classification Obese Obese Obese Vital Signs Temperature (97.8 F-99.1 F) 97.4 F L 97.4 F L 97.3 F L Temperature Source Temporal Temporal Temporal Pulse Rate (60-100) 64 71 69 Pulse Location Monitor Monitor Monitor Respiratory Rate (12-18) 16 18 18 Respiratory rate source Observation Observation Observation Oxygen Delivery Method Blood Pressure (90/60-120/80) 166/67 H 153/66 H 143/73 H Blood Pressure Mean (mm Hg) 100 95 96 Source Monitor Monitor Monitor Position Semi-Fowlers Sitting Blood Pressure Location Right Arm Left Arm History Since Last Visit- (Skip if this is Patient's initial visit) Have you changed medications since your No last visit? Any new allergies or adverse reactions No Had a fall/change in ADL's that may No increase risk of falls Signs or symptoms of abuse and/or No neglect since last visit Have you been in the hospital since your No last visit? Has dressing in place as prescribed Yes Yes Has compression in place as prescribed Yes No Has offloadiing in place as prescribed Yes N/A Experienced any changes in pain level or Yes No management Left Footwear Regular Shoe Regular Shoe Right Footwear Regular Shoe Regular Shoe Pain Scale: 0-10 Numeric Is Patient Pain Free? Yes Yes Yes Lower Extremity Assessment/ Foot Assessment/ Toe Nail Assessment Right -Posterior Tibial Palpable Yes -Posterior Tibial Doppler Multiphasic -Dorsalis Pedis Palpable Yes -Dorsalis Pedis Doppler Multiphasic -Extremity Color Normal -Hair Growth on Legs Yes -Hair Growth on Toes No -Temperature of Extremity Warm -Capillary Refill Less than 3 Seconds -Dependent Rubor No -Blanched when Elevated No -Prior Foot Ulcer No -Prior Amputation No -Thick Yes -Deformed Yes -Improper Length & Hygeine No Left -Posterior Tibial Palpable Yes -Posterior Tibial Doppler Multiphasic -Dorsalis Pedis Palpable Yes -Dorsalis Pedis Doppler Multiphasic -Extremity Color Normal -Hair Growth on Legs Yes -Hair Growth on Toes No -Temperature of Extremity Warm -Capillary Refill Less than 3 Seconds -Dependent Rubor No -Blanched when Elevated No -Lipodermatosclerosis No -Prior Foot Ulcer Yes -Prior Amputation Yes -Thick Yes -Deformed Yes -Improper Length & Hygeine No Neuropathy Assessment Feet - Top Side and Bottom <Entered> (a) Communication Assessment Preferred language Arabic [employer] Required No Able to Read Yes Able to Write Yes Communication Tools None Caregiver Communication Skills No Impairment Impairment Right Hearing Abillity Normal Left Hearing Abillity Normal Visual Assistive Devices Glasses Teaching Assessment Preferences Verbal,Written, Demonstration Barriers to Learning Knowledge Deficit Readiness To Learn Excellent Willingness to Engage in Self Management High Activies Readiness to Engage in Self Management High Activities Anxiety Level Calm Cooperation Cooperative Perception Coherent Interest in Health Problem Asks Questions Education Importance Acknowledges Need Does Patient Smoke tobacco or other No substances Smoking Status Former smoker Is Patient Diabetic Yes Functional Assessment Recent Decline in Ability to Perform Denies Any Declines Culture/Oriental Orthodox/Director Family Cultural/Oriental Orthodox Needs that may affect No Treatment Plan 02/21/25 02/28/25 10:54 08:31 WC - Today's Visit Information Type of service Follow-up Visit Follow-up Visit (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 (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 ) ) Arrival Mode Ambulatory Ambulatory Transfer Assistance Accompanied by Patient Identification Verified (Name & Yes Yes ) Patient Requires Transmission-Based Precautions Safety Precautions Finger Stick Blood Sugar(mg/dl) (if indicated): Blood Sugar Height and Weight Height Weight Weight in Pounds Weight Measurement Method Body Mass Index (BMI) 50.0 50.0 BMI Classification Obese Obese Vital Signs Temperature (97.8 F-99.1 F) 98.9 F 97.3 F L Temperature Source Temporal Temporal Pulse Rate (60-100) 77 74 Pulse Location Monitor Monitor Respiratory Rate (12-18) 18 16 Respiratory rate source Observation Observation Oxygen Delivery Method Room Air Room Air Blood Pressure (90/60-120/80) 150/69 H 138/55 H Blood Pressure Mean (mm Hg) 96 82 Source Monitor Monitor Position Semi-Fowlers Semi-Fowlers Blood Pressure Location Right Arm Right Arm History Since Last Visit- (Skip if this is Patient's initial visit) Have you changed medications since your No No last visit? Any new allergies or adverse reactions No No Had a fall/change in ADL's that may No No increase risk of falls Signs or symptoms of abuse and/or No No neglect since last visit Have you been in the hospital since your No No last visit? Has dressing in place as prescribed Yes Yes Has compression in place as prescribed N/A N/A Has offloadiing in place as prescribed N/A N/A Experienced any changes in pain level or No Yes management Left Footwear Regular Shoe Regular Shoe Right Footwear Regular Shoe Regular Shoe Pain Scale: 0-10 Numeric Is Patient Pain Free? Yes Yes Lower Extremity Assessment/ Foot Assessment/ Toe Nail Assessment Right -Posterior Tibial Palpable -Posterior Tibial Doppler -Dorsalis Pedis Palpable -Dorsalis Pedis Doppler -Extremity Color -Hair Growth on Legs -Hair Growth on Toes -Temperature of Extremity -Capillary Refill -Dependent Rubor -Blanched when Elevated -Prior Foot Ulcer -Prior Amputation -Thick -Deformed -Improper Length & Hygeine Left -Posterior Tibial Palpable -Posterior Tibial Doppler -Dorsalis Pedis Palpable -Dorsalis Pedis Doppler -Extremity Color -Hair Growth on Legs -Hair Growth on Toes -Temperature of Extremity -Capillary Refill -Dependent Rubor -Blanched when Elevated -Lipodermatosclerosis -Prior Foot Ulcer -Prior Amputation -Thick -Deformed -Improper Length & Hygeine Neuropathy Assessment Feet - Top Side and Bottom Communication Assessment Preferred speech language pathologist Required Able to Read Able to Write Communication Tools Caregiver Communication Skills Impairment Right Hearing Abillity Left Hearing Abillity Visual Assistive Devices Teaching Assessment Preferences Barriers to Learning Readiness To Learn Willingness to Engage in Self Management Activies Readiness to Engage in Self Management Activities Anxiety Level Cooperation Perception Interest in Health Problem Education Importance Does Patient Smoke tobacco or other substances Smoking Status Is Patient Diabetic Functional Assessment Recent Decline in Ability to Perform Culture/Oriental Orthodox/Director Family Cultural/Oriental Orthodox Needs that may affect Treatment Plan (a) 1 - - 2 - + 3 - + 4 - + WC - Nurse 1 - General Ulcer Measurement Start: 02/01/25 09:21 Freq: Status: Active Protocol: Activity Type Activity Date Activity User E-sign Co-sign Detail Recorded Client Recorded Date Recorded By Document 02/01/25 09:23 CP [id number] 02/01/25 09:35 CP Document 02/08/25 09:32 MT [id number] 02/08/25 09:41 MT Document 02/15/25 09:38 DL [id number] 02/15/25 09:46 DL Document 02/21/25 10:54 KW [id number] 02/21/25 10:58 KW Document 02/28/25 08:31 GM [id number] 02/28/25 08:32 GM 02/01/25 02/08/25 02/15/25 09:23 09:32 09:38 Wound Center Nurse 1 #1 L Plantar -Current Size (cm) - Length 1 1.5 1.1 -Current Size (cm) - Width 1.1 1.4 1 -Current Size (cm) - Depth 0.3 0.3 0.2 -Total Square Cm 1.1 2.10 1.1 -Date of Last Picture (Recall this 02/01/25 02/08/25 field) -Photo Taken Yes Yes -Epithelialization None Present Small 1-33% -Tunneling No No -Undermining/Tunneling Yes No -Undermining/Tunneling Starts (O'clock 11 2 ) -Undermining/Tunneling Ends (O'clock) 5 4 -Maximum Distance (cm) 0.5 0.2 -Circular Undermining Yes Yes -Exudate Amt Small Medium Medium -Exudate Type Serosanguineous Serosanguineous Serosanguineous -Wound Margin Thickened & Thickened & Distinct, Rolled Under Rolled Under Outline Attached -Granulation Amt Large (67-100%) Medium (34-66%) Large (67-100%) -Granulation Quality Louann Pale,Louann Red -Slough/Fibrin No -Necrosis Amt Medium (34-66%) Small (1-33%) -Necrotic Tissue Type Adherent Slough Adherent Slough -Structure Exposed N/A N/A -Texture (Kelsi-wound Skin Appearance) Callus Assessed,Callus Scarring -Moisture (Kelsi-wound Skin Appearance) No Abnormality Assessed Maceration -Color (Kelsi-wound Skin Appearance) No Abnormality Assessed No Abnormality -Temperature (Kelsi-wound Skin No Abnormality No Abnormality No Abnormality Appearance) (Pt Warm) (Pt Warm) (Pt Warm) -Tenderness on Palpation (Kelsi-wound No No No Skin Appearance) -Ulcer Cleansing Soap and Water Soap and Water Soap and Water -Foul Odor after Cleansing No No No -Anesthetic Used 5% Lidocaine 5% Lidocaine 5% Lidocaine Gel Gel Gel Left Calf (cm) 45 Left Ankle (cm) 27 02/21/25 02/28/25 10:54 08:31 Wound Center Nurse 1 #1 L Plantar -Current Size (cm) - Length 1 0.8 -Current Size (cm) - Width 0.8 0.6 -Current Size (cm) - Depth 0.2 0.1 -Total Square Cm 0.8 0.48 -Date of Last Picture (Recall this field) -Photo Taken No -Epithelialization None Present -Tunneling No -Undermining/Tunneling No -Undermining/Tunneling Starts (O'clock ) -Undermining/Tunneling Ends (O'clock) -Maximum Distance (cm) -Circular Undermining No -Exudate Amt Medium None Present -Exudate Type Serosanguineous -Wound Margin Distinct, Distinct, Outline Outline Attached Attached -Granulation Amt Large (67-100%) Medium (34-66%) -Granulation Quality Red Red -Slough/Fibrin No -Necrosis Amt Small (1-33%) -Necrotic Tissue Type Adherent Slough -Structure Exposed -Texture (Kelsi-wound Skin Appearance) Assessed,Callus Assessed,Callus -Moisture (Kelsi-wound Skin Appearance) Assessed, Assessed Maceration -Color (Kelsi-wound Skin Appearance) Assessed Assessed -Temperature (Kelsi-wound Skin No Abnormality No Abnormality Appearance) (Pt Warm) (Pt Warm) -Tenderness on Palpation (Kelsi-wound No No Skin Appearance) -Ulcer Cleansing Rinsed/ Rinsed/ Irrigated with Irrigated with Saline Saline -Foul Odor after Cleansing No No -Anesthetic Used 5% Lidocaine 5% Lidocaine Gel Gel Left Calf (cm) 45.4 Left Ankle (cm) 27 - Nurse 2 - General Ulcer CM Notes Start: 02/01/25 09:21 Freq: Status: Active Protocol: Activity Type Activity Date Activity User E-sign Co-sign Detail Recorded Client Recorded Date Recorded By Document 02/01/25 09:50 [id number] 02/01/25 10:04 Document 02/08/25 09:50 GM [id number] 02/08/25 09:59 GM Document 02/15/25 10:15 GM [id number] 02/15/25 10:50 Document 02/21/25 11:08 [id number] 02/21/25 11:16 Document 02/28/25 09:00 [id number] 02/28/25 09:03 02/01/25 02/08/25 02/15/25 09:50 09:50 10:15 Wound Center Nurse 2 #1 L Plantar -Time 09:51 09:50 10:18 -Correct Patient Yes Yes Yes -Correct Side, Site, Position Yes Yes Yes -Correct Procedure Yes Yes Yes -Procedure Performed Yes Yes Yes -Type of Procedure Debridement Debridement Debridement -Clinical Debridement Subcutaneous Subcutaneous Subcutaneous -Tissue Removed Subcutaneous Subcutaneous Subcutaneous -Post Debridement (cm) - Length 1.7 1.2 1.2 -Post Debridement (cm) - Width 1.0 1.0 1.0 -Post Debridement (cm) - Depth 0.4 0.3 0.3 -Total Square (Post) (cm) 1.70 1.20 1.20 -Area of Debridement (cm) - Length 1.7 1.2 1.2 -Area of Debridement (cm) - Width 1.0 1.0 1.0 -Total Square (Area) (cm) 1.70 1.20 1.20 -Tunneling Yes Yes Yes -Tunneling Position (O'clock) 2 2 2 -Tunneling Distance (cm) 0.5 0.5 0.4 -Undermining/Tunneling No No No -Circular Undermining No No No -Wound/Ulcer Outcome Not Healed Not Healed Not Healed -Ulcer Cleansing Rinsed/ Rinsed/ Rinsed/ Irrigated with Irrigated with Irrigated with Saline Saline Saline -Foul Odor after Cleansing No No No -Bioengineered Tissue No No No -Bleeding Controlled with Pressure Pressure Pressure -Treatment Response Procedure Procedure Procedure Tolerated Well Tolerated Well Tolerated Well -Offloading No Yes No -Type of Offloading Surgical Shoe -Total Non-Weight Bearing to Left Lower Extremity -Debridement - Subq, 1st 20sq cm Yes Yes Yes Pain Scale: 0-10 Numeric Is Patient Pain Free? Yes Yes Yes 02/21/25 02/28/25 11:08 09:00 Wound Center Nurse 2 #1 L Plantar -Time 11:08 09:00 -Correct Patient Yes Yes -Correct Side, Site, Position Yes Yes -Correct Procedure Yes Yes -Procedure Performed Yes Yes -Type of Procedure Debridement Debridement -Clinical Debridement Subcutaneous Subcutaneous -Tissue Removed Subcutaneous Subcutaneous -Post Debridement (cm) - Length 1.1 1.3 -Post Debridement (cm) - Width 1.1 1.4 -Post Debridement (cm) - Depth 0.1 0.1 -Total Square (Post) (cm) 1.21 1.82 -Area of Debridement (cm) - Length 1.1 1.3 -Area of Debridement (cm) - Width 1.1 1.4 -Total Square (Area) (cm) 1.21 1.82 -Tunneling No No -Tunneling Position (O'clock) -Tunneling Distance (cm) -Undermining/Tunneling No No -Circular Undermining No No -Wound/Ulcer Outcome Not Healed Not Healed -Ulcer Cleansing Rinsed/ Rinsed/ Irrigated with Irrigated with Saline Saline -Foul Odor after Cleansing No No -Bioengineered Tissue No No -Bleeding Controlled with Pressure Pressure -Treatment Response Procedure Procedure Tolerated Well Tolerated Well -Offloading No No -Type of Offloading -Total Non-Weight Bearing to -Debridement - Subq, 1st 20sq cm Yes Yes Pain Scale: 0-10 Numeric Is Patient Pain Free? Yes Yes WC - Nurse 3 - General Ulcer D/C NN Start: 02/01/25 09:21 Freq: Status: Active Protocol: Activity Type Activity Date Activity User E-sign Co-sign Detail Recorded Client Recorded Date Recorded By Document 02/01/25 10:35 CP [id number] 02/01/25 10:37 CP Edit Result 02/01/25 10:35 CP (1) [id number] 02/01/25 11:53 CP Document 02/08/25 10:31 RB [id number] 02/08/25 10:32 RB Document 02/15/25 10:54 KW [id number] 02/15/25 10:54 KW Document 02/21/25 11:24 CP [id number] 02/21/25 11:25 CP Document 02/28/25 09:09 KW [id number] 02/28/25 09:10 KW (1) #1 L Plantar - Primary Dressing Applied Fibracol Plus 4x4 => Fibracol Plus 4x4, => Silicone Border => Foam 4x4 BLE - Tubular Bandage => Double Layer - Size of Tubigrip Used => Size F - Size F ($) => 2 02/01/25 02/08/25 02/15/25 10:35 10:31 10:54 Wound Care Center Nurse 3 #1 L Plantar -Ulcer Cleansing Rinsed/ Rinsed/ Irrigated with Irrigated with Saline Saline -Foul Odor after Cleansing No -Primary Dressing Applied Fibracol Plus Fibracol Plus Fibracol Plus 4x4,Silicone 4x4,Silicone 4x4,Silicone Border Foam 4x4 Border Foam 4x4 Border Foam 4x4 -Other Dressing -Fibracol Plus 4x4 1 1 1 -Silicone Border Foam 4x4 1 1 1 -Wound Comment(s) BLE -Tubular Bandage Double Layer -Size of Tubigrip Used Size F -Size F ($) 2 -Stockings Yes: PT OWN DOUBLE TUBIGRIP Treatment Response Procedure Tolerated Well Pain Scale: 0-10 Numeric Is Patient Pain Free? Yes Yes Yes WC - Visit Discharge Discharge Condition Stable Stable Stable Ambulatory Status Ambulatory Ambulatory Ambulatory Transportation Private Auto Private Auto Private Auto Accompanied by Medication Reconcilliation completed & No No provided to patient/care provider Clinical Summary of Care Provided Yes Yes Yes Orders Sent Yes 02/21/25 02/28/25 11:24 09:09 Wound Care Center Nurse 3 #1 L Plantar -Ulcer Cleansing Rinsed/ Irrigated with Saline -Foul Odor after Cleansing -Primary Dressing Applied -Other Dressing betadine bandaide -Fibracol Plus 4x4 -Silicone Border Foam 4x4 -Wound Comment(s) betadine paint to ulcer. cover with gauze BLE -Tubular Bandage -Size of Tubigrip Used -Size F ($) -Stockings Treatment Response Pain Scale: 0-10 Numeric Is Patient Pain Free? Yes Yes WC - Visit Discharge Discharge Condition Stable Stable Ambulatory Status Ambulatory Ambulatory Transportation Private Auto Private Auto Accompanied by Medication Reconcilliation completed & No provided to patient/care provider Clinical Summary of Care Provided Yes Yes Orders Sent Assessment/Plan Assessment/Plan (1) Non-pressure chronic ulcer of other part of left foot with fat layer exposed: CODE(S): L97.522 - Non-pressure chronic ulcer of other part of left foot with fat layer exposed PLAN: Patient was examined and evaluated. All findings were discussed with the patient. All questions were answered to the patient's satisfaction. Excisional debridement down to including subcutaneous tissue with a number 3 mm dermal curette to the plantar aspect left foot full-thickness wound done without incident.. Right measurement was 1.1 x 1.2 x 0.1 cm. Postdebridement measurement is 1.3 x 1.4 x 0.1 cm. Left foot was red clean and patted dry. Betadine paint was applied to full-thickness wound followed by dry sterile dressing. Patient continue daily dressing changes. We will plan for surgical intervention to the left foot on April 15, 2025. Surgery will consist of minimally invasive dorsiflex the osteotomy to the 2nd and 3rd metatarsal as well as amniotic skin graft substitute in preparation with flexor tenotomy and capsulotomy of the second metatarsophalangeal joint left foot. All risk and benefit discussed with the patient great detail. Follow-up at the wound care center with Dr. Pham in 1 week. (2) Hammer toe of left foot: CODE(S): M20.42 - Other hammer toe(s) (acquired), left foot (3) Acute painful diabetic polyneuropathy: CODE(S): E11.42 - Type 2 diabetes mellitus with diabetic polyneuropathy
== END 2025-03-03 23:59 | disposition home or self-care (01) ==
LOC: WC 08:15
PROVIDERS: PCP Family Medicine; Referring Provider Family Medicine; Visit Provider Internal Medicine
DX: E11.621 Type 2 diabetes mellitus with foot ulcer (principal); L97.422 Non-pressure chronic ulcer of left heel and midfoot with fat layer exposed; Z68.43 Body mass index [BMI] 50.0-59.9, adult; E11.42 Type 2 diabetes mellitus with diabetic polyneuropathy; M20.42 Other hammer toe(s) (acquired), left foot; E66.9 Obesity, unspecified; Z79.84 Long term (current) use of oral hypoglycemic drugs; Z79.899 Other long term (current) drug therapy; Z87.891 Personal history of nicotine dependence; Z87.39 Personal history of other diseases of the musculoskeletal system and connective tissue
CPT/HCPCS: 11042; 36415; 73630; 80053; 83036; 84134; 85025; 85652; 86140; 87070; 87075; 87077; 87186; 87205; 99203; G0463

== ENCOUNTER 2025-03-21 08:29 | Outpatient (RCR) | payer SELFPAY ==
[2025-03-04 00:27] VITALS: BP 138/55; PULSE 74; RESP 16; TEMP 36.3; BMI 50.0
[2025-03-21 08:40] VITALS: BP 140/65; PULSE 72; RESP 18; TEMP 36.1; BMI 50.0
--- NOTE | 2025-03-21 11:26 | PCM.WC.PN ---
History of Present Illness Date of Service: 03/21/25 Chief Complaint: Left foot ulcer History of Wound: Ms. Lowe is a 64-year-old who presents to the wound center due to nonhealing left foot ulcer. Believes that it started almost 2 months ago. Just noted it. No known precipitating factor. Does not have as much feeling in her foot due to diabetes. Prior history of diabetic foot surgery/amputation. She states that over the last 2 months, she has been applying peroxide however due to none improvement her daughter recommended she come to the wound center. Had seen podiatry in the past but last saw podiatry a few years ago. She states that she was given a however it was too tight so she does not wear these. Walks barefooted at home. Not sure about her diabetes control but reports compliance with her medication. Feels well otherwise. Reports a good diet Progress of Wound: Full-thickness wound plantar aspect left foot stable no sign of infection. Subjective Subjective Patient is a 64-year-old diabetic female presented wound care center today for follow-up evaluation of plantar full-thickness wound left foot. She has been compliant with dressing changes. Patient missed that the wound is doing better. Blood sugars well-controlled. She is right before with surgical intervention in the next week or 2. Denies trauma. Denies constitutional symptoms. No other pedal complaints at this time. Objective Data Objective Data Vital Signs: Vital Signs Temp Pulse Resp BP 97 F L 72 18 140/65 H 03/21/25 08:40 03/21/25 08:40 03/21/25 08:40 03/21/25 08:40 Weight: 116.12 kg Body Mass Index (BMI) 50.0 Lab / Micro Data Micro: Microbiology 02/01/25 10:03 Wound - Left Foot Gram Stain - Final 02/01/25 10:03 Wound - Left Foot Wound Culture - Final Streptococcus agalactiae (B) Staphylococcus aureus [place] odontolyticus 02/01/25 10:03 Wound - Left Foot Anaerobic Culture - Final Bacteroides fragilis Anaerobic cocci Physical Exam Narrative Vascular: DP and PT pulse are palpable to left lower extremity. CFT is brisk. Skin, great is warm to warm from proximal ankle to distal digits left lower extremity. Skin is supple in nature. Neurological: Light touch intact. Protective station is diminished. Dermatological: Full-thickness wound to the plantar aspect of the subthird metatarsal head measuring 1.3 x 1.4 x 0.1 cm. Wound base is granular with no sign of infection. Negative probe to bone. Excisional debridement down to including subcutaneous tissue with a number 3 mm dermal curette to the plantar aspect left foot full-thickness wound done without incident.. Right measurement was 1.0 x 1.2 x 0.1 cm. Postdebridement measurement is 1.3 x 1.4 x 0.1 cm. Musculoskeletal: Evidence of cocked up second digit left foot secondary to flexor tenotomy. Evidence of hammertoe deformity to the third digit left foot. No pain on palpation to full-thickness wound plantar aspect left foot. No pain with calf pressure. Debridement Note Debridement Note Debridement Free Text: Excisional debridement down to including subcutaneous tissue with a number 3 mm dermal curette to the plantar aspect left foot full-thickness wound done without incident.. Right measurement was 1.0 x 1.2 x 0.1 cm. Postdebridement measurement is 1.3 x 1.4 x 0.1 cm. 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 ) Arrival Mode Ambulatory Accompanied by Patient Identification Verified (Name & Yes ) Safety Precautions Fall Prevention Height and Weight Body Mass Index (BMI) 50.0 BMI Classification Obese Vital Signs Temperature (97.8 F-99.1 F) 97 F L Temperature Source Temporal Pulse Rate (60-100) 72 Pulse Location Monitor Respiratory Rate (12-18) 18 Respiratory rate source Monitor Blood Pressure (90/60-120/80) 140/65 H Blood Pressure Mean (mm Hg) 90 Source Monitor Position Sitting Blood Pressure Location Left Arm History Since Last Visit- (Skip if this is Patient's initial visit) Has dressing in place as prescribed Yes Has compression in place as prescribed Yes Has offloadiing in place as prescribed Yes Experienced any changes in pain level or Yes management Left Footwear Regular Shoe Right Footwear Regular Shoe Pain Scale: 0-10 Numeric Is Patient Pain Free? Yes - Nurse 1 - General Ulcer Measurement Start: 03/21/25 08:39 Freq: Status: Active Protocol: Activity Type Activity Date Activity User E-sign Co-sign Detail Recorded Client Recorded Date Recorded By Document 03/21/25 08:40 PA [id number] 03/21/25 08:45 PA 03/21/25 08:40 Wound Center Nurse 1 #1 L Plantar -Current Size (cm) - Length 0.7 -Current Size (cm) - Width 0.7 -Current Size (cm) - Depth 0.2 -Total Square Cm 0.49 -Undermining/Tunneling Yes -Undermining/Tunneling Starts (O'clock 12 ) -Undermining/Tunneling Ends (O'clock) 12 -Maximum Distance (cm) 0.3 -Circular Undermining Yes -Exudate Amt Medium -Exudate Type Serous -Wound Margin Thickened & Rolled Under -Granulation Amt Medium (34-66%) -Granulation Quality Pale,[place] -Necrosis Amt Medium (34-66%) -Necrotic Tissue Type Adherent Slough -Texture (Kelsi-wound Skin Appearance) Assessed,Callus -Moisture (Kelsi-wound Skin Appearance) Assessed -Color (Kelsi-wound Skin Appearance) Assessed -Temperature (Kelsi-wound Skin No Abnormality Appearance) (Pt Warm) -Tenderness on Palpation (Kelsi-wound No Skin Appearance) -Ulcer Cleansing Soap and Water -Anesthetic Used 5% Lidocaine Gel Lower Limb Edema Present NA WC - Nurse 2 - General Ulcer CM Notes Start: 03/21/25 08:39 Freq: Status: Active Protocol: Activity Type Activity Date Activity User E-sign Co-sign Detail Recorded Client Recorded Date Recorded By Document 03/21/25 08:58 [id number] 03/21/25 09:03 03/21/25 08:58 Wound Center Nurse 2 #1 L Plantar -Time 08:59 -Correct Patient Yes -Correct Side, Site, Position Yes -Correct Procedure Yes -Procedure Performed Yes -Type of Procedure Debridement -Clinical Debridement Subcutaneous -Tissue Removed Subcutaneous -Post Debridement (cm) - Length 0.8 -Post Debridement (cm) - Width 1.0 -Post Debridement (cm) - Depth 0.2 -Total Square (Post) (cm) 0.80 -Area of Debridement (cm) - Length 0.8 -Area of Debridement (cm) - Width 1.0 -Total Square (Area) (cm) 0.80 -Tunneling No -Undermining/Tunneling No -Circular Undermining No -Wound/Ulcer Outcome Not Healed -Ulcer Cleansing Rinsed/ Irrigated with Saline -Foul Odor after Cleansing No -Bioengineered Tissue No -Bleeding Controlled with Pressure -Treatment Response Procedure Tolerated Well -Offloading No -Debridement - Subq, 1st 20sq cm Yes Pain Scale: 0-10 Numeric Is Patient Pain Free? Yes - Nurse 3 - General Ulcer D/C NN Start: 03/21/25 08:39 Freq: Status: Active Protocol: Activity Type Activity Date Activity User E-sign Co-sign Detail Recorded Client Recorded Date Recorded By Document 03/21/25 09:05 ANALILIA [id number] 03/21/25 09:06 ANALILIA 03/21/25 09:05 Wound Care Center Nurse 3 #1 L Plantar -Ulcer Cleansing Rinsed/ Irrigated with Saline -Foul Odor after Cleansing No -Other Dressing betadine -Primary Dressing Covered/Secured with Dry Gauze, Secured with Tape Pain Scale: 0-10 Numeric Is Patient Pain Free? Yes WC - Visit Discharge Discharge Condition Stable Ambulatory Status Ambulatory Transportation Private Auto Accompanied by Assessment/Plan Assessment/Plan (1) Non-pressure chronic ulcer of other part of left foot with fat layer exposed: CODE(S): L97.522 - Non-pressure chronic ulcer of other part of left foot with fat layer exposed PLAN: Patient was examined and evaluated. All findings were discussed with the patient. All questions were answered to the patient's satisfaction. Excisional debridement down to including subcutaneous tissue with a number 3 mm dermal curette to the plantar aspect left foot full-thickness wound done without incident.. Right measurement was 1.0 x 1.2 x 0.1 cm. Postdebridement measurement is 1.3 x 1.4 x 0.1 cm. Left lower extremities were cleaned and patted dry. Betadine paint and sterile Band-Aid was applied. Patient will continue daily dressing changes. She will continue strict blood sugar control. Chart review and consent was signed to move forward with elective surgery consisting of mini invasive surgery with dorsiflexor osteotomy to the third metatarsal head, surgical skin graft site prep, application Graft substitute, and open extensor tenotomy with capsulotomy of the second metatarsophalangeal joint left foot. Risk benefits discussed with patient great detail. She is agreeable to move forward with surgery at this time. Follow-up at the wound care center with Dr. Pham in 2 week. (2) Hammer toe of left foot: CODE(S): M20.42 - Other hammer toe(s) (acquired), left foot (3) Acute painful diabetic polyneuropathy: CODE(S): E11.42 - Type 2 diabetes mellitus with diabetic polyneuropathy
== END 2025-04-02 23:59 | disposition home or self-care (01) ==
LOC: WC 08:29
PROVIDERS: PCP Family Medicine; Referring Provider Family Medicine; Visit Provider Podiatrist Foot & Ankle Surgery
DX: E11.621 Type 2 diabetes mellitus with foot ulcer (principal); L97.522 Non-pressure chronic ulcer of other part of left foot with fat layer exposed; E11.42 Type 2 diabetes mellitus with diabetic polyneuropathy; M20.42 Other hammer toe(s) (acquired), left foot; Z79.84 Long term (current) use of oral hypoglycemic drugs; Z79.899 Other long term (current) drug therapy
CPT/HCPCS: 11042

== ENCOUNTER 2025-03-29 05:35 | Day surgery (SDC) | payer SELFPAY ==
[2025-03-29] VITALS (9 sets, daily range): BP systolic 137–152; BP diastolic 65–70; PULSE 65–77; RESP 16; TEMP 36.6–36.9; O2SAT 97–100; BMI 45.8
--- OUTSIDE RECORDS SUMMARY | 2025-03-29 05:39 | XMS RPT_ITS | CCD ---
Author Organization [facility]ini[facility] Care Team Providers Care Singer Back Tender Name Role Phone Dr. Noah Levin DO Primary Care Provider Dr. Noah Levin DO Referring Provider Manuel JOLLY, Dr. Davison Attending Provider Manuel JOLLY, Dr. Davison Other Provider Roberto Pahm Attending Unavailable Roberto Pham Referring Unavailable Poonam, Noah Primary Care Unavailable Roberto Pham Attending Unavailable Poonam, Noah Referring Unavailable Poonam, Noah Primary Care Unavailable Robinghe, Efewongbe Consulting Unavailable Michaele, Efewongbe Attending Unavailable Poonam, Noah Primary Care Unavailable Poonam, Noah Referring Unavailable Oleghe, Efewongbe Consulting Unavailable Michaele, Efewongbe Attending Unavailable Poonam, Noah Referring Unavailable Poonam, Noah Primary Care Unavailable Oleghe, Efewongbe Attending Unavailable Poonam, Noah Referring Unavailable Poonam, Noah Primary Care Unavailable Robinghe, Efewongbe Consulting Unavailable Michaele, Efewongbe Attending Unavailable Poonam, Noah Primary Care Unavailable Poonam, Noah Referring Unavailable Medications Current Medications Medication Drug Class(es) Dates Sig (Normalized) Sig (Original) amLODIPine 10 mg oral tablet (2 sources) Dihydropyridine Calcium Channel Emir Start: 02-01-2025 take 5 mg by mouth once daily Amlodipine 10 MG tablet Active 5 mg PO DAILY February 01, 2025 12:00am Start: 02-07-2020 End: 02-01-2025 take 1 tablet by mouth once daily Amlodipine 10 MG tablet Discontinued 10 mg PO DAILY February 07, 2020 12:00am February 01, 2025 9:40am clindamycin 300 mg oral capsule (1 source) Lincosamide Antibacterial Start: 02-05-2025 take 1 capsule by mouth three times daily Clindamycin Hcl 300 mg capsule Active 300 mg PO THREE TIMES A DAY February 05, 2025 12:00am Take with probiotics glimepiride 4 mg oral tablet (1 source) Sulfonylurea Start: 01-31-2020 take 1 tablet by mouth once daily Glimepiride 4 MG tablet Active 4 mg PO DAILY January 31, 2020 12:00am 24 hr metFORMIN hydrochloride 500 mg extended release oral tablet (2 sources) Biguanide Start: 02-01-2025 Metformin 500 mg tablet extended release 24 hr Active 1000 mg PO TWICE A DAY February 01, 2025 12:00am Start: 01-31-2020 End: 02-07-2020 take 2 tablets by mouth twice daily Metformin 500 MG tablet Discontinued 1000 mg PO TWICE A DAY January 31, 2020 12:00am February 07, 2020 10:35am metoprolol tartrate 25 mg oral tablet (1 source) beta-Adrenergic Emir Start: 02-07-2020 take 1 tablet by mouth twice daily Metoprolol Tartrate 25 MG tablet Active 25 mg PO TWICE A DAY February 07, 2020 12:00am metroNIDAZOLE 500 mg oral tablet (1 source) Nitroimidazole Antimicrobial Start: 02-05-2025 take 1 tablet by mouth every eight hours Metronidazole 500 mg tablet Active 500 mg PO Q8H February 05, 2025 12:00am pioglitazone 45 mg oral tablet (1 source) Peroxisome Proliferator Receptor alpha Agonist, Peroxisome Proliferator Receptor gamma Agonist, Thiazolidinedione Start: 01-31-2020 take 2 tablets by mouth once daily Pioglitazone 45 MG tablet Active 90 mg PO DAILY January 31, 2020 12:00am ramipril 5 mg oral capsule (2 sources) Angiotensin Converting Enzyme Inhibitor Start: 02-01-2025 take 1 capsule by mouth once daily Ramipril (Altace) 5 mg capsule Active 5 mg PO DAILY February 01, 2025 12:00am Start: 01-31-2020 End: 02-07-2020 take 1 capsule by mouth once daily Ramipril 5 MG capsule Discontinued 5 mg PO DAILY January 31, 2020 12:00am February 07, 2020 10:35am rosuvastatin calcium 20 mg oral tablet (1 source) HMG-CoA Reductase Inhibitor Start: 05-01-2025 take 2 tablets by mouth every week Rosuvastatin (Crestor) 20 mg tablet Active 20 mg PO .COMPLEX February 01, 2025 12:00am 20 mg orally 2 x week; Completed/Discontinued Medications Medication Drug Class(es) Dates Sig (Normalized) Sig (Original) amoxicillin 500 mg / clavulanate 125 mg oral tablet (1 source) Penicillin-class Antibacterial Start: 02-07-2020 End: 02-01-2025 Amoxicillin-Pot Clavulanate 1 EACH tablet Discontinued 1 NMA PO TWICE A DAY 80 February 07, 2020 12:00am February 01, 2025 9:36am cephalexin 500 mg oral capsule (1 source) Cephalosporin Antibacterial Start: 01-31-2020 End: 02-07-2020 take 1 capsule by mouth four times daily Cephalexin 500 MG capsule Discontinued 500 mg PO 4 TIMES DAILY January 31, 2020 12:00am February 07, 2020 10:35am hydroCHLOROthiazide 50 mg / triamterene 75 mg oral tablet (1 source) Potassium-sparing Diuretic, Thiazide Diuretic Start: 01-31-2020 End: 02-07-2020 Triamterene-Hydr ochlorothiazid 1 TABLET tablet Discontinued 0.5 {tbl} PO DAILY January 31, 2020 12:00am February 07, 2020 10:35am Problems Active Problems Problem Classification Problem Date Documented Date Episodic/Chronic Acquired foot deformities (3 sources) Hammer toe; Translations: [Other hammer toe(s) (acquired), left foot] Onset: 03-21-2025 02-21-2025 Chronic Acute and unspecified renal failure (1 source) Acute renal failure syndrome; Translations: [Acute kidney failure, unspecified] 02-02-2020 Episodic Chronic ulcer of skin (4 sources) Non-pressure chronic ulcer of other part of left foot with fat layer exposed; Translations: [Non-pressure chronic ulcer of other part of left foot with fat layer exposed] Onset: 03-21-2025 02-21-2025 Chronic Diabetes mellitus with complications (11 sources) Cellulitis of foot due to diabetes mellitus; Translations: [Type 2 diabetes mellitus with other skin complications] Onset: 03-07-2025 01-31-2020 Chronic Diabetes mellitus without complication (3 sources) Type 2 diabetes mellitus; Translations: [Type 2 diabetes mellitus without complications] Onset: 03-21-2025 01-31-2020 Chronic Fluid and electrolyte disorders (1 source) Hyponatremia; Translations: [Hypo-osmolality and hyponatremia] 01-31-2020 Episodic Other bone disease and musculoskeletal deformities (2 sources) 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; Translations: [Acquired absence of other left toe(s)] 02-01-2025 Episodic Other bone disease and musculoskeletal deformities (1 source) Acquired absence of other left toe(s); Translations: [Acquired absence of other left toe(s)] Onset: 03-21-2025 Episodic Other connective tissue disease (2 sources) History of bacterial infection; Translations: [Personal history of other diseases of the musculoskeletal system and connective tissue] 02-01-2025 Episodic Other connective tissue disease (1 source) History of osteomyelitis; Translations: [Personal history of other diseases of the musculoskeletal system and connective tissue] 02-08-2025 Episodic Other connective tissue disease (1 source) Personal history of other diseases of the musculoskeletal system and connective tissue; Translations: [Personal history of other diseases of the musculoskeletal system and connective tissue] Onset: 03-21-2025 Episodic Other nutritional; endocrine; and metabolic disorders (2 sources) Obesity; Translations: [Obesity, unspecified] 02-01-2025 Chronic Other nutritional; endocrine; and metabolic disorders (1 source) Obesity, unspecified; Translations: [Obesity, unspecified] Onset: 03-21-2025 Chronic Skin and subcutaneous tissue infections (1 source) Cellulitis of left lower limb; Translations: [Cellulitis of left lower limb] 02-12-2020 Episodic Past or Other Problems Problem Classification Problem Date Documented Da te Episodic/Chronic Unclassified (1 source) Deep wound infection of the left foot 07-10-2022 Results Test Name Value Interpretation Reference Range Facility Culture, Anaerobic Any Sourc jhonny 02-06-2025 CUAN List Antibiotics Last 48 Hours? none List Antibiotics to be Started? none Copy of report sent to Infection Control Printer [id number] 02/06/25 7013 LONNIE. #1 Studies Have Confirmed That B. Fragilis Group are Routinely Susceptible to: Metronidazole, Piperacillin/Tazoba ctam, Amoxicillin/Clavula sonia acid, and Ertapenem. They are showing an increased RESISTANCE to Penicillin, Clindamycin and Moxifloxacin. Bacteria Spec Anaerobe Cult #2 Studies have confirmed that Anaerobic Gram Positive Cocci are routinely SUSCEPTABLE to Penicillin and generally susceptible to Beta-lactams and Beta-lactamase inhibitors, Cephalosporins, Carbapenems and Metronidazole. They are showing increased RESISTANCE to Clindamycin Bacteroides fragilis Beta Lactamase-Reportabl e Positive Anaerobic cocci * This is an amended result. * A prior result that was reported as final has been changed. 02/06/25 1524 by LONNIE [facility] Comment on above: Performed By: #### L [id number], L500.4050, L101.9900, L100.0100, L501.6710, [id number] #### [facility] [address] [place], [place], [address] Wound Cultureon 02-06-2025 List Antibiotics Last 48 Hours? none List Antibiotics to be Started? none #3 Susceptibility not normally performed on this organism. Streptococcus agalactiae (B) Amount Growth 2+ Staphylococcus aureus Staphylococcus aureus AONO Amount Growth 1+ [place] odontolyticus Ampicillin Islt DESTINY <=0.25 cefTRIAXone Islt DESTINY <=0.12 S Clindamycin Islt DESTINY <=0.25 Clindamycin.induced Susc Islt NEG Linezolid Islt DESTINY <=2 S Vancomycin Islt DESTINY 0.5 S Staphylococcus aureus: REACTION cefOXitin Susc Islt NEG Doxycycline Islt DESTINY 4 S Clindamycin Islt DESTINY Clindamycin.induced Susc Islt NEG Erythromycin Islt DESTINY >=8 R Gentamicin Islt DESTINY <=0.5 S Linezolid Islt DESTINY 2 S Moxifloxacin Islt DESTINY <=0.25 S Oxacillin Susc Islt <=0.25 S Tetracycline Islt DESTINY 2 S TMP SMX Islt DESITNY <=10 S Vancomycin Islt DESTINY 1 S [facility] Comment on above: Performed By: #### M 100.4001, M100.2000, M100.3000 #### [facility] [address] [place], [place], [id number] Prealbumin [id number] Prealbumin [Mass/Vol] 25 mg/dL Normal 10-36 [facility] Comment on above: Result Comment: Perf ormed at: CB - [facility] [address] [place], [place] [id number] Paperboard Machine Operator: Aly Haynes PhD, Phone: [phone] Performed By: #### L [id number], L500.4050, L101.9900, L100.0100, L501.6710, [id number] #### [facility] [address] [place], [place], [id number] Absolute lymphocyte countOrd ered By: Laney Jackson on 02-01-2025 Lymphocytes Auto (Unsp spec) [#/Vol] 3.00 10*3/uL 0.83-4.51 [facility] Absolute neutrophil countOrd ered By: Laney Jackson on 02-01-2025 Neutrophils (Bld) [#/Vol] 5.8 10*3/uL 2.0-7.7 [facility] Anaerobic cultureOrdered By: Laney Jackson on 02-01-2025 Bacteria identified Anaer cx Nom (Unsp spec) Bacteroides fragilis Abnormal [facility] Bacteria identified Anaer cx Nom (Unsp spec) Anaerobic cocci Abnormal [facility] Anion gap in Serum or Plasma Ordered By: Laney Jackson on 02-01-2025 Anion gap [Moles/Vol] 12 mmol/L 5-15 [facility] Automated lymphocyte count a s percentage of total leukocytesOrdered By: Laney Jackson on 02-01-2025 Lymphocytes/100 WBC Auto (Unsp spec) 30.9 % 19-41 [facility] BUN/creatinine ratioOrdered By: Laney Jackson on 02-01-2025 Urea nitrogen/Creatinine [Mass ratio] 16.3 mg/mg 10-20 [facility] Basophil percentageOrdered B y: Laney Jackson on 02-01-2025 Basophils/100 WBC (Bld) 0.6 % 0-1 [facility] Bilirubin, totalOrdered By: Laney Jackson on 02-01-2025 Bilirubin [Mass/Vol] 0.38 mg/dL 0.00-1.30 [facility] CBC W/Diff, Automatedon 05--2024 Absolute Lymph 3.00 X10 3/uL Normal 0.83-4.51 [facility] Comment on above: Performed By: #### L [id number], L500.4050, L101.9900, L100.0100, L501.6710, [id number] #### [facility] [address] [place], [address] Absolute Neut 5.8 X10 3/uL Normal 2.0-7.7 [facility] Comment on above: Performed By: #### L [id number], [id number], L101.9900, L100.0100, L501.6710, [id number] #### [facility] [address] [place], [address] Basophils/100 WBC (Bld) 0.6 % Normal 0-1 [facility] Comment on above: Performed By: #### L [id number], L500.4050, L101.9900, L100.0100, L501.6710, [id number] #### [facility] [address] [place], [address] Eosinophils/100 WBC (Bld) 1.0 % Normal 0-5 [facility] Comment on above: Performed By: #### L [id number], L500.4050, L101.9900, L100.0100, L501.6710, [id number] #### [facility] [address] [place], [address] Erythrocyte distribution width (RBC) [Ratio] 14.6 % Normal 11.6-14.6 [facility] Comment on above: Performed By: #### L [id number], L500.4050, L101.9900, L100.0100, L501.6710, [id number] #### [facility] [address] [place], [address] Hematocrit (Bld) [Volume fraction] 37.8 % Normal 37-47 [facility] Comment on above: Performed By: #### L [id number], [id number], L101.9900, L100.0100, L501.6710, [id number] #### [facility] [address] [place], [address] Hemoglobin (Bld) [Mass/Vol] 12.7 g/dL Normal 12.0-15.0 [facility] Comment on above: Performed By: #### L 501.9985, L500.4050, L101.9900, L100.0100, L501.6710, [id number] #### [facility] [address] [place], [address] IG% 0.600 Normal 0.0-0.9 [facility] Comment on above: Result Comment: IG% - Immature Granulocytes (promyelocytes, myelocytes and metamyelocytes) > 1% indicates that a LEFT SHIFT is Present. Performed By: #### L 501.9985, L500.4050, L101.9900, L100.0100, L501.6710, [id number] #### [facility] [address] [place], [address] Lymphocytes/100 WBC (Bld) 30.9 % Normal 19-41 [facility] Comment on above: Performed By: #### L [id number], [id number], L101.9900, L100.0100, L501.6710, [id number] #### [facility] [address] [place], [address] MCH (RBC) [Entitic mass] 29.3 pg Normal 27.0-32.0 [facility] Comment on above: Performed By: #### L [id number], [id number], L101.9900, L100.0100, L501.6710, [id number] #### [facility] [address] [place], [address] MCHC (RBC) [Mass/Vol] 33.6 g/dL Normal 32-36 [facility] Comment on above: Performed By: #### L [id number], [id number], L101.9900, L100.0100, L501.6710, [id number] #### [facility] [address] [place], [address] MCV (RBC) [Entitic vol] 87.1 fL Normal 81-99 [facility] Comment on above: Performed By: #### L [id number], [id number], L101.9900, L100.0100, L501.6710, [id number] #### [facility] [address] [place], [address] Monocytes/100 WBC (Bld) 6.8 % Normal 0-10 [facility] Comment on above: Performed By: #### L 501.9985, [id number], L101.9900, L100.0100, L501.6710, [id number] #### [facility] [address] [place], [address] Neutrophils/100 WBC (Bld) 60.1 % Normal 47-70 [facility] Comment on above: Performed By: #### L 501.9985, L500.4050, L101.9900, L100.0100, L501.6710, [id number] #### [facility] [address] [place], [address] Nucleated RBC (Bld) [#/Vol] 0 10*3/uL Normal 0-5 [facility] Comment on above: Performed By: #### L [id number], L500.4050, L101.9900, L100.0100, L501.6710, [id number] #### [facility] [address] [place], [address] Platelet mean volume (Bld) [Entitic vol] 10.7 fL Normal 6.2-12.0 [facility] Comment on above: Performed By: #### L 501.9985, L500.4050, L101.9900, L100.0100, L501.6710, [id number] #### [facility] [address] [place], [address] Platelets (Bld) [#/Vol] 312 10*3/uL Normal 150-450 [facility] Comment on above: Performed By: #### L 501.9985, L500.4050, L101.9900, L100.0100, L501.6710, [id number] #### [facility] [address] [place], [address] RBC (Bld) [#/Vol] 4.34 10*6/uL Normal 4.2-5.4 [facility] Comment on above: Performed By: #### L 501.9985, L500.4050, L101.9900, L100.0100, L501.6710, [id number] #### [facility] [address] [place], [address] RDW SD 46.3 fl High 35.1-43.9 [facility] Comment on above: Performed By: #### L 501.9985, L500.4050, L101.9900, L100.0100, L501.6710, [id number] #### [facility] [address] [place], [address] WBC (Bld) [#/Vol] 9.7 10*3/uL Normal 4.4-11.0 [facility] Comment on above: Performed By: #### L 501.9985, L500.4050, L101.9900, L100.0100, L501.6710, [id number] #### [facility] [address] [place], [address] CRPon 02-01-2025 C-REACTIVE PROT 4.76 mg/L High 0.0-3.0 [facility] Comment on above: Performed By: #### L 501.9985, L500.4050, L101.9900, L100.0100, L501.6710, [id number] #### [facility] [address] [place], [address] Carbon dioxide, total [Moles /volume] in Central venous bloodOrdered By: Laney Jackson on 02-01-2025 CO2 [Moles/Vol] 23.8 mmol/L 21.0-32.0 [facility] Chloride assayOrdered By: Tianna Jackson on 02-01-2025 Chloride [Moles/Vol] 104 mmol/L 98-108 [facility] Comprehensive Metabolic Prof ilon 02-01-2025 Albumin [Mass/Vol] 4.1 g/dL Normal 3.4-4.8 [facility] Comment on above: Performed By: #### L 501.9985, L500.4050, L101.9900, L100.0100, L501.6710, [id number] #### [facility] [address] [place], [address] Albumin/Globulin [Mass ratio] 1.5 {ratio} Normal 0.9-2.4 [facility] Comment on above: Performed By: #### L 501.9985, L500.4050, L101.9900, L100.0100, L501.6710, [id number] #### [facility] [address] [place], [address] ALK PHOS 88 U/L Normal 35-104 [facility] Comment on above: Performed By: #### L 501.9985, L500.4050, L101.9900, L100.0100, L501.6710, [id number] #### [facility] [address] [place], [address] ALT [Catalytic activity/Vol] 17 U/L Normal <=34 [facility] Comment on above: Performed By: #### L [id number], L500.4050, L101.9900, L100.0100, L501.6710, [id number] #### [facility] [address] [place], [address] AST [Catalytic activity/Vol] 21 U/L Normal <=31 [facility] Comment on above: Performed By: #### L 501.9985, L500.4050, L101.9900, L100.0100, L501.6710, [id number] #### [facility] [address] [place], [address] Bilirubin [Mass/Vol] 0.38 mg/dL Normal 0.00-1.30 [facility] Comment on above: Performed By: #### L 501.9985, L500.4050, L101.9900, L100.0100, L501.6710, [id number] #### [facility] [address] [place], [address] BUN/CRE 16.3 RATIO Normal 10-20 [facility] Comment on above: Performed By: #### L 501.9985, L500.4050, L101.9900, L100.0100, L501.6710, [id number] #### [facility] [address] [place], [address] Calcium [Mass/Vol] 8.9 mg/dL Normal 7.6-11.0 [facility] Comment on above: Performed By: #### L 501.9985, L500.4050, L101.9900, L100.0100, L501.6710, [id number] #### [facility] [address] [place], [address] Chloride [Moles/Vol] 104 mmol/L Normal 98-108 [facility] Comment on above: Performed By: #### L 501.9985, L500.4050, L101.9900, L100.0100, L501.6710, [id number] #### [facility] [address] [place], [address] CO2 [Moles/Vol] 23.8 mmol/L Normal 21.0-32.0 [facility] Comment on above: Performed By: #### L 501.9985, L500.4050, L101.9900, L100.0100, L501.6710, [id number] #### [facility] [address] [place], [address] Creatinine [Mass/Vol] 0.71 mg/dL Normal 0.70-1.20 [facility] Comment on above: Performed By: #### L 501.9985, L500.4050, L101.9900, L100.0100, L501.6710, L3300.6400 #### [facility] [address] [place], [address] ECRCL 94.42 ml/min Normal 50-250 [facility] Comment on above: Performed By: #### L 501.9985, L500.4050, L101.9900, L100.0100, L501.6710, [id number] #### [facility] [address] [place], [address] GAP 12 Normal 5-15 [facility] Comment on above: Performed By: #### L 501.9985, L500.4050, L101.9900, L100.0100, L501.6710, [id number] #### [facility] [address] [place], [address] GFR/1.73 sq M.predicted among non-blacks MDRD (S/P/Bld) [Vol rate/Area] 95 mL/min/{1.73_m2} Normal >[address] [facility] Comment on above: Result Comment: mL/m in/1.73m2 CKD-EPI Creatinine Equation (2020) Performed By: #### L 501.9985, L500.4050, L101.9900, L100.0100, L501.6710, [id number] #### [facility] [address] [place], [address] Globulin (S) [Mass/Vol] 2.8 g/dL Normal 2.2-4.2 [facility] Comment on above: Performed By: #### L 501.9985, L500.4050, L101.9900, L100.0100, L501.6710, [id number] #### [facility] [address] [place], [address] Glucose [Mass/Vol] 127 mg/dL High 70-99 [facility] Comment on above: Performed By: #### L 501.9985, L500.4050, L101.9900, L100.0100, L501.6710, [id number] #### [facility] [address] [place], [address] Potassium [Moles/Vol] 4.2 mmol/L Normal 3.3-5.1 [facility] Comment on above: Performed By: #### L 501.9985, L500.4050, L101.9900, L100.0100, L501.6710, [id number] #### [facility] [address] [place], [address] Sodium [Moles/Vol] 140 mmol/L Normal 133-145 [facility] Comment on above: Performed By: #### L 501.9985, L500.4050, L101.9900, L100.0100, L501.6710, [id number] #### [facility] [address] [place], [address] T PROT 6.9 g/dL Normal 5.9-8.4 [facility] Comment on above: Performed By: #### L [id number], L500.4050, L101.9900, L100.0100, L501.6710, [id number] #### [facility] [address] [place], [address] Urea nitrogen [Mass/Vol] 12 mg/dL Normal 4-19 [facility] Comment on above: Performed By: #### L [id number], L500.4050, L101.9900, L100.0100, L501.6710, [id number] #### [facility] [address] [place], [address] Eosinophil percentageOrdered By: Laney Jackson on 02-01-2025 Eosinophils/100 WBC (Bld) 1.0 % 0-5 [facility] Erythrocyte Sed Rateon 02-01 SED RATE 26 mm/hr Normal 0-30 [facility] Comment on above: Performed By: #### L 501.9985, L500.4050, L101.9900, L100.0100, L501.6710, L3300.6400 #### [facility] Laboratory [address] [place], [address] Erythrocyte distribution wid th ratioOrdered By: Laney Jackson on 02-01-2025 Erythrocyte distribution width (RBC) [Ratio] 14.6 % 11.6-14.6 [facility] Erythrocyte distribution wid th standard deviationOrdered By: Laney Jackson on 02-01-2025 Erythrocyte distribution width (RBC) [Ratio] 46.3 fl High 35.1-43.9 [facility] Erythrocyte sedimentation ra teOrdered By: Laney Jackson on 02-01-2025 ESR (Bld) [Velocity] 26 mm/h 0-30 [facility] Foot min 3 Viewson Foot min 3 Views [facility] Imaging Services [address] [place], [place] [id number] Foot min 3 Views MR#: [id number] Acct: [id number] Name: SHERRI BRASHER Rep #: [id number] : 1960 F 64 From: Stephen Laurent MD PCP: Dr. Noah Levin MD Status: REG RCR Study: Foot min 3 Views Date of Exam: 02/01/25 Exam# [id number] Ordering Dr: Laney Jackson MD EXAM: Foot minimum three views x-ray CLINICAL HISTORY: Ulcer COMPARISON: 01/31/2020 TECHNIQUE: Three views left foot FINDINGS: No fracture or dislocation. There is again note of amputation of the 4th and 5th phalanges. There appears to be a soft tissue ulceration at the dorsal aspect of the amputation site near the 3rd ray seen on the oblique and lateral views, clinically correlate. No radiopaque foreign body identified. Since 2019 there now appears to be cortical thickening of the 3rd and lateral aspect of the 2nd proximal phalanx which may represent sequela of previous osteomyelitis with a chronic osteomyelitis not excluded. No osseous destruction identified. 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 Forefoot soft tissue swelling. Enthesophyte formation at the plantar greater than Achilles surfaces of the calcaneus. Vascular calcifications. RAD/Foot min 3 Views IMPRESSION: No fracture or dislocation. There is again note of amputation of the 4th and 5th phalanges. There appears to be a soft tissue ulceration at the dorsal aspect of the amputation site near the 3rd ray seen on the oblique and lateral views, clinically correlate. No radiopaque foreign body identified. Since 2019 there now appears to be cortical thickening of the 3rd and lateral aspect of the 2nd proximal phalanx which may represent sequela of previous osteomyelitis with a chronic osteomyelitis not excluded. No osseous destruction identified. Forefoot soft tissue swelling. Reading Location: [facility] CC: Dr. Noah Levin MD; Dr. Laney Jackson MD Special Delivery Carrier: Signed Normal [facility] Glomerular filtration rate ( GFR) estimation/1.73 sq m using serum, plasma, or whole bOrdered By: Laney Jackson on 02-01-2025 GFR/1.73 sq M.predicted among non-blacks MDRD (S/P/Bld) [Vol rate/Area] 95 mL/min/{1.73_m2} >[address] [facility] Comment on above: mL/min/1.73m2 CKD-EP I Creatinine Equation (2020) Gram Stainon 02-01-2025 GS List Antibiotics Last 48 Hours? none List Antibiotics to be Started? none Gram Stain 1+ Gram positive cocci Normal [facility] Comment on above: Performed By: #### M 100.4001, M100.2000, M100.3000 #### [facility] Laboratory [address] [place], [place], [id number] Gram stainOrdered By: Olaf Jackson on 02-01-2025 Microscopic observation Gram stain Nom (Unsp spec) [facility] Hematocrit Auto (Bld) [Volum e fraction]Ordered By: Laney Jackson on 02-01-2025 Hematocrit (Bld) [Volume fraction] 37.8 % 37-47 [facility] Hemoglobin A1con 02-01-2025 HbA1c (Bld) [Mass fraction] 7.6 % High <=5.6 [facility] Comment on above: Result Comment: Norm al < 5.7 % Prediabetic 5.7 - 6.4 % Diabetic >or= 6.5 % Please note range changes. Performed By: #### L 501.9985, L500.4050, L101.9900, L100.0100, L501.6710, L3300.6400 #### [facility] Laboratory [address] [place], [address] Hemoglobin A1c percentageOrd ered By: Laney Jackson on 02-01-2025 HbA1c (Bld) [Mass fraction] 7.6 % High <5.7 [facility] Comment on above: Normal < 5.7 % Predi abetic 5.7 - 6.4 % Diabetic >or= 6.5 % Please note range changes. Hemoglobin measurementOrdere d By: Laney Jackson on 02-01-2025 Hemoglobin (Bld) [Mass/Vol] 12.7 g/dL 12.0-15.0 [facility] Immature granulocytes/100 WB C Auto (Bld)Ordered By: Laney Jackson on 02-01-2025 Immature granulocytes/100 WBC (Bld) 0.600 % 0.0-0.9 [facility] Comment on above: IG% - Immature Granu locytes (promyelocytes, myelocytes and metamyelocytes) > 1% indicates that a LEFT SHIFT is Present. Laboratory - Chemistry and C hemistry - challengeOrdered By: Laney Jackson on 02-01-2025 AST [Catalytic activity/Vol] 21 U/L <32 [facility] MCV (mean corpuscular volume ) determinationOrdered By: Laney Jackson on 02-01-2025 MCV (RBC) [Entitic vol] 87.1 fL 81-99 [facility] Mean corpuscular hemoglobin (MCH) determinationOrdered By: Laney Jackson on 02-01-2025 MCH (RBC) [Entitic mass] 29.3 pg 27.0-32.0 [facility] Mean corpuscular hemoglobin concentration (MCHC) determinationOrdered By: Laney Jackson on 02-01-2025 MCHC (RBC) [Mass/Vol] 33.6 g/dL 32-36 [facility] Mean platelet volume determi nationOrdered By: Laney Jackson on 02-01-2025 Platelet mean volume (Bld) [Entitic vol] 10.7 fL 6.2-12.0 [facility] Monocyte percentageOrdered B y: Laney Jackson on 02-01-2025 Monocytes/100 WBC (Bld) 6.8 % 0-10 [facility] Neutrophil percentageOrdered By: Laney Jackson on 02-01-2025 Neutrophils/100 WBC (Bld) 60.1 % 47-70 [facility] Nucleated red blood cell per centageOrdered By: Laney Jackson on 02-01-2025 Nucleated RBC/100 WBC (Bld) [Ratio] 0 % 0-5 [facility] Platelet countOrdered By: Tianna Jackson on 02-01-2025 Platelets (Bld) [#/Vol] 312 10*3/uL 150-450 [facility] Potassium measurement (mass/ volume)Ordered By: Laney Jackson on 02-01-2025 Potassium (Unsp spec) [Mass/Vol] 4.2 mmol/L 3.3-5.1 [facility] RBC Auto (Bld) [#/Vol]Ordere d By: Laney Jackson on 02-01-2025 RBC (Bld) [#/Vol] 4.34 10*6/uL 4.2-5.4 [facility] Routine wound cultureOrdered By: Laney Jackson on 02-01-2025 Microbial culture, routine Streptococcus agalactiae (B) Abnormal [facility] Serum creatinine measurement (mass/volume)Ordered By: Laney Jackson on 02-01-2025 Creatinine [Mass/Vol] 0.71 mg/dL 0.70-1.20 [facility] Serum globulin measurementOr dered By: Laney Jackson on 02-01-2025 Globulin (S) [Mass/Vol] 2.8 g/dL 2.2-4.2 [facility] Serum glucose measurement (m ass/volume)Ordered By: Laney Jackson on 02-01-2025 Glucose [Mass/Vol] 127 mg/dL High 70-99 [facility] Serum or plasma C reactive p rotein measurement (mass/volume)Ordered By: Laney Jackson on 02-01-2025 CRP [Mass/Vol] 4.76 mg/L High 0.0-3.0 [facility] Serum or plasma alanine escamilla otransferase (ALT) measurementOrdered By: Laney Jackson on 02-01-2025 ALT [Catalytic activity/Vol] 17 U/L <35 [facility] Serum or plasma albumin alma urement (mass/volume)Ordered By: Laney Jackson on 02-01-2025 Albumin [Mass/Vol] 4.1 g/dL 3.4-4.8 [facility] Serum or plasma albumin/glob ulin mass ratioOrdered By: Laney Jackson on 02-01-2025 Albumin/Globulin [Mass ratio] 1.5 {ratio} 0.9-2.4 [facility] Serum or plasma alkaline chayo sphatase measurementOrdered By: Laney Jackson on 02-01-2025 ALP [Catalytic activity/Vol] 88 U/L 35-104 [facility] Serum or plasma calcium alma urement (mass/volume)Ordered By: Laney Jackson on 02-01-2025 Calcium [Mass/Vol] 8.9 mg/dL 7.6-11.0 [facility] Serum or plasma urea nitroge n measurement (mass/volume)Ordered By: Laney Jackson on 02-01-2025 Urea nitrogen [Mass/Vol] 12 mg/dL 4-19 [facility] Serum prealbumin measurement by immunoassayOrdered By: Laney Jackson on 02-01-2025 Prealbumin [Mass/Vol] 25 mg/dL 10-36 [facility] Comment on above: Performed at: [address] [id number] Director: Aly Haynes PhD, Phone: [phone] Sodium levelOrdered By: Sarah Jackson on 02-01-2025 Sodium [Moles/Vol] 140 mmol/L 133-145 [facility] Total proteinOrdered By: Sal Jackson on 02-01-2025 Protein [Mass/Vol] 6.9 g/dL 5.9-8.4 [facility] White blood cell (WBC) count Ordered By: Laney Jackson on 02-01-2025 WBC (Bld) [#/Vol] 9.7 10*3/uL 4.4-11.0 [facility] History AND Physic riki 02-01-2025 Wound Ctr History & Physical [facility] [address] [place] [address] H P Exam - Wound Care 02/01/25 1248 MR#: [id number] Acct: [id number] Name: SHERRI BRASHER Rep #: [id number] : 1960 64 From: Laney Jackson MD PCP: Dr. Noah Levin MD Status:REG RCR Location: History of Present Illness Date of Service: 02/01/25 Chief Complaint: Left foot ulcer History of Wound: Ms. Brasher is a 64-year-old who presents to the wound center due to nonhealing left foot ulcer. Believes that it started almost 2 months ago. Just noted it. No known precipitating factor. Does not have as much feeling in her foot due to diabetes. Prior history of diabetic foot surgery/amputation. She states that over the last 2 months, she has been applying peroxide however due to none improvement her daughter recommended she come to the wound center. Had seen podiatry in the past but last saw podiatry a few years ago. She states that she was given a however it was too tight so she does not wear these. Walks barefooted at home. Not sure about her diabetes control but reports compliance with her medication. Feels well otherwise. Reports a good diet [facility] Medical History (Updated 02/01/25 @ 13:[address] Laney Jackson MD) History of necrotizing fasciitis Obesity Deep wound infection of the left foot Home Medications ???Medication ???Instructions ???Recorded ???Last Taken ???Type glimepiride 4 mg tablet 4 mg PO DAILY diabetes 01/31/20 Un known History pioglitazone 45 mg tablet 90 mg PO DAILY diabetes 01/31/20 U nknown History metoprolol tartrate 25 mg tablet 25 mg PO BID #60 tabs 02/07/20 Unk nown Rx amlodipine 10 mg tablet 5 mg PO DAILY 02/01/25 Unknown His tory metformin 500 mg tablet,extended 1,000 mg PO BID 02/01/25 Unknown H istory release 24 hr ramipril 5 mg capsule (Altace) 5 mg PO DAILY 02/01/25 Unknown His tory rosuvastatin 20 mg tablet (Crestor) 20 mg PO .COMPLEX 02/01/25 Unkn own History Allergy/AdvReac Type Severity Reaction Status Date / Time No Known Allergies Allergy Verified 02/01/25 09:35 Surgical History (Updated 02/01/25 @ 13:[address] Laney Jackson MD) History of partial amputation of toe of left foot Social History Smoking Status: Former smoker ROS Constitutional Constitutional: Denies anorexia, body ache(s), fatigue, fever(s), frequent falls or headache(s) Eyes Eyes: Denies blindness, blind spots, change in eye color, change in vision, discharge from eye(s) or discongugate gaze ENT HEENT: Denies bleeding gums, change in voice, dysphagia, ear discharge, facial pain, foreign body in nose, halitosis or headache(s) Cardiovascular Cardiovascular: Denies abdominal pain, chest pain with activity, claudication, clubbing, cold extremities, cyanosis, dyspnea on exertion, easily tiring during activity or flutter in chest Respiratory/Chest Respiratory/Chest: Denies change in mental status, change in phlegm color, chest congestion, chest tightness, hoarseness, inability to speak or nail bed cyanosis Gastrointestinal Gastrointestinal: Denies abdominal pain, change in bowel habits, chewing difficulty, coffee ground emesis, dry heaves or fecal incontinence Genitourinary Genitourinary: Denies abdominal discomfort, burning urination, difficulty urinating or flank pain Musculoskeletal Musculoskeletal: Denies joint stiffness, muscle spasms, muscle weakness, stiffness, tingling or tremors Integumentary Integumentary: Reports skin ulcer; Denies change in hair, changing lesions, erythema, hirsutism or jaundice Neurologic Neurologic: Denies abnormal speech, behavior changes, frequent falls, lack of coordination, memory loss or numbness Psychiatric Psychiatric: Denies auditory hallucinations, behavioral changes, change in appetite, cognitive impairment, confusion, difficulty concentrating or hallucinations Endocrine Endocrinology: Denies cold intolerance, deepening of the voice, excessive sweating, fatigue or flushing Hematologic/Lymphat ic Hematologic/Lymphat ic: Denies easy bleeding or lymphadenopathy Allergic/Immunologi c Allergic/Immunologi c: Denies lip swelling, rhinitis, throat swelling, tongue swelling, hives or wheezing Vital Signs Vital Signs Vital Signs: 02/01/25 09:23 Temperature 97.4 F L Temperature Source Temporal Pulse Rate 64 Respiratory Rate 16 Blood Pressure 166/67 H Blood Pressure Mean 100 Blood Pressure Source Monitor Blood Pressure Position Semi-Fowlers Blood Pressure Location Right Arm Weight Weight: 256 lb Body Mass Index (BMI) 50.0 Physical Exam Const alert, oriented x3 and no apparent distress General Appearance: cooperative, comfortable and well kempt HEENT normocephalic and head/scalp atraumatic Head and Scalp: normal to inspection Ey (more content not included)... Normal [facility] Vital Signs Date Time Vital Sign Value Performing Clinician Faci lity 02-28-2025 08:31-0400 Body mass index (BMI) [Ratio] 50 kg/m2 Dr. Noah Levin DO Work Phone: [facility] 02-28-2025 08:31-0400 Body temperature 97.3 [degF] Dr. Noah Levin DO Work Phone: [facility] 02-28-2025 08:31-0400 Diastolic blood pressure 55 mm[Hg] Dr. Noah Levin DO Work Phone: [facility] 02-28-2025 08:31-0400 Heart rate 74 /min Dr. Noah Levin DO Work Phone: [facility] 02-28-2025 08:31-0400 Respiratory rate 16 /min Dr. Noah Levin DO Work Phone: [facility] 02-28-2025 08:31-0400 Systolic blood pressure 138 mm[Hg] Dr. Noah Levin DO Work Phone: [facility] 02-01-2025 09:23-0400 Body height 152.[address] Noah Levin DO Work Phone: [facility] 02-01-2025 09:23-0400 Body weight 116.[address] Noah Levin DO Work Phone: [facility] Encounters Encounter Date Encounter Type Care Provider Facility Start: 03-29-2025 ambulatory [facility] Facility: [facility] Start: 03-21-2025 ambulatory [facility] Facility: [facility] Start: 02-28-2025 End: 03-03-[address] Noah Levin DO Work Phone: [facility] Work Phone: Start: 02-28-2025 End: 03-03-[address] Laney Jackson MD [facility] Work Phone: Start: 02-15-2025 ambulatory Laney Thacker ty:[facility] Start: 02-15-2025 Non-patient / Non-visit Dr. Tianna Jackson MD -[facility] Work Phone: Start: 02-08-2025 ambulatory Laney Thacker ty:[facility] Start: 02-08-2025 Non-patient / Non-visit Dr. Tianna Jackson MD -[facility] Work Phone: Start: 02-01-2025 ambulatory Laney Thacker ty:[facility] Start: 02-01-2025 Non-patient / Non-visit Dr. Tianna Jackson MD -[facility] Work Phone: Procedures Date Procedure Procedure Detail Performing Clinician Start: 02-01-[address] Noah Levin DO Work Phone: Start: 02-01-2025 Gram stain microscopy D kathleen Levin DO Work Phone: Start: 02-01-2025 End: 02-01-2025 Microbial culture, routine Dr. Noah Levin DO Work Phone: Start: 02-01-2025 X-ray of foot, three or more views Dr. Noah Levin DO Work Phone: Start: 02-01-[address] Noah Levin DO Work Phone: Payers Date Payer Category Payer Unknown [id number] 2025 Self-pay Unknown [id number] [id number] Unknown [id number] 2.16.8 [id number] Unknown [id number] 2.16.8 [id number] Unknown [id number] 2.16.8 [id number] Unknown [id number] 2.16.8 [id number] Unknown [id number] 2.16.8 [id number] Social History Date Type Detail Facility Start: 02-01-2025 Tobacco smoking stat [facility] Ex-smoker (finding) [facility] Start: 01-31-2020 Alcohol Alcohol [facility] Start: 01-31-2020 Lives Lives [facility] Start: 01-31-2020 Tobacco Use Tobacco Use [facility] Start: 1960 Sex Assigned At Female [facility] Clinical Notes 02-02-2025 to 02-28-2025 Note Date & Type Note Facility 02-28-2025 Progress note Note Date/Time February 28, 2025 11:37am [facility] [address] [place] [address] Progress Note - Wound Care 02/28/25 1135 MR#: [id number] Acct: [id number] Name: SHERRI BRASHER Rep #:[id number] : 1960 64 From: Roberto BOTELLO PCP: Dr. Noah Levin MD Status:REG R CR Location: History of Present Illness Date of Service: 02/28/25 Chief Complaint: Left foot ulcer History of Wound: Ms. Brasher is a 64-year-old who presents to the wound center due to nonhealing left foot ulcer. Believes that it started almost 2 months ago. Just noted it. No known precipitating factor. Does not have as much feeling in her foot due to diabetes. Prior history of diabetic foot surgery/amputation. She states that over the last 2 months, she has been applying peroxide however due to none improvement her daughter recommended she come to the wound center. Had seen podiatry in the past but last saw podiatry afew years ago. She states that she was given a however it was too tight so she does not wear these. Walks barefooted at home. Not sure about her diabetes control but reports compliance with her medication. Feels well otherwise. Reports a good diet Progress of Wound: Full-thickness wound plantar aspect left foot stable no sign of infection. Subjective Subjective Patient is a 64-year-old diabetic female presented wound care center today for follow-up evaluation of plantar full-thickness wound left foot. She has been compliant with dressing changes. She does admit to walking more than usual and admits to some drainage to the area. Denies any redness or pain. Blood sugars been well-controlled. Denies trauma. Denies constitutional symptoms. No otherpedal complaints at this time. Objective Data Objective Data Vital Signs: Vital Signs Temp Pulse Resp BP O2 Del Method 97.3 F L 74 16 138/55 H Room Air 02/28/25 08:31 02/28/25 08:31 02/28/25 08:31 02/28/25 08:31 02/28/25 08:31 Oxygen Delivery Method Room Air Weight: 116.12 kg Body Mass Index (BMI) 50.0 Lab / Micro Data 02/01/25 11:11 02/01/25 11:11 Micro: Microbiology 02/01/25 10:03 Wound - Left Foot Gram Stain - Final 02/01/25 10:03 Wound - Left Foot Wound Culture - Final Streptococcus agalactiae (B) Staphylococcus aureus [place] odontolyticus 02/01/25 10:03 Wound - Left Foot Anaerobic Culture - Final Bacteroides fragilis Anaerobic cocci Physical Exam Narrative Vascular: DP and PT pulse are palpable to left lower extremity. CFT is brisk. Skin, great is warm to warm from proximal ankle to distal digits left lower extremity. Skin is supple in nature. Neurological: Light touch intact. Protective station is diminished. Dermatological: Full-thickness wound to the plantar aspect of the subthird metatarsal head measuring 1.3 x 1.4 x 0.1 cm. Wound base is granular with no sign of infection. Negative probe to bone. Excisional debridement down to including subcutaneous tissue with a number 3 mm dermal curette to the plantar aspect left foot full-thickness wound done withoutincident.. Right measurement was 1.1 x 1.2 x 0.1 cm. Postdebridement measurement is 1.3 x 1.4 x 0.1 cm. Musculoskeletal: Evidence of cocked up second digit left foot secondary to flexor tenotomy. Evidence of hammertoe deformity to the third digit left foot. No pain on palpation to full-thickness wound plantar aspect left foot. No pain with calf pressure. Debridement Note Debridement Note Debridement Free Text: Excisional debridement down to including subcutaneous tissue with a number 3 mm dermal curette to the plantar aspect left foot full-thickness wound done without incident.. Right measurement was 1.1 x 1.2 x 0.1 cm. Postdebridement measurement is 1.3 x 1.4 x 0.1 cm. Post-Debridement Measurements and Additional Note: Post-Debridement Measurements/Treatment - Nurse 1 - General Ulcer Assessment Start: 02/01/25 09:21 Freq: Status: Active Protocol: CHRISTINA.CARLOS Activity Type Activity Date Activity User E-sign Co-sign Detail Recorded Client Recorded Date Recorded By Document 02/01/25 09:23 CP [id number] 02/01/25 09:35 CP Document 02/08/25 09:32 MT [id number] 02/08/25 09:41 MT Document 02/15/25 09:38 DL [id number] 02/15/25 09:46 DL Document 02/21/25 10:54 KW [id number] 02/21/25 10:58 KW Document 02/28/25 08:31 GM [id number] 02/28/25 08:32 GM 02/01/25 02/08/25 02/15/25 09:23 09:32 09:38 - Today's Visit Information Type of service Follow-up Visit Follow-up Visit Follow-up Visit (Physician/BIOINFORMATICS ASSOCIATE (Physician/BIOINFORMATICS ASSOCIATE (Physician/BIOINFORMATICS ASSOCIATE ) ) ) Arrival Mode Ambulatory Ambulatory Ambulatory Transfer Assistance None Accompanied by ELA Patient Identification Verified (Name & Yes Yes Yes ) Patient Requires Transmission-Based No No Precautions Safety Precautions Fall Prevention Finger Stick Blood Sugar(mg/dl) (if 124 120 indicated): Blood Sugar Stated by Stated by Patient Patient Height and Weight Height 5 ft Weight 116.12 kg Weight in Pounds 256.0 lbs Weight Measurement Method Standing Scale Body Mass Index (BMI) 50.0 50.0 50.0 BMI Classification Obese Obese Obese Vital Signs Temperature (97.8 F-99.1 F) 97.4 F L 97.4 F L 97.3 F L Temperature Source Temporal Temporal Temporal Pulse Rate (60-100) 64 71 69 Pulse Location Monitor Monitor Monitor Respiratory Rate (12-18) 16 18 18 Respiratory rate source Observation Observation Observation Oxygen Delivery Method Blood Pressure (90/60-120/80) 166/67 H 153/66 H 143/73 H Blood Pressure Mean (mm Hg) 100 95 96 Source Monitor Monitor Monitor Position Semi-Fowlers Sitting Blood Pressure Location Right Arm Left Arm History Since Last Visit- (Skip if this is Patient's initial visit) Have you changed medications since your No last visit? Any new allergies or adverse reactions No Had a fall/change in ADL's that may No increase risk of falls Signs or symptoms of abuse and/or No neglect since last visit Have you been in the hospital since your No last visit? Has dressing in place as prescribed Yes Yes Has compression in place as prescribed Yes No Has offloadiing in place as prescribed Yes N/A Experienced any changes in pain level or Yes No management Left Footwear Regular Shoe Regular Shoe Right Footwear Regular Shoe Regular Shoe Pain Scale: 0-10 Numeric Is Patient Pain Free? Yes Yes Yes Lower Extremity Assessment/ Foot Assessment/ Toe Nail Assessment Right -Posterior Tibial Palpable Yes -Posterior Tibial Doppler Multiphasic -Dorsalis Pedis Palpable Yes -Dorsalis Pedis Doppler Multiphasic -Extremity Color Normal -Hair Growth on Legs Yes -Hair Growth on Toes No -Temperature of Extremity Warm -Capillary Refill Less than 3 Seconds -Dependent Rubor No -Blanched when Elevated No -Prior Foot Ulcer No -Prior Amputation No -Thick Yes -Deformed Yes -Improper Length & Hygeine No Left -Posterior Tibial Palpable Yes -Posterior Tibial Doppler Multiphasic -Dorsalis Pedis Palpable Yes -Dorsalis Pedis Doppler Multiphasic -Extremity Color Normal -Hair Growth on Legs Yes -Hair Growth on Toes No -Temperature of Extremity Warm -Capillary Refill Less than 3 Seconds -Dependent Rubor No -Blanched when Elevated No -Lipodermatosclerosis No -Prior Foot Ulcer Yes -Prior Amputation Yes -Thick Yes -Deformed Yes -Improper Length & Hygeine No Neuropathy Assessment Feet - Top Side and Bottom <Entered> (a) Communication Assessment Preferred language Citizen Of [place] Network Management Specialist Required No Able to Read Yes Able to Write Yes Communication Tools None Caregiver Communication Skills No Impairment Impairment Right Hearing Abillity Normal Left Hearing Abillity Normal Visual Assistive Devices Glasses Teaching Assessment Preferences Verbal,Written, Demonstration Barriers to Learning Knowledge Deficit Readiness To Learn Excellent Willingness to Engage in Self Management High Activies Readiness to Engage in Self Management High Activities Anxiety Level Calm Cooperation Cooperative Perception Coherent Interest in Health Problem Asks Questions Education Importance Acknowledges Need Does Patient Smoke tobacco or other No substances Smoking Status Former smoker Is Patient Diabetic Yes Functional Assessment Recent Decline in Ability to Perform Denies Any Declines Culture/Quaker/Hand Sander Cultural/Quaker Needs that may affect No Treatment Plan 02/21/25 02/28/25 10:54 08:31 WC - Today's Visit Information Type of service Follow-up Visit Follow-up Visit (Physician/BIOINFORMATICS ASSOCIATE (Physician/BIOINFORMATICS ASSOCIATE ) ) Arrival Mode Ambulatory Ambulatory Transfer Assistance Accompanied by Patient Identification Verified (Name & Yes Yes ) Patient Requires Transmission-Based Precautions Safety Precautions Finger Stick Blood Sugar(mg/dl) (if indicated): Blood Sugar Height and Weight Height Weight Weight in Pounds Weight Measurement Method Body Mass Index (BMI) 50.0 50.0 BMI Classification Obese Obese Vital Signs Temperature (97.8 F-99.1 F) 98.9 F 97.3 F L Temperature Source Temporal Temporal Pulse Rate (60-100) 77 74 Pulse Location Monitor Monitor Respiratory Rate (12-18) 18 16 Respiratory rate source Observation Observation Oxygen Delivery Method Room Air Room Air Blood Pressure (90/60-120/80) 150/69 H 138/55 H Blood Pressure Mean (mm Hg) 96 82 Source Monitor Monitor Position Semi-Fowlers Semi-Fowlers Blood Pressure Location Right Arm Right Arm History Since Last Visit- (Skip if this is Patient's initial visit) Have you changed medications since your No No last visit? Any new allergies or adverse reactions No No Had a fall/change in ADL's that may No No increase risk of falls Signs or symptoms of abuse and/or No No neglect since last visit Have you been in the hospital since your No No last visit? Has dressing in place as prescribed Yes Yes Has compression in place as prescribed N/A N/A Has offloadiing in place as prescribed N/A N/A Experienced any changes in pain level or No Yes management Left Footwear Regular Shoe Regular Shoe Right Footwear Regular Shoe Regular Shoe Pain Scale: 0-10 Numeric Is Patient Pain Free? Yes Yes Lower Extremity Assessment/ Foot Assessment/ Toe Nail Assessment Right -Posterior Tibial Palpable -Posterior Tibial Doppler -Dorsalis Pedis Palpable -Dorsalis Pedis Doppler -Extremity Color -Hair Growth on Legs -Hair Growth on Toes -Temperature of Extremity -Capillary Refill -Dependent Rubor -Blanched when Elevated -Prior Foot Ulcer -Prior Amputation -Thick -Deformed -Improper Length & Hygeine Left -Posterior Tibial Palpable -Posterior Tibial Doppler -Dorsalis Pedis Palpable -Dorsalis Pedis Doppler -Extremity Color -Hair Growth on Legs -Hair Growth on Toes -Temperature of Extremity -Capillary Refill -Dependent Rubor -Blanched when Elevated -Lipodermatosclerosis -Prior Foot Ulcer -Prior Amputation -Thick -Deformed -Improper Length & Hygeine Neuropathy Assessment Feet - Top Side and Bottom Communication Assessment Preferred permit technician Required Able to Read Able to Write Communication Tools Caregiver Communication Skills Impairment Right Hearing Abillity Left Hearing Abillity Visual Assistive Devices Teaching Assessment Preferences Barriers to Learning Readiness To Learn Willingness to Engage in Self Management Activies Readiness to Engage in Self Management Activities Anxiety Level Cooperation Perception Interest in Health Problem Education Importance Does Patient Smoke tobacco or other substances Smoking Status Is Patient Diabetic Functional Assessment Recent Decline in Ability to Perform Culture/Quaker/Hand Sander Cultural/Quaker Needs that may affect Treatment Plan (a) 1 - - 2 - + 3 - + 4 - + WC - Nurse 1 - General Ulcer Measurement Start: 02/01/25 09:21 Freq: Status: Active Protocol: Activity Type Activity Date Activity User E-sign Co-sign Detail Recorded Client Recorded Date Recorded By Document 02/01/25 09:23 CP [id number] 02/01/25 09:35 CP Document 02/08/25 09:32 MT [id number] 02/08/25 09:41 MT Document 02/15/25 09:38 DL [id number] 02/15/25 09:46 DL Document 02/21/25 10:54 KW [id number] 02/21/25 10:58 KW Document 02/28/25 08:31 [id number] 02/28/25 08:32 GM 02/01/25 02/08/25 02/15/25 09:23 09:32 09:38 Wound Center Nurse 1 #1 L Plantar -Current Size (cm) - Length 1 1.5 1.1 -Current Size (cm) - Width 1.1 1.4 1 -Current Size (cm) - Depth 0.3 0.3 0.2 -Total Square Cm 1.1 2.10 1.1 -Date of Last Picture (Recall this 02/01/25 02/08/25 field) -Photo Taken Yes Yes -Epithelialization None Present Small 1-33% -Tunneling No No -Undermining/Tunneling Yes No -Undermining/Tunneling Starts (O'clock 11 2 ) -Undermining/Tunneling Ends (O'clock) 5 4 -Maximum Distance (cm) 0.5 0.2 -Circular Undermining Yes Yes -Exudate Amt Small Medium Medium -Exudate Type Serosanguineous Serosanguineous Serosanguineous -Wound Margin Thickened & Thickened & Distinct, Rolled Under Rolled Under Outline Attached -Granulation Amt Large (67-100%) Medium (34-66%) Large (67-100%) -Granulation Quality [place] Pale,[place] Red -Slough/Fibrin No -Necrosis Amt Medium (34-66%) Small (1-33%) -Necrotic Tissue Type Adherent Slough Adherent Slough -Structure Exposed N/A N/A -Texture (Kelsi-wound Skin Appearance) Callus Assessed,Callus Scarring -Moisture (Kelsi-wound Skin Appearance) No Abnormality Assessed Maceration -Color (Kelsi-wound Skin Appearance) No Abnormality Assessed No Abnormality -Temperature (Kelsi-wound Skin No Abnormality No Abnormality No Abnormality Appearance) (Pt Warm) (Pt Warm) (Pt Warm) -Tenderness on Palpation (Kelsi-wound No No No Skin Appearance) -Ulcer Cleansing Soap and Water Soap and Water Soap and Water -Foul Odor after Cleansing No No No -Anesthetic Used 5% Lidocaine 5% Lidocaine 5% Lidocaine Gel Gel Gel Left Calf (cm) 45 Left Ankle (cm) 27 02/21/25 02/28/25 10:54 08:31 Wound Center Nurse 1 #1 L Plantar -Current Size (cm) - Length 1 0.8 -Current Size (cm) - Width 0.8 0.6 -Current Size (cm) - Depth 0.2 0.1 -Total Square Cm 0.8 0.48 -Date of Last Picture (Recall this field) -Photo Taken No -Epithelialization None Present -Tunneling No -Undermining/Tunneling No -Undermining/Tunneling Starts (O'clock ) -Undermining/Tunneling Ends (O'clock) -Maximum Distance (cm) -Circular Undermining No -Exudate Amt Medium None Present -Exudate Type Serosanguineous -Wound Margin Distinct, Distinct, Outline Outline Attached Attached -Granulation Amt Large (67-100%) Medium (34-66%) -Granulation Quality Red Red -Slough/Fibrin No -Necrosis Amt Small (1-33%) -Necrotic Tissue Type Adherent Slough -Structure Exposed -Texture (Kelsi-wound Skin Appearance) Assessed,Callus Assessed,Callus -Moisture (Kelsi-wound Skin Appearance) Assessed, Assessed Maceration -Color (Kelsi-wound Skin Appearance) Assessed Assessed -Temperature (Kelsi-wound Skin No Abnormality No Abnormality Appearance) (Pt Warm) (Pt Warm) -Tenderness on Palpation (Kelsi-wound No No Skin Appearance) -Ulcer Cleansing Rinsed/ Rinsed/ Irrigated with Irrigated with Saline Saline -Foul Odor after Cleansing No No -Anesthetic Used 5% Lidocaine 5% Lidocaine Gel Gel Left Calf (cm) 45.4 Left Ankle (cm) 27 WC - Nurse 2 - General Ulcer CM Notes Start: 02/01/25 09:21 Freq: Status: Active Protocol: Activity Type Activity Date Activity User E-sign Co-sign Detail Recorded Client Recorded Date Recorded By Document 02/01/25 09:50 [id number] 02/01/25 10:04 Document 02/08/25 09:50 GM [id number] 02/08/25 09:59 Document 02/15/25 10:15 [id number] 02/15/25 10:50 Document 02/21/25 11:08 JF [id number] 02/21/25 11:16 Document 02/28/25 09:00 JF [id number] 02/28/25 09:03 02/01/25 02/08/25 02/15/25 09:50 09:50 10:15 Wound Center Nurse 2 #1 L Plantar -Time 09:51 09:50 10:18 -Correct Patient Yes Yes Yes -Correct Side, Site, Position Yes Yes Yes -Correct Procedure Yes Yes Yes -Procedure Performed Yes Yes Yes -Type of Procedure Debridement Debridement Debridement -Clinical Debridement Subcutaneous Subcutaneous Subcutaneous -Tissue Removed Subcutaneous Subcutaneous Subcutaneous -Post Debridement (cm) - Length 1.7 1.2 1.2 -Post Debridement (cm) - Width 1.0 1.0 1.0 -Post Debridement (cm) - Depth 0.4 0.3 0.3 -Total Square (Post) (cm) 1.70 1.20 1.20 -Area of Debridement (cm) - Length 1.7 1.2 1.2 -Area of Debridement (cm) - Width 1.0 1.0 1.0 -Total Square (Area) (cm) 1.70 1.20 1.20 -Tunneling Yes Yes Yes -Tunneling Position (O'clock) 2 2 2 -Tunneling Distance (cm) 0.5 0.5 0.4 -Undermining/Tunneling No No No -Circular Undermining No No No -Wound/Ulcer Outcome Not Healed Not Healed Not Healed -Ulcer Cleansing Rinsed/ Rinsed/ Rinsed/ Irrigated with Irrigated with Irrigated with Saline Saline Saline -Foul Odor after Cleansing No No No -Bioengineered Tissue No No No -Bleeding Controlled with Pressure Pressure Pressure -Treatment Response Procedure Procedure Procedure Tolerated Well Tolerated Well Tolerated Well -Offloading No Yes No -Type of Offloading Surgical Shoe -Total Non-Weight Bearing to Left Lower Extremity -Debridement - Subq, 1st 20sq cm Yes Yes Yes Pain Scale: 0-10 Numeric Is Patient Pain Free? Yes Yes Yes 02/21/25 02/28/25 11:08 09:00 Wound Center Nurse 2 #1 L Plantar -Time 11:08 09:00 -Correct Patient Yes Yes -Correct Side, Site, Position Yes Yes -Correct Procedure Yes Yes -Procedure Performed Yes Yes -Type of Procedure Debridement Debridement -Clinical Debridement Subcutaneous Subcutaneous -Tissue Removed Subcutaneous Subcutaneous -Post Debridement (cm) - Length 1.1 1.3 -Post Debridement (cm) - Width 1.1 1.4 -Post Debridement (cm) - Depth 0.1 0.1 -Total Square (Post) (cm) 1.21 1.82 -Area of Debridement (cm) - Length 1.1 1.3 -Area of Debridement (cm) - Width 1.1 1.4 -Total Square (Area) (cm) 1.21 1.82 -Tunneling No No -Tunneling Position (O'clock) -Tunneling Distance (cm) -Undermining/Tunneling No No -Circular Undermining No No -Wound/Ulcer Outcome Not Healed Not Healed -Ulcer Cleansing Rinsed/ Rinsed/ Irrigated with Irrigated with Saline Saline -Foul Odor after Cleansing No No -Bioengineered Tissue No No -Bleeding Controlled with Pressure Pressure -Treatment Response Procedure Procedure Tolerated Well Tolerated Well -Offloading No No -Type of Offloading -Total Non-Weight Bearing to -Debridement - Subq, 1st 20sq cm Yes Yes Pain Scale: 0-10 Numeric Is Patient Pain Free? Yes Yes WC - Nurse 3 - General Ulcer D/C NN Start: 02/01/25 09:21 Freq: Status: Active Protocol: Activity Type Activity Date Activity User E-sign Co-sign Detail Recorded Client Recorded Date Recorded By Document 02/01/25 10:35 CP [id number] 02/01/25 10:37 CP Edit Result 02/01/25 10:35 CP (1) [id number] 02/01/25 11:53 CP Document 02/08/25 10:31 RB [id number] 02/08/25 10:32 RB Document 02/15/25 10:54 KW [id number] 02/15/25 10:54 KW Document 02/21/25 11:24 CP [id number] 02/21/25 11:25 CP Document 02/28/25 09:09 KW [id number] 02/28/25 09:10 KW (1) #1 L Plantar - Primary Dressing Applied Fibracol Plus 4x4 => Fibracol Plus 4x4, => Silicone Border => Foam 4x4 BLE - Tubular Bandage => Double Layer - Size of Tubigrip Used => Size F - Size F ($) => 2 02/01/25 02/08/25 02/15/25 10:35 10:31 10:54 Wound Care Center Nurse 3 #1 L Plantar -Ulcer Cleansing Rinsed/ Rinsed/ Irrigated with Irrigated with Saline Saline -Foul Odor after Cleansing No -Primary Dressing Applied Fibracol Plus Fibracol Plus Fibracol Plus 4x4,Silicone 4x4,Silicone 4x4,Silicone Border Foam 4x4 Border Foam 4x4 Border Foam 4x4 -Other Dressing -Fibracol Plus 4x4 1 1 1 -Silicone Border Foam 4x4 1 1 1 -Wound Comment(s) BLE -Tubular Bandage Double Layer -Size of Tubigrip Used Size F -Size F ($) 2 -Stockings Yes: PT OWN DOUBLE TUBIGRIP Treatment Response Procedure Tolerated Well Pain Scale: 0-10 Numeric Is Patient Pain Free? Yes Yes Yes WC - Visit Discharge Discharge Condition Stable Stable Stable Ambulatory Status Ambulatory Ambulatory Ambulatory Transportation Private Auto Private Auto Private Auto Accompanied by Medication Reconcilliation completed & No No provided to patient/care provider Clinical Summary of Care Provided Yes Yes Yes Orders Sent Yes 02/21/25 02/28/25 11:24 09:09 Wound Care Center Nurse 3 #1 L Plantar -Ulcer Cleansing Rinsed/ Irrigated with Saline -Foul Odor after Cleansing -Primary Dressing Applied -Other Dressing betadine bandaide -Fibracol Plus 4x4 -Silicone Border Foam 4x4 -Wound Comment(s) betadine paint to ulcer. cover with gauze BLE -Tubular Bandage -Size of Tubigrip Used -Size F ($) -Stockings Treatment Response Pain Scale: 0-10 Numeric Is Patient Pain Free? Yes Yes WC - Visit Discharge Discharge Condition Stable Stable Ambulatory Status Ambulatory Ambulatory Transportation Private Auto [employer] Auto Accompanied by Medication Reconcilliation completed & No provided to patient/care provider Clinical Summary of Care Provided Yes Yes Orders Sent Assessment/Plan Assessment/Plan (1) Non-pressure chronic ulcer of other part of left foot with fat layer exposed: CODE(S): L97.522 - Non-pressure chronic ulcer of other part of left foot with fat layer exposed PLAN: Patient was examined and evaluated. All findings were discussed with the patient. All questions were answered to the patient's satisfaction. Excisional debridement down to including subcutaneous tissue with a number 3 mm dermal curette to the plantar aspect left foot full-thickness wound done withoutincident.. Right measurement was 1.1 x 1.2 x 0.1 cm. Postdebridement measurement is 1.3 x 1.4 x 0.1 cm. Left foot was red clean and patted dry. Betadine paint was applied to full-thickness wound followed by dry sterile dressing. Patient continue daily dressing changes. We will plan for surgical intervention to the left foot on April 15, 2025. Surgery will consist of minimally invasive dorsiflex the osteotomy to the 2nd and 3rd metatarsal as well as amniotic skin graft substitute in preparation withflexor tenotomy and capsulotomy of the second metatarsophalangeal joint left foot. All risk and benefit discussed with the patient great detail. Follow-up at the wound care center with Dr. Pham in 1 week. (2) Hammer toe of left foot: CODE(S): M20.42 - Other hammer toe(s) (acquired), left foot (3) Acute painful diabetic polyneuropathy: CODE(S): E11.42 - Type 2 diabetes mellitus with diabetic polyneuropathy 02/28/25 1137 <Electronically signed by Roberto Pham DPRenny> Cosigner Signature (if applicable): CC: ~ Signed [facility] Work Phone: 1(326) 685-355605-28-2025 Progress note [facility] [address] [place] [address] Progress Note - Wound Care 02/28/25 1135 MR#: [id number] Acct: [id number] Name: SHERRI BRASHER Rep #:[id number] : 1960 64 From: Roberto Pickering PM PCP: Dr. Noah Levin MD Status:REG R CR Location: History of Present Illness Date of Service: 02/28/25 Chief Complaint: Left foot ulcer History of Wound: Ms. Brasher is a 64-year-old who presents to the wound center due to nonhealing left foot ulcer. Believes that it started almost 2 months ago. Just noted it. No known precipitating factor. Does not have as much feeling in her foot due to diabetes. Prior history of diabetic foot surgery/amputation. She states that over the last 2 months, she has been applying peroxide however due to none improvement her daughter recommended she come to the wound center. Had seen podiatry in thepast but last saw podiatry afew years ago. She states that she was given a however it was too tightso she does not wear these. Walks barefooted at home. Not sure about her diabetes control but reports compliance with her medication. Feels well otherwise. Reports a good diet Progress of Wound: Full-thickness wound plantar aspect left foot stable no sign of infection. Subjective Subjective Patient is a 64-year-old diabetic female presented wound care center today for follow-up evaluationof plantar full-thickness wound left foot. She has been compliant with dressing changes. She does admit to walking more than usual and admits to some drainage to the area. Denies any redness or pain.Blood sugars been well-controlled. Denies trauma. Denies constitutional symptoms. No otherpedal complaints at this time. Objective Data Objective Data Vital Signs: Vital Signs Temp Pulse Resp BP O2 Del Method 97.3 F L 74 16 138/55 H Room Air 02/28/25 08:31 02/28/25 08:31 02/28/25 08:31 02/28/25 08:31 02/28/25 08:31 Oxygen Delivery Method Room Air Weight: 116.12 kg Body Mass Index (BMI) 50.0 Lab / Micro Data 02/01/25 11:11 02/01/25 11:11 Micro: Microbiology 02/01/25 10:03 Wound - Left Foot Gram Stain - Final 02/01/25 10:03 Wound - Left Foot Wound Culture - Final Streptococcus agalactiae (B) Staphylococcus aureus [place] odontolyticus 02/01/25 10:03 Wound - Left Foot Anaerobic Culture - Final Bacteroides fragilis Anaerobic cocci Physical Exam Narrative Vascular: DP and PT pulse are palpable to left lower extremity. CFT is brisk. Skin, great is warm to warm from proximal ankle to distal digits left lower extremity. Skin is supple in nature. Neurological: Light touch intact. Protective station is diminished. Dermatological: Full-thickness wound to the plantar aspect of the subthird metatarsal head measuring 1.3 x 1.4 x 0.1 cm. Wound base is granular with no sign of infection. Negative probe to bone. Excisional debridement down to including subcutaneous tissue with a number 3 mm dermal curette to the plantar aspect left foot full-thickness wound done withoutincident.. Right measurement was 1.1 x 1.2 x 0.1 cm. Postdebridement measurement is 1.3 x 1.4 x 0.1 cm. Musculoskeletal: Evidence of cocked up second digit left foot secondary to flexor tenotomy. Evidence of hammertoe deformity to the third digit left foot. No pain on palpation to full-thickness wound plantar aspect left foot. No pain with calf pressure. Debridement Note Debridement Note Debridement Free Text: Excisional debridement down to including subcutaneous tissue with a number 3mm dermal curette to the plantar aspect left foot full- thickness wound done without incident.. Right measurement was 1.1 x 1.2 x 0.1 cm. Postdebridement measurement is 1.3 x 1.4 x 0.1 cm. Post-Debridement Measurements and Additional Note: Post-Debridement Measurements/Treatment - Nurse 1 - General Ulcer Assessment Start: 02/01/25 09:21 Freq: Status: Active Protocol: CHRISTINA.CARLOS Activity Type Activity Date Activity User E-sign Co-sign Detail Recorded Client Recorded Date Recorded By Document 02/01/25 09:23 CP [id number] 02/01/25 09:35 CP Document 02/08/25 09:32 MT [id number] 02/08/25 09:41 MT Document 02/15/25 09:38 DL [id number] 02/15/25 09:46 DL Document 02/21/25 10:54 KW [id number] 02/21/25 10:58 KW Document 02/28/25 08:31 GM [id number] 02/28/25 08:32 GM 02/01/25 02/08/25 02/15/25 09:23 09:32 09:38 - Today's Visit Information Type of service Follow-up Visit Follow-up Visit Follow-up Visit (Physician/BIOINFORMATICS ASSOCIATE (Physician/BIOINFORMATICS ASSOCIATE (Physician/BIOINFORMATICS ASSOCIATE ) ) ) Arrival Mode Ambulatory Ambulatory Ambulatory Transfer Assistance None Accompanied by ELA Patient Identification Verified (Name & Yes Yes Yes ) Patient Requires Transmission-Based No No Precautions Safety Precautions Fall Prevention Finger Stick Blood Sugar(mg/dl) (if 124 120 indicated): Blood Sugar Stated by Stated by Patient Patient Height and Weight Height 5 ft Weight 116.12 kg Weight in Pounds 256.0 lbs Weight Measurement Method Standing Scale Body Mass Index (BMI) 50.0 50.0 50.0 BMI Classification Obese Obese Obese Vital Signs Temperature (97.8 F-99.1 F) 97.4 F L 97.4 F L 97.3 F L Temperature Source Temporal Temporal Temporal Pulse Rate (60-100) 64 71 69 Pulse Location Monitor Monitor Monitor Respiratory Rate (12-18) 16 18 18 Respiratory rate source Observation Observation Observation Oxygen Delivery Method Blood Pressure (90/60-120/80) 166/67 H 153/66 H 143/73 H Blood Pressure Mean (mm Hg) 100 95 96 Source Monitor Monitor Monitor Position Semi-Fowlers Sitting Blood Pressure Location Right Arm Left Arm History Since Last Visit- (Skip if this is Patient's initial visit) Have you changed medications since your No last visit? Any new allergies or adverse reactions No Had a fall/change in ADL's that may No increase risk of falls Signs or symptoms of abuse and/or No neglect since last visit Have you been in the hospital since your No last visit? Has dressing in place as prescribed Yes Yes Has compression in place as prescribed Yes No Has offloadiing in place as prescribed Yes N/A Experienced any changes in pain level or Yes No management Left Footwear Regular Shoe Regular Shoe Right Footwear Regular Shoe Regular Shoe Pain Scale: 0-10 Numeric Is Patient Pain Free? Yes Yes Yes Lower Extremity Assessment/ Foot Assessment/ Toe Nail Assessment Right -Posterior Tibial Palpable Yes -Posterior Tibial Doppler Multiphasic -Dorsalis Pedis Palpable Yes -Dorsalis Pedis Doppler Multiphasic -Extremity Color Normal -Hair Growth on Legs Yes -Hair Growth on Toes No -Temperature of Extremity Warm -Capillary Refill Less than 3 Seconds -Dependent Rubor No -Blanched when Elevated No -Prior Foot Ulcer No -Prior Amputation No -Thick Yes -Deformed Yes -Improper Length & Hygeine No Left -Posterior Tibial Palpable Yes -Posterior Tibial Doppler Multiphasic -Dorsalis Pedis Palpable Yes -Dorsalis Pedis Doppler Multiphasic -Extremity Color Normal -Hair Growth on Legs Yes -Hair Growth on Toes No -Temperature of Extremity Warm -Capillary Refill Less than 3 Seconds -Dependent Rubor No -Blanched when Elevated No -Lipodermatosclerosis No -Prior Foot Ulcer Yes -Prior Amputation Yes -Thick Yes -Deformed Yes -Improper Length & Hygeine No Neuropathy Assessment Feet - Top Side and Bottom (a) Communication Assessment Preferred language Citizen Of [place] Network Management Specialist Required No Able to Read Yes Able to Write Yes Communication Tools None Caregiver Communication Skills No Impairment Impairment Right Hearing Abillity Normal Left Hearing Abillity Normal Visual Assistive Devices Glasses Teaching Assessment Preferences Verbal,Written, Demonstration Barriers to Learning Knowledge Deficit Readiness To Learn Excellent Willingness to Engage in Self Management High Activies Readiness to Engage in Self Management High Activities Anxiety Level Calm Cooperation Cooperative Perception Coherent Interest in Health Problem Asks Questions Education Importance Acknowledges Need Does Patient Smoke tobacco or other No substances Smoking Status Former smoker Is Patient Diabetic Yes Functional Assessment Recent Decline in Ability to Perform Denies Any Declines Culture/Quaker/Hand Sander Cultural/Quaker Needs that may affect No Treatment Plan 02/21/25 02/28/25 10:54 08:31 WC - Today's Visit Information Type of service Follow-up Visit Follow-up Visit (Physician/BIOINFORMATICS ASSOCIATE (Physician/BIOINFORMATICS ASSOCIATE ) ) Arrival Mode Ambulatory Ambulatory Transfer Assistance Accompanied by Patient Identification Verified (Name & Yes Yes ) Patient Requires Transmission-Based Precautions Safety Precautions Finger Stick Blood Sugar(mg/dl) (if indicated): Blood Sugar Height and Weight Height Weight Weight in Pounds Weight Measurement Method Body Mass Index (BMI) 50.0 50.0 BMI Classification Obese Obese Vital Signs Temperature (97.8 F-99.1 F) 98.9 F 97.3 F L Temperature Source Temporal Temporal Pulse Rate (60-100) 77 74 Pulse Location Monitor Monitor Respiratory Rate (12-18) 18 16 Respiratory rate source Observation Observation Oxygen Delivery Method Room Air Room Air Blood Pressure (90/60-120/80) 150/69 H 138/55 H Blood Pressure Mean (mm Hg) 96 82 Source Monitor Monitor Position Semi-Fowlers Semi-Fowlers Blood Pressure Location Right Arm Right Arm History Since Last Visit- (Skip if this is Patient's initial visit) Have you changed medications since your No No last visit? Any new allergies or adverse reactions No No Had a fall/change in ADL's that may No No increase risk of falls Signs or symptoms of abuse and/or No No neglect since last visit Have you been in the hospital since your No No last visit? Has dressing in place as prescribed Yes Yes Has compression in place as prescribed N/A N/A Has offloadiing in place as prescribed N/A N/A Experienced any changes in pain level or No Yes management Left Footwear Regular Shoe Regular Shoe Right Footwear Regular Shoe Regular Shoe Pain Scale: 0-10 Numeric Is Patient Pain Free? Yes Yes Lower Extremity Assessment/ Foot Assessment/ Toe Nail Assessment Right -Posterior Tibial Palpable -Posterior Tibial Doppler -Dorsalis Pedis Palpable -Dorsalis Pedis Doppler -Extremity Color -Hair Growth on Legs -Hair Growth on Toes -Temperature of Extremity -Capillary Refill -Dependent Rubor -Blanched when Elevated -Prior Foot Ulcer -Prior Amputation -Thick -Deformed -Improper Length & Hygeine Left -Posterior Tibial Palpable -Posterior Tibial Doppler -Dorsalis Pedis Palpable -Dorsalis Pedis Doppler -Extremity Color -Hair Growth on Legs -Hair Growth on Toes -Temperature of Extremity -Capillary Refill -Dependent Rubor -Blanched when Elevated -Lipodermatosclerosis -Prior Foot Ulcer -Prior Amputation -Thick -Deformed -Improper Length & Hygeine Neuropathy Assessment Feet - Top Side and Bottom Communication Assessment Preferred permit technician Required Able to Read Able to Write Communication Tools Caregiver Communication Skills Impairment Right Hearing Abillity Left Hearing Abillity Visual Assistive Devices Teaching Assessment Preferences Barriers to Learning Readiness To Learn Willingness to Engage in Self Management Activies Readiness to Engage in Self Management Activities Anxiety Level Cooperation Perception Interest in Health Problem Education Importance Does Patient Smoke tobacco or other substances Smoking Status Is Patient Diabetic Functional Assessment Recent Decline in Ability to Perform Culture/Quaker/Hand Sander Cultural/Quaker Needs that may affect Treatment Plan (a) 1 - - 2 - + 3 - + 4 - + WC - Nurse 1 - General Ulcer Measurement Start: 02/01/25 09:21 Freq: Status: Active Protocol: Activity Type Activity Date Activity User E-sign Co-sign Detail Recorded Client Recorded Date Recorded By Document 02/01/25 09:23 CP [id number] 02/01/25 09:35 CP Document 02/08/25 09:32 MT [id number] 02/08/25 09:41 MT Document 02/15/25 09:38 DL [id number] 02/15/25 09:46 DL Document 02/21/25 10:54 KW [id number] 02/21/25 10:58 KW Document 02/28/25 08:31 [id number] 02/28/25 08:32 02/01/25 02/08/25 02/15/25 09:23 09:32 09:38 Wound Center Nurse 1 #1 L Plantar -Current Size (cm) - Length 1 1.5 1.1 -Current Size (cm) - Width 1.1 1.4 1 -Current Size (cm) - Depth 0.3 0.3 0.2 -Total Square Cm 1.1 2.10 1.1 -Date of Last Picture (Recall this 02/01/25 02/08/25 field) -Photo Taken Yes Yes -Epithelialization None Present Small 1-33% -Tunneling No No -Undermining/Tunneling Yes No -Undermining/Tunneling Starts (O'clock 11 2 ) -Undermining/Tunneling Ends (O'clock) 5 4 -Maximum Distance (cm) 0.5 0.2 -Circular Undermining Yes Yes -Exudate Amt Small Medium Medium -Exudate Type Serosanguineous Serosanguineous Serosanguineous -Wound Margin Thickened & Thickened & Distinct, Rolled Under Rolled Under Outline Attached -Granulation Amt Large (67-100%) Medium (34-66%) Large (67-100%) -Granulation Quality [place] Pale,[place] Red -Slough/Fibrin No -Necrosis Amt Medium (34-66%) Small (1-33%) -Necrotic Tissue Type Adherent Slough Adherent Slough -Structure Exposed N/A N/A -Texture (Kelsi-wound Skin Appearance) Callus Assessed,Callus Scarring -Moisture (Kelsi-wound Skin Appearance) No Abnormality Assessed Maceration -Color (Kelsi-wound Skin Appearance) No Abnormality Assessed No Abnormality -Temperature (Kelsi-wound Skin No Abnormality No Abnormality No Abnormality Appearance) (Pt Warm) (Pt Warm) (Pt Warm) -Tenderness on Palpation (Kelsi-wound No No No Skin Appearance) -Ulcer Cleansing Soap and Water Soap and Water Soap and Water -Foul Odor after Cleansing No No No -Anesthetic Used 5% Lidocaine 5% Lidocaine 5% Lidocaine Gel Gel Gel Left Calf (cm) 45 Left Ankle (cm) 27 02/21/25 02/28/25 10:54 08:31 Wound Center Nurse 1 #1 L Plantar -Current Size (cm) - Length 1 0.8 -Current Size (cm) - Width 0.8 0.6 -Current Size (cm) - Depth 0.2 0.1 -Total Square Cm 0.8 0.48 -Date of Last Picture (Recall this field) -Photo Taken No -Epithelialization None Present -Tunneling No -Undermining/Tunneling No -Undermining/Tunneling Starts (O'clock ) -Undermining/Tunneling Ends (O'clock) -Maximum Distance (cm) -Circular Undermining No -Exudate Amt Medium None Present -Exudate Type Serosanguineous -Wound Margin Distinct, Distinct, Outline Outline Attached Attached -Granulation Amt Large (67-100%) Medium (34-66%) -Granulation Quality Red Red -Slough/Fibrin No -Necrosis Amt Small (1-33%) -Necrotic Tissue Type Adherent Slough -Structure Exposed -Texture (Kelsi-wound Skin Appearance) Assessed,Callus Assessed,Callus -Moisture (Kelsi-wound Skin Appearance) Assessed, Assessed Maceration -Color (Kelsi-wound Skin Appearance) Assessed Assessed -Temperature (Kelsi-wound Skin No Abnormality No Abnormality Appearance) (Pt Warm) (Pt Warm) -Tenderness on Palpation (Kelsi-wound No No Skin Appearance) -Ulcer Cleansing Rinsed/ Rinsed/ Irrigated with Irrigated with Saline Saline -Foul Odor after Cleansing No No -Anesthetic Used 5% Lidocaine 5% Lidocaine Gel Gel Left Calf (cm) 45.4 Left Ankle (cm) 27 WC - Nurse 2 - General Ulcer CM Notes Start: 02/01/25 09:21 Freq: Status: Active Protocol: Activity Type Activity Date Activity User E-sign Co-sign Detail Recorded Client Recorded Date Recorded By Document 02/01/25 09:50 [id number] 02/01/25 10:04 Document 02/08/25 09:50 [id number] 02/08/25 09:59 Document 02/15/25 10:15 [id number] 02/15/25 10:50 Document 02/21/25 11:08 [id number] 02/21/25 11:16 Document 02/28/25 09:00 [id number] 02/28/25 09:03 02/01/25 02/08/25 02/15/25 09:50 09:50 10:15 Wound Center Nurse 2 #1 L Plantar -Time 09:51 09:50 10:18 -Correct Patient Yes Yes Yes -Correct Side, Site, Position Yes Yes Yes -Correct Procedure Yes Yes Yes -Procedure Performed Yes Yes Yes -Type of Procedure Debridement Debridement Debridement -Clinical Debridement Subcutaneous Subcutaneous Subcutaneous -Tissue Removed Subcutaneous Subcutaneous Subcutaneous -Post Debridement (cm) - Length 1.7 1.2 1.2 -Post Debridement (cm) - Width 1.0 1.0 1.0 -Post Debridement (cm) - Depth 0.4 0.3 0.3 -Total Square (Post) (cm) 1.70 1.20 1.20 -Area of Debridement (cm) - Length 1.7 1.2 1.2 -Area of Debridement (cm) - Width 1.0 1.0 1.0 -Total Square (Area) (cm) 1.70 1.20 1.20 -Tunneling Yes Yes Yes -Tunneling Position (O'clock) 2 2 2 -Tunneling Distance (cm) 0.5 0.5 0.4 -Undermining/Tunneling No No No -Circular Undermining No No No -Wound/Ulcer Outcome Not Healed Not Healed Not Healed -Ulcer Cleansing Rinsed/ Rinsed/ Rinsed/ Irrigated with Irrigated with Irrigated with Saline Saline Saline -Foul Odor after Cleansing No No No -Bioengineered Tissue No No No -Bleeding Controlled with Pressure Pressure Pressure -Treatment Response Procedure Procedure Procedure Tolerated Well Tolerated Well Tolerated Well -Offloading No Yes No -Type of Offloading Surgical Shoe -Total Non-Weight Bearing to Left Lower Extremity -Debridement - Subq, 1st 20sq cm Yes Yes Yes Pain Scale: 0-10 Numeric Is Patient Pain Free? Yes Yes Yes 02/21/25 02/28/25 11:08 09:00 Wound Center Nurse 2 #1 L Plantar -Time 11:08 09:00 -Correct Patient Yes Yes -Correct Side, Site, Position Yes Yes -Correct Procedure Yes Yes -Procedure Performed Yes Yes -Type of Procedure Debridement Debridement -Clinical Debridement Subcutaneous Subcutaneous -Tissue Removed Subcutaneous Subcutaneous -Post Debridement (cm) - Length 1.1 1.3 -Post Debridement (cm) - Width 1.1 1.4 -Post Debridement (cm) - Depth 0.1 0.1 -Total Square (Post) (cm) 1.21 1.82 -Area of Debridement (cm) - Length 1.1 1.3 -Area of Debridement (cm) - Width 1.1 1.4 -Total Square (Area) (cm) 1.21 1.82 -Tunneling No No -Tunneling Position (O'clock) -Tunneling Distance (cm) -Undermining/Tunneling No No -Circular Undermining No No -Wound/Ulcer Outcome Not Healed Not Healed -Ulcer Cleansing Rinsed/ Rinsed/ Irrigated with Irrigated with Saline Saline -Foul Odor after Cleansing No No -Bioengineered Tissue No No -Bleeding Controlled with Pressure Pressure -Treatment Response Procedure Procedure Tolerated Well Tolerated Well -Offloading No No -Type of Offloading -Total Non-Weight Bearing to -Debridement - Subq, 1st 20sq cm Yes Yes Pain Scale: 0-10 Numeric Is Patient Pain Free? Yes Yes - Nurse 3 - General Ulcer D/C NN Start: 02/01/25 09:21 Freq: Status: Active Protocol: Activity Type Activity Date Activity User E-sign Co-sign Detail Recorded Client Recorded Date Recorded By Document 02/01/25 10:35 CP [id number] 02/01/25 10:37 CP Edit Result 02/01/25 10:35 CP (1) [id number] 02/01/25 11:53 CP Document 02/08/25 10:31 RB [id number] 02/08/25 10:32 RB Document 02/15/25 10:54 KW [id number] 02/15/25 10:54 KW Document 02/21/25 11:24 CP [id number] 02/21/25 11:25 CP Document 02/28/25 09:09 KW [id number] 02/28/25 09:10 KW (1) #1 L Plantar - Primary Dressing Applied Fibracol Plus 4x4 => Fibracol Plus 4x4, => Silicone Border => Foam 4x4 BLE - Tubular Bandage => Double Layer - Size of Tubigrip Used => Size F - Size F ($) => 2 02/01/25 02/08/25 02/15/25 10:35 10:31 10:54 Wound Care Center Nurse 3 #1 L Plantar -Ulcer Cleansing Rinsed/ Rinsed/ Irrigated with Irrigated with Saline Saline -Foul Odor after Cleansing No -Primary Dressing Applied Fibracol Plus Fibracol Plus Fibracol Plus 4x4,Silicone 4x4,Silicone 4x4,Silicone Border Foam 4x4 Border Foam 4x4 Border Foam 4x4 -Other Dressing -Fibracol Plus 4x4 1 1 1 -Silicone Border Foam 4x4 1 1 1 -Wound Comment(s) BLE -Tubular Bandage Double Layer -Size of Tubigrip Used Size F -Size F ($) 2 -Stockings Yes: PT OWN DOUBLE TUBIGRIP Treatment Response Procedure Tolerated Well Pain Scale: 0-10 Numeric Is Patient Pain Free? Yes Yes Yes WC - Visit Discharge Discharge Condition Stable Stable Stable Ambulatory Status Ambulatory Ambulatory Ambulatory Transportation Private Auto Private Auto Private Auto Accompanied by Medication Reconcilliation completed & No No provided to patient/care provider Clinical Summary of Care Provided Yes Yes Yes Orders Sent Yes 02/21/25 02/28/25 11:24 09:09 Wound Care Center Nurse 3 #1 L Plantar -Ulcer Cleansing Rinsed/ Irrigated with Saline -Foul Odor after Cleansing -Primary Dressing Applied -Other Dressing betadine bandaide -Fibracol Plus 4x4 -Silicone Border Foam 4x4 -Wound Comment(s) betadine paint to ulcer. cover with gauze BLE -Tubular Bandage -Size of Tubigrip Used -Size F ($) -Stockings Treatment Response Pain Scale: 0-10 Numeric Is Patient Pain Free? Yes Yes WC - Visit Discharge Discharge Condition Stable Stable Ambulatory Status Ambulatory Ambulatory Transportation Private Auto Private Auto Accompanied by Medication Reconcilliation completed & No provided to patient/care provider Clinical Summary of Care Provided Yes Yes Orders Sent Assessment/Plan Assessment/Plan (1) Non-pressure chronic ulcer of other part of left foot with fat layer exposed: CODE(S): L97.522 - Non-pressure chronic ulcer of other part of left foot with fat layer exposed PLAN: Patient was examined and evaluated. All findings were discussed with the patient. All questions were answered to the patient's satisfaction. Excisional debridement down to including subcutaneous tissue with a number 3 mm dermal curette to the plantar aspect left foot full-thickness wound done withoutincident.. Right measurement was 1.1 x 1.2 x 0.1 cm. Postdebridement measurement is 1.3 x 1.4 x 0.1 cm. Left foot was red clean and patted dry. Betadine paint was applied to full-thickness wound followed by dry sterile dressing. Patient continue daily dressing changes. We will plan for surgical intervention to the left foot on April 15, 2025. Surgery will consist of minimally invasive dorsiflex the osteotomy to the 2nd and 3rd metatarsal as well as amniotic skin graft substitute in preparation withflexor tenotomy and capsulotomy of the second metatarsophalangeal joint left foot. All risk and benefit discussed with the patient great detail. Follow-up at the wound care center with Dr. Pham in 1 week. (2) Hammer toe of left foot: CODE(S): M20.42 - Other hammer toe(s) (acquired), left foot (3) Acute painful diabetic polyneuropathy: CODE(S): E11.42 - Type 2 diabetes mellitus with diabetic polyneuropathy 02/28/25 1137 Cosigner Signature (if applicable): CC: ~ Signed [facility]05-28-2025 Evaluation note* Diagnosis Onset Date Resolution Status Admit Date Acute painful diabetic polyneuropathy acute February 28, 2025 8 :15am Diabetic ulcer of left foot acute February 28, 2025 8:15am Hammer toe of left foot acute M ay 2024 8:15am History of necrotizing fasciitis acu te February 28, 2025 8:15am History of partial amputatio n of toe of left foot acute February 28, 2025 8:15am Obesity acute February 28, 2025 8:15am Type 2 diabetes mellitus wit h diabetic polyneuropathy acute February 8:15am Non-pressure chronic ulcer o f other part of left foot with fat layer exposed chronic February 28, 2025 8 :15am Type 2 diabetes mellitus chronic February 28, 2025 8:15am [facility] Work Phone: 1(189) 811-203805-21-2025 Progress note Author Roberto Pham [facility] Note Date/Time February 21, 2025 1:00p [facility] [address] [place] [address] Progress Note - Wound Care 02/21/25 1256 MR#: [id number] Acct: [id number] Name: SHERRI BRASHER Rep #:[id number] : 1960 64 From: Roberto Pickering PM PCP: Dr. Noah Levin MD Status:REG R CR Location: History of Present Illness Date of Service: 02/21/25 Chief Complaint: Left foot ulcer History of Wound: Ms. Brasher is a 64-year-old who presents to the wound center due to nonhealing left foot ulcer. Believes that it started almost 2 months ago. Just noted it. No known precipitating factor. Does not have as much feeling in her foot due to diabetes. Prior history of diabetic foot surgery/amputation. She states that over the last 2 months, she has been applying peroxide however due to none improvement her daughter recommended she come to the wound center. Had seen podiatry in the past but last saw podiatry afew years ago. She states that she was given a however it was too tight so she does not wear these. Walks barefooted at home. Not sure about her diabetes control but reports compliance with her medication. Feels well otherwise. Reports a good diet Progress of Wound: Full-thickness wound plantar aspect left foot stable no sign of infection. Subjective Subjective Mrs. Brasher is a 64-year-old diabetic female referred from the office of Dr. Jackson for follow-up evaluation of slow healing full-thickness wound to the plantar aspect of the left foot. 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 Patient has been treated with oral antibiotics and is currently taking them at this time. She was referred to my clinic for continued care and possible surgical intervention. She is diabetic and is well-controlled. She denies any trauma. Denies constitutional symptoms. No other pedal complaints at this time. Objective Data Objective Data Vital Signs: Vital Signs Temp Pulse Resp BP O2 Del Method 98.9 F 77 18 150/69 H Room Air 02/21/25 10:54 02/21/25 10:54 02/21/25 10:54 02/21/25 10:54 02/21/25 10:54 Oxygen Delivery Method Room Air Weight: 116.12 kg Body Mass Index (BMI) 50.0 Lab / Micro Data 02/01/25 11:11 02/01/25 11:11 Micro: Microbiology 02/01/25 10:03 Wound - Left Foot Gram Stain - Final 02/01/25 10:03 Wound - Left Foot Wound Culture - Final Streptococcus agalactiae (B) Staphylococcus aureus [place] odontolyticus 02/01/25 10:03 Wound - Left Foot Anaerobic Culture - Final Bacteroides fragilis Anaerobic cocci Physical Exam Narrative Vascular: DP and PT pulse are palpable to left lower extremity. CFT is brisk. Skin, great is warm to warm from proximal ankle to distal digits left lower extremity. Skin is supple in nature. Neurological: Light touch intact. Protective station is diminished. Dermatological: Full-thickness wound to the plantar aspect of the subthird metatarsal head measuring 1.1 x 1.1 x 0.1 cm. Wound base is granular with no sign of infection. Negative probe to bone. Excisional debridement down to including subcutaneous tissue with a number 3 mm dermal curette to the plantar aspect left foot full-thickness wound done withoutincident.. Right measurement was 0.9 x 1.0 x 0.1 cm. Postdebridement measurement is 1.1 x 1.1 x 0.1 cm. Musculoskeletal: Evidence of cocked up second digit left foot secondary to flexor tenotomy. Evidence of hammertoe deformity to the third digit left foot. No pain on palpation to full-thickness wound plantar aspect left foot. No pain with calf pressure. Debridement Note Debridement Note Debridement Free Text: Excisional debridement down to including subcutaneous tissue with a number 3 mm dermal curette to the plantar aspect left foot full-thickness wound done without incident.. Right measurement was 0.9 x 1.0 x 0.1 cm. Postdebridement measurement is 1.1 x 1.1 x 0.1 cm. Post-Debridement Measurements and Additional Note: Post-Debridement Measurements/Treatment - Nurse 1 - General Ulcer Assessment Start: 02/01/25 09:21 Freq: Status: Active Protocol: YONAS Activity Type Activity Date Activity User E-sign Co-sign Detail Recorded Client Recorded Date Recorded By Document 02/01/25 09:23 CP [id number] 02/01/25 09:35 CP Document 02/08/25 09:32 MT [id number] 02/08/25 09:41 MT Document 02/15/25 09:38 DL [id number] 02/15/25 09:46 DL Document 02/21/25 10:54 KW [id number] 02/21/25 10:58 KW 02/01/25 02/08/25 02/15/25 09:23 09:32 09:38 - Today's Visit Information Type of service Follow-up Visit Follow-up Visit Follow-up Visit (Physician/BIOINFORMATICS ASSOCIATE (Physician/BIOINFORMATICS ASSOCIATE (Physician/BIOINFORMATICS ASSOCIATE ) ) ) Arrival Mode Ambulatory Ambulatory Ambulatory Transfer Assistance None Accompanied by ELA Patient Identification Verified (Name & Yes Yes Yes ) Patient Requires Transmission-Based No No Precautions Safety Precautions Fall Prevention Finger Stick Blood Sugar(mg/dl) (if 124 120 indicated): Blood Sugar Stated by Stated by Patient Patient Height and Weight Height 5 ft Weight 116.12 kg Weight in Pounds 256.0 lbs Weight Measurement Method Standing Scale Body Mass Index (BMI) 50.0 50.0 50.0 BMI Classification Obese Obese Obese Vital Signs Temperature (97.8 F-99.1 F) 97.4 F L 97.4 F L 97.3 F L Temperature Source Temporal Temporal Temporal Pulse Rate (60-100) 64 71 69 Pulse Location Monitor Monitor Monitor Respiratory Rate (12-18) 16 18 18 Respiratory rate source Observation Observation Observation Oxygen Delivery Method Blood Pressure (90/60-120/80) 166/67 H 153/66 H 143/73 H Blood Pressure Mean (mm Hg) 100 95 96 Source Monitor Monitor Monitor Position Semi-Fowlers Sitting Blood Pressure Location Right Arm Left Arm History Since Last Visit- (Skip if this is Patient's initial visit) Have you changed medications since your No last visit? Any new allergies or adverse reactions No Had a fall/change in ADL's that may No increase risk of falls Signs or symptoms of abuse and/or No neglect since last visit Have you been in the hospital since your No last visit? Has dressing in place as prescribed Yes Yes Has compression in place as prescribed Yes No Has offloadiing in place as prescribed Yes N/A Experienced any changes in pain level or Yes No management Left Footwear Regular Shoe Regular Shoe Right Footwear Regular Shoe Regular Shoe Pain Scale: 0-10 Numeric Is Patient Pain Free? Yes Yes Yes Lower Extremity Assessment/ Foot Assessment/ Toe Nail Assessment Right -Posterior Tibial Palpable Yes -Posterior Tibial Doppler Multiphasic -Dorsalis Pedis Palpable Yes -Dorsalis Pedis Doppler Multiphasic -Extremity Color Normal -Hair Growth on Legs Yes -Hair Growth on Toes No -Temperature of Extremity Warm -Capillary Refill Less than 3 Seconds -Dependent Rubor No -Blanched when Elevated No -Prior Foot Ulcer No -Prior Amputation No -Thick Yes -Deformed Yes -Improper Length & Hygeine No Left -Posterior Tibial Palpable Yes -Posterior Tibial Doppler Multiphasic -Dorsalis Pedis Palpable Yes -Dorsalis Pedis Doppler Multiphasic -Extremity Color Normal -Hair Growth on Legs Yes -Hair Growth on Toes No -Temperature of Extremity Warm -Capillary Refill Less than 3 Seconds -Dependent Rubor No -Blanched when Elevated No -Lipodermatosclerosis No -Prior Foot Ulcer Yes -Prior Amputation Yes -Thick Yes -Deformed Yes -Improper Length & Hygeine No Neuropathy Assessment Feet - Top Side and Bottom <Entered> (a) Communication Assessment Preferred language Citizen Of [place] Network Management Specialist Required No Able to Read Yes Able to Write Yes Communication Tools None Caregiver Communication Skills No Impairment Impairment Right Hearing Abillity Normal Left Hearing Abillity Normal Visual Assistive Devices Glasses Teaching Assessment Preferences Verbal,Written, Demonstration Barriers to Learning Knowledge Deficit Readiness To Learn Excellent Willingness to Engage in Self Management High Activies Readiness to Engage in Self Management High Activities Anxiety Level Calm Cooperation Cooperative Perception Coherent Interest in Health Problem Asks Questions Education Importance Acknowledges Need Does Patient Smoke tobacco or other No substances Smoking Status Former smoker Is Patient Diabetic Yes Functional Assessment Recent Decline in Ability to Perform Denies Any Declines Culture/Quaker/Hand Sander Cultural/Quaker Needs that may affect No Treatment Plan 02/21/25 10:54 WC - Today's Visit Information Type of service Follow-up Visit (Physician/BIOINFORMATICS ASSOCIATE ) Arrival Mode Ambulatory Transfer Assistance Accompanied by Patient Identification Verified (Name & Yes ) Patient Requires Transmission-Based Precautions Safety Precautions Finger Stick Blood Sugar(mg/dl) (if indicated): Blood Sugar Height and Weight Height Weight Weight in Pounds Weight Measurement Method Body Mass Index (BMI) 50.0 BMI Classification Obese Vital Signs Temperature (97.8 F-99.1 F) 98.9 F Temperature Source Temporal Pulse Rate (60-100) 77 Pulse Location Monitor Respiratory Rate (12-18) 18 Respiratory rate source Observation Oxygen Delivery Method Room Air Blood Pressure (90/60-120/80) 150/69 H Blood Pressure Mean (mm Hg) 96 Source Monitor Position Semi-Fowlers Blood Pressure Location Right Arm History Since Last Visit- (Skip if this is Patient's initial visit) Have you changed medications since your No last visit? Any new allergies or adverse reactions No Had a fall/change in ADL's that may No increase risk of falls Signs or symptoms of abuse and/or No neglect since last visit Have you been in the hospital since your No last visit? Has dressing in place as prescribed Yes Has compression in place as prescribed N/A Has offloadiing in place as prescribed N/A Experienced any changes in pain level or No management Left Footwear Regular Shoe Right Footwear Regular Shoe Pain Scale: 0-10 Numeric Is Patient Pain Free? Yes Lower Extremity Assessment/ Foot Assessment/ Toe Nail Assessment Right -Posterior Tibial Palpable -Posterior Tibial Doppler -Dorsalis Pedis Palpable -Dorsalis Pedis Doppler -Extremity Color -Hair Growth on Legs -Hair Growth on Toes -Temperature of Extremity -Capillary Refill -Dependent Rubor -Blanched when Elevated -Prior Foot Ulcer -Prior Amputation -Thick -Deformed -Improper Length & Hygeine Left -Posterior Tibial Palpable -Posterior Tibial Doppler -Dorsalis Pedis Palpable -Dorsalis Pedis Doppler -Extremity Color -Hair Growth on Legs -Hair Growth on Toes -Temperature of Extremity -Capillary Refill -Dependent Rubor -Blanched when Elevated -Lipodermatosclerosis -Prior Foot Ulcer -Prior Amputation -Thick -Deformed -Improper Length & Hygeine Neuropathy Assessment Feet - Top Side and Bottom Communication Assessment Preferred permit technician Required Able to Read Able to Write Communication Tools Caregiver Communication Skills Impairment Right Hearing Abillity Left Hearing Abillity Visual Assistive Devices Teaching Assessment Preferences Barriers to Learning Readiness To Learn Willingness to Engage in Self Management Activies Readiness to Engage in Self Management Activities Anxiety Level Cooperation Perception Interest in Health Problem Education Importance Does Patient Smoke tobacco or other substances Smoking Status Is Patient Diabetic Functional Assessment Recent Decline in Ability to Perform Culture/Quaker/Hand Sander Cultural/Quaker Needs that may affect Treatment Plan (a) 1 - - 2 - + 3 - + 4 - + - Nurse 1 - General Ulcer Measurement Start: 02/01/25 09:21 Freq: Status: Active Protocol: Activity Type Activity Date Activity User E-sign Co-sign Detail Recorded Client Recorded Date Recorded By Document 02/01/25 09:23 CP [id number] 02/01/25 09:35 CP Document 02/08/25 09:32 MT [id number] 02/08/25 09:41 MT Document 02/15/25 09:38 DL [id number] 02/15/25 09:46 DL Document 02/21/25 10:54 KW [id number] 02/21/25 10:58 KW 02/01/25 02/08/25 02/15/25 09:23 09:32 09:38 Wound Center Nurse 1 #1 L Plantar -Current Size (cm) - Length 1 1.5 1.1 -Current Size (cm) - Width 1.1 1.4 1 -Current Size (cm) - Depth 0.3 0.3 0.2 -Total Square Cm 1.1 2.10 1.1 -Date of Last Picture (Recall this 02/01/25 02/08/25 field) -Photo Taken Yes Yes -Epithelialization None Present Small 1-33% -Tunneling No No -Undermining/Tunneling Yes No -Undermining/Tunneling Starts (O'clock 11 2 ) -Undermining/Tunneling Ends (O'clock) 5 4 -Maximum Distance (cm) 0.5 0.2 -Circular Undermining Yes Yes -Exudate Amt Small Medium Medium -Exudate Type Serosanguineous Serosanguineous Serosanguineous -Wound Margin Thickened & Thickened & Distinct, Rolled Under Rolled Under Outline Attached -Granulation Amt Large (67-100%) Medium (34-66%) Large (67-100%) -Granulation Quality [place] Pale,[place] Red -Slough/Fibrin No -Necrosis Amt Medium (34-66%) Small (1-33%) -Necrotic Tissue Type Adherent Slough Adherent Slough -Structure Exposed N/A N/A -Texture (Kelsi-wound Skin Appearance) Callus Assessed,Callus Scarring -Moisture (Kelsi-wound Skin Appearance) No Abnormality Assessed Maceration -Color (Kelsi-wound Skin Appearance) No Abnormality Assessed No Abnormality -Temperature (Kelsi-wound Skin No Abnormality No Abnormality No Abnormality Appearance) (Pt Warm) (Pt Warm) (Pt Warm) -Tenderness on Palpation (Kelsi-wound No No No Skin Appearance) -Ulcer Cleansing Soap and Water Soap and Water Soap and Water -Foul Odor after Cleansing No No No -Anesthetic Used 5% Lidocaine 5% Lidocaine 5% Lidocaine Gel Gel Gel Left Calf (cm) 45 Left Ankle (cm) 27 02/21/25 10:54 Wound Center Nurse 1 #1 L Plantar -Current Size (cm) - Length 1 -Current Size (cm) - Width 0.8 -Current Size (cm) - Depth 0.2 -Total Square Cm 0.8 -Date of Last Picture (Recall this field) -Photo Taken -Epithelialization -Tunneling -Undermining/Tunneling -Undermining/Tunneling Starts (O'clock ) -Undermining/Tunneling Ends (O'clock) -Maximum Distance (cm) -Circular Undermining -Exudate Amt Medium -Exudate Type Serosanguineous -Wound Margin Distinct, Outline Attached -Granulation Amt Large (67-100%) -Granulation Quality Red -Slough/Fibrin -Necrosis Amt Small (1-33%) -Necrotic Tissue Type Adherent Slough -Structure Exposed -Texture (Kelsi-wound Skin Appearance) Assessed,Callus -Moisture (Kelsi-wound Skin Appearance) Assessed, Maceration -Color (Kelsi-wound Skin Appearance) Assessed -Temperature (Kelsi-wound Skin No Abnormality Appearance) (Pt Warm) -Tenderness on Palpation (Kelsi-wound No Skin Appearance) -Ulcer Cleansing Rinsed/ Irrigated with Saline -Foul Odor after Cleansing No -Anesthetic Used 5% Lidocaine Gel Left Calf (cm) 45.4 Left Ankle (cm) 27 WC - Nurse 2 - General Ulcer CM Notes Start: 02/01/25 09:21 Freq: Status: Active Protocol: Activity Type Activity Date Activity User E-sign Co-sign Detail Recorded Client Recorded Date Recorded By Document 02/01/25 09:50 [id number] 02/01/25 10:04 GM Document 02/08/25 09:50 [id number] 02/08/25 09:59 Document 02/15/25 10:15 [id number] 02/15/25 10:50 Document 02/21/25 11:08 [id number] 02/21/25 11:16 02/01/25 02/08/25 02/15/25 09:50 09:50 10:15 Wound Center Nurse 2 #1 L Plantar -Time 09:51 09:50 10:18 -Correct Patient Yes Yes Yes -Correct Side, Site, Position Yes Yes Yes -Correct Procedure Yes Yes Yes -Procedure Performed Yes Yes Yes -Type of Procedure Debridement Debridement Debridement -Clinical Debridement Subcutaneous Subcutaneous Subcutaneous -Tissue Removed Subcutaneous Subcutaneous Subcutaneous -Post Debridement (cm) - Length 1.7 1.2 1.2 -Post Debridement (cm) - Width 1.0 1.0 1.0 -Post Debridement (cm) - Depth 0.4 0.3 0.3 -Total Square (Post) (cm) 1.70 1.20 1.20 -Area of Debridement (cm) - Length 1.7 1.2 1.2 -Area of Debridement (cm) - Width 1.0 1.0 1.0 -Total Square (Area) (cm) 1.70 1.20 1.20 -Tunneling Yes Yes Yes -Tunneling Position (O'clock) 2 2 2 -Tunneling Distance (cm) 0.5 0.5 0.4 -Undermining/Tunneling No No No -Circular Undermining No No No -Wound/Ulcer Outcome Not Healed Not Healed Not Healed -Ulcer Cleansing Rinsed/ Rinsed/ Rinsed/ Irrigated with Irrigated with Irrigated with Saline Saline Saline -Foul Odor after Cleansing No No No -Bioengineered Tissue No No No -Bleeding Controlled with Pressure Pressure Pressure -Treatment Response Procedure Procedure Procedure Tolerated Well Tolerated Well Tolerated Well -Offloading No Yes No -Type of Offloading Surgical Shoe -Total Non-Weight Bearing to Left Lower Extremity -Debridement - Subq, 1st 20sq cm Yes Yes Yes Pain Scale: 0-10 Numeric Is Patient Pain Free? Yes Yes Yes 02/21/25 11:08 Wound Center Nurse 2 #1 L Plantar -Time 11:08 -Correct Patient Yes -Correct Side, Site, Position Yes -Correct Procedure Yes -Procedure Performed Yes -Type of Procedure Debridement -Clinical Debridement Subcutaneous -Tissue Removed Subcutaneous -Post Debridement (cm) - Length 1.1 -Post Debridement (cm) - Width 1.1 -Post Debridement (cm) - Depth 0.1 -Total Square (Post) (cm) 1.21 -Area of Debridement (cm) - Length 1.1 -Area of Debridement (cm) - Width 1.1 -Total Square (Area) (cm) 1.21 -Tunneling No -Tunneling Position (O'clock) -Tunneling Distance (cm) -Undermining/Tunneling No -Circular Undermining No -Wound/Ulcer Outcome Not Healed -Ulcer Cleansing Rinsed/ Irrigated with Saline -Foul Odor after Cleansing No -Bioengineered Tissue No -Bleeding Controlled with Pressure -Treatment Response Procedure Tolerated Well -Offloading No -Type of Offloading -Total Non-Weight Bearing to -Debridement - Subq, 1st 20sq cm Yes Pain Scale: 0-10 Numeric Is Patient Pain Free? Yes - Nurse 3 - General Ulcer D/C NN Start: 02/01/25 09:21 Freq: Status: Active Protocol: Activity Type Activity Date Activity User E-sign Co-sign Detail Recorded Client Recorded Date Recorded By Document 02/01/25 10:35 CP [id number] 02/01/25 10:37 CP Edit Result 02/01/25 10:35 CP (1) [id number] 02/01/25 11:53 CP Document 02/08/25 10:31 RB [id number] 02/08/25 10:32 RB Document 02/15/25 10:54 KW [id number] 02/15/25 10:54 KW Document 02/21/25 11:24 CP [id number] 02/21/25 11:25 CP (1) #1 L Plantar - Primary Dressing Applied Fibracol Plus 4x4 => Fibracol Plus 4x4, => Silicone Border => Foam 4x4 BLE - Tubular Bandage => Double Layer - Size of Tubigrip Used => Size F - Size F ($) => 2 02/01/25 02/08/25 02/15/25 10:35 10:31 10:54 Wound Care Center Nurse 3 #1 L Plantar -Ulcer Cleansing Rinsed/ Rinsed/ Irrigated with Irrigated with Saline Saline -Foul Odor after Cleansing No -Primary Dressing Applied Fibracol Plus Fibracol Plus Fibracol Plus 4x4,Silicone 4x4,Silicone 4x4,Silicone Border Foam 4x4 Border Foam 4x4 Border Foam 4x4 -Fibracol Plus 4x4 1 1 1 -Silicone Border Foam 4x4 1 1 1 -Wound Comment(s) BLE -Tubular Bandage Double Layer -Size of Tubigrip Used Size F -Size F ($) 2 -Stockings Yes: PT OWN DOUBLE TUBIGRIP Treatment Response Procedure Tolerated Well Pain Scale: 0-10 Numeric Is Patient Pain Free? Yes Yes Yes WC - Visit Discharge Discharge Condition Stable Stable Stable Ambulatory Status Ambulatory Ambulatory Ambulatory Transportation Private Auto Private Auto Private Auto Accompanied by Medication Reconcilliation completed & No No provided to patient/care provider Clinical Summary of Care Provided Yes Yes Yes Orders Sent Yes 02/21/25 11:24 Wound Care Center Nurse 3 #1 L Plantar -Ulcer Cleansing Rinsed/ Irrigated with Saline -Foul Odor after Cleansing -Primary Dressing Applied -Fibracol Plus 4x4 -Silicone Border Foam 4x4 -Wound Comment(s) betadine paint to ulcer. cover with gauze BLE -Tubular Bandage -Size of Tubigrip Used -Size F ($) -Stockings Treatment Response Pain Scale: 0-10 Numeric Is Patient Pain Free? Yes WC - Visit Discharge Discharge Condition Stable Ambulatory Status Ambulatory Transportation Private Auto Accompanied by Medication Reconcilliation completed & provided to patient/care provider Clinical Summary of Care Provided Yes Orders Sent Assessment/Plan Assessment/Plan (1) Non-pressure chronic ulcer of other part of left foot with fat layer exposed: CODE(S): L97.522 - Non-pressure chronic ulcer of other part of left foot with fat layer exposed PLAN: Patient was examined and evaluated. All findings were discussed with the patient. All questions were answered to the patient's satisfaction. Excisional debridement down to including subcutaneous tissue with a number 3 mm dermal curette to the plantar aspect left foot full-thickness wound done withoutincident.. Right measurement was 0.9 x 1.0 x 0.1 cm. Postdebridement measurement is 1.1 x 1.1 x 0.1 cm. The areas were cleaned and patted dry. Betadine paint followed by sterile Band-Aid was applied. Patient will continue daily dressing changes. Educated patient on diabetic control and to continue to have her blood sugar between 100 to 150 mg/dL. Educated the patient to check her feet twice per day and apply lotion twice a day which she is understanding of. Due to the deformity of the second digit as well as wound underneath the subthird metatarsal head we move forward with surgical intervention consisting of second digit extensor tenotomy with capsulotomy as well as dorsiflexor osteotomy to the third metatarsal head via MIS. All risk and benefits discussedwith patient great detail. Will move forward with surgical booking. Patient will continue antibiotics as prescribed by her previous doctor. Follow-up at the wound care center with Dr. Pham in 1 week. (2) Hammer toe of left foot: CODE(S): M20.42 - Other hammer toe(s) (acquired), left foot (3) Acute painful diabetic polyneuropathy: CODE(S): E11.42 - Type 2 diabetes mellitus with diabetic polyneuropathy 02/21/25 1300 <Electronically signed by Roberto Pham DPM> Cosigner Signature (if applicable): CC: ~ Signed [facility] Work Phone: 1(617) 934-150205-21-2025 Progress note [facility] [address] [place] [address] Progress Note - Wound Care 02/21/25 1256 MR#: [id number] Acct: [id number] Name: SHERRI BRASHER Rep #:[id number] : 1960 64 From: Roberto Pickering PM PCP: Dr. Noah Levin MD Status:REG R CR Location: WC History of Present Illness Date of Service: 02/21/25 Chief Complaint: Left foot ulcer History of Wound: Ms. Brasher is a 64-year-old who presents to the wound center due to nonhealing left foot ulcer. Believes that it started almost 2 months ago. Just noted it. No known precipitating factor. Does not have as much feeling in her foot due to diabetes. Prior history of diabetic foot surgery/amputation. She states that over the last 2 months, she has been applying peroxide however due to none improvement her daughter recommended she come to the wound center. Had seen podiatry in [facility] but last saw podiatry afew years ago. She states that she was given a however it was too tightso she does not wear these. Walks barefooted at home. Not sure about her diabetes control but reports compliance with her medication. Feels well otherwise. Reports a good diet Progress of Wound: Full-thickness wound plantar aspect left foot stable no sign of infection. Subjective Subjective Mrs. Brasher is a 64-year-old diabetic female referred from the office of Dr. Jackson for follow-up evaluation of slow healing full-thickness wound to the plantar aspect of the left foot. 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 Patient has been treated with oral antibiotics and is currently taking them at this time. She was referred to my clinic for continued care and possible surgical intervention. She is diabetic and is well-controlled. She denies any trauma. Deniesconstitutional symptoms. No other pedal complaints at this time. Objective Data Objective Data Vital Signs: Vital Signs Temp Pulse Resp BP O2 Del Method 98.9 F 77 18 150/69 H Room Air 02/21/25 10:54 02/21/25 10:54 02/21/25 10:54 02/21/25 10:54 02/21/25 10:54 Oxygen Delivery Method Room Air Weight: 116.12 kg Body Mass Index (BMI) 50.0 Lab / Micro Data 02/01/25 11:11 02/01/25 11:11 Micro: Microbiology 02/01/25 10:03 Wound - Left Foot Gram Stain - Final 02/01/25 10:03 Wound - Left Foot Wound Culture - Final Streptococcus agalactiae (B) Staphylococcus aureus Samira odontolyticus 02/01/25 10:03 Wound - Left Foot Anaerobic Culture - Final Bacteroides fragilis Anaerobic cocci Physical Exam Narrative Vascular: DP and PT pulse are palpable to left lower extremity. CFT is brisk. Skin, great is warm to warm from proximal ankle to distal digits left lower extremity. Skin is supple in nature. Neurological: Light touch intact. Protective station is diminished. Dermatological: Full-thickness wound to the plantar aspect of the subthird metatarsal head measuring 1.1 x 1.1 x 0.1 cm. Wound base is granular with no sign of infection. Negative probe to bone. Excisional debridement down to including subcutaneous tissue with a number 3 mm dermal curette to the plantar aspect left foot full-thickness wound done withoutincident.. Right measurement was 0.9 x 1.0 x 0.1 cm. Postdebridement measurement is 1.1 x 1.1 x 0.1 cm. Musculoskeletal: Evidence of cocked up second digit left foot secondary to flexor tenotomy. Evidence of hammertoe deformity to the third digit left foot. No pain on palpation to full-thickness wound plantar aspect left foot. No pain with calf pressure. Debridement Note Debridement Note Debridement Free Text: Excisional debridement down to including subcutaneous tissue with a number 3mm dermal curette to the plantar aspect left foot full- thickness wound done without incident.. Right measurement was 0.9 x 1.0 x 0.1 cm. Postdebridement measurement is 1.1 x 1.1 x 0.1 cm. Post-Debridement Measurements and Additional Note: Post-Debridement Measurements/Treatment CHRISTINA - Nurse 1 - General Ulcer Assessment Start: 02/01/25 09:21 Freq: Status: Active Protocol: YONAS Activity Type Activity Date Activity User E-sign Co-sign Detail Recorded Client Recorded Date Recorded By Document 02/01/25 09:23 CP [id number] 02/01/25 09:35 CP Document 02/08/25 09:32 MT [id number] 02/08/25 09:41 MT Document 02/15/25 09:38 DL [id number] 02/15/25 09:46 DL Document 02/21/25 10:54 KW [id number] 02/21/25 10:58 KW 02/01/25 02/08/25 02/15/25 09:23 09:32 09:38 WC - Today's Visit Information Type of service Follow-up Visit Follow-up Visit Follow-up Visit (Physician/BIOINFORMATICS ASSOCIATE (Physician/BIOINFORMATICS ASSOCIATE (Physician/BIOINFORMATICS ASSOCIATE ) ) ) Arrival Mode Ambulatory Ambulatory Ambulatory Transfer Assistance None Accompanied by ELA Patient Identification Verified (Name & Yes Yes Yes ) Patient Requires Transmission-Based No No Precautions Safety Precautions Fall Prevention Finger Stick Blood Sugar(mg/dl) (if 124 120 indicated): Blood Sugar Stated by Stated by Patient Patient Height and Weight Height 5 ft Weight 116.12 kg Weight in Pounds 256.0 lbs Weight Measurement Method Standing Scale Body Mass Index (BMI) 50.0 50.0 50.0 BMI Classification Obese Obese Obese Vital Signs Temperature (97.8 F-99.1 F) 97.4 F L 97.4 F L 97.3 F L Temperature Source Temporal Temporal Temporal Pulse Rate (60-100) 64 71 69 Pulse Location Monitor Monitor Monitor Respiratory Rate (12-18) 16 18 18 Respiratory rate source Observation Observation Observation Oxygen Delivery Method Blood Pressure (90/60-120/80) 166/67 H 153/66 H 143/73 H Blood Pressure Mean (mm Hg) 100 95 96 Source Monitor Monitor Monitor Position Semi-Fowlers Sitting Blood Pressure Location Right Arm Left Arm History Since Last Visit- (Skip if this is Patient's initial visit) Have you changed medications since your No last visit? Any new allergies or adverse reactions No Had a fall/change in ADL's that may No increase risk of falls Signs or symptoms of abuse and/or No neglect since last visit Have you been in the hospital since your No last visit? Has dressing in place as prescribed Yes Yes Has compression in place as prescribed Yes No Has offloadiing in place as prescribed Yes N/A Experienced any changes in pain level or Yes No management Left Footwear Regular Shoe Regular Shoe Right Footwear Regular Shoe Regular Shoe Pain Scale: 0-10 Numeric Is Patient Pain Free? Yes Yes Yes Lower Extremity Assessment/ Foot Assessment/ Toe Nail Assessment Right -Posterior Tibial Palpable Yes -Posterior Tibial Doppler Multiphasic -Dorsalis Pedis Palpable Yes -Dorsalis Pedis Doppler Multiphasic -Extremity Color Normal -Hair Growth on Legs Yes -Hair Growth on Toes No -Temperature of Extremity Warm -Capillary Refill Less than 3 Seconds -Dependent Rubor No -Blanched when Elevated No -Prior Foot Ulcer No -Prior Amputation No -Thick Yes -Deformed Yes -Improper Length & Hygeine No Left -Posterior Tibial Palpable Yes -Posterior Tibial Doppler Multiphasic -Dorsalis Pedis Palpable Yes -Dorsalis Pedis Doppler Multiphasic -Extremity Color Normal -Hair Growth on Legs Yes -Hair Growth on Toes No -Temperature of Extremity Warm -Capillary Refill Less than 3 Seconds -Dependent Rubor No -Blanched when Elevated No -Lipodermatosclerosis No -Prior Foot Ulcer Yes -Prior Amputation Yes -Thick Yes -Deformed Yes -Improper Length & Hygeine No Neuropathy Assessment Feet - Top Side and Bottom (a) Communication Assessment Preferred language Citizen Of [place] Network Management Specialist Required No Able to Read Yes Able to Write Yes Communication Tools None Caregiver Communication Skills No Impairment Impairment Right Hearing Abillity Normal Left Hearing Abillity Normal Visual Assistive Devices Glasses Teaching Assessment Preferences Verbal,Written, Demonstration Barriers to Learning Knowledge Deficit Readiness To Learn Excellent Willingness to Engage in Self Management High Activies Readiness to Engage in Self Management High Activities Anxiety Level Calm Cooperation Cooperative Perception Coherent Interest in Health Problem Asks Questions Education Importance Acknowledges Need Does Patient Smoke tobacco or other No substances Smoking Status Former smoker Is Patient Diabetic Yes Functional Assessment Recent Decline in Ability to Perform Denies Any Declines Culture/Quaker/Hand Sander Cultural/Quaker Needs that may affect No Treatment Plan 02/21/25 10:54 WC - Today's Visit Information Type of service Follow-up Visit (Physician/BIOINFORMATICS ASSOCIATE ) Arrival Mode Ambulatory Transfer Assistance Accompanied by Patient Identification Verified (Name & Yes ) Patient Requires Transmission-Based Precautions Safety Precautions Finger Stick Blood Sugar(mg/dl) (if indicated): Blood Sugar Height and Weight Height Weight Weight in Pounds Weight Measurement Method Body Mass Index (BMI) 50.0 BMI Classification Obese Vital Signs Temperature (97.8 F-99.1 F) 98.9 F Temperature Source Temporal Pulse Rate (60-100) 77 Pulse Location Monitor Respiratory Rate (12-18) 18 Respiratory rate source Observation Oxygen Delivery Method Room Air Blood Pressure (90/60-120/80) 150/69 H Blood Pressure Mean (mm Hg) 96 Source Monitor Position Semi-Fowlers Blood Pressure Location Right Arm History Since Last Visit- (Skip if this is Patient's initial visit) Have you changed medications since your No last visit? Any new allergies or adverse reactions No Had a fall/change in ADL's that may No increase risk of falls Signs or symptoms of abuse and/or No neglect since last visit Have you been in the hospital since your No last visit? Has dressing in place as prescribed Yes Has compression in place as prescribed N/A Has offloadiing in place as prescribed N/A Experienced any changes in pain level or No management Left Footwear Regular Shoe Right Footwear Regular Shoe Pain Scale: 0-10 Numeric Is Patient Pain Free? Yes Lower Extremity Assessment/ Foot Assessment/ Toe Nail Assessment Right -Posterior Tibial Palpable -Posterior Tibial Doppler -Dorsalis Pedis Palpable -Dorsalis Pedis Doppler -Extremity Color -Hair Growth on Legs -Hair Growth on Toes -Temperature of Extremity -Capillary Refill -Dependent Rubor -Blanched when Elevated -Prior Foot Ulcer -Prior Amputation -Thick -Deformed -Improper Length & Hygeine Left -Posterior Tibial Palpable -Posterior Tibial Doppler -Dorsalis Pedis Palpable -Dorsalis Pedis Doppler -Extremity Color -Hair Growth on Legs -Hair Growth on Toes -Temperature of Extremity -Capillary Refill -Dependent Rubor -Blanched when Elevated -Lipodermatosclerosis -Prior Foot Ulcer -Prior Amputation -Thick -Deformed -Improper Length & Hygeine Neuropathy Assessment Feet - Top Side and Bottom Communication Assessment Preferred permit technician Required Able to Read Able to Write Communication Tools Caregiver Communication Skills Impairment Right Hearing Abillity Left Hearing Abillity Visual Assistive Devices Teaching Assessment Preferences Barriers to Learning Readiness To Learn Willingness to Engage in Self Management Activies Readiness to Engage in Self Management Activities Anxiety Level Cooperation Perception Interest in Health Problem Education Importance Does Patient Smoke tobacco or other substances Smoking Status Is Patient Diabetic Functional Assessment Recent Decline in Ability to Perform Culture/Quaker/Hand Sander Cultural/Quaker Needs that may affect Treatment Plan (a) 1 - - 2 - + 3 - + 4 - + WC - Nurse 1 - General Ulcer Measurement Start: 02/01/25 09:21 Freq: Status: Active Protocol: Activity Type Activity Date Activity User E-sign Co-sign Detail Recorded Client Recorded Date Recorded By Document 02/01/25 09:23 CP [id number] 02/01/25 09:35 CP Document 02/08/25 09:32 MT [id number] 02/08/25 09:41 MT Document 02/15/25 09:38 DL [id number] 02/15/25 09:46 DL Document 02/21/25 10:54 KW [id number] 02/21/25 10:58 KW 02/01/25 02/08/25 02/15/25 09:23 09:32 09:38 Wound Center Nurse 1 #1 L Plantar -Current Size (cm) - Length 1 1.5 1.1 -Current Size (cm) - Width 1.1 1.4 1 -Current Size (cm) - Depth 0.3 0.3 0.2 -Total Square Cm 1.1 2.10 1.1 -Date of Last Picture (Recall this 02/01/25 02/08/25 field) -Photo Taken Yes Yes -Epithelialization None Present Small 1-33% -Tunneling No No -Undermining/Tunneling Yes No -Undermining/Tunneling Starts (O'clock 11 2 ) -Undermining/Tunneling Ends (O'clock) 5 4 -Maximum Distance (cm) 0.5 0.2 -Circular Undermining Yes Yes -Exudate Amt Small Medium Medium -Exudate Type Serosanguineous Serosanguineous Serosanguineous -Wound Margin Thickened & Thickened & Distinct, Rolled Under Rolled Under Outline Attached -Granulation Amt Large (67-100%) Medium (34-66%) Large (67-100%) -Granulation Quality [place] Pale,[place] Red -Slough/Fibrin No -Necrosis Amt Medium (34-66%) Small (1-33%) -Necrotic Tissue Type Adherent Slough Adherent Slough -Structure Exposed N/A N/A -Texture (Kelsi-wound Skin Appearance) Callus Assessed,Callus Scarring -Moisture (Kelsi-wound Skin Appearance) No Abnormality Assessed Maceration -Color (Kelsi-wound Skin Appearance) No Abnormality Assessed No Abnormality -Temperature (Kelsi-wound Skin No Abnormality No Abnormality No Abnormality Appearance) (Pt Warm) (Pt Warm) (Pt Warm) -Tenderness on Palpation (Kelsi-wound No No No Skin Appearance) -Ulcer Cleansing Soap and Water Soap and Water Soap and Water -Foul Odor after Cleansing No No No -Anesthetic Used 5% Lidocaine 5% Lidocaine 5% Lidocaine Gel Gel Gel Left Calf (cm) 45 Left Ankle (cm) 27 02/21/25 10:54 Wound Center Nurse 1 #1 L Plantar -Current Size (cm) - Length 1 -Current Size (cm) - Width 0.8 -Current Size (cm) - Depth 0.2 -Total Square Cm 0.8 -Date of Last Picture (Recall this field) -Photo Taken -Epithelialization -Tunneling -Undermining/Tunneling -Undermining/Tunneling Starts (O'clock ) -Undermining/Tunneling Ends (O'clock) -Maximum Distance (cm) -Circular Undermining -Exudate Amt Medium -Exudate Type Serosanguineous -Wound Margin Distinct, Outline Attached -Granulation Amt Large (67-100%) -Granulation Quality Red -Slough/Fibrin -Necrosis Amt Small (1-33%) -Necrotic Tissue Type Adherent Slough -Structure Exposed -Texture (Kelsi-wound Skin Appearance) Assessed,Callus -Moisture (Kelsi-wound Skin Appearance) Assessed, Maceration -Color (Kelsi-wound Skin Appearance) Assessed -Temperature (Kelsi-wound Skin No Abnormality Appearance) (Pt Warm) -Tenderness on Palpation (Kelsi-wound No Skin Appearance) -Ulcer Cleansing Rinsed/ Irrigated with Saline -Foul Odor after Cleansing No -Anesthetic Used 5% Lidocaine Gel Left Calf (cm) 45.4 Left Ankle (cm) 27 - Nurse 2 - General Ulcer CM Notes Start: 02/01/25 09:21 Freq: Status: Active Protocol: Activity Type Activity Date Activity User E-sign Co-sign Detail Recorded Client Recorded Date Recorded By Document 02/01/25 09:50 [id number] 02/01/25 10:04 Document 02/08/25 09:50 [id number] 02/08/25 09:59 Document 02/15/25 10:15 [id number] 02/15/25 10:50 Document 02/21/25 11:08 [id number] 02/21/25 11:16 02/01/25 02/08/25 02/15/25 09:50 09:50 10:15 Wound Center Nurse 2 #1 L Plantar -Time 09:51 09:50 10:18 -Correct Patient Yes Yes Yes -Correct Side, Site, Position Yes Yes Yes -Correct Procedure Yes Yes Yes -Procedure Performed Yes Yes Yes -Type of Procedure Debridement Debridement Debridement -Clinical Debridement Subcutaneous Subcutaneous Subcutaneous -Tissue Removed Subcutaneous Subcutaneous Subcutaneous -Post Debridement (cm) - Length 1.7 1.2 1.2 -Post Debridement (cm) - Width 1.0 1.0 1.0 -Post Debridement (cm) - Depth 0.4 0.3 0.3 -Total Square (Post) (cm) 1.70 1.20 1.20 -Area of Debridement (cm) - Length 1.7 1.2 1.2 -Area of Debridement (cm) - Width 1.0 1.0 1.0 -Total Square (Area) (cm) 1.70 1.20 1.20 -Tunneling Yes Yes Yes -Tunneling Position (O'clock) 2 2 2 -Tunneling Distance (cm) 0.5 0.5 0.4 -Undermining/Tunneling No No No -Circular Undermining No No No -Wound/Ulcer Outcome Not Healed Not Healed Not Healed -Ulcer Cleansing Rinsed/ Rinsed/ Rinsed/ Irrigated with Irrigated with Irrigated with Saline Saline Saline -Foul Odor after Cleansing No No No -Bioengineered Tissue No No No -Bleeding Controlled with Pressure Pressure Pressure -Treatment Response Procedure Procedure Procedure Tolerated Well Tolerated Well Tolerated Well -Offloading No Yes No -Type of Offloading Surgical Shoe -Total Non-Weight Bearing to Left Lower Extremity -Debridement - Subq, 1st 20sq cm Yes Yes Yes Pain Scale: 0-10 Numeric Is Patient Pain Free? Yes Yes Yes 02/21/25 11:08 Wound Center Nurse 2 #1 L Plantar -Time 11:08 -Correct Patient Yes -Correct Side, Site, Position Yes -Correct Procedure Yes -Procedure Performed Yes -Type of Procedure Debridement -Clinical Debridement Subcutaneous -Tissue Removed Subcutaneous -Post Debridement (cm) - Length 1.1 -Post Debridement (cm) - Width 1.1 -Post Debridement (cm) - Depth 0.1 -Total Square (Post) (cm) 1.21 -Area of Debridement (cm) - Length 1.1 -Area of Debridement (cm) - Width 1.1 -Total Square (Area) (cm) 1.21 -Tunneling No -Tunneling Position (O'clock) -Tunneling Distance (cm) -Undermining/Tunneling No -Circular Undermining No -Wound/Ulcer Outcome Not Healed -Ulcer Cleansing Rinsed/ Irrigated with Saline -Foul Odor after Cleansing No -Bioengineered Tissue No -Bleeding Controlled with Pressure -Treatment Response Procedure Tolerated Well -Offloading No -Type of Offloading -Total Non-Weight Bearing to -Debridement - Subq, 1st 20sq cm Yes Pain Scale: 0-10 Numeric Is Patient Pain Free? Yes WC - Nurse 3 - General Ulcer D/C NN Start: 02/01/25 09:21 Freq: Status: Active Protocol: Activity Type Activity Date Activity User E-sign Co-sign Detail Recorded Client Recorded Date Recorded By Document 02/01/25 10:35 CP [id number] 02/01/25 10:37 CP Edit Result 02/01/25 10:35 CP (1) [id number] 02/01/25 11:53 CP Document 02/08/25 10:31 RB [id number] 02/08/25 10:32 RB Document 02/15/25 10:54 KW [id number] 02/15/25 10:54 KW Document 02/21/25 11:24 CP [id number] 02/21/25 11:25 CP (1) #1 L Plantar - Primary Dressing Applied Fibracol Plus 4x4 => Fibracol Plus 4x4, => Silicone Border => Foam 4x4 BLE - Tubular Bandage => Double Layer - Size of Tubigrip Used => Size F - Size F ($) => 2 02/01/25 02/08/25 02/15/25 10:35 10:31 10:54 Wound Care Center Nurse 3 #1 L Plantar -Ulcer Cleansing Rinsed/ Rinsed/ Irrigated with Irrigated with Saline Saline -Foul Odor after Cleansing No -Primary Dressing Applied Fibracol Plus Fibracol Plus Fibracol Plus 4x4,Silicone 4x4,Silicone 4x4,Silicone Border Foam 4x4 Border Foam 4x4 Border Foam 4x4 -Fibracol Plus 4x4 1 1 1 -Silicone Border Foam 4x4 1 1 1 -Wound Comment(s) BLE -Tubular Bandage Double Layer -Size of Tubigrip Used Size F -Size F ($) 2 -Stockings Yes: PT OWN DOUBLE TUBIGRIP Treatment Response Procedure Tolerated Well Pain Scale: 0-10 Numeric Is Patient Pain Free? Yes Yes Yes WC - Visit Discharge Discharge Condition Stable Stable Stable Ambulatory Status Ambulatory Ambulatory Ambulatory Transportation Private Auto Private Auto Private Auto Accompanied by Medication Reconcilliation completed & No No provided to patient/care provider Clinical Summary of Care Provided Yes Yes Yes Orders Sent Yes 02/21/25 11:24 Wound Care Center Nurse 3 #1 L Plantar -Ulcer Cleansing Rinsed/ Irrigated with Saline -Foul Odor after Cleansing -Primary Dressing Applied -Fibracol Plus 4x4 -Silicone Border Foam 4x4 -Wound Comment(s) betadine paint to ulcer. cover with gauze BLE -Tubular Bandage -Size of Tubigrip Used -Size F ($) -Stockings Treatment Response Pain Scale: 0-10 Numeric Is Patient Pain Free? Yes WC - Visit Discharge Discharge Condition Stable Ambulatory Status Ambulatory Transportation Private Auto Accompanied by Medication Reconcilliation completed & provided to patient/care provider Clinical Summary of Care Provided Yes Orders Sent Assessment/Plan Assessment/Plan (1) Non-pressure chronic ulcer of other part of left foot with fat layer exposed: CODE(S): L97.522 - Non-pressure chronic ulcer of other part of left foot with fat layer exposed PLAN: Patient was examined and evaluated. All findings were discussed with the patient. All questions were answered to the patient's satisfaction. Excisional debridement down to including subcutaneous tissue with a number 3 mm dermal curette to the plantar aspect left foot full-thickness wound done withoutincident.. Right measurement was 0.9 x 1.0 x 0.1 cm. Postdebridement measurement is 1.1 x 1.1 x 0.1 cm. The areas were cleaned and patted dry. Betadine paint followed by sterile Band-Aid was applied. Patient will continue daily dressing changes. Educated patient on diabetic control and to continue to have her blood sugar between 100 to 150 mg/dL. Educated the patient to check her feet twice per day and apply lotion twice a day which she is understanding of. Due to the deformity of the second digit as well as wound underneath the subthird metatarsal head we move forward with surgical intervention consisting of second digit extensor tenotomy with capsulotomy as well as dorsiflexor osteotomy to the third metatarsal head via MIS. All risk and benefits disc ussedwith patient great detail. Will move forward with surgical booking. Patient will continue antibiotics as prescribed by her previous doctor. Follow-up at the wound care center with Dr. Pham in 1 week. (2) Hammer toe of left foot: CODE(S): M20.42 - Other hammer toe(s) (acquired), left foot (3) Acute painful diabetic polyneuropathy: CODE(S): E11.42 - Type 2 diabetes mellitus with diabetic polyneuropathy 02/21/25 1300 Cosigner Signature (if applicable): CC: ~ Signed [facility]05-15-2025 Progress note Author Laney Jackson [facility] Note Date/Time February 15, 2025 11:59 am [facility] [address] [place] [address] Progress Note - Wound Care 02/15/25 1153 MR#: [id number] Acct: [id number] Name: SHERRI BRASHER Rep #:[id number] : 1960 64 From: Laney castro MD PCP: Dr. Noah Levin MD Status:REG R CR Location: History of Present Illness Date of Service: 02/15/25 Chief Complaint: Left foot ulcer History of Wound: Ms. Brasher is a 64-year-old who presents to the wound center due to nonhealing left foot ulcer. Believes that it started almost 2 months ago. Just noted it. No known precipitating factor. Does not have as much feeling in her foot due to diabetes. Prior history of diabetic foot surgery/amputation. She states that over the last 2 months, she has been applying peroxide however due to none improvement her daughter recommended she come to the wound center. Had seen podiatry in the past but last saw podiatry afew years ago. She states that she was given a however it was too tight so she does not wear these. Walks barefooted at home. Not sure about her diabetes control but reports compliance with her medication. Feels well otherwise. Reports a good diet Progress of Wound: No new concerns reported at this time. Has started antibiotics and denies any concerns with this. Stable ulcer. Objective Data Objective Data Vital Signs: Vital Signs Temp Pulse Resp BP 97.3 F L 69 18 143/73 H 02/15/25 09:38 02/15/25 09:38 02/15/25 09:38 02/15/25 09:38 Weight: 256 lb Body Mass Index (BMI) 50.0 Lab / Micro Data 02/01/25 11:11 02/01/25 11:11 Micro: Microbiology 02/01/25 10:03 Wound - Left Foot Gram Stain - Final 02/01/25 10:03 Wound - Left Foot Wound Culture - Final Streptococcus agalactiae (B) Staphylococcus aureus [place] odontolyticus 02/01/25 10:03 Wound - Left Foot Anaerobic Culture - Final Bacteroides fragilis Anaerobic cocci Charges/Coding Procedures Integumentary 111xxx-113xx: 50[address] Peyton subq tissue 20 sq cm/< Physical Exam Const alert, oriented x3 and no apparent distress General Appearance: cooperative, comfortable and well kempt HEENT normocephalic and head/scalp atraumatic Head and Scalp: normal to inspection Eyes EOMs intact bilaterally General Eye: normal appearance of both eyes Neck full ROM and supple General: normal visual inspection Resp normal respiratory effort Effort and Inspection: able to speak in complete sentences Extremity General Extremity: edema Skin Wounds: wounds noted size Size: See clinical note, bed granulating well and withundermining, margins well approximated, no odor and open Neuro oriented x3, CN's II-XII intact bilaterally, moves all extremities and no focal motor deficits Psych mental status grossly normal, thought process normal, cooperative and affect normal Debridement Note Debridement Note Wound debrided: Left foot (plantar) Type of Debridement: Excisional debridement Anesthesia Used: 5% Lidocaine Gel Depth: Down to and including healthy tissue and in the subcutaneous layer Percentage of wound debrided: 100 Instrument Used: 5mm curette Tissue Removed: Slough and devitalized tissue Severity: Fat Layer Exposed Amount of bleeding with debridement: Mild Bleeding Controlled with: Pressure Patient tolerated procedure: Patient tolerated procedure well Post-Debridement Measurements and Additional Note: Post-Debridement Measurements/Treatment - Nurse 1 - General Ulcer Assessment Start: 02/01/25 09:21 Freq: Status: Active Protocol: YONAS Activity Type Activity Date Activity User E-sign Co-sign Detail Recorded Client Recorded Date Recorded By Document 02/01/25 09:23 CP [id number] 02/01/25 09:35 CP Document 02/08/25 09:32 MT [id number] 02/08/25 09:41 MT Document 02/15/25 09:38 DL [id number] 02/15/25 09:46 DL 02/01/25 02/08/25 02/15/25 09:23 09:32 09:38 - Today's Visit Information Type of service Follow-up Visit Follow-up Visit Follow-up Visit (Physician/BIOINFORMATICS ASSOCIATE (Physician/BIOINFORMATICS ASSOCIATE (Physician/BIOINFORMATICS ASSOCIATE ) ) ) Arrival Mode Ambulatory Ambulatory Ambulatory Transfer Assistance None Accompanied by ELA Patient Identification Verified (Name & Yes Yes Yes ) Patient Requires Transmission-Based No No Precautions Safety Precautions Fall Prevention Finger Stick Blood Sugar(mg/dl) (if 124 120 indicated): Blood Sugar Stated by Stated by Patient Patient Height and Weight Height 5 ft Weight 256 lb Weight in Pounds 256.0 lbs Weight Measurement Method Standing Scale Body Mass Index (BMI) 50.0 50.0 50.0 BMI Classification Obese Obese Obese Vital Signs Temperature (97.8 F-99.1 F) 97.4 F L 97.4 F L 97.3 F L Temperature Source Temporal Temporal Temporal Pulse Rate (60-100) 64 71 69 Pulse Location Monitor Monitor Monitor Respiratory Rate (12-18) 16 18 18 Respiratory rate source Observation Observation Observation Blood Pressure (90/60-120/80) 166/67 H 153/66 H 143/73 H Blood Pressure Mean (mm Hg) 100 95 96 Source Monitor Monitor Monitor Position Semi-Fowlers Sitting Blood Pressure Location Right Arm Left Arm History Since Last Visit- (Skip if this is Patient's initial visit) Have you changed medications since your No last visit? Any new allergies or adverse reactions No Had a fall/change in ADL's that may No increase risk of falls Signs or symptoms of abuse and/or No neglect since last visit Have you been in the hospital since your No last visit? Has dressing in place as prescribed Yes Yes Has compression in place as prescribed Yes No Has offloadiing in place as prescribed Yes N/A Experienced any changes in pain level or Yes No management Left Footwear Regular Shoe Regular Shoe Right Footwear Regular Shoe Regular Shoe Pain Scale: 0-10 Numeric Is Patient Pain Free? Yes Yes Yes Lower Extremity Assessment/ Foot Assessment/ Toe Nail Assessment Right -Posterior Tibial Palpable Yes -Posterior Tibial Doppler Multiphasic -Dorsalis Pedis Palpable Yes -Dorsalis Pedis Doppler Multiphasic -Extremity Color Normal -Hair Growth on Legs Yes -Hair Growth on Toes No -Temperature of Extremity Warm -Capillary Refill Less than 3 Seconds -Dependent Rubor No -Blanched when Elevated No -Prior Foot Ulcer No -Prior Amputation No -Thick Yes -Deformed Yes -Improper Length & Hygeine No Left -Posterior Tibial Palpable Yes -Posterior Tibial Doppler Multiphasic -Dorsalis Pedis Palpable Yes -Dorsalis Pedis Doppler Multiphasic -Extremity Color Normal -Hair Growth on Legs Yes -Hair Growth on Toes No -Temperature of Extremity Warm -Capillary Refill Less than 3 Seconds -Dependent Rubor No -Blanched when Elevated No -Lipodermatosclerosis No -Prior Foot Ulcer Yes -Prior Amputation Yes -Thick Yes -Deformed Yes -Improper Length & Hygeine No Neuropathy Assessment Feet - Top Side and Bottom <Entered> (a) Communication Assessment Preferred language Citizen Of [place] Network Management Specialist Required No Able to Read Yes Able to Write Yes Communication Tools None Caregiver Communication Skills No Impairment Impairment Right Hearing Abillity Normal Left Hearing Abillity Normal Visual Assistive Devices Glasses Teaching Assessment Preferences Verbal,Written, Demonstration Barriers to Learning Knowledge Deficit Readiness To Learn Excellent Willingness to Engage in Self Management High Activies Readiness to Engage in Self Management High Activities Anxiety Level Calm Cooperation Cooperative Perception Coherent Interest in Health Problem Asks Questions Education Importance Acknowledges Need Does Patient Smoke tobacco or other No substances Smoking Status Former smoker Is Patient Diabetic Yes Functional Assessment Recent Decline in Ability to Perform Denies Any Declines Culture/Quaker/Hand Sander Cultural/Quaker Needs that may affect No Treatment Plan (a) 1 - - 2 - + 3 - + 4 - + - Nurse 1 - General Ulcer Measurement Start: 02/01/25 09:21 Freq: Status: Active Protocol: Activity Type Activity Date Activity User E-sign Co-sign Detail Recorded Client Recorded Date Recorded By Document 02/01/25 09:23 CP [id number] 02/01/25 09:35 CP Document 02/08/25 09:32 MT [id number] 02/08/25 09:41 MT Document 02/15/25 09:38 DL [id number] 02/15/25 09:46 DL 02/01/25 02/08/25 02/15/25 09:23 09:32 09:38 Wound Center Nurse 1 #1 L Plantar -Current Size (cm) - Length 1 1.5 1.1 -Current Size (cm) - Width 1.1 1.4 1 -Current Size (cm) - Depth 0.3 0.3 0.2 -Total Square Cm 1.1 2.10 1.1 -Date of Last Picture (Recall this 02/01/25 02/08/25 field) -Photo Taken Yes Yes -Epithelialization None Present Small 1-33% -Tunneling No No -Undermining/Tunneling Yes No -Undermining/Tunneling Starts (O'clock 11 2 ) -Undermining/Tunneling Ends (O'clock) 5 4 -Maximum Distance (cm) 0.5 0.2 -Circular Undermining Yes Yes -Exudate Amt Small Medium Medium -Exudate Type Serosanguineous Serosanguineous Serosanguineous -Wound Margin Thickened & Thickened & Distinct, Rolled Under Rolled Under Outline Attached -Granulation Amt Large (67-100%) Medium (34-66%) Large (67-100%) -Granulation Quality [place] Pale,[place] Red -Slough/Fibrin No -Necrosis Amt Medium (34-66%) Small (1-33%) -Necrotic Tissue Type Adherent Slough Adherent Slough -Structure Exposed N/A N/A -Texture (Kelsi-wound Skin Appearance) Callus Assessed,Callus Scarring -Moisture (Kelsi-wound Skin Appearance) No Abnormality Assessed Maceration -Color (Kelsi-wound Skin Appearance) No Abnormality Assessed No Abnormality -Temperature (Kelsi-wound Skin No Abnormality No Abnormality No Abnormality Appearance) (Pt Warm) (Pt Warm) (Pt Warm) -Tenderness on Palpation (Kelsi-wound No No No Skin Appearance) -Ulcer Cleansing Soap and Water Soap and Water Soap and Water -Foul Odor after Cleansing No No No -Anesthetic Used 5% Lidocaine 5% Lidocaine 5% Lidocaine Gel Gel Gel Left Calf (cm) 45 Left Ankle (cm) 27 WC - Nurse 2 - General Ulcer CM Notes Start: 02/01/25 09:21 Freq: Status: Active Protocol: Activity Type Activity Date Activity User E-sign Co-sign Detail Recorded Client Recorded Date Recorded By Document 02/01/25 09:50 [id number] 02/01/25 10:04 Document 02/08/25 09:50 [id number] 02/08/25 09:59 Document 02/15/25 10:15 [id number] 02/15/25 10:50 02/01/25 02/08/25 02/15/25 09:50 09:50 10:15 Wound Center Nurse 2 #1 L Plantar -Time 09:51 09:50 10:18 -Correct Patient Yes Yes Yes -Correct Side, Site, Position Yes Yes Yes -Correct Procedure Yes Yes Yes -Procedure Performed Yes Yes Yes -Type of Procedure Debridement Debridement Debridement -Clinical Debridement Subcutaneous Subcutaneous Subcutaneous -Tissue Removed Subcutaneous Subcutaneous Subcutaneous -Post Debridement (cm) - Length 1.7 1.2 1.2 -Post Debridement (cm) - Width 1.0 1.0 1.0 -Post Debridement (cm) - Depth 0.4 0.3 0.3 -Total Square (Post) (cm) 1.70 1.20 1.20 -Area of Debridement (cm) - Length 1.7 1.2 1.2 -Area of Debridement (cm) - Width 1.0 1.0 1.0 -Total Square (Area) (cm) 1.70 1.20 1.20 -Tunneling Yes Yes Yes -Tunneling Position (O'clock) 2 2 2 -Tunneling Distance (cm) 0.5 0.5 0.4 -Undermining/Tunneling No No No -Circular Undermining No No No -Wound/Ulcer Outcome Not Healed Not Healed Not Healed -Ulcer Cleansing Rinsed/ Rinsed/ Rinsed/ Irrigated with Irrigated with Irrigated with Saline Saline Saline -Foul Odor after Cleansing No No No -Bioengineered Tissue No No No -Bleeding Controlled with Pressure Pressure Pressure -Treatment Response Procedure Procedure Procedure Tolerated Well Tolerated Well Tolerated Well -Offloading No Yes No -Type of Offloading Surgical Shoe -Total Non-Weight Bearing to Left Lower Extremity -Debridement - Subq, 1st 20sq cm Yes Yes Yes Pain Scale: 0-10 Numeric Is Patient Pain Free? Yes Yes Yes WC - Nurse 3 - General Ulcer D/C NN Start: 02/01/25 09:21 Freq: Status: Active Protocol: Activity Type Activity Date Activity User E-sign Co-sign Detail Recorded Client Recorded Date Recorded By Document 02/01/25 10:35 CP [id number] 02/01/25 10:37 CP Edit Result 02/01/25 10:35 CP (1) [id number] 02/01/25 11:53 CP Document 02/08/25 10:31 RB [id number] 02/08/25 10:32 RB Document 02/15/25 10:54 KW [id number] 02/15/25 10:54 KW (1) #1 L Plantar - Primary Dressing Applied Fibracol Plus 4x4 => Fibracol Plus 4x4, => Silicone Border => Foam 4x4 BLE - Tubular Bandage => Double Layer - Size of Tubigrip Used => Size F - Size F ($) => 2 0502/08/25 02/15/25 10:35 10:31 10:54 Wound Care Center Nurse 3 #1 L Plantar -Ulcer Cleansing Rinsed/ Rinsed/ Irrigated with Irrigated with Saline Saline -Foul Odor after Cleansing No -Primary Dressing Applied Fibracol Plus Fibracol Plus Fibracol Plus 4x4,Silicone 4x4,Silicone 4x4,Silicone Border Foam 4x4 Border Foam 4x4 Border Foam 4x4 -Fibracol Plus 4x4 1 1 1 -Silicone Border Foam 4x4 1 1 1 BLE -Tubular Bandage Double Layer -Size of Tubigrip Used Size F -Size F ($) 2 -Stockings Yes: PT OWN DOUBLE TUBIGRIP Treatment Response Procedure Tolerated Well Pain Scale: 0-10 Numeric Is Patient Pain Free? Yes Yes Yes WC - Visit Discharge Discharge Condition Stable Stable Stable Ambulatory Status Ambulatory Ambulatory Ambulatory Transportation Private Auto Private Auto Private Auto Accompanied by Medication Reconcilliation completed & No No provided to patient/care provider Clinical Summary of Care Provided Yes Yes Yes Orders Sent Yes Assessment/Plan Assessment/Plan (1) Diabetic ulcer of left foot: CODE(S): E11.621 - Type 2 diabetes mellitus with foot ulcer; L97.529 - Non- pressure chronic ulcer of other part of left foot with unspecified severity PLAN: Clarke II (2) Type 2 diabetes mellitus with diabetic polyneuropathy: CODE(S): E11.42 - Type 2 diabetes mellitus with diabetic polyneuropathy (3) Type 2 diabetes mellitus: CODE(S): E11.9 - Type 2 diabetes mellitus without complications (4) Obesity: CODE(S): E66.9 - Obesity, unspecified (5) History of partial amputation of toe of left foot: CODE(S): Z89.422 - Acquired absence of other left toe(s) (6) History of necrotizing fasciitis: CODE(S): Z87.39 - Personal history of other diseases of the musculoskeletal system and connective tissue PLAN: Plan Debridement done as documented above, procedure was well-tolerated. No acute concerns reported at this time. No significant change since her last visit, stable. Currently on clindamycin and metronidazole per culture and sensitivity. An MRI was ordered following x-ray due to concern for possible sequelae of prior osteomyelitis or chronic osteomyelitis. If chronic osteomyelitis is present, she will benefit from hyperbaric oxygen therapy. Continue Fibracol daily to twice daily, cover with foam dressing. Still yet to get in touch with her tape maker. Will transfer her care to podiatry at the wound center/partner to her primary tape maker. Offloading strongly recommended. Continue metformin, Actos and glimepiride for diabetes control, dietary modifications also very strongly recommended. Recent A1c was at 7.6, goal is for an A1c of less than 7. Their questions were answered and they were advised to let us knowif they have any further questions or concerns. Follow-up in a week or sooner if needed. This note was generated with The App[employer]ation software. It may contain incorrectwords, spelling, and punctuation that were not noted in checking the note beforesigning. 02/15/25 1159 <Electronically signed by Laney Jackson MD> Cosigner Signature (if applicable): CC: ~ Signed [facility] Work Phone: [phone] 666-124005-15-2025 Progress note [facility] [address] [place] [address] Progress Note - Wound Care 02/15/25 1153 MR#: [id number] Acct: [id number] Name: SHERRI BRASHER Rep #:[id number] : 1960 64 From: Laney castro MD PCP: Dr. Noah Levin MD Status:REG R CR Location: History of Present Illness Date of Service: 02/15/25 Chief Complaint: Left foot ulcer History of Wound: Ms. Brasher is a 64-year-old who presents to the wound center due to nonhealing left foot ulcer. Believes that it started almost 2 months ago. Just noted it. No known precipitating factor. Does not have as much feeling in her foot due to diabetes. Prior history of diabetic foot surgery/amputation. She states that over the last 2 months, she has been applying peroxide however due to none improvement her daughter recommended she come to the wound center. Had seen podiatry in [place] but last saw podiatry afew years ago. She states that she was given a however it was too tightso she does not wear these. Walks barefooted at home. Not sure about her diabetes control but reports compliance with her medication. Feels well otherwise. Reports a good diet Progress of Wound: No new concerns reported at this time. Has started antibiotics and denies any concerns with this. Stable ulcer. Objective Data Objective Data Vital Signs: Vital Signs Temp Pulse Resp BP 97.3 F L 69 18 143/73 H 02/15/25 09:38 02/15/25 09:38 02/15/25 09:38 02/15/25 09:38 Weight: 256 lb Body Mass Index (BMI) 50.0 Lab / Micro Data 02/01/25 11:11 02/01/25 11:11 Micro: Microbiology 02/01/25 10:03 Wound - Left Foot Gram Stain - Final 02/01/25 10:03 Wound - Left Foot Wound Culture - Final Streptococcus agalactiae (B) Staphylococcus aureus Schaalia odontolyticus 02/01/25 10:03 Wound - Left Foot Anaerobic Culture - Final Bacteroides fragilis Anaerobic cocci Charges/Coding Procedures Integumentary 111xxx-113xx: 52203 Peyton subq tissue 20 sq cm/< Physical Exam Const alert, oriented x3 and no apparent distress General Appearance: cooperative, comfortable and well kempt HEENT normocephalic and head/scalp atraumatic Head and Scalp: normal to inspection Eyes EOMs intact bilaterally General Eye: normal appearance of both eyes Neck full ROM and supple General: normal visual inspection Resp normal respiratory effort Effort and Inspection: able to speak in complete sentences Extremity General Extremity: edema Skin Wounds: wounds noted size Size: See clinical note, bed granulating well and withundermining, margins well approximated, no odor and open Neuro oriented x3, CN's II-XII intact bilaterally, moves all extremities and no focal motor deficits Psych mental status grossly normal, thought process normal, cooperative and affect normal Debridement Note Debridement Note Wound debrided: Left foot (plantar) Type of Debridement: Excisional debridement Anesthesia Used: 5% Lidocaine Gel Depth: Down to and including healthy tissue and in the subcutaneous layer Percentage of wound debrided: 100 Instrument Used: 5mm curette Tissue Removed: Slough and devitalized tissue Severity: Fat Layer Exposed Amount of bleeding with debridement: Mild Bleeding Controlled with: Pressure Patient tolerated procedure: Patient tolerated procedure well Post-Debridement Measurements and Additional Note: Post-Debridement Measurements/Treatment CHRISTINA - Nurse 1 - General Ulcer Assessment Start: 02/01/25 09:21 Freq: Status: Active Protocol: WC.LOWEXT Activity Type Activity Date Activity User E-sign Co-sign Detail Recorded Client Recorded Date Recorded By Document 02/01/25 09:23 CP [id number] 02/01/25 09:35 CP Document 02/08/25 09:32 MT [id number] 02/08/25 09:41 MT Document 02/15/25 09:38 DL [id number] 02/15/25 09:46 DL 02/01/25 02/08/25 02/15/25 09:23 09:32 09:38 WC - Today's Visit Information Type of service Follow-up Visit Follow-up Visit Follow-up Visit (Physician/BIOINFORMATICS ASSOCIATE (Physician/BIOINFORMATICS ASSOCIATE (Physician/BIOINFORMATICS ASSOCIATE ) ) ) Arrival Mode Ambulatory Ambulatory Ambulatory Transfer Assistance None Accompanied by ELA Patient Identification Verified (Name & Yes Yes Yes ) Patient Requires Transmission-Based No No Precautions Safety Precautions Fall Prevention Finger Stick Blood Sugar(mg/dl) (if 124 120 indicated): Blood Sugar Stated by Stated by Patient Patient Height and Weight Height 5 ft Weight 256 lb Weight in Pounds 256.0 lbs Weight Measurement Method Standing Scale Body Mass Index (BMI) 50.0 50.0 50.0 BMI Classification Obese Obese Obese Vital Signs Temperature (97.8 F-99.1 F) 97.4 F L 97.4 F L 97.3 F L Temperature Source Temporal Temporal Temporal Pulse Rate (60-100) 64 71 69 Pulse Location Monitor Monitor Monitor Respiratory Rate (12-18) 16 18 18 Respiratory rate source Observation Observation Observation Blood Pressure (90/60-120/80) 166/67 H 153/66 H 143/73 H Blood Pressure Mean (mm Hg) 100 95 96 Source Monitor Monitor Monitor Position Semi-Fowlers Sitting Blood Pressure Location Right Arm Left Arm History Since Last Visit- (Skip if this is Patient's initial visit) Have you changed medications since your No last visit? Any new allergies or adverse reactions No Had a fall/change in ADL's that may No increase risk of falls Signs or symptoms of abuse and/or No neglect since last visit Have you been in the hospital since your No last visit? Has dressing in place as prescribed Yes Yes Has compression in place as prescribed Yes No Has offloadiing in place as prescribed Yes N/A Experienced any changes in pain level or Yes No management Left Footwear Regular Shoe Regular Shoe Right Footwear Regular Shoe Regular Shoe Pain Scale: 0-10 Numeric Is Patient Pain Free? Yes Yes Yes Lower Extremity Assessment/ Foot Assessment/ Toe Nail Assessment Right -Posterior Tibial Palpable Yes -Posterior Tibial Doppler Multiphasic -Dorsalis Pedis Palpable Yes -Dorsalis Pedis Doppler Multiphasic -Extremity Color Normal -Hair Growth on Legs Yes -Hair Growth on Toes No -Temperature of Extremity Warm -Capillary Refill Less than 3 Seconds -Dependent Rubor No -Blanched when Elevated No -Prior Foot Ulcer No -Prior Amputation No -Thick Yes -Deformed Yes -Improper Length & Hygeine No Left -Posterior Tibial Palpable Yes -Posterior Tibial Doppler Multiphasic -Dorsalis Pedis Palpable Yes -Dorsalis Pedis Doppler Multiphasic -Extremity Color Normal -Hair Growth on Legs Yes -Hair Growth on Toes No -Temperature of Extremity Warm -Capillary Refill Less than 3 Seconds -Dependent Rubor No -Blanched when Elevated No -Lipodermatosclerosis No -Prior Foot Ulcer Yes -Prior Amputation Yes -Thick Yes -Deformed Yes -Improper Length & Hygeine No Neuropathy Assessment Feet - Top Side and Bottom (a) Communication Assessment Preferred language Citizen Of [place] Network Management Specialist Required No Able to Read Yes Able to Write Yes Communication Tools None Caregiver Communication Skills No Impairment Impairment Right Hearing Abillity Normal Left Hearing Abillity Normal Visual Assistive Devices Glasses Teaching Assessment Preferences Verbal,Written, Demonstration Barriers to Learning Knowledge Deficit Readiness To Learn Excellent Willingness to Engage in Self Management High Activies Readiness to Engage in Self Management High Activities Anxiety Level Calm Cooperation Cooperative Perception Coherent Interest in Health Problem Asks Questions Education Importance Acknowledges Need Does Patient Smoke tobacco or other No substances Smoking Status Former smoker Is Patient Diabetic Yes Functional Assessment Recent Decline in Ability to Perform Denies Any Declines Culture/Quaker/Hand Sander Cultural/Quaker Needs that may affect No Treatment Plan (a) 1 - - 2 - + 3 - + 4 - + WC - Nurse 1 - General Ulcer Measurement Start: 02/01/25 09:21 Freq: Status: Active Protocol: Activity Type Activity Date Activity User E-sign Co-sign Detail Recorded Client Recorded Date Recorded By Document 02/01/25 09:23 CP [id number] 02/01/25 09:35 CP Document 02/08/25 09:32 MT [id number] 02/08/25 09:41 MT Document 02/15/25 09:38 DL [id number] 02/15/25 09:46 DL 02/01/25 02/08/25 02/15/25 09:23 09:32 09:38 Wound Center Nurse 1 #1 L Plantar -Current Size (cm) - Length 1 1.5 1.1 -Current Size (cm) - Width 1.1 1.4 1 -Current Size (cm) - Depth 0.3 0.3 0.2 -Total Square Cm 1.1 2.10 1.1 -Date of Last Picture (Recall this 02/01/25 02/08/25 field) -Photo Taken Yes Yes -Epithelialization None Present Small 1-33% -Tunneling No No -Undermining/Tunneling Yes No -Undermining/Tunneling Starts (O'clock 11 2 ) -Undermining/Tunneling Ends (O'clock) 5 4 -Maximum Distance (cm) 0.5 0.2 -Circular Undermining Yes Yes -Exudate Amt Small Medium Medium -Exudate Type Serosanguineous Serosanguineous Serosanguineous -Wound Margin Thickened & Thickened & Distinct, Rolled Under Rolled Under Outline Attached -Granulation Amt Large (67-100%) Medium (34-66%) Large (67-100%) -Granulation Quality [place] Pale,[place] Red -Slough/Fibrin No -Necrosis Amt Medium (34-66%) Small (1-33%) -Necrotic Tissue Type Adherent Slough Adherent Slough -Structure Exposed N/A N/A -Texture (Kelsi-wound Skin Appearance) Callus Assessed,Callus Scarring -Moisture (Kelsi-wound Skin Appearance) No Abnormality Assessed Maceration -Color (Kelsi-wound Skin Appearance) No Abnormality Assessed No Abnormality -Temperature (Kelsi-wound Skin No Abnormality No Abnormality No Abnormality Appearance) (Pt Warm) (Pt Warm) (Pt Warm) -Tenderness on Palpation (Kelsi-wound No No No Skin Appearance) -Ulcer Cleansing Soap and Water Soap and Water Soap and Water -Foul Odor after Cleansing No No No -Anesthetic Used 5% Lidocaine 5% Lidocaine 5% Lidocaine Gel Gel Gel Left Calf (cm) 45 Left Ankle (cm) 27 WC - Nurse 2 - General Ulcer CM Notes Start: 02/01/25 09:21 Freq: Status: Active Protocol: Activity Type Activity Date Activity User E-sign Co-sign Detail Recorded Client Recorded Date Recorded By Document 02/01/25 09:50 [id number] 02/01/25 10:04 Document 02/08/25 09:50 [id number] 02/08/25 09:59 Document 02/15/25 10:15 [id number] 02/15/25 10:50 02/01/25 02/08/25 02/15/25 09:50 09:50 10:15 Wound Center Nurse 2 #1 L Plantar -Time 09:51 09:50 10:18 -Correct Patient Yes Yes Yes -Correct Side, Site, Position Yes Yes Yes -Correct Procedure Yes Yes Yes -Procedure Performed Yes Yes Yes -Type of Procedure Debridement Debridement Debridement -Clinical Debridement Subcutaneous Subcutaneous Subcutaneous -Tissue Removed Subcutaneous Subcutaneous Subcutaneous -Post Debridement (cm) - Length 1.7 1.2 1.2 -Post Debridement (cm) - Width 1.0 1.0 1.0 -Post Debridement (cm) - Depth 0.4 0.3 0.3 -Total Square (Post) (cm) 1.70 1.20 1.20 -Area of Debridement (cm) - Length 1.7 1.2 1.2 -Area of Debridement (cm) - Width 1.0 1.0 1.0 -Total Square (Area) (cm) 1.70 1.20 1.20 -Tunneling Yes Yes Yes -Tunneling Position (O'clock) 2 2 2 -Tunneling Distance (cm) 0.5 0.5 0.4 -Undermining/Tunneling No No No -Circular Undermining No No No -Wound/Ulcer Outcome Not Healed Not Healed Not Healed -Ulcer Cleansing Rinsed/ Rinsed/ Rinsed/ Irrigated with Irrigated with Irrigated with Saline Saline Saline -Foul Odor after Cleansing No No No -Bioengineered Tissue No No No -Bleeding Controlled with Pressure Pressure Pressure -Treatment Response Procedure Procedure Procedure Tolerated Well Tolerated Well Tolerated Well -Offloading No Yes No -Type of Offloading Surgical Shoe -Total Non-Weight Bearing to Left Lower Extremity -Debridement - Subq, 1st 20sq cm Yes Yes Yes Pain Scale: 0-10 Numeric Is Patient Pain Free? Yes Yes Yes WC - Nurse 3 - General Ulcer D/C NN Start: 02/01/25 09:21 Freq: Status: Active Protocol: Activity Type Activity Date Activity User E-sign Co-sign Detail Recorded Client Recorded Date Recorded By Document 02/01/25 10:35 CP [id number] 02/01/25 10:37 CP Edit Result 02/01/25 10:35 CP (1) [id number] 02/01/25 11:53 CP Document 02/08/25 10:31 RB [id number] 02/08/25 10:32 RB Document 02/15/25 10:54 KW [id number] 02/15/25 10:54 KW (1) #1 L Plantar - Primary Dressing Applied Fibracol Plus 4x4 => Fibracol Plus 4x4, => Silicone Border => Foam 4x4 BLE - Tubular Bandage => Double Layer - Size of Tubigrip Used => Size F - Size F ($) => 2 02/01/25 02/08/25 02/15/25 10:35 10:31 10:54 Wound Care Center Nurse 3 #1 L Plantar -Ulcer Cleansing Rinsed/ Rinsed/ Irrigated with Irrigated with Saline Saline -Foul Odor after Cleansing No -Primary Dressing Applied Fibracol Plus Fibracol Plus Fibracol Plus 4x4,Silicone 4x4,Silicone 4x4,Silicone Border Foam 4x4 Border Foam 4x4 Border Foam 4x4 -Fibracol Plus 4x4 1 1 1 -Silicone Border Foam 4x4 1 1 1 BLE -Tubular Bandage Double Layer -Size of Tubigrip Used Size F -Size F ($) 2 -Stockings Yes: PT OWN DOUBLE TUBIGRIP Treatment Response Procedure Tolerated Well Pain Scale: 0-10 Numeric Is Patient Pain Free? Yes Yes Yes WC - Visit Discharge Discharge Condition Stable Stable Stable Ambulatory Status Ambulatory Ambulatory Ambulatory Transportation Private Auto Private Auto Private Auto Accompanied by Medication Reconcilliation completed & No No provided to patient/care provider Clinical Summary of Care Provided Yes Yes Yes Orders Sent Yes Assessment/Plan Assessment/Plan (1) Diabetic ulcer of left foot: CODE(S): E11.621 - Type 2 diabetes mellitus with foot ulcer; L97.529 - Non- pressure chronic ulcer of other part of left foot with unspecified severity PLAN: Clarke II (2) Type 2 diabetes mellitus with diabetic polyneuropathy: CODE(S): E11.42 - Type 2 diabetes mellitus with diabetic polyneuropathy (3) Type 2 diabetes mellitus: CODE(S): E11.9 - Type 2 diabetes mellitus without complications (4) Obesity: CODE(S): E66.9 - Obesity, unspecified (5) History of partial amputation of toe of left foot: CODE(S): Z89.422 - Acquired absence of other left toe(s) (6) History of necrotizing fasciitis: CODE(S): Z87.39 - Personal history of other diseases of the musculoskeletal system and connective tissue PLAN: Plan Debridement done as documented above, procedure was well-tolerated. No acute concerns reported at this time. No significant change since her last visit, stable. Currently on clindamycin and metronidazole per culture and sensitivity. An MRI was ordered following x-ray due to concern for possible sequelae of prior osteomyelitis or chronic osteomyelitis. If chronic osteomyelitis is present, she willbenefit from hyperbaric oxygen therapy. Continue Fibracol daily to twice daily, cover with foam dressing. Still yet to get in touch with her tape maker. Will transfer her care to podiatry at the wound center/partner to her primary tape maker. Offloading strongly recommended. Continue metformin, Actos and glimepiride for diabetes control, dietary modifications also very strongly recommended. Recent A1c was at 7.6, goal is for an A1c of less than 7. Their questions were answered and they were advised to let us knowif they have any further questions or concerns. Follow-up in a week or sooner if needed. This note was generated with [employer] dictation software. It may contain incorrectwords, spelling, and punctuation that were not noted in checking the note beforesigning. 02/15/25 1159 Cosigner Signature (if applicable): CC: ~ Signed [facility]05-08-2025 Progress note Author Laney Jackson [facility] Note Date/Time February 08, 2025 2:07pm [facility] [address] [place] [address] Progress Note - Wound Care 02/08/25 1121 MR#: [id number] Acct: [id number] Name: SHERRI BRASHER Rep #:[id number] : 1960 64 From: Laney castro MD PCP: Dr. Noah Levin MD Status:REG R CR Location: History of Present Illness Date of Service: 02/08/25 Chief Complaint: Left foot ulcer History of Wound: Ms. Brasher is a 64-year-old who presents to the wound center due to nonhealing left foot ulcer. Believes that it started almost 2 months ago. Just noted it. No known precipitating factor. Does not have as much feeling in her foot due to diabetes. Prior history of diabetic foot surgery/amputation. She states that over the last 2 months, she has been applying peroxide however due to none improvement her daughter recommended she come to the wound center. Had seen podiatry in the past but last saw podiatry afew years ago. She states that she was given a however it was too tight so she does not wear these. Walks barefooted at home. Not sure about her diabetes control but reports compliance with her medication. Feels well otherwise. Reports a good diet Progress of Wound: No new concerns reported at this time she states that she has been doing dressing changes as recommended. No significant drainage reported. Yet to pickup antibiotics but plans to today. Objective Data Objective Data Vital Signs: Vital Signs Temp Pulse Resp BP 97.4 F L 71 18 153/66 H 02/08/25 09:32 02/08/25 09:32 02/08/25 09:32 02/08/25 09:32 Weight: 256 lb Body Mass Index (BMI) 50.0 Lab / Micro Data 02/01/25 11:11 02/01/25 11:11 Micro: Microbiology 02/01/25 10:03 Wound - Left Foot Gram Stain - Final 02/01/25 10:03 Wound - Left Foot Wound Culture - Final Streptococcus agalactiae (B) Staphylococcus aureus [place] odontolyticus 02/01/25 10:03 Wound - Left Foot Anaerobic Culture - Final Bacteroides fragilis Anaerobic cocci Charges/Coding Procedures Integumentary 111xxx-113xx: 40030 Peyton subq tissue 20 sq cm/< Physical Exam Const alert, oriented x3 and no apparent distress General Appearance: cooperative, comfortable and well kempt HEENT normocephalic and head/scalp atraumatic Head and Scalp: normal to inspection Eyes EOMs intact bilaterally General Eye: normal appearance of both eyes Neck full ROM and supple General: normal visual inspection Resp normal respiratory effort and normal air movement Effort and Inspection: able to speak in complete sentences Extremity General Extremity: edema Skin Wounds: wounds noted size Size: See clinical note, bed granulating well and withundermining, margins well approximated, no odor and open Neuro oriented x3, CN's II-XII intact bilaterally, moves all extremities and no focal motor deficits Psych mental status grossly normal, thought process normal, cooperative and affect normal Debridement Note Debridement Note Wound debrided: Left foot (plantar) Type of Debridement: Excisional debridement Anesthesia Used: 5% Lidocaine Gel Depth: Down to and including healthy tissue and in the subcutaneous layer Instrument Used: 5mm curette and 7mm curette Tissue Removed: Slough and devitalized tissue Severity: Fat Layer Exposed Amount of bleeding with debridement: Mild Bleeding Controlled with: Pressure Patient tolerated procedure: Patient tolerated procedure well Post-Debridement Measurements and Additional Note: Post-Debridement Measurements/Treatment - Nurse 1 - General Ulcer Assessment Start: 02/01/25 09:21 Freq: Status: Active Protocol: YONAS Activity Type Activity Date Activity User E-sign Co-sign Detail Recorded Client Recorded Date Recorded By Document 02/01/25 09:23 [id number] 02/01/25 09:35 CP Document 02/08/25 09:32 NJ [id number] 02/08/25 09:41 NJ 02/01/25 02/08/25 09:23 09:32 - Today's Visit Information Type of service Follow-up Visit Follow-up Visit (Physician/BIOINFORMATICS ASSOCIATE (Physician/BIOINFORMATICS ASSOCIATE ) ) Arrival Mode Ambulatory Ambulatory Accompanied by ELA Patient Identification Verified (Name & Yes Yes ) Patient Requires Transmission-Based No Precautions Safety Precautions Fall Prevention Finger Stick Blood Sugar(mg/dl) (if 124 120 indicated): Blood Sugar Stated by Stated by Patient Patient Height and Weight Height 5 ft Weight 256 lb Weight in Pounds 256.0 lbs Weight Measurement Method Standing Scale Body Mass Index (BMI) 50.0 50.0 BMI Classification Obese Obese Vital Signs Temperature (97.8 F-99.1 F) 97.4 F L 97.4 F L Temperature Source Temporal Temporal Pulse Rate (60-100) 64 71 Pulse Location Monitor Monitor Respiratory Rate (12-18) 16 18 Respiratory rate source Observation Observation Blood Pressure (90/60-120/80) 166/67 H 153/66 H Blood Pressure Mean (mm Hg) 100 95 Source Monitor Monitor Position Semi-Fowlers Sitting Blood Pressure Location Right Arm Left Arm History Since Last Visit- (Skip if this is Patient's initial visit) Has dressing in place as prescribed Yes Has compression in place as prescribed Yes Has offloadiing in place as prescribed Yes Experienced any changes in pain level or Yes management Left Footwear Regular Shoe Regular Shoe Right Footwear Regular Shoe Regular Shoe Pain Scale: 0-10 Numeric Is Patient Pain Free? Yes Yes Lower Extremity Assessment/ Foot Assessment/ Toe Nail Assessment Right -Posterior Tibial Palpable Yes -Posterior Tibial Doppler Multiphasic -Dorsalis Pedis Palpable Yes -Dorsalis Pedis Doppler Multiphasic -Extremity Color Normal -Hair Growth on Legs Yes -Hair Growth on Toes No -Temperature of Extremity Warm -Capillary Refill Less than 3 Seconds -Dependent Rubor No -Blanched when Elevated No -Prior Foot Ulcer No -Prior Amputation No -Thick Yes -Deformed Yes -Improper Length & Hygeine No Left -Posterior Tibial Palpable Yes -Posterior Tibial Doppler Multiphasic -Dorsalis Pedis Palpable Yes -Dorsalis Pedis Doppler Multiphasic -Extremity Color Normal -Hair Growth on Legs Yes -Hair Growth on Toes No -Temperature of Extremity Warm -Capillary Refill Less than 3 Seconds -Dependent Rubor No -Blanched when Elevated No -Lipodermatosclerosis No -Prior Foot Ulcer Yes -Prior Amputation Yes -Thick Yes -Deformed Yes -Improper Length & Hygeine No Neuropathy Assessment Feet - Top Side and Bottom <Entered> (a) Communication Assessment Preferred language Citizen Of [place] Network Management Specialist Required No Able to Read Yes Able to Write Yes Communication Tools None Caregiver Communication Skills No Impairment Impairment Right Hearing Abillity Normal Left Hearing Abillity Normal Visual Assistive Devices Glasses Teaching Assessment Preferences Verbal,Written, Demonstration Barriers to Learning Knowledge Deficit Readiness To Learn Excellent Willingness to Engage in Self Management High Activies Readiness to Engage in Self Management High Activities Anxiety Level Calm Cooperation Cooperative Perception Coherent Interest in Health Problem Asks Questions Education Importance Acknowledges Need Does Patient Smoke tobacco or other No substances Smoking Status Former smoker Is Patient Diabetic Yes Functional Assessment Recent Decline in Ability to Perform Denies Any Declines Culture/Quaker/Hand Sander Cultural/Quaker Needs that may affect No Treatment Plan (a) 1 - - 2 - + 3 - + 4 - + WC - Nurse 1 - General Ulcer Measurement Start: 02/01/25 09:21 Freq: Status: Active Protocol: Activity Type Activity Date Activity User E-sign Co-sign Detail Recorded Client Recorded Date Recorded By Document 02/01/25 09:23 CP [id number] 02/01/25 09:35 CP Document 02/08/25 09:32 MT [id number] 02/08/25 09:41 MT 02/01/25 02/08/25 09:23 09:32 Wound Center Nurse 1 #1 L Plantar -Current Size (cm) - Length 1 1.5 -Current Size (cm) - Width 1.1 1.4 -Current Size (cm) - Depth 0.3 0.3 -Total Square Cm 1.1 2.10 -Date of Last Picture (Recall this 02/01/25 02/08/25 field) -Photo Taken Yes Yes -Epithelialization None Present Small 1-33% -Tunneling No No -Undermining/Tunneling Yes No -Undermining/Tunneling Starts (O'clock 11 ) -Undermining/Tunneling Ends (O'clock) 5 -Maximum Distance (cm) 0.5 -Circular Undermining Yes Yes -Exudate Amt Small Medium -Exudate Type Serosanguineous Serosanguineous -Wound Margin Thickened & Thickened & Rolled Under Rolled Under -Granulation Amt Large (67-100%) Medium (34-66%) -Granulation Quality [place] Pale,[place] -Slough/Fibrin No -Necrosis Amt Medium (34-66%) -Necrotic Tissue Type Adherent Slough -Structure Exposed N/A -Texture (Kelsi-wound Skin Appearance) Callus Assessed,Callus -Moisture (Kelsi-wound Skin Appearance) No Abnormality Assessed -Color (Kelsi-wound Skin Appearance) No Abnormality Assessed -Temperature (Kelsi-wound Skin No Abnormality No Abnormality Appearance) (Pt Warm) (Pt Warm) -Tenderness on Palpation (Kelsi-wound No No Skin Appearance) -Ulcer Cleansing Soap and Water Soap and Water -Foul Odor after Cleansing No No -Anesthetic Used 5% Lidocaine 5% Lidocaine Gel Gel WC - Nurse 2 - General Ulcer CM Notes Start: 02/01/25 09:21 Freq: Status: Active Protocol: Activity Type Activity Date Activity User E-sign Co-sign Detail Recorded Client Recorded Date Recorded By Document 02/01/25 09:50 [id number] 02/01/25 10:04 GM Document 02/08/25 09:50 [id number] 02/08/25 09:59 GM 02/01/25 02/08/25 09:50 09:50 Wound Center Nurse 2 #1 L Plantar -Time 09:51 09:50 -Correct Patient Yes Yes -Correct Side, Site, Position Yes Yes -Correct Procedure Yes Yes -Procedure Performed Yes Yes -Type of Procedure Debridement Debridement -Clinical Debridement Subcutaneous Subcutaneous -Tissue Removed Subcutaneous Subcutaneous -Post Debridement (cm) - Length 1.7 1.2 -Post Debridement (cm) - Width 1.0 1.0 -Post Debridement (cm) - Depth 0.4 0.3 -Total Square (Post) (cm) 1.70 1.20 -Area of Debridement (cm) - Length 1.7 1.2 -Area of Debridement (cm) - Width 1.0 1.0 -Total Square (Area) (cm) 1.70 1.20 -Tunneling Yes Yes -Tunneling Position (O'clock) 2 2 -Tunneling Distance (cm) 0.5 0.5 -Undermining/Tunneling No No -Circular Undermining No No -Wound/Ulcer Outcome Not Healed Not Healed -Ulcer Cleansing Rinsed/ Rinsed/ Irrigated with Irrigated with Saline Saline -Foul Odor after Cleansing No No -Bioengineered Tissue No No -Bleeding Controlled with Pressure Pressure -Treatment Response Procedure Procedure Tolerated Well Tolerated Well -Offloading No Yes -Type of Offloading Surgical Shoe -Total Non-Weight Bearing to Left Lower Extremity -Debridement - Subq, 1st 20sq cm Yes Yes Pain Scale: 0-10 Numeric Is Patient Pain Free? Yes Yes WC - Nurse 3 - General Ulcer D/C NN Start: 02/01/25 09:21 Freq: Status: Active Protocol: Activity Type Activity Date Activity User E-sign Co-sign Detail Recorded Client Recorded Date Recorded By Document 02/01/25 10:35 CP [id number] 02/01/25 10:37 CP Edit Result 02/01/25 10:35 CP (1) [id number] 02/01/25 11:53 CP Document 02/08/25 10:31 RB [id number] 02/08/25 10:32 RB (1) #1 L Plantar - Primary Dressing Applied Fibracol Plus 4x4 => Fibracol Plus 4x4, => Silicone Border => Foam 4x4 BLE - Tubular Bandage => Double Layer - Size of Tubigrip Used => Size F - Size F ($) => 2 02/01/25 02/08/25 10:35 10:31 Wound Care Center Nurse 3 #1 L Plantar -Ulcer Cleansing Rinsed/ Rinsed/ Irrigated with Irrigated with Saline Saline -Foul Odor after Cleansing No -Primary Dressing Applied Fibracol Plus Fibracol Plus 4x4,Silicone 4x4,Silicone Border Foam 4x4 Border Foam 4x4 -Fibracol Plus 4x4 1 1 -Silicone Border Foam 4x4 1 1 BLE -Tubular Bandage Double Layer -Size of Tubigrip Used Size F -Size F ($) 2 -Stockings Yes: PT OWN DOUBLE TUBIGRIP Treatment Response Procedure Tolerated Well Pain Scale: 0-10 Numeric Is Patient Pain Free? Yes Yes WC - Visit Discharge Discharge Condition Stable Stable Ambulatory Status Ambulatory Ambulatory Transportation Private Auto Private Auto Accompanied by Medication Reconcilliation completed & No provided to patient/care provider Clinical Summary of Care Provided Yes Yes Orders Sent Yes Assessment/Plan Assessment/Plan (1) Diabetic ulcer of left foot: CODE(S): E11.621 - Type 2 diabetes mellitus with foot ulcer; L97.529 - Non- pressure chronic ulcer of other part of left foot with unspecified severity PLAN: Clarke II (2) Type 2 diabetes mellitus with diabetic polyneuropathy: CODE(S): E11.42 - Type 2 diabetes mellitus with diabetic polyneuropathy (3) Type 2 diabetes mellitus: CODE(S): E11.9 - Type 2 diabetes mellitus without complications (4) Obesity: CODE(S): E66.9 - Obesity, unspecified (5) History of partial amputation of toe of left foot: CODE(S): Z89.422 - Acquired absence of other left toe(s) (6) History of necrotizing fasciitis: CODE(S): Z87.39 - Personal history of other diseases of the musculoskeletal system and connective tissue PLAN: Plan Debridement done as documented above, procedure was well-tolerated. No acute concerns reported at this time. Some improvement since her last visit, as aboveshe states that she has been doing dressing changes consistently and trying to stay off of the foot. Prescription for clindamycin and metronidazole sent per culture and sensitivity however, she is yet to begin this. Strongly advised that she take clindamycin with probiotics and call if she notes any concern for diarrhea, she voiced understanding. X-ray with no significant concern for acuteosteomyelitis. However, there was concern for possible sequelae of prior osteomyelitis or chronic osteomyelitis. Will get an MRI, if chronic osteomyelitis is present she will benefit from HBO. Labs also grossly unremarkable. Total white count within range, ESR 26 and CRP very slightly elevated at 4.73 likely due to obesity than an infectious process. Continue Fibracol daily to twice daily, cover with foam dressing. Postop shoes given and also strongly advised to get in touch with her tape maker which she is yet to do. Offloading strongly recommended. Will hold off a total contact cast at this time. I am concerned about ambulating well with 1. Continue metformin, Actos and glimepiride for diabetes control, dietary modifications also very strongly recommended. Recent A1c was at 7.6, goal is for an A1c of less than 7. Their questions were answered and they were advised to let us know if they haveany further questions or concerns. Follow-up in a week or sooner if needed. This note was generated with The App[employer]ation software. It may contain incorrectwords, spelling, and punctuation that were not noted in checking the note beforesigning. 02/08/25 1407 <Electronically signed by Laney Jackson MD> Cosigner Signature (if applicable): CC: ~ Signed [facility] Work Phone: [phone]) 337-525205-08-2025 Progress note [facility] [address] [place] [address] Progress Note - Wound Care 02/08/25 1121 MR#: [id number] Acct: [id number] Name: SHERRI BRASHER Rep #:[id number] : 1960 64 From: Laney castro MD PCP: Dr. Noah Levin MD Status:REG R CR Location: History of Present Illness Date of Service: 02/08/25 Chief Complaint: Left foot ulcer History of Wound: Ms. Brasher is a 64-year-old who presents to the wound center due to nonhealing left foot ulcer. Believes that it started almost 2 months ago. Just noted it. No known precipitating factor. Does not have as much feeling in her foot due to diabetes. Prior history of diabetic foot surgery/amputation. She states that over the last 2 months, she has been applying peroxide however due to none improvement her daughter recommended she come to the wound center. Had seen podiatry in [facility] but last saw podiatry afew years ago. She states that she was given a however it was too tightso she does not wear these. Walks barefooted at home. Not sure about her diabetes control but reports compliance with her medication. Feels well otherwise. Reports a good diet Progress of Wound: No new concerns reported at this time she states that she has been doing dressing changes as recommended. No significant drainage reported. Yet to pickup antibiotics but plans to today. Objective Data Objective Data Vital Signs: Vital Signs Temp Pulse Resp BP 97.4 F L 71 18 153/66 H 02/08/25 09:32 02/08/25 09:32 02/08/25 09:32 02/08/25 09:32 Weight: 256 lb Body Mass Index (BMI) 50.0 Lab / Micro Data 02/01/25 11:11 02/01/25 11:11 Micro: Microbiology 02/01/25 10:03 Wound - Left Foot Gram Stain - Final 02/01/25 10:03 Wound - Left Foot Wound Culture - Final Streptococcus agalactiae (B) Staphylococcus aureus [place] odontolyticus 02/01/25 10:03 Wound - Left Foot Anaerobic Culture - Final Bacteroides fragilis Anaerobic cocci Charges/Coding Procedures Integumentary 111xxx-113xx: [id number] Pey[place] subq tissue 20 sq cm/< Physical Exam Const alert, oriented x3 and no apparent distress General Appearance: cooperative, comfortable and well kempt HEENT normocephalic and head/scalp atraumatic Head and Scalp: normal to inspection Eyes EOMs intact bilaterally General Eye: normal appearance of both eyes Neck full ROM and supple General: normal visual inspection Resp normal respiratory effort and normal air movement Effort and Inspection: able to speak in complete sentences Extremity General Extremity: edema Skin Wounds: wounds noted size Size: See clinical note, bed granulating well and withundermining, margins well approximated, no odor and open Neuro oriented x3, CN's II-XII intact bilaterally, moves all extremities and no focal motor deficits Psych mental status grossly normal, thought process normal, cooperative and affect normal Debridement Note Debridement Note Wound debrided: Left foot (plantar) Type of Debridement: Excisional debridement Anesthesia Used: 5% Lidocaine Gel Depth: Down to and including healthy tissue and in the subcutaneous layer Instrument Used: 5mm curette and 7mm curette Tissue Removed: Slough and devitalized tissue Severity: Fat Layer Exposed Amount of bleeding with debridement: Mild Bleeding Controlled with: Pressure Patient tolerated procedure: Patient tolerated procedure well Post-Debridement Measurements and Additional Note: Post-Debridement Measurements/Treatment - Nurse 1 - General Ulcer Assessment Start: 02/01/25 09:21 Freq: Status: Active Protocol: YONAS Activity Type Activity Date Activity User E-sign Co-sign Detail Recorded Client Recorded Date Recorded By Document 02/01/25 09:23 CP [id number] 02/01/25 09:35 CP Document 02/08/25 09:32 MT [id number] 02/08/25 09:41 MT 02/01/25 02/08/25 09:23 09:32 - Today's Visit Information Type of service Follow-up Visit Follow-up Visit (Physician/BIOINFORMATICS ASSOCIATE (Physician/BIOINFORMATICS ASSOCIATE ) ) Arrival Mode Ambulatory Ambulatory Accompanied by ELA Patient Identification Verified (Name & Yes Yes ) Patient Requires Transmission-Based No Precautions Safety Precautions Fall Prevention Finger Stick Blood Sugar(mg/dl) (if 124 120 indicated): Blood Sugar Stated by Stated by Patient Patient Height and Weight Height 5 ft Weight 256 lb Weight in Pounds 256.0 lbs Weight Measurement Method Standing Scale Body Mass Index (BMI) 50.0 50.0 BMI Classification Obese Obese Vital Signs Temperature (97.8 F-99.1 F) 97.4 F L 97.4 F L Temperature Source Temporal Temporal Pulse Rate (60-100) 64 71 Pulse Location Monitor Monitor Respiratory Rate (12-18) 16 18 Respiratory rate source Observation Observation Blood Pressure (90/60-120/80) 166/67 H 153/66 H Blood Pressure Mean (mm Hg) 100 95 Source Monitor Monitor Position Semi-Fowlers Sitting Blood Pressure Location Right Arm Left Arm History Since Last Visit- (Skip if this is Patient's initial visit) Has dressing in place as prescribed Yes Has compression in place as prescribed Yes Has offloadiing in place as prescribed Yes Experienced any changes in pain level or Yes management Left Footwear Regular Shoe Regular Shoe Right Footwear Regular Shoe Regular Shoe Pain Scale: 0-10 Numeric Is Patient Pain Free? Yes Yes Lower Extremity Assessment/ Foot Assessment/ Toe Nail Assessment Right -Posterior Tibial Palpable Yes -Posterior Tibial Doppler Multiphasic -Dorsalis Pedis Palpable Yes -Dorsalis Pedis Doppler Multiphasic -Extremity Color Normal -Hair Growth on Legs Yes -Hair Growth on Toes No -Temperature of Extremity Warm -Capillary Refill Less than 3 Seconds -Dependent Rubor No -Blanched when Elevated No -Prior Foot Ulcer No -Prior Amputation No -Thick Yes -Deformed Yes -Improper Length & Hygeine No Left -Posterior Tibial Palpable Yes -Posterior Tibial Doppler Multiphasic -Dorsalis Pedis Palpable Yes -Dorsalis Pedis Doppler Multiphasic -Extremity Color Normal -Hair Growth on Legs Yes -Hair Growth on Toes No -Temperature of Extremity Warm -Capillary Refill Less than 3 Seconds -Dependent Rubor No -Blanched when Elevated No -Lipodermatosclerosis No -Prior Foot Ulcer Yes -Prior Amputation Yes -Thick Yes -Deformed Yes -Improper Length & Hygeine No Neuropathy Assessment Feet - Top Side and Bottom (a) Communication Assessment Preferred language Citizen Of [place] Network Management Specialist Required No Able to Read Yes Able to Write Yes Communication Tools None Caregiver Communication Skills No Impairment Impairment Right Hearing Abillity Normal Left Hearing Abillity Normal Visual Assistive Devices Glasses Teaching Assessment Preferences Verbal,Written, Demonstration Barriers to Learning Knowledge Deficit Readiness To Learn Excellent Willingness to Engage in Self Management High Activies Readiness to Engage in Self Management High Activities Anxiety Level Calm Cooperation Cooperative Perception Coherent Interest in Health Problem Asks Questions Education Importance Acknowledges Need Does Patient Smoke tobacco or other No substances Smoking Status Former smoker Is Patient Diabetic Yes Functional Assessment Recent Decline in Ability to Perform Denies Any Declines Culture/Quaker/Hand Sander Cultural/Quaker Needs that may affect No Treatment Plan (a) 1 - - 2 - + 3 - + 4 - + - Nurse 1 - General Ulcer Measurement Start: 02/01/25 09:21 Freq: Status: Active Protocol: Activity Type Activity Date Activity User E-sign Co-sign Detail Recorded Client Recorded Date Recorded By Document 02/01/25 09:23 CP [id number] 02/01/25 09:35 CP Document 02/08/25 09:32 MT [id number] 02/08/25 09:41 MT 02/01/25 02/08/25 09:23 09:32 Wound Center Nurse 1 #1 L Plantar -Current Size (cm) - Length 1 1.5 -Current Size (cm) - Width 1.1 1.4 -Current Size (cm) - Depth 0.3 0.3 -Total Square Cm 1.1 2.10 -Date of Last Picture (Recall this 02/01/25 02/08/25 field) -Photo Taken Yes Yes -Epithelialization None Present Small 1-33% -Tunneling No No -Undermining/Tunneling Yes No -Undermining/Tunneling Starts (O'clock 11 ) -Undermining/Tunneling Ends (O'clock) 5 -Maximum Distance (cm) 0.5 -Circular Undermining Yes Yes -Exudate Amt Small Medium -Exudate Type Serosanguineous Serosanguineous -Wound Margin Thickened & Thickened & Rolled Under Rolled Under -Granulation Amt Large (67-100%) Medium (34-66%) -Granulation Quality [place] Pale,[place] -Slough/Fibrin No -Necrosis Amt Medium (34-66%) -Necrotic Tissue Type Adherent Slough -Structure Exposed N/A -Texture (Kelsi-wound Skin Appearance) Callus Assessed,Callus -Moisture (Kelsi-wound Skin Appearance) No Abnormality Assessed -Color (Kelsi-wound Skin Appearance) No Abnormality Assessed -Temperature (Kelsi-wound Skin No Abnormality No Abnormality Appearance) (Pt Warm) (Pt Warm) -Tenderness on Palpation (Kelsi-wound No No Skin Appearance) -Ulcer Cleansing Soap and Water Soap and Water -Foul Odor after Cleansing No No -Anesthetic Used 5% Lidocaine 5% Lidocaine Gel Gel WC - Nurse 2 - General Ulcer CM Notes Start: 02/01/25 09:21 Freq: Status: Active Protocol: Activity Type Activity Date Activity User E-sign Co-sign Detail Recorded Client Recorded Date Recorded By Document 02/01/25 09:50 [id number] 02/01/25 10:04 Document 02/08/25 09:50 [id number] 02/08/25 09:59 GM 02/01/25 02/08/25 09:50 09:50 Wound Center Nurse 2 #1 L Plantar -Time 09:51 09:50 -Correct Patient Yes Yes -Correct Side, Site, Position Yes Yes -Correct Procedure Yes Yes -Procedure Performed Yes Yes -Type of Procedure Debridement Debridement -Clinical Debridement Subcutaneous Subcutaneous -Tissue Removed Subcutaneous Subcutaneous -Post Debridement (cm) - Length 1.7 1.2 -Post Debridement (cm) - Width 1.0 1.0 -Post Debridement (cm) - Depth 0.4 0.3 -Total Square (Post) (cm) 1.70 1.20 -Area of Debridement (cm) - Length 1.7 1.2 -Area of Debridement (cm) - Width 1.0 1.0 -Total Square (Area) (cm) 1.70 1.20 -Tunneling Yes Yes -Tunneling Position (O'clock) 2 2 -Tunneling Distance (cm) 0.5 0.5 -Undermining/Tunneling No No -Circular Undermining No No -Wound/Ulcer Outcome Not Healed Not Healed -Ulcer Cleansing Rinsed/ Rinsed/ Irrigated with Irrigated with Saline Saline -Foul Odor after Cleansing No No -Bioengineered Tissue No No -Bleeding Controlled with Pressure Pressure -Treatment Response Procedure Procedure Tolerated Well Tolerated Well -Offloading No Yes -Type of Offloading Surgical Shoe -Total Non-Weight Bearing to Left Lower Extremity -Debridement - Subq, 1st 20sq cm Yes Yes Pain Scale: 0-10 Numeric Is Patient Pain Free? Yes Yes WC - Nurse 3 - General Ulcer D/C NN Start: 02/01/25 09:21 Freq: Status: Active Protocol: Activity Type Activity Date Activity User E-sign Co-sign Detail Recorded Client Recorded Date Recorded By Document 02/01/25 10:35 CP [id number] 02/01/25 10:37 CP Edit Result 02/01/25 10:35 CP (1) [id number] 02/01/25 11:53 CP Document 02/08/25 10:31 RB [id number] 02/08/25 10:32 RB (1) #1 L Plantar - Primary Dressing Applied Fibracol Plus 4x4 => Fibracol Plus 4x4, => Silicone Border => Foam 4x4 BLE - Tubular Bandage => Double Layer - Size of Tubigrip Used => Size F - Size F ($) => 2 02/01/25 02/08/25 10:35 10:31 Wound Care Center Nurse 3 #1 L Plantar -Ulcer Cleansing Rinsed/ Rinsed/ Irrigated with Irrigated with Saline Saline -Foul Odor after Cleansing No -Primary Dressing Applied Fibracol Plus Fibracol Plus 4x4,Silicone 4x4,Silicone Border Foam 4x4 Border Foam 4x4 -Fibracol Plus 4x4 1 1 -Silicone Border Foam 4x4 1 1 BLE -Tubular Bandage Double Layer -Size of Tubigrip Used Size F -Size F ($) 2 -Stockings Yes: PT OWN DOUBLE TUBIGRIP Treatment Response Procedure Tolerated Well Pain Scale: 0-10 Numeric Is Patient Pain Free? Yes Yes WC - Visit Discharge Discharge Condition Stable Stable Ambulatory Status Ambulatory Ambulatory Transportation Private Auto Private Auto Accompanied by Medication Reconcilliation completed & No provided to patient/care provider Clinical Summary of Care Provided Yes Yes Orders Sent Yes Assessment/Plan Assessment/Plan (1) Diabetic ulcer of left foot: CODE(S): E11.621 - Type 2 diabetes mellitus with foot ulcer; L97.529 - Non- pressure chronic ulcer of other part of left foot with unspecified severity PLAN: Clarke II (2) Type 2 diabetes mellitus with diabetic polyneuropathy: CODE(S): E11.42 - Type 2 diabetes mellitus with diabetic polyneuropathy (3) Type 2 diabetes mellitus: CODE(S): E11.9 - Type 2 diabetes mellitus without complications (4) Obesity: CODE(S): E66.9 - Obesity, unspecified (5) History of partial amputation of toe of left foot: CODE(S): Z89.422 - Acquired absence of other left toe(s) (6) History of necrotizing fasciitis: CODE(S): Z87.39 - Personal history of other diseases of the musculoskeletal system and connective tissue PLAN: Plan Debridement done as documented above, procedure was well-tolerated. No acute concerns reported at this time. Some improvement since her last visit, as aboveshe states that she has been doing dressingchanges consistently and trying to stay off of the foot. Prescription for clindamycin and metronidazole sent per culture and sensitivity however, she is yet to begin this. Strongly advised that she take clindamycin with probiotics and call if she notes any concern for diarrhea, she voiced understanding. X-ray with no significant concern for acuteosteomyelitis. However, there was concern for possible sequelae of prior osteomyelitis or chronic osteomyelitis. Will get an MRI, if chronic osteomyelit is is present she will benefit from HBO. Labs also grossly unremarkable. Total white count within range, ESR 26 and CRP very slightly elevated at 4.73 likely due to obesity than an infectious process. Continue Fibracol daily to twice daily, cover with foam dressing. Postop shoes given and also strongly advised to get in touch with her tape maker which she is yet to do. Offloading strongly recommended. Will hold off a total contact cast at this time. I am concerned about ambulating well with 1. Continue metformin, Actos and glimepiride for diabetes control, dietary modifications also very strongly recommended. Recent A1c was at 7.6, goal is for an A1c of less than 7. Their questions were answered and they were advised to let us know if they haveany further questions or concerns. Follow-up in a week or sooner if needed. This note was generated with [employer] dictation software. It may contain incorrectwords, spelling, and punctuation that were not noted in checking the note beforesigning. 02/08/25 1407 Cosigner Signature (if applicable): CC: ~ Signed [facility]05-02-2025 History and physical note Author Laney Jackson [facility] Note Date/Time February 02, 2025 4:22pm [facility] [address] [place] [id number] H&P Exam - Wound Care 02/01/25 1248 MR#: [id number] Acct: [id number] Name: SHERRI BRASHER Rep #:[id number] : 1960 64 From: Laney castro MD PCP: Dr. Noah Levin MD Status:REG R CR Location: History of Present Illness Date of Service: 02/01/25 Chief Complaint: Left foot ulcer History of Wound: Ms. Brasher is a 64-year-old who presents to the wound center due to nonhealing left foot ulcer. Believes that it started almost 2 months ago. Just noted it. No known precipitating factor. Does not have as much feeling in her foot due to diabetes. Prior history of diabetic foot surgery/amputation. She states that over the last 2 months, she has been applying peroxide however due to none improvement her daughter recommended she come to the wound center. Had seen podiatry in the past but last saw podiatry afew years ago. She states that she was given a however it was too tight so she does not wear these. Walks barefooted at home. Not sure about her diabetes control but reports compliance with her medication. Feels well otherwise. Reports a good diet [facility] Medical History (Updated 02/01/25 @ 13:[address] Laney Jackson MD) History of necrotizing fasciitis Obesity Deep wound infection of the left foot Home Medications ?Medication ?Instructions ?Recorded ?Last Taken ?Type glimepiride 4 mg tablet 4 mg PO DAILY diabetes 01/30 Unknown History pioglitazone 45 mg tablet 90 mg PO DAILY diabetes 01/03 06/23 Unknown History metoprolol tartrate 25 mg tablet 25 mg PO BID #60 tabs 02/07/20 Unknown Rx amlodipine 10 mg tablet 5 mg PO DAILY 02/01/25 Unkno wn History metformin 500 mg tablet,extended 1,000 mg PO BID 02/01 Unknown History release 24 hr ramipril 5 mg capsule (Altace) 5 mg PO DAILY 02/01/25 Unknown History rosuvastatin 20 mg tablet (Crestor) 20 mg PO .COMPLEX 02/01/25 Unknown History Allergy/AdvReac Type Severity Reaction Status Date / Time No Known Allergies Allergy Verified 02/01/25 09:35 Surgical History (Updated 02/01/25 @ 13:[address] Laney Jackson MD) History of partial amputation of toe of left foot Social History Smoking Status: Former smoker ROS Constitutional Constitutional: Denies anorexia, body ache(s), fatigue, fever(s), frequent fallsor headache(s) Eyes Eyes: Denies blindness, blind spots, change in eye color, change in vision, discharge from eye(s) or discongugate gaze ENT HEENT: Denies bleeding gums, change in voice, dysphagia, ear discharge, facial pain, foreign body in nose, halitosis or headache(s) Cardiovascular Cardiovascular: Denies abdominal pain, chest pain with activity, claudication, clubbing, cold extremities, cyanosis, dyspnea on exertion, easily tiring during activity or flutter in chest Respiratory/Chest Respiratory/Chest: Denies change in mental status, change in phlegm color, chestcongestion, chest tightness, hoarseness, inability to speak or nail bed cyanosis Gastrointestinal Gastrointestinal: Denies abdominal pain, change in bowel habits, chewing difficulty, coffee ground emesis, dry heaves or fecal incontinence Genitourinary Genitourinary: Denies abdominal discomfort, burning urination, difficulty urinating or flank pain Musculoskeletal Musculoskeletal: Denies joint stiffness, muscle spasms, muscle weakness, stiffness, tingling or tremors Integumentary Integumentary: Reports skin ulcer; Denies change in hair, changing lesions, erythema, hirsutism or jaundice Neurologic Neurologic: Denies abnormal speech, behavior changes, frequent falls, lack of coordination, memory loss or numbness Psychiatric Psychiatric: Denies auditory hallucinations, behavioral changes, change in appetite, cognitive impairment, confusion, difficulty concentrating or hallucinations Endocrine Endocrinology: Denies cold intolerance, deepening of the voice, excessive sweating, fatigue or flushing Hematologic/Lymphatic Hematologic/Lymphatic: Denies easy bleeding or lymphadenopathy Allergic/Immunologic Allergic/Immunologic: Denies lip swelling, rhinitis, throat swelling, tongue swelling, hives or wheezing Vital Signs Vital Signs Vital Signs: 02/01/25 09:23 Temperature 97.4 F L Temperature Source Temporal Pulse Rate 64 Respiratory Rate 16 Blood Pressure 166/67 H Blood Pressure Mean 100 Blood Pressure Source Monitor Blood Pressure Position Semi-Fowlers Blood Pressure Location Right Arm Weight Weight: 256 lb Body Mass Index (BMI) 50.0 Physical Exam Const alert, oriented x3 and no apparent distress General Appearance: cooperative, comfortable and well kempt HEENT normocephalic and head/scalp atraumatic Head and Scalp: normal to inspection Eyes EOMs intact bilaterally General Eye: normal appearance of both eyes Neck full ROM and supple General: normal visual inspection Resp normal respiratory effort, normal air movement and clear to auscultation bilaterally Effort and Inspection: able to speak in complete sentences Cardio regular rate, regular rhythm, S1 normal heart sound and S2 normal heart sound GI soft to palpation and non-tender Extremity General Extremity: edema Skin Wounds: wounds noted size Size: See clinical note, bed granulating well and withundermining, margins well approximated, no odor and open Neuro oriented x3, CN's II-XII intact bilaterally, moves all extremities and no focal motor deficits Psych mental status grossly normal, thought process normal, cooperative and affect normal Debridement Note Debridement Note Wound debrided: Left foot (plantar) Type of Debridement: Excisional debridement Anesthesia Used: 5% Lidocaine Gel Depth: Down to and including healthy tissue and in the subcutaneous layer Percentage of wound debrided: 100 Instrument Used: 7mm curette Severity: Fat Layer Exposed Amount of bleeding with debridement: Mild Bleeding Controlled with: Pressure Patient tolerated procedure: Patient tolerated procedure well Post-Debridement Measurements and Additional Note: Post-Debridement Measurements/Treatment WC - Nurse 1 - General Ulcer Assessment Start: 02/01/25 09:21 Freq: Status: Active Protocol: YONAS Activity Type Activity Date Activity User E-sign Co-sign Detail Recorded Client Recorded Date Recorded By Document 02/01/25 09:23 CP [id number] 02/01/25 09:35 CP 02/01/25 09:23 WC - Today's Visit Information Type of service Follow-up Visit (Physician/BIOINFORMATICS ASSOCIATE ) Arrival Mode Ambulatory Patient Identification Verified (Name & Yes ) Patient Requires Transmission-Based No Precautions Finger Stick Blood Sugar(mg/dl) (if 124 indicated): Blood Sugar Stated by Patient Height and Weight Height 5 ft Weight 256 lb Weight in Pounds 256.0 lbs Weight Measurement Method Standing Scale Body Mass Index (BMI) 50.0 BMI Classification Obese Vital Signs Temperature (97.8 F-99.1 F) 97.4 F L Temperature Source Temporal Pulse Rate (60-100) 64 Pulse Location Monitor Respiratory Rate (12-18) 16 Respiratory rate source Observation Blood Pressure (90/60-120/80) 166/67 H Blood Pressure Mean 100 Source Monitor Position Semi-Fowlers Blood Pressure Location Right Arm History Since Last Visit- (Skip if this is Patient's initial visit) Left Footwear Regular Shoe Right Footwear Regular Shoe Pain Scale: 0-10 Numeric Is Patient Pain Free? Yes Lower Extremity Assessment/ Foot Assessment/ Toe Nail Assessment Right -Posterior Tibial Palpable Yes -Posterior Tibial Doppler Multiphasic -Dorsalis Pedis Palpable Yes -Dorsalis Pedis Doppler Multiphasic -Extremity Color Normal -Hair Growth on Legs Yes -Hair Growth on Toes No -Temperature of Extremity Warm -Capillary Refill Less than 3 Seconds -Dependent Rubor No -Blanched when Elevated No -Prior Foot Ulcer No -Prior Amputation No -Thick Yes -Deformed Yes -Improper Length & Hygeine No Left -Posterior Tibial Palpable Yes -Posterior Tibial Doppler Multiphasic -Dorsalis Pedis Palpable Yes -Dorsalis Pedis Doppler Multiphasic -Extremity Color Normal -Hair Growth on Legs Yes -Hair Growth on Toes No -Temperature of Extremity Warm -Capillary Refill Less than 3 Seconds -Dependent Rubor No -Blanched when Elevated No -Lipodermatosclerosis No -Prior Foot Ulcer Yes -Prior Amputation Yes -Thick Yes -Deformed Yes -Improper Length & Hygeine No Neuropathy Assessment Feet - Top Side and Bottom <Entered> (a) Communication Assessment Preferred language Citizen Of [place] Network Management Specialist Required No Able to Read Yes Able to Write Yes Communication Tools None Caregiver Communication Skills No Impairment Impairment Right Hearing Abillity Normal Left Hearing Abillity Normal Visual Assistive Devices Glasses Teaching Assessment Preferences Verbal,Written, Demonstration Barriers to Learning Knowledge Deficit Readiness To Learn Excellent Willingness to Engage in Self Management High Activies Readiness to Engage in Self Management High Activities Anxiety Level Calm Cooperation Cooperative Perception Coherent Interest in Health Problem Asks Questions Education Importance Acknowledges Need Does Patient Smoke tobacco or other No substances Smoking Status Former smoker Is Patient Diabetic Yes Functional Assessment Recent Decline in Ability to Perform Denies Any Declines Culture/Quaker/Hand Sander Cultural/Quaker Needs that may affect No Treatment Plan (a) 1 - - 2 - + 3 - + 4 - + WC - Nurse 1 - General Ulcer Measurement Start: 02/01/25 09:21 Freq: Status: Active Protocol: Activity Type Activity Date Activity User E-sign Co-sign Detail Recorded Client Recorded Date Recorded By Document 02/01/25 09:23 CP [id number] 02/01/25 09:35 CP 02/01/25 09:23 Wound Center Nurse 1 #1 L Plantar -Current Size (cm) - Length 1 -Current Size (cm) - Width 1.1 -Current Size (cm) - Depth 0.3 -Total Square Cm 1.1 -Date of Last Picture (Recall this 02/01/25 field) -Photo Taken Yes -Epithelialization None Present -Tunneling No -Undermining/Tunneling Yes -Undermining/Tunneling Starts (O'clock 11 ) -Undermining/Tunneling Ends (O'clock) 5 -Maximum Distance (cm) 0.5 -Circular Undermining Yes -Exudate Amt Small -Exudate Type Serosanguineous -Wound Margin Thickened & Rolled Under -Granulation Amt Large (67-100%) -Granulation Quality [place] -Slough/Fibrin No -Structure Exposed N/A -Texture (Kelsi-wound Skin Appearance) Callus -Moisture (Kelsi-wound Skin Appearance) No Abnormality -Color (Kelsi-wound Skin Appearance) No Abnormality -Temperature (Kelsi-wound Skin No Abnormality Appearance) (Pt Warm) -Tenderness on Palpation (Kelsi-wound No Skin Appearance) -Ulcer Cleansing Soap and Water -Foul Odor after Cleansing No -Anesthetic Used 5% Lidocaine Gel WC - Nurse 2 - General Ulcer CM Notes Start: 02/01/25 09:21 Freq: Status: Active Protocol: Activity Type Activity Date Activity User E-sign Co-sign Detail Recorded Client Recorded Date Recorded By Document 02/01/25 09:50 GM [id number] 02/01/25 10:04 GM 02/01/25 09:50 Wound Center Nurse 2 -Time 09:51 -Correct Patient Yes -Correct Side, Site, Position Yes -Correct Procedure Yes -Procedure Performed Yes -Type of Procedure Debridement -Clinical Debridement Subcutaneous -Tissue Removed Subcutaneous -Post Debridement (cm) - Length 1.7 -Post Debridement (cm) - Width 1.0 -Post Debridement (cm) - Depth 0.4 -Total Square (Post) (cm) 1.70 -Area of Debridement (cm) - Length 1.7 -Area of Debridement (cm) - Width 1.0 -Total Square (Area) (cm) 1.70 -Tunneling Yes -Tunneling Position (O'clock) 2 -Tunneling Distance (cm) 0.5 -Undermining/Tunneling No -Circular Undermining No -Wound/Ulcer Outcome Not Healed -Ulcer Cleansing Rinsed/ Irrigated with Saline -Foul Odor after Cleansing No -Bioengineered Tissue No -Bleeding Controlled with Pressure -Treatment Response Procedure Tolerated Well -Offloading No -Debridement - Subq, 1st 20sq cm Yes Pain Scale: 0-10 Numeric Is Patient Pain Free? Yes - Nurse 3 - General Ulcer D/C NN Start: 02/01/25 09:21 Freq: Status: Active Protocol: Activity Type Activity Date Activity User E-sign Co-sign Detail Recorded Client Recorded Date Recorded By Document 02/01/25 10:35 CP [id number] 02/01/25 10:37 CP Edit Result 02/01/25 10:35 CP (1) [id number] 02/01/25 11:53 CP (1) #1 L Plantar - Primary Dressing Applied Fibracol Plus 4x4 => Fibracol Plus 4x4, => Silicone Border => Foam 4x4 BLE - Tubular Bandage => Double Layer - Size of Tubigrip Used => Size F - Size F ($) => 2 02/01/25 10:35 Wound Care Center Nurse 3 #1 L Plantar -Ulcer Cleansing Rinsed/ Irrigated with Saline -Foul Odor after Cleansing No -Primary Dressing Applied Fibracol Plus 4x4,Silicone Border Foam 4x4 -Fibracol Plus 4x4 1 -Silicone Border Foam 4x4 1 BLE -Tubular Bandage Double Layer -Size of Tubigrip Used Size F -Size F ($) 2 Pain Scale: 0-10 Numeric Is Patient Pain Free? Yes WC - Visit Discharge Discharge Condition Stable Ambulatory Status Ambulatory Transportation Private Auto Clinical Summary of Care Provided Yes Orders Sent Yes Lab / Micro Data 02/01/25 11:11 02/01/25 11:11 Labs: Laboratory Results - last 24 hr 02/01/25 11:11: WBC 9.7, RBC 4.34, Hgb 12.7, Hct 37.8, MCV 87.1, MCH 29.3, MCHC 33.6, RDW Std Deviation 46.3 H, RDW Coeff of [place]icia 14.6, Plt Count 312, MPV 10.7, Immature Gran % (Auto) 0.600, Neut % (Auto) 60.1, Lymph % (Auto) 30.9, Piatt % (Auto) 6.8, Eos % (Auto) 1.0, Baso % (Auto) 0.6, Absolute Neuts (auto) 5.8, Absolute Lymphs (auto) 3.00, Nucleated RBC % 0, ESR 26, Hemoglobin A1c 7.6 H Charges/Coding Visit Charges Office Visits / Consults: [id number] OV L4 New 45min Procedures Integumentary [id number]: [id number] Peyton subq tissue 20 sq cm/< Assessment/Plan Assessment/Plan (1) Diabetic ulcer of left foot: CODE(S): E11.621 - Type 2 diabetes mellitus with foot ulcer; L97.529 - Non- pressure chronic ulcer of other part of left foot with unspecified severity PLAN: Clarke II (2) Type 2 diabetes mellitus with diabetic polyneuropathy: CODE(S): E11.42 - Type 2 diabetes mellitus with diabetic polyneuropathy (3) Type 2 diabetes mellitus: CODE(S): E11.9 - Type 2 diabetes mellitus without complications (4) Obesity: CODE(S): E66.9 - Obesity, unspecified (5) History of partial amputation of toe of left foot: CODE(S): Z89.422 - Acquired absence of other left toe(s) (6) History of necrotizing fasciitis: CODE(S): Z87.39 - Personal history of other diseases of the musculoskeletal system and connective tissue PLAN: Plan Debridement done as documented above, procedure was well-tolerated. At this time, no clinical concern for infection however due to prior history including history of necrotizing fasciitis and status post left 4th and 5th toe amputationdue to significant infection/abscess, cultures and x-ray ordered, will review. CBC, CMP, ESR, CRP and A1c also ordered, will review. Very lengthy discussion had with the patient and her , at significant risk for further amputationand recurrent diabetic foot ulcers due to prior history and poorly controlled diabetes. Close follow-up with a tape maker and recommendation on footwear strongly recommended, she voiced understanding. For now, Fibracol daily to twice daily, cover with foam dressing. She was advised to wear her offloading boots as previously recommended and if she has any problems with this, discuss with her tape maker, again she voiced understanding. Will hold off a total contact cast at this time. I am concerned about ambulating well with 1. Continue metformin, Actos and glimepiride for diabetes control, dietary modifications also very strongly recommended. Their questions were answered andthey were advised to let us know if they have any further questions or concerns. Follow-up in a week or sooner if needed. This note was generated with [employer] dictation software. It may contain incorrectwords, spelling, and punctuation that were not noted in checking the note beforesigning. 02/02/25 1622 <Electronically signed by Laney Jackson MD> Cosigner Signature (if applicable): CC: ~ Signed [facility] Work Phone: 1(459) 330-660705-02-2025 History and physical note [facility] [address] [place] [address] H&P Exam - Wound Care 02/01/25 1248 MR#: [id number] Acct: [id number] Name: SHERRI BRASHER Rep #:[id number] : 1960 64 From: Laney castro MD PCP: Dr. Noah Levin MD Status:REG R CR Location: History of Present Illness Date of Service: 02/01/25 Chief Complaint: Left foot ulcer History of Wound: Ms. Brasher is a 64-year-old who presents to the wound center due to nonhealing left foot ulcer. Believes that it started almost 2 months ago. Just noted it. No known precipitating factor. Does not have as much feeling in her foot due to diabetes. Prior history of diabetic foot surgery/amputation. She states that over the last 2 months, she has been applying peroxide however due to none improvement her daughter recommended she come to the wound center. Had seen podiatry in [facility] but last saw podiatry afew years ago. She states that she was given a however it was too tightso she does not wear these. Walks barefooted at home. Not sure about her diabetes control but reports compliance with her medication. Feels well otherwise. Reports a good diet [facility] Medical History (Updated 02/01/25 @ 13:[address] Laney Jackson MD) History of necrotizing fasciitis Obesity Deep wound infection of the left foot Home Medications ?Medication ?Instructions ?Recorded ?Last Taken ?Type glimepiride 4 mg tablet 4 mg PO DAILY diabetes 01/30 Unknown History pioglitazone 45 mg tablet 90 mg PO DAILY diabetes 01/03 06/23 Unknown History metoprolol tartrate 25 mg tablet 25 mg PO BID #60 tabs 02/07/20 Unknown Rx amlodipine 10 mg tablet 5 mg PO DAILY 02/01/25 Unkno wn History metformin 500 mg tablet,extended 1,000 mg PO BID 02/01 Unknown History release 24 hr ramipril 5 mg capsule (Altace) 5 mg PO DAILY 02/01/25 Unknown History rosuvastatin 20 mg tablet (Crestor) 20 mg PO .COMPLEX 02/01/25 Unknown History Allergy/AdvReac Type Severity Reaction Status Date / Time No Known Allergies Allergy Verified 02/01/25 09:35 Surgical History (Updated 02/01/25 @ 13:[address] Laney Jackson MD) History of partial amputation of toe of left foot Social History Smoking Status: Former smoker ROS Constitutional Constitutional: Denies anorexia, body ache(s), fatigue, fever(s), frequent fallsor headache(s) Eyes Eyes: Denies blindness, blind spots, change in eye color, change in vision, discharge from eye(s) or discongugate gaze ENT HEENT: Denies bleeding gums, change in voice, dysphagia, ear discharge, facial pain, foreign body in nose, halitosis or headache(s) Cardiovascular Cardiovascular: Denies abdominal pain, chest pain with activity, claudication, clubbing, cold extremities, cyanosis, dyspnea on exertion, easily tiring during activity or flutter in chest Respiratory/Chest Respiratory/Chest: Denies change in mental status, change in phlegm color, chestcongestion, chest tightness, hoarseness, inability to speak or nail bed cyanosis Gastrointestinal Gastrointestinal: Denies abdominal pain, change in bowel habits, chewing difficulty, coffee ground emesis, dry heaves or fecal incontinence Genitourinary Genitourinary: Denies abdominal discomfort, burning urination, difficulty urinating or flank pain Musculoskeletal Musculoskeletal: Denies joint stiffness, muscle spasms, muscle weakness, stiffness, tingling or tremors Integumentary Integumentary: Reports skin ulcer; Denies change in hair, changing lesions, erythema, hirsutism or jaundice Neurologic Neurologic: Denies abnormal speech, behavior changes, frequent falls, lack of coordination, memory loss or numbness Psychiatric Psychiatric: Denies auditory hallucinations, behavioral changes, change in appetite, cognitive impairment, confusion, difficulty concentrating or hallucinations Endocrine Endocrinology: Denies cold intolerance, deepening of the voice, excessive sweating, fatigue or flushing Hematologic/Lymphatic Hematologic/Lymphatic: Denies easy bleeding or lymphadenopathy Allergic/Immunologic Allergic/Immunologic: Denies lip swelling, rhinitis, throat swelling, tongue swelling, hives or wheezing Vital Signs Vital Signs Vital Signs: 02/01/25 09:23 Temperature 97.4 F L Temperature Source Temporal Pulse Rate 64 Respiratory Rate 16 Blood Pressure 166/67 H Blood Pressure Mean 100 Blood Pressure Source Monitor Blood Pressure Position Semi-Fowlers Blood Pressure Location Right Arm Weight Weight: 256 lb Body Mass Index (BMI) 50.0 Physical Exam Const alert, oriented x3 and no apparent distress General Appearance: cooperative, comfortable and well kempt HEENT normocephalic and head/scalp atraumatic Head and Scalp: normal to inspection Eyes EOMs intact bilaterally General Eye: normal appearance of both eyes Neck full ROM and supple General: normal visual inspection Resp normal respiratory effort, normal air movement and clear to auscultation bilaterally Effort and Inspection: able to speak in complete sentences Cardio regular rate, regular rhythm, S1 normal heart sound and S2 normal heart sound GI soft to palpation and non-tender Extremity General Extremity: edema Skin Wounds: wounds noted size Size: See clinical note, bed granulating well and withundermining, margins well approximated, no odor and open Neuro oriented x3, CN's II-XII intact bilaterally, moves all extremities and no focal motor deficits Psych mental status grossly normal, thought process normal, cooperative and affect normal Debridement Note Debridement Note Wound debrided: Left foot (plantar) Type of Debridement: Excisional debridement Anesthesia Used: 5% Lidocaine Gel Depth: Down to and including healthy tissue and in the subcutaneous layer Percentage of wound debrided: 100 Instrument Used: 7mm curette Severity: Fat Layer Exposed Amount of bleeding with debridement: Mild Bleeding Controlled with: Pressure Patient tolerated procedure: Patient tolerated procedure well Post-Debridement Measurements and Additional Note: Post-Debridement Measurements/Treatment WC - Nurse 1 - General Ulcer Assessment Start: 02/01/25 09:21 Freq: Status: Active Protocol: YONAS Activity Type Activity Date Activity User E-sign Co-sign Detail Recorded Client Recorded Date Recorded By Document 02/01/25 09:23 [id number] 02/01/25 09:35 CP 02/01/25 09:23 WC - Today's Visit Information Type of service Follow-up Visit (Physician/BIOINFORMATICS ASSOCIATE ) Arrival Mode Ambulatory Patient Identification Verified (Name & Yes ) Patient Requires Transmission-Based No Precautions Finger Stick Blood Sugar(mg/dl) (if 124 indicated): Blood Sugar Stated by Patient Height and Weight Height 5 ft Weight 256 lb Weight in Pounds 256.0 lbs Weight Measurement Method Standing Scale Body Mass Index (BMI) 50.0 BMI Classification Obese Vital Signs Temperature (97.8 F-99.1 F) 97.4 F L Temperature Source Temporal Pulse Rate (60-100) 64 Pulse Location Monitor Respiratory Rate (12-18) 16 Respiratory rate source Observation Blood Pressure (90/60-120/80) 166/67 H Blood Pressure Mean 100 Source Monitor Position Semi-Fowlers Blood Pressure Location Right Arm History Since Last Visit- (Skip if this is Patient's initial visit) Left Footwear Regular Shoe Right Footwear Regular Shoe Pain Scale: 0-10 Numeric Is Patient Pain Free? Yes Lower Extremity Assessment/ Foot Assessment/ Toe Nail Assessment Right -Posterior Tibial Palpable Yes -Posterior Tibial Doppler Multiphasic -Dorsalis Pedis Palpable Yes -Dorsalis Pedis Doppler Multiphasic -Extremity Color Normal -Hair Growth on Legs Yes -Hair Growth on Toes No -Temperature of Extremity Warm -Capillary Refill Less than 3 Seconds -Dependent Rubor No -Blanched when Elevated No -Prior Foot Ulcer No -Prior Amputation No -Thick Yes -Deformed Yes -Improper Length & Hygeine No Left -Posterior Tibial Palpable Yes -Posterior Tibial Doppler Multiphasic -Dorsalis Pedis Palpable Yes -Dorsalis Pedis Doppler Multiphasic -Extremity Color Normal -Hair Growth on Legs Yes -Hair Growth on Toes No -Temperature of Extremity Warm -Capillary Refill Less than 3 Seconds -Dependent Rubor No -Blanched when Elevated No -Lipodermatosclerosis No -Prior Foot Ulcer Yes -Prior Amputation Yes -Thick Yes -Deformed Yes -Improper Length & Hygeine No Neuropathy Assessment Feet - Top Side and Bottom (a) Communication Assessment Preferred language Citizen Of [place] Network Management Specialist Required No Able to Read Yes Able to Write Yes Communication Tools None Caregiver Communication Skills No Impairment Impairment Right Hearing Abillity Normal Left Hearing Abillity Normal Visual Assistive Devices Glasses Teaching Assessment Preferences Verbal,Written, Demonstration Barriers to Learning Knowledge Deficit Readiness To Learn Excellent Willingness to Engage in Self Management High Activies Readiness to Engage in Self Management High Activities Anxiety Level Calm Cooperation Cooperative Perception Coherent Interest in Health Problem Asks Questions Education Importance Acknowledges Need Does Patient Smoke tobacco or other No substances Smoking Status Former smoker Is Patient Diabetic Yes Functional Assessment Recent Decline in Ability to Perform Denies Any Declines Culture/Quaker/Hand Sander Cultural/Quaker Needs that may affect No Treatment Plan (a) 1 - - 2 - + 3 - + 4 - + WC - Nurse 1 - General Ulcer Measurement Start: 02/01/25 09:21 Freq: Status: Active Protocol: Activity Type Activity Date Activity User E-sign Co-sign Detail Recorded Client Recorded Date Recorded By Document 02/01/25 09:23 CP [id number] 02/01/25 09:35 CP 02/01/25 09:23 Wound Center Nurse 1 #1 L Plantar -Current Size (cm) - Length 1 -Current Size (cm) - Width 1.1 -Current Size (cm) - Depth 0.3 -Total Square Cm 1.1 -Date of Last Picture (Recall this 02/01/25 field) -Photo Taken Yes -Epithelialization None Present -Tunneling No -Undermining/Tunneling Yes -Undermining/Tunneling Starts (O'clock 11 ) -Undermining/Tunneling Ends (O'clock) 5 -Maximum Distance (cm) 0.5 -Circular Undermining Yes -Exudate Amt Small -Exudate Type Serosanguineous -Wound Margin Thickened & Rolled Under -Granulation Amt Large (67-100%) -Granulation Quality [place] -Slough/Fibrin No -Structure Exposed N/A -Texture (Kelsi-wound Skin Appearance) Callus -Moisture (Kelsi-wound Skin Appearance) No Abnormality -Color (Kelsi-wound Skin Appearance) No Abnormality -Temperature (Kelsi-wound Skin No Abnormality Appearance) (Pt Warm) -Tenderness on Palpation (Kelsi-wound No Skin Appearance) -Ulcer Cleansing Soap and Water -Foul Odor after Cleansing No -Anesthetic Used 5% Lidocaine Gel WC - Nurse 2 - General Ulcer CM Notes Start: 02/01/25 09:21 Freq: Status: Active Protocol: Activity Type Activity Date Activity User E-sign Co-sign Detail Recorded Client Recorded Date Recorded By Document 02/01/25 09:50 [id number] 02/01/25 10:04 02/01/25 09:50 Wound Center Nurse 2 -Time 09:51 -Correct Patient Yes -Correct Side, Site, Position Yes -Correct Procedure Yes -Procedure Performed Yes -Type of Procedure Debridement -Clinical Debridement Subcutaneous -Tissue Removed Subcutaneous -Post Debridement (cm) - Length 1.7 -Post Debridement (cm) - Width 1.0 -Post Debridement (cm) - Depth 0.4 -Total Square (Post) (cm) 1.70 -Area of Debridement (cm) - Length 1.7 -Area of Debridement (cm) - Width 1.0 -Total Square (Area) (cm) 1.70 -Tunneling Yes -Tunneling Position (O'clock) 2 -Tunneling Distance (cm) 0.5 -Undermining/Tunneling No -Circular Undermining No -Wound/Ulcer Outcome Not Healed -Ulcer Cleansing Rinsed/ Irrigated with Saline -Foul Odor after Cleansing No -Bioengineered Tissue No -Bleeding Controlled with Pressure -Treatment Response Procedure Tolerated Well -Offloading No -Debridement - Subq, 1st 20sq cm Yes Pain Scale: 0-10 Numeric Is Patient Pain Free? Yes WC - Nurse 3 - General Ulcer D/C NN Start: 02/01/25 09:21 Freq: Status: Active Protocol: Activity Type Activity Date Activity User E-sign Co-sign Detail Recorded Client Recorded Date Recorded By Document 02/01/25 10:35 CP [id number] 02/01/25 10:37 CP Edit Result 02/01/25 10:35 CP (1) [id number] 02/01/25 11:53 CP (1) #1 L Plantar - Primary Dressing Applied Fibracol Plus 4x4 => Fibracol Plus 4x4, => Silicone Border => Foam 4x4 BLE - Tubular Bandage => Double Layer - Size of Tubigrip Used => Size F - Size F ($) => 2 02/01/25 10:35 Wound Care Center Nurse 3 #1 L Plantar -Ulcer Cleansing Rinsed/ Irrigated with Saline -Foul Odor after Cleansing No -Primary Dressing Applied Fibracol Plus 4x4,Silicone Border Foam 4x4 -Fibracol Plus 4x4 1 -Silicone Border Foam 4x4 1 BLE -Tubular Bandage Double Layer -Size of Tubigrip Used Size F -Size F ($) 2 Pain Scale: 0-10 Numeric Is Patient Pain Free? Yes WC - Visit Discharge Discharge Condition Stable Ambulatory Status Ambulatory Transportation Private Auto Clinical Summary of Care Provided Yes Orders Sent Yes Lab / Micro Data 02/01/25 11:11 02/01/25 11:11 Labs: Laboratory Results - last 24 hr 02/01/25 11:11: WBC 9.7, RBC 4.34, Hgb 12.7, Hct 37.8, MCV 87.1, MCH 29.3, MCHC 33.6, RDW Std Deviation 46.3 H, RDW Coeff of Leticia 14.6, Plt Count 312, MPV 10.7, Immature Gran % (Auto) 0.600, Neut % (Auto) 60.1, Lymph % (Auto) 30.9, Piatt % (Auto) 6.8, Eos % (Auto) 1.0, Baso % (Auto) 0.6, Absolute Neuts (auto) 5.8, Absolute Lymphs (auto) 3.00, Nucleated RBC % 0, ESR 26, Hemoglobin A1c 7.6 H Charges/Coding Visit Charges Office Visits / Consults: [id number] OV L4 New 45min Procedures Integumentary [id number]: [id number] Peyton subq tissue 20 sq cm/< Assessment/Plan Assessment/Plan (1) Diabetic ulcer of left foot: CODE(S): E11.621 - Type 2 diabetes mellitus with foot ulcer; L97.529 - Non- pressure chronic ulcer of other part of left foot with unspecified severity PLAN: Clarke II (2) Type 2 diabetes mellitus with diabetic polyneuropathy: CODE(S): E11.42 - Type 2 diabetes mellitus with diabetic polyneuropathy (3) Type 2 diabetes mellitus: CODE(S): E11.9 - Type 2 diabetes mellitus without complications (4) Obesity: CODE(S): E66.9 - Obesity, unspecified (5) History of partial amputation of toe of left foot: CODE(S): Z89.422 - Acquired absence of other left toe(s) (6) History of necrotizing fasciitis: CODE(S): Z87.39 - Personal history of other diseases of the musculoskeletal system and connective tissue PLAN: Plan Debridement done as documented above, procedure was well-tolerated. At this time, no clinical concern for infection however due to prior history including history of necrotizing fasciitis and status post left 4th and 5th toe amputationdue to significant infection/abscess, cultures and x-ray ordered, will review. CBC, CMP, ESR, CRP and A1c also ordered, will review. Very lengthy discussion had with the patient and her , at significant risk for further amputationand recurrent diabetic footulcers due to prior history and poorly controlled diabetes. Close follow-up with a tape maker and recommendation on footwear strongly recommended, she voiced understanding. For now, Fibracol daily totwice daily, cover with foam dressing. She was advised to wear her offloading boots as previously recommended and if she has any problems with this, discuss with her tape maker, again she voiced understanding. Will hold off a total contact cast at this time. I am concerned about ambulating well with 1. Continue metformin, Actos and glimepiride for diabetes control, dietary modifications also verystrongly recommended. Their questions were answered andthey were advised to let us know if they have any further questions or concerns. Follow-up in a week or sooner if needed. This note was generated with The [employer] software. It may contain incorrectwords, spelling, and punctuation that were not noted in checking the note beforesigning. 02/02/25 1622 Cosigner Signature (if applicable): CC: ~ Signed [facility]05-02-2025 Radiology Diagnostic study note [facility] Imaging Services [address] [place] [address] Foot min 3 Views MR#: [id number] Acct: [id number] Name: SHERRI BRASHER Rep #: [id number] : 1960 F 64 From: Chandler Laurent MD PCP: Dr. Noah Levin MD Status: REG R CR Study:Foot min 3 Views Date of Exam: 10/28 Exam# [id number] Ordering Dr: Kyle Jackson MD EXAM: Foot minimum three views x-ray CLINICAL HISTORY: Ulcer COMPARISON: 01/31/2020 TECHNIQUE: Three views left foot FINDINGS: No fracture or dislocation. There is again note of amputation of the 4th and 5th phalanges. There appears to be a soft tissue ulceration at the dorsal aspect of the amputation site near the 3rd ray seen on the oblique and lateral views, clinically correlate. No radiopaque foreign body identified. Since 2019 there now appearsto be cortical thickening of the 3rd and lateral aspect of the 2nd proximal phalanx which may represent sequela of previous osteomyelitis with a chronic osteomyelitis not excluded. No osseous destruction identified. 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 Forefoot soft tissue swelling. Enthesophyte formation at the plantar greater than Achilles surfacesof the calcaneus. Vascular calcifications. RAD/Foot min 3 Views IMPRESSION: No fracture or dislocation. There is again note of amputation of the 4th and 5th phalanges. There appears to be a soft tissue ulceration at the dorsal aspect of the amputation site near the 3rd ray seen on the oblique and lateral views, clinically correlate. No radiopaque foreign body identified. Since 2019 there now appears to be cortical thickening of the 3rd and lateral aspect of the 2nd proximal phalanx which may represent sequela of previous osteomyelitis with a chronic osteomyelitis not excluded. No osseous destruction identified. Forefoot soft tissue swelling. Reading Location: [facility] CC: Dr. Noah Levin MD; Dr. Laney Jackson MD ~ Special Delivery Carrier: Signed [facility]Reason for referral (narrative)No reason for referral information availableWLakeHealth Beachwood [facility] Work Phone: Chief Complaint and Reason for Visit Chief Complaint Admit Date wound February 01, 2025 12:48p m wound February 08, 2025 11:21a m wound February 15, 2025 11:53 am wound February 28, 2025 8:15a m Reason for Visit Admit Date Acute painful diabetic polyneuropathy Ma y 2024 8:15am Diabetic ulcer of left foot February 28 8:15am Hammer toe of left foot February 28, 2025 8 :15am History of necrotizing fasciitis February 8:15am History of partial amputation of toe of left foot February 28, 2025 8:15am Obesity February 28, 2025 8:15a m Type 2 diabetes mellitus with diabetic p olyneuropathy February 28, 2025 8:15am Non-pressure chronic ulcer o f other part of left foot with fat layer exposed February 28, 2025 8:15am Type 2 diabetes mellitus February 28, 2025 8:15am Family History No Family History Records Found Relationship Condition Age at Onset Recorded Date/T darwin Unknown Family History?Diabetes Unknown Apri l 2019 5:30pm Family History?Diabetes Unknown Apri l 2019 5:30pm Family History?Heart Disease Unknown January 31, 2020 5:30pm Summary Purpose Advance Directives No Advanced Directives Records Found Additional Source Comments Care Teams (unrecognized sec tion and content) Team Status: Active Member Role Status Dates Dr. Noah Levin DO Primary Care Provider Active Team Status: Active Member Role Status Dates Dr. Noah Levin DO Primary Care Provider Active Start: February 01, 2025 Dr. Noah Levin DO Referring Provider Active Start: February 01, 2025 Dr. Laney Jackson MD Attending Provider Active Start: February 01, 2025 Dr. Laney Jackson MD Other Provider Active Start: February 01, 2025 Team Status: Active Member Role Status Dates Dr. Noah Levin DO Primary Care Provider Active Start: February 08, 2025 Dr. Noah Levin DO Referring Provider Active Start: February 08, 2025 Dr. Laney Jackson MD Attending Provider Active Start: February 08, 2025 Dr. Laney Jackson MD Other Provider Active Start: February 08, 2025 Team Status: Active Member Role Status Dates Dr. Noah Levin DO Primary Care Provider Active Start: February 15, 2025 Dr. Noah Levin DO Referring Provider Active Start: February 15, 2025 Dr. Laney Jackson MD Attending Provider Active Start: February 15, 2025 Dr. Laney Jackson MD Other Provider Active Start: February 15, 2025 Team Status: Inactive Member Role Status Dates Dr. Noah Levin DO Primary Care Provider Active Start: February 28, 2025 End: March 03, 2025 Dr. Noah Levin DO Referring Provider Active Start: February 28, 2025 End: March 03, 2025 Dr. Laney Jackson MD Attending Provider Active Start: February 28, 2025 End: March 03, 2025 Goals (unrecognized section and content) Goals may be documented in a n alternate section INFORMATION SOURCE (unrecogn ized section and content) DATE CREATED AUTHOR 03/28/2025 [facility] FOR RECORDS PERTAINING TO PATIENTS WHO ARE OR HAVE BEEN ENROLLED IN A CHEMICAL DEPENDENCY/SUBSTANCEABUSE PROGRAM, SOME INFORMATION MAY BE OMITTED. This clinical summary was aggregated from multiple sources. Caution should be exercised in using it in the provision of clinical care. This summary normalizes information from multiple sources, and as a consequence, information in this document may materially change the coding, format and clinical context of patient data. In addition, data may be omitted in some cases. CLINICAL DECISIONS SHOULD BE BASED ON THE PRIMARY CLINICAL RECORDS. [employer] provides no warranty or guarantee of the accuracy or completeness of information in this document.
[2025-03-29] MEDS: Lactated Ringers 1,000 ML 15 ML IV (06:28)
--- NOTE | 2025-03-29 06:30 | RAD_ITS ---
EXAM: XR Left Foot, 2 Views CLINICAL INDICATION: OSTEOTOMY 3RD METATARSAL POSS 2ND AND 4TH TECHNIQUE: Frontal and lateral views of the left foot. COMPARISON: No relevant prior studies available. FINDINGS: BONES/JOINTS: Unremarkable. No acute fracture. No dislocation. SOFT TISSUES: Unremarkable. No radiopaque foreign body. OTHER FINDINGS: 2 spot images were obtained. Total fluoroscopy time was 2 0.02 minutes. Total radiation dose was 23.7281 mGy. RAD/Foot 2 Views IMPRESSION: Fluoroscopic guided images were used intraoperatively. Please refer to operati ve note for further details. Reading Location: [facility], [facility]
--- NOTE | 2025-03-29 06:35 | PRE.ANES_ITS ---
ASA Classification* ASA Classification ASA Classification: 3 Assessment & Plan Anesthesia* Anesthesia Assessment Anesthesia Assessment: Discussed sedation and/or anesthesia options, risks, benefits, and alternatives with patient/parents/legal guardian/POA. Questions invited. The patient/parents/legal guardian/POA seems to understand and agrees to proceed with anesthesia plan. Reviewed the physical assessment, medical history, allergy history and patient home medications list prior to surgery/procedure/anesthetic and documented any changes. Performed airway and anesthesia risk assessments. Anesthesia Type Anesthesia Type: General History Source History Obtained from:: Patient and Chart Anesthesia Focused Assessment* Temperature: 97.8 F Pulse Rate: 71 Blood Pressure: 137/70 Respiratory Rate: 16 Pulse Ox: 100 Oxygen Delivery Method: Room Air Airway Assessment Mouth opens: >3 cm Mallampati Score: III Teeth Condition: Missing (Patient has several missing teeth. Rest are tight. Poor dentition.) Neck Range of motion (ROM): Limited ROM (Somewhat decreased extension.) Labs Anesthesia Preop lab: CBC WBC 9.7 K/mm3 (4.4-11.0) 02/01/25 11:11 02/01/25 RBC 4.34 M/mm3 (4.2-5.4) 02/01/25 11:11 02/01/25 Hgb 12.7 g/dL (12.0-15.0) 02/01/25 11:11 02/01/25 Hct 37.8 % (37-47) 02/01/25 11:11 02/01/25 Plt Count 312 K/mm3 (150-450) 02/01/25 11:11 02/01/25 CHEMISTRY Potassium 4.2 mmol/L (3.3-5.1) 02/01/25 11:11 02/01/25 Sodium 140 mmol/L (133-145) 02/01/25 11:11 02/01/25 BUN 12 mg/dL (4-19) 02/01/25 11:11 02/01/25 Creatinine 0.71 mg/dL (0.70-1.20) 02/01/25 11:11 02/01/25 Glucose 127 mg/dL (70-99) H 02/01/25 11:11 02/01/25 POC Glucose 224 mg/dL (70-110) H 02/07/20 11:35 02/07/20 COAG PT 14.3 SECONDS (11.7-14.9) 01/31/20 11:10 Pre-Assessment Diagnosis/Proposed Procedure Planned Operative Procedure(s): LEFT OSTEOTOMY OF THIRD METATARSAL POSS OSTEOTOMY 3RD AND FOURTH METATARSAL Anesthesia History 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 When Was Last Pacemaker Check QUESTION #4 FULL TEXT: You/Your Family Experience fever (hyperthermia) with Anesthesia Last Oral Intake Last Oral intake: Last Oral Intake NPO since 00:00 03/29/25 06:28 Meds taken in AM with sips of No 03/29/25 06:28 water? Meds patient instructed to take am of surgery PONV PONV - magisterial district judge: PONV - magisterial district judge Female Yes 03/15/25 08:20 HX of Motion Sickness No 03/15/25 08:20 HX of N/V After Surgery No 03/15/25 08:20 Non-Smoker Yes 03/15/25 08:20 Duration of Surgery greater Yes 03/15/25 08:20 than 60 minutes Number of Risk Factors 3 03/15/25 08:20 PONV Score Moderate Risk 03/15/25 08:20 Height & Weight Height & Weight: Anesthesia: Height & Weight Height 5 ft 1 in 03/29/25 06:28 Weight: 110 kg 03/29/25 06:28 Body Mass Index (BMI) 45.8 03/29/25 06:28 Respiratory Assessment Respiratory Assessment - magisterial district judge: Respiratory Tract Infection Hx - magisterial district judge Hx Respiratory Tract Infection No 03/15/25 08:20 STOP Sleep Apnea STOP Sleep Apnea - magisterial district judge: STOP Sleep Apnea - magisterial district judge Hx Hypertension Yes: CONTROLLED WITH MEDS 03/15/25 08:20 Hx Sleep Apnea No 03/15/25 08:20 CPAP No 01/31/20 15:42 BIPAP No 01/31/20 13:16 Do you snore loudly (louder No 03/15/25 08:20 than talking or can be heard Do you often feel tired/ No 03/15/25 08:20 fatigued/ sleepy during daytime? Has anyone observed you stop No 03/15/25 08:20 breathing during sleep? STOP Results Negative 03/15/25 08:20 QUESTION #5 FULL TEXT : Do you snore loudly (louder than talking or can be heard through closed doors)? 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 Specify any problems Hx of Preganancy in last 3 No 03/15/25 08:20 Months Nurse Filling Out Transfusion DSCHRIBER 03/15/25 08:20 & Questions: Date: 03/15/25 03/15/25 08:20 Time: 08:22 03/15/25 08:20 Patient unable to answer at this time (ie. confused, unrespo /Reproduction History /Reproductive History - magisterial district judge: /Reproductive Hx- magisterial district judge Hx Now No 03/15/25 08:20 Gestational Age (in weeks): EDC: Hx Hx Para Hx Section SAB No 03/15/25 08:20 Active Medications Active Medications: Current Medications Generic Name Dose Route Start Last Admin Trade Name Freq PRN Reason Stop Dose Admin Cefazolin Sodium 2 gm/ Sodium 110 mls @ 200 mls/hr 03/29/25 07:30 Chloride IV 03/29/25 08:02 INTRAOP ONE Lactated Ringer's 1,000 mls @ 15 mls/hr 03/29/25 06:00 03/29/25 06:28 IV 15 mls/hr .Q48H PATRICK Administration PFSH Medical History Wears glasses Post-menopausal Diabetes High cholesterol TIA (transient ischemic attack) Dietary restriction Non-smoker Leg cramps History of edema Hypertension History of osteomyelitis History of necrotizing fasciitis Obesity Deep wound infection of the left foot Home Medications ?Medication ?Instructions ?Recorded ?Last Taken ?Type glimepiride 4 mg tablet 4 mg PO DAILY diabetes 01/3003/28/25 History pioglitazone 45 mg tablet 90 mg PO DAILY diabetes 01/0303/28/25 History metoprolol tartrate 25 mg tablet 25 mg PO BID #60 tabs 02/07/20 03/28/25 Rx amlodipine 10 mg tablet 5 mg PO DAILY 02/01/2503/28 History metformin 500 mg tablet,extended 1,000 mg PO BID 02/0103/28/25 History release 24 hr ramipril 5 mg capsule (Altace) 5 mg PO DAILY 02/01/25 03/28/25 History rosuvastatin 20 mg tablet (Crestor) 20 mg PO MOFR 10/2803/28/25 History Allergy/AdvReac Type Severity Reaction Status Date / Time No Known Allergies Allergy Verified 03/29/25 06:27 Surgical History History of partial amputation of toe of left foot Social History Smoking Status: Former smoker Review of Systems (Anesthesia) ROS Narrative System reviewed and no additional complaints, except as documented.
[2025-03-29 06:46] LABS: Bedside Glucose 148 mg/dL (74-106)
[2025-03-29] MEDS: Cefazolin 2 GM in 0.9% Normal Saline (100mL Bag) 100 ML IV (07:30)
[2025-03-29] MEDS: Bupivacaine Mpf 0.5% 30 ML VIAL (08:16)
--- NOTE | 2025-03-29 08:31 | PCM.OPRPT ---
Problems Associated Problem List Diagnoses (1) Contracture, left foot: (2) Non-pressure chronic ulcer of other part of left foot with fat layer exposed: Operative Report (Standard) Operative Information Date of Procedure: 03/29/25 Pre-Operative Diagnosis: 1. Contracture of foot, left foot 2. Full-thickness wound, subcutaneous tissue, left foot 3. Diabetes type 2 peripheral neuropathy Post-Operative Diagnosis: 1. Contracture of foot, left foot, resolved 2. Full-thickness wound, subcutaneous tissue, left foot 3. 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: No Type of Anesthesia: Local and MAC RN Documented Start/Stop Times: Operation Date: 03/29/25 07:30 Case Time Into Pre-Op 03/29/25 05:56 Out of Pre-Op 03/29/25 07:20 Anesthesia Start 03/29/25 07:25 Into Room 03/29/25 07:25 Procedure Start 03/29/25 07:46 Procedure End 03/29/25 08:22 Anesthesia End 03/29/25 08:24 Out of Room 03/29/25 08:24 Procedure Start Time: 07:46 Procedure Stop Time: 08:22 Select all DRAINS/GRAFTS/IMPLANTS that apply: Graft Graft details: 2 x 4 BioSkin Special Medications: Per anesthesia Estimated Blood Loss: 15 cc Fluids Replaced: Per anesthesia Specimen collected: No Description of surgery: Indications For Operation: Mrs. Lowe is a 64-year-old diabetic female who was admitted to [facility] for elective surgery to left lower extremity consisting of capsulotomy to the second metatarsal phalangeal joint, minimally invasive surgery with osteotomy to the third metatarsals, surgical skin graft site prep with application skin graft substitute to the left lower extremity. Patient is well-known to my service and is seen at the wound care center for outpatient treatment for wound care. Patient has been doing very well at the wound care center but speed of the patient's healing I recommended internal offloading of the third metatarsal bone with skin graft substitute to the full-thickness wound as well as release of the capsule and tendon to the second metatarsal phalangeal joint all of the left lower extremity. Chart reviewed consent signed. All risk and benefits were discussed with the patient and her with great detail. They are agreeable to the surgery. Due to chronicity of the full-thickness wound and contracture of foot it was deemed necessary at this time to take the patient operating room to perform the above procedure to help heal her wound and decrease the contracture to her left lower extremity.. The nature of the problem, anticipated procedures, postop recovery/convalences and risk/complications include but not limited to infection, wound healing complications, digital amputation, hypertrophic scarring, numbness, tingling, chronic pain, CRPS, over and under correction, recurrence of deformity, DVT and or PE and the need for further surgery have been discussed in great detail with the patient. All questions have been answered to the patient's satisfaction. There are no guarantees given as to the outcome of the procedure. Description of Procedure: Under mild sedation, the patient was brought into the operating room and placed on the operating table in supine position. Once the patient was under monitored anesthesia care , the left lower extremity was blocked using approximately 30 cc 0.5% Marcaine plain. Next, a well-padded calf tourniquet was applied to the left lower extremity. Next, the left lower extremity was prepped and draped in normal aseptic manner. Next, a timeout was then undertaken verifying the correct patient, extremity, visibility of preoperative markings, availability of the equipment. Next, attention was directed to the left lower extremity. Using a 40 Esmarch, left lower extremity was exsanguinated and elevated to 60 degrees for 1 minute. Procedure #1: Capsulotomy and extensor tenotomy, second metatarsal phalangeal joint, left foot (CPT code: 96495) Next, attention was directed to the level of the second metatarsal phalangeal joint. Using a [place] and sterile skin marker, the second tarsal phalangeal joint was marked out. Next, using a #15 blade, a small stab incision was made over the level of the second tarsal phalangeal joint. Blunt dissection was carried down to the level of the capsule. Again using the #15 blade a capsulotomy was performed as well as the extensor tenotomy of the second, releasing the contracture in a dorsal direction down to a plantarflexed direction keeping the second digit in neutral and in line with the great toe. The area was flushed with copious normal saline. The skin was reapproximated closed using 3-0 nylon in simple interrupted suture technique. Procedure #2: Osteotomy of third metatarsal, left foot (CPT code: 90579) Next, using a [place] elevator and skin marker, the neck of the third metatarsal was marked out using mini C arm fluoroscopy. Next using a #15 blade a small stab incision was made for the portal of the MIS bur and irrigation. Continued blunt dissection was carried down to the level of the surgical neck and a [place] elevator was used to remove all soft tissue around the metatarsal bone. The MIS bur and dog license officer supervisor was inserted and checked on mini C-arm fluoroscopy, the osteotomy was performed without incident and release of the third metatarsal head was noted. Range of motion of the metatarsal head was made in a dorsiflexion plantarflexion direction and showed excellent release. Next, the left calf tourniquet was deflated, and all bleeders were cauterized and ligated as necessary. The skin was reapproximated closed using 3-0 nylon in simple erupted suture technique. Procedure #3: Surgical skin graft site prep, left foot (CPT code: 62059) Next, attention was directed to the plantar aspect of the left foot. There was evidence of a full-thickness wound with healthy granular tissue. Next, surgical skin graft site prep was prepared using a a large curette down to including subcutaneous tissue. Predebridement measurement was 0.8 x 0.8 x 0.1 cm. Postdebridement measurement was 1.2 x 1.2 x 0.2 cm. The full-thickness wound was flushed with copious normal saline. Healthy granular bleeding was appreciated. Procedure #4: Application of amniotic skin graft substitute, left foot (CPT code: 19492) Next, a 2 x 4 cm BioSkin, amniotic skin graft substitute was applied to the full-thickness wound after prep. The graft was held in place with Adaptic and Steri-Strips. The left lower extremity was wiped clean and patted dry. Betadine soaked Adaptic was applied to the incisions to the dorsal foot. The second digit was placed in a neutral plantarflexed position and held in place with a 4 x 4 and Steri-Strips. Additional dry sterile dressing was applied to the left foot and a single-layer Pulliam compression bandage was donned to left lower extremity. The patient tolerated the procedure and anesthesia well and apparent satisfactory condition and was transported to the PACU for further monitoring prior to discharge home. Vital signs stable and vascular status intact to all digits bilateral. Post Operative Plan: Weightbearing: Full weightbearing in surgical shoe to the left lower extremity. Full weightbearing to the right lower extremity. Antibiotics: 2 g Ancef through the IV DVT Prophylaxis: Ambulation [place]: None Dressin x 4 BioSkin, Adaptic, Steri-Strips, Betadine soaked Adaptic to incisions, dry sterile dressing single-layer Pulliam compression bandage, left lower extremity X-Rays: Post-operative films taken on the operating room. Pain Medication: Percocet 5/325 Follow-up: Patient will follow-up at her scheduled appointment wound care center for further evaluation and dressing change. Patient encouraged continue strict blood sugar control. Surgical Findings: 1. Healthy granular tissue after debridement of the full-thickness wound. Postoperative debridement measurement to the plantar left foot measuring 1.2 x 1.2 x 0.2 cm. Amniotic skin graft substitute applied. 2. Successful minimally invasive osteotomy to the third metatarsal surgical neck. Complications Complications: No Admit VTE Documentation VTE Present on Admission: No VTE Mechan Device Prophylaxis: SCD's VTE Pharm Prophylaxis ordered?: No
--- NOTE | 2025-03-29 08:36 | PCM.POST.ANE ---
Anesthesia: Postop Eval I Current Vital Signs Temperature: 98.5 F Pulse Rate: 74 Blood Pressure: 150/67 Respiratory Rate: 16 Pulse Ox: 100 Oxygen Delivery Method: Room Air Assessment Airway patent: Yes Spontaneous unlabored respirations: Yes Mental status: Awake and Calm nausea: No Vomiting: No Anesthesia Complication: No Fluid Hydration Crystalloid volume administer (ml): 200 Total IV fluid infused: 200 Progress Note Anesthesia document: Postop Eval 1 completed: Yes
--- NOTE | 2025-03-29 08:48 | POSTOPAN2_ITS ---
Anesthesia Postop Eval I Sum Postop Eval Completion status Anesthesia document: Postop Eval 1 completed: Yes Anesthesia Postop Eval I Summary Anesthesia Postop Eval I Summary: Anesthesia Postop Eval I: Assessment Summary Airway patent Yes 03/29/25 08:37 CREATIVE ART [email or web address] Spontaneous unlabored Yes 03/29/25 08:37 CREATIVE ART DIRECTOR.SYL respirations Mental status Awake,Calm 03/29/25 08:37 CREATIVE ART DIRECTOR.[email or web address] nausea No 03/29/25 08:37 CREATIVE ART DIRECTOR.[email or web address] Vomiting No 03/29/25 08:37 CREATIVE ART DIRECTOR.[email or web address] Anesthesia Postop Eval I: Fluid Summary Crystalloid volume administer 200 03/29/25 08:37 CREATIVE ART DIRECTOR.[email or web address] (ml) Colloids volume administered ( ml) Blood Product volume administered (ml) Total IV fluid infused 200 03/29/25 08:37 CREATIVE ART DIRECTOR.[email or web address] Anesthesia Postop Eval I: Summary Notes Anesthesia Complication No 03/29/25 08:37 CREATIVE ART DIRECTOR.SYL Anesthesia Complication Comment: Post-operative progress note Anesthesia: Postop Eval II Evaluation Mental status: Awake and Calm Pain Level: 1 nausea: No Vomiting: No Complications Anesthesia Complication: No
--- NOTE | 2025-03-29 08:48 | PCM.POSTANE2 ---
Anesthesia Postop Eval I Sum Postop Eval Completion status Anesthesia document: Postop Eval 1 completed: Yes Anesthesia Postop Eval I Summary Anesthesia Postop Eval I Summary: Anesthesia Postop Eval I: Assessment Summary Airway patent Yes 03/29/25 08:37 ONLINE COMMUNITY [email or web address] Spontaneous unlabored Yes 03/29/25 08:37 ONLINE COMMUNITY MANAGER.SYL respirations Mental status Awake,Calm 03/29/25 08:37 ONLINE COMMUNITY MANAGER.[email or web address] nausea No 03/29/25 08:37 ONLINE COMMUNITY MANAGER.[email or web address] Vomiting No 03/29/25 08:37 ONLINE COMMUNITY MANAGER.[email or web address] Anesthesia Postop Eval I: Fluid Summary Crystalloid volume administer 200 03/29/25 08:37 ONLINE COMMUNITY MANAGER.[email or web address] (ml) Colloids volume administered ( ml) Blood Product volume administered (ml) Total IV fluid infused 200 03/29/25 08:37 ONLINE COMMUNITY MANAGER.[email or web address] Anesthesia Postop Eval I: Summary Notes Anesthesia Complication No 03/29/25 08:37 ONLINE COMMUNITY MANAGER.SYL Anesthesia Complication Comment: Post-operative progress note Anesthesia: Postop Eval II Evaluation Mental status: Awake and Calm Pain Level: 1 nausea: No Vomiting: No Complications Anesthesia Complication: No
== END 2025-03-29 10:01 | disposition home or self-care (01) ==
LOC: SDC 05:45 → AC 05:45
PROVIDERS: PCP Family Medicine; Referring Provider Podiatrist Foot & Ankle Surgery; Visit Provider Podiatrist Foot & Ankle Surgery
PROC: (CPT 28308; principal; 2025-03-29 07:15)
DX: M24.575 Contracture, left foot (principal); E11.621 Type 2 diabetes mellitus with foot ulcer; L97.522 Non-pressure chronic ulcer of other part of left foot with fat layer exposed; Z68.43 Body mass index [BMI] 50.0-59.9, adult; E11.42 Type 2 diabetes mellitus with diabetic polyneuropathy; M20.42 Other hammer toe(s) (acquired), left foot; Z79.84 Long term (current) use of oral hypoglycemic drugs; Z79.899 Other long term (current) drug therapy; Z86.73 Personal history of transient ischemic attack (TIA), and cerebral infarction without residual deficits; I10 Essential (primary) hypertension; E66.9 Obesity, unspecified
CPT/HCPCS: 28308; 15275; 15004; 28234; 00400; 73620; 76000; 82962; Q4163; J2405

== ENCOUNTER 2025-05-02 09:00 | Outpatient (RCR) | payer SELFPAY ==
[2025-04-04 08:58] VITALS: BP 138/65; PULSE 72; RESP 16; TEMP 36.1
--- NOTE | 2025-04-04 12:09 | PN.PCM_ITS ---
History of Present Illness Date of Service: 04/04/25 Chief Complaint: Left foot ulcer History of Wound: Ms. Lowe is a 64-year-old who presents to the wound center due to nonhealing left foot ulcer. Believes that it started almost 2 months ago. Just noted it. No known precipitating factor. Does not have as much feeling in her foot due to diabetes. Prior history of diabetic foot surgery/amputation. She states that over the last 2 months, she has been applying peroxide however due to none improvement her daughter recommended she come to the wound center. Had seen podiatry in the past but last saw podiatry a few years ago. She states that she was given a however it was too tight so she does not wear these. Walks barefooted at home. Not sure about her diabetes control but reports compliance with her medication. Feels well otherwise. Reports a good diet Progress of Wound: Status post right foot surgery. Stable no sign of infection. Subjective Subjective Patient is a 64-year-old diabetic female seen in clinic today status post minimally invasive surgery consisting of dorsiflex the osteotomy to the left foot third digit with percutaneous capsulotomy and extensor tenotomy to the second metatarsal phalangeal joint as well as surgical skin graft site prep with application of skin graft substitute to the plantar aspect full-thickness wound left lower extremity. DOS: 03/29/2025. Postoperative dressing has remained clean dry and intact. Blood sugars well-controlled. Denies any pain. Denies trauma. Denies constitutional symptoms. No other pedal complaints at this time. Objective Data Objective Data Vital Signs: Vital Signs Temp Pulse Resp BP O2 Del Method 97 F L 72 16 138/65 H Room Air 04/04/25 08:58 04/04/25 08:58 04/04/25 08:58 04/04/25 08:58 04/04/25 08:58 Oxygen Delivery Method Room Air Physical Exam Narrative Neurovascular status unchanged. All incisions are well coapted with suture. Skin graft substitute is appreciated to the plantar aspect of the full-thickness wound. No erythema or surgical wound dehiscence or concern for infection to the left foot. Left second digit is rectus after capsulotomy and extensor tenotomy. No pain with calf compression. Debridement Note Debridement Note Post-Debridement Measurements and Additional Note: Post-Debridement Measurements/Treatment WC - Nurse 1 - General Ulcer Assessment Start: 04/04/25 08:57 Freq: Status: Active Protocol: YONAS Activity Type Activity Date Activity User E-sign Co-sign Detail Recorded Client Recorded Date Recorded By Document 04/04/25 08:58 [id number] 04/04/25 09:06 04/04/25 08:58 - Today's Visit Information Type of service Initial Visit Arrival Mode Ambulatory Patient Identification Verified (Name & Yes ) Patient Requires Transmission-Based No Precautions Finger Stick Blood Sugar(mg/dl) (if 160 indicated): Blood Sugar Stated by Patient Vital Signs Temperature (97.8 F-99.1 F) 97 F L Temperature Source Temporal Pulse Rate (60-100) 72 Pulse Location Monitor Respiratory Rate (12-18) 16 Respiratory rate source Observation Oxygen Delivery Method Room Air Blood Pressure (90/60-120/80) 138/65 H Blood Pressure Mean (mm Hg) 89 Source Monitor Position Sitting Blood Pressure Location Left Arm History Since Last Visit- (Skip if this is Patient's initial visit) Have you changed medications since your No last visit? Any new allergies or adverse reactions No Had a fall/change in ADL's that may No increase risk of falls Signs or symptoms of abuse and/or No neglect since last visit Has dressing in place as prescribed Yes Has compression in place as prescribed Yes Has offloadiing in place as prescribed Yes Experienced any changes in pain level or No management Left Footwear Surgical Shoe with pressure relief insole Pain Scale: 0-10 Numeric Is Patient Pain Free? Yes - Nurse 1 - General Ulcer Measurement Start: 04/04/25 08:57 Freq: Status: Active Protocol: Activity Type Activity Date Activity User E-sign Co-sign Detail Recorded Client Recorded Date Recorded By Document 04/04/25 08:58 [id number] 04/04/25 09:06 04/04/25 08:58 Wound Center Nurse 1 #1 L Plantar -Current Size (cm) - Length 1.0 -Current Size (cm) - Width 1.0 -Current Size (cm) - Depth 0.1 -Total Square Cm 1.00 -Date of Last Picture (Recall this 04/04/25 field) -Photo Taken Yes -Epithelialization None Present -Tunneling No -Undermining/Tunneling No -Circular Undermining No -Exudate Amt None Present -Wound Margin Distinct, Outline Attached -Texture (Kelsi-wound Skin Appearance) Assessed -Moisture (Kelsi-wound Skin Appearance) Assessed -Color (Kelsi-wound Skin Appearance) Assessed -Temperature (Kelsi-wound Skin No Abnormality Appearance) (Pt Warm) -Ulcer Cleansing Soap and Water -Anesthetic Used 5% Lidocaine Gel - Nurse 2 - General Ulcer CM Notes Start: 04/04/25 08:57 Freq: Status: Active Protocol: Activity Type Activity Date Activity User E-sign Co-sign Detail Recorded Client Recorded Date Recorded By Document 04/04/25 09:19 [id number] 04/04/25 09:22 04/04/25 09:19 Wound Center Nurse 2 -Correct Patient Yes -Correct Side, Site, Position No -Correct Procedure No -Procedure Performed No -Post Debridement (cm) - Length 0.1 -Post Debridement (cm) - Width 0.1 -Post Debridement (cm) - Depth 0.1 -Total Square (Post) (cm) 0.01 -Area of Debridement (cm) - Length 0.1 -Area of Debridement (cm) - Width 0.1 -Total Square (Area) (cm) 0.01 Pain Scale: 0-10 Numeric Is Patient Pain Free? Yes - Nurse 3 - General Ulcer D/C NN Start: 04/04/25 08:57 Freq: Status: Active Protocol: Activity Type Activity Date Activity User E-sign Co-sign Detail Recorded Client Recorded Date Recorded By Document 04/04/25 09:38 MT [id number] 04/04/25 09:43 MT Edit Result 04/04/25 09:38 MT (1) [id number] 04/04/25 09:45 KW (1) #1 L Plantar - Other Dressing => betadine to => adaptic 04/04/25 09:38 Wound Care Center Nurse 3 #1 L Plantar -Primary Dressing Applied NonAdherent Contact Layer -Other Dressing betadine to adaptic -Primary Dressing Covered/Secured with Dry Gauze & Roll Gauze, Secured with Tape -Wound Comment(s) adaptic to graft site secure with steri strips. top with gauze, kerlex and casting material LLE -Compression Wrap Kenneth Wrap -Other 4 in Pain Scale: 0-10 Numeric Is Patient Pain Free? Yes WC - Visit Discharge Discharge Condition Stable Ambulatory Status Ambulatory Transportation Private Auto Medication Reconcilliation completed & No provided to patient/care provider Clinical Summary of Care Provided Yes Assessment/Plan Assessment/Plan (1) Non-pressure chronic ulcer of other part of left foot with fat layer exposed: CODE(S): L97.522 - Non-pressure chronic ulcer of other part of left foot with fat layer exposed PLAN: Patient was examined evaluated. All findings were discussed with the patient. All questions were answered to the patient satisfaction. Patient is doing well after her left foot surgery. DOS: 03/29/2025. Of the left foot plantar amnionic skin graft substitute was dressed with Adaptic and Steri- Strips, the incision dressed with Betadine soaked Adaptic followed by dry sterile dressing Kirlex wrap and a single layer Pulliam compression bandage was donned to left lower extremity. Patient was placed back in her surgical shoe and to be partial weightbearing to heel. She will continue Schmitt therapy and our postoperative plan. She will continue strict blood sugar control. Follow-up in 2 weeks. (2) Contracture, left foot: CODE(S): M24.575 - Contracture, left foot (3) Acute painful diabetic polyneuropathy: CODE(S): E11.42 - Type 2 diabetes mellitus with diabetic polyneuropathy
--- NOTE | 2025-04-04 15:31 | WC ---
PHOTO 04/04/25 LEFT PLANTAR
--- NOTE | 2025-04-09 09:14 | WC ---
PHOTO 04/04/25 LEFT PLANTAR
[2025-04-11 13:29] VITALS: BP 138/78; PULSE 80; RESP 18; TEMP 37.1
[2025-04-18 09:09] VITALS: BP 155/60; PULSE 69; RESP 18; TEMP 35.6
--- NOTE | 2025-04-18 11:57 | PN.PCM_ITS ---
History of Present Illness Date of Service: 04/18/25 Chief Complaint: Left foot ulcer History of Wound: Ms. Lowe is a 64-year-old who presents to the wound center due to nonhealing left foot ulcer. Believes that it started almost 2 months ago. Just noted it. No known precipitating factor. Does not have as much feeling in her foot due to diabetes. Prior history of diabetic foot surgery/amputation. She states that over the last 2 months, she has been applying peroxide however due to none improvement her daughter recommended she come to the wound center. Had seen podiatry in the past but last saw podiatry a few years ago. She states that she was given a however it was too tight so she does not wear these. Walks barefooted at home. Not sure about her diabetes control but reports compliance with her medication. Feels well otherwise. Reports a good diet Progress of Wound: Status post right foot surgery. Stable no sign of infection. Subjective Subjective Patient is a 64-year-old diabetic female seen in clinic today status post minimally invasive surgery consisting of dorsiflex the osteotomy to the left foot third digit with percutaneous capsulotomy and extensor tenotomy to the second metatarsal phalangeal joint as well as surgical skin graft site prep with application of skin graft substitute to the plantar aspect full-thickness wound left lower extremity. DOS: 03/29/2025. Patient has left her postoperative dressing clean dry and intact. She is ambulating with no pain. Blood sugars well-controlled. Denies trauma. Denies constitutional symptoms. No other pedal complaints at this time. Objective Data Objective Data Vital Signs: Vital Signs Temp Pulse Resp BP O2 Del Method 96.0 F L 69 18 155/60 H Room Air 04/18/25 09:09 04/18/25 09:09 04/18/25 09:09 04/18/25 09:09 04/18/25 09:09 Oxygen Delivery Method Room Air Physical Exam Narrative Neurovascular status is unchanged. All incisions are well coapted with suture. The skin graft substitute appears intact to the plantar aspect of the left full-thickness wound. No erythema or surgical wound dehiscence. No sign of infection. No pain with calf compression. Excisional debridement down to including subcutaneous tissue of the full- thickness wound to the plantar aspect of the left foot with a 3 mm dermal curette down without incident. Predebridement was eschar. Postdebridement measurement was 0.3 x 0.3 x 0.1 cm. Debridement Note Debridement Note Debridement Free Text: Excisional debridement down to including subcutaneous tissue of the full-thickness wound to the plantar aspect of the left foot with a 3 mm dermal curette down without incident. Predebridement was eschar. Postdebridement measurement was 0.3 x 0.3 x 0.1 cm. Post-Debridement Measurements and Additional Note: Post-Debridement Measurements/Treatment - Nurse 1 - General Ulcer Assessment Start: 04/04/25 08:57 Freq: Status: Active Protocol: CHRISTINA.LOWEXT Activity Type Activity Date Activity User E-sign Co-sign Detail Recorded Client Recorded Date Recorded By Document 04/04/25 08:58 GM [id number] 04/04/25 09:06 Document 04/11/25 13:29 RB [id number] 04/11/25 13:32 RB Document 04/18/25 09:09 KW [id number] 04/18/25 09:15 KW 04/04/25 04/11/25 04/18/25 08:58 13:29 09:09 - Today's Visit Information Type of service Initial Visit Nurse-only Follow-up Visit Visit (Physician/[facility] ) Arrival Mode Ambulatory Ambulatory Ambulatory Transfer Assistance None Accompanied by Patient Identification Verified (Name & Yes Yes Yes ) Patient Requires Transmission-Based No No Precautions Finger Stick Blood Sugar(mg/dl) (if 160 indicated): Blood Sugar Stated by Patient Vital Signs Temperature (97.8 F-99.1 F) 97 F L 98.8 F 96.0 F L Temperature Source Temporal Temporal Temporal Pulse Rate (60-100) 72 80 69 Pulse Location Monitor Monitor Monitor Respiratory Rate (12-18) 16 18 18 Respiratory rate source Observation Observation Observation Oxygen Delivery Method Room Air Room Air Blood Pressure (90/60-120/80) 138/65 H 138/78 H 155/60 H Blood Pressure Mean (mm Hg) 89 98 91 Source Monitor Monitor Monitor Position Sitting Sitting Semi-Fowlers Blood Pressure Location Left Arm Left Arm Right Arm History Since Last Visit- (Skip if this is Patient's initial visit) Have you changed medications since your No No No last visit? Any new allergies or adverse reactions No No No Had a fall/change in ADL's that may No No No increase risk of falls Signs or symptoms of abuse and/or No No No neglect since last visit Have you been in the hospital since your No No last visit? Has dressing in place as prescribed Yes Yes Yes Has compression in place as prescribed Yes Yes Yes Has offloadiing in place as prescribed Yes N/A Yes Experienced any changes in pain level or No No No management Left Footwear Surgical Shoe Surgical Shoe Surgical Shoe with pressure with pressure with pressure relief insole relief insole relief insole Right Footwear Regular Shoe Regular Shoe Pain Scale: 0-10 Numeric Is Patient Pain Free? Yes Yes Yes - Nurse 1 - General Ulcer Measurement Start: 04/04/25 08:57 Freq: Status: Active Protocol: Activity Type Activity Date Activity User E-sign Co-sign Detail Recorded Client Recorded Date Recorded By Document 04/04/25 08:58 [id number] 04/04/25 09:06 Document 04/18/25 09:09 KW [id number] 04/18/25 09:15 KW 04/04/25 04/18/25 08:58 09:09 Wound Center Nurse 1 #1 L Plantar -Current Size (cm) - Length 1.0 0.1 -Current Size (cm) - Width 1.0 0.1 -Current Size (cm) - Depth 0.1 0.1 -Total Square Cm 1.00 0.01 -Date of Last Picture (Recall this 04/04/25 04/18/25 field) -Photo Taken Yes -Epithelialization None Present -Tunneling No -Undermining/Tunneling No -Circular Undermining No -Exudate Amt None Present -Wound Margin Distinct, Outline Attached -Texture (Kelsi-wound Skin Appearance) Assessed Assessed,Callus -Moisture (Kelsi-wound Skin Appearance) Assessed Assessed -Color (Kelsi-wound Skin Appearance) Assessed Assessed -Temperature (Kelsi-wound Skin No Abnormality No Abnormality Appearance) (Pt Warm) (Pt Warm) -Tenderness on Palpation (Kelsi-wound No Skin Appearance) -Ulcer Cleansing Soap and Water Soap and Water -Foul Odor after Cleansing No -Anesthetic Used 5% Lidocaine Gel -Wound Comment(s) two sutures intact WC - Nurse 2 - General Ulcer CM Notes Start: 04/04/25 08:57 Freq: Status: Active Protocol: Activity Type Activity Date Activity User E-sign Co-sign Detail Recorded Client Recorded Date Recorded By Document 04/04/25 09:19 JF [id number] 04/04/25 09:22 JF Document 04/18/25 10:00 JF [id number] 04/18/25 10:05 JF 04/04/25 04/18/25 09:19 10:00 Wound Center Nurse 2 #1 L Plantar -Time 10:03 -Correct Patient Yes Yes -Correct Side, Site, Position No Yes -Correct Procedure No Yes -Procedure Performed No Yes -Type of Procedure Debridement -Clinical Debridement Subcutaneous -Tissue Removed Subcutaneous -Post Debridement (cm) - Length 0.1 0.3 -Post Debridement (cm) - Width 0.1 0.3 -Post Debridement (cm) - Depth 0.1 0.1 -Total Square (Post) (cm) 0.01 0.09 -Area of Debridement (cm) - Length 0.1 0.3 -Area of Debridement (cm) - Width 0.1 0.3 -Total Square (Area) (cm) 0.01 0.09 -Wound/Ulcer Outcome Not Healed -Ulcer Cleansing Rinsed/ Irrigated with Saline -Foul Odor after Cleansing No -Bioengineered Tissue No -Bleeding Controlled with Pressure -Treatment Response Procedure Tolerated Well -Offloading No -Debridement - Subq, 1st 20sq cm Yes Pain Scale: 0-10 Numeric Is Patient Pain Free? Yes Yes - Nurse 3 - General Ulcer D/C NN Start: 04/04/25 08:57 Freq: Status: Active Protocol: Activity Type Activity Date Activity User E-sign Co-sign Detail Recorded Client Recorded Date Recorded By Document 04/04/25 09:38 MT [id number] 04/04/25 09:43 MT Edit Result 04/04/25 09:38 MT (1) [id number] 04/04/25 09:45 KW Document 04/11/25 13:29 RB [id number] 04/11/25 13:32 RB Document 04/18/25 10:05 JF [id number] 04/18/25 10:06 JF (1) #1 L Plantar - Other Dressing => betadine to => adaptic 04/04/25 04/11/25 04/18/25 09:38 13:29 10:05 Wound Care Center Nurse 3 #1 L Plantar -Ulcer Cleansing Wound Cleanser Rinsed/ Irrigated with Saline -Foul Odor after Cleansing No -Primary Dressing Applied NonAdherent NonAdherent Contact Layer Contact Layer -Other Dressing betadine to betadine to betadine and adaptic suture sites bandaid -Primary Dressing Covered/Secured with Dry Gauze & Dry Gauze,Dry Roll Gauze, Gauze & Roll Secured with Gauze,Secured Tape with Tape -Other Covering ABD/ kerlix/ undercasting/ kenneth -Wound Comment(s) adaptic to adaptic to graft site graft site secure with steri strips. top with gauze, kerlex and casting material LLE -Lotion applied to leg before No compression wrap -Compression Wrap Kenneth Wrap Kenneth Wrap -Tubular Bandage Single Layer -Size of Tubigrip Used Size E -Size E ($) 1 -Other 4 in Treatment Response Procedure Tolerated Well Pain Scale: 0-10 Numeric Is Patient Pain Free? Yes Yes Yes WC - Visit Discharge Discharge Condition Stable Stable Stable Ambulatory Status Ambulatory Ambulatory Ambulatory Transportation Private Auto Private Auto Private Auto Medication Reconcilliation completed & No No Yes provided to patient/care provider Clinical Summary of Care Provided Yes Yes Yes Assessment/Plan Assessment/Plan (1) Non-pressure chronic ulcer of other part of left foot with fat layer exposed: CODE(S): L97.522 - Non-pressure chronic ulcer of other part of left foot with fat layer exposed PLAN: Patient was examined evaluated. All findings were discussed with the patient. All questions were answered to the patient satisfaction. Patient is doing well after her left foot surgery. DOS: 03/29/2025. Betadine paint was applied to all incision sutures and they were removed with a sterile #15 blade and sterile pickup without incident. Next, Excisional debridement down to including subcutaneous tissue of the full- thickness wound to the plantar aspect of the left foot with a 3 mm dermal curette down without incident. Predebridement was eschar. Postdebridement measurement was 0.3 x 0.3 x 0.1 cm. The left foot was wiped clean and patted dry. Steri-Strips were applied to all incisions and painted with Betadine. Betadine paint and sterile Band-Aid was applied to the full-thickness wound plantar aspect left foot. Patient will perform daily dressing changes. Patient will continue strict blood sugar control. Follow-up in 2 weeks. (2) Contracture, left foot: CODE(S): M24.575 - Contracture, left foot (3) Acute painful diabetic polyneuropathy: CODE(S): E11.42 - Type 2 diabetes mellitus with diabetic polyneuropathy
--- NOTE | 2025-04-18 14:24 | WC ---
PHOTO 04/18/25 LEFT PLANTAR POST OP
[2025-05-02 08:59] VITALS: BP 144/81; PULSE 67; RESP 18; TEMP 36.6
--- NOTE | 2025-05-02 12:44 | PCM.PN.SRG ---
Subjective Subjective Patient is a 64-year-old diabetic female presenting to wound care center today for follow-up evaluation of left foot surgery. Patient has been compliant with dressing changes and weightbearing status. Her blood sugars well-controlled. She admits that her wound is healed to the plantar aspect of the left foot. She states that her second toe is in a much better position prior to surgery. The patient is date of surgery was 03/29/2025. She is doing well. She has no pain to the left foot. Denies trauma. Denies constitutional symptoms. No other pedal complaints at this time. Objective Data Objective Data Vital Signs: Vital Signs Temp Pulse Resp BP O2 Del Method 97.8 F 67 18 144/81 H Room Air 05/02/25 08:59 05/02/25 08:59 05/02/25 08:59 05/02/25 08:59 05/02/25 08:59 Oxygen Delivery Method Room Air Physical Exam Narrative Vascular: DP and PT pulse are palpable. CFT is brisk. Skin temp gradient is warm to warm from proximal ankles to distal digits bilateral. No erythema or focal increase in warmth is appreciated. Neurological: Light touch intact. Protective station is absent. Dermatological: All incisions are healed to the dorsal aspect of the left foot. Full-thickness wound is callused over and is healed at this time. No breakdown of skin or concern for infection at this time. 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 No pain with calf pressure. Assessment & Plan Assessment/Plan (1) Non-pressure chronic ulcer of other part of left foot with fat layer exposed: PLAN: Patient was examined evaluated. All findings were discussed with the patient. All questions were answered to the patient satisfaction. At this time the patient's full-thickness wound the plantar aspect of the left foot is now healed. Betadine paint sterile Band-Aid was applied. Patient will continue dressing changes for protection and prophylaxis daily until follow-up in 2 weeks in private office. Educated the patient the importance of checking her blood sugar daily up to 6 times per day which she showed understanding of. Patient will follow-up in the office in 2 weeks for evaluation and diabetic shoe casting as needed. Patient will be discharged from the wound care center today. (2) Contracture, left foot: (3) Acute painful diabetic polyneuropathy:
--- NOTE | 2025-05-03 09:54 | WC ---
PHOTO-LEFT PLANTAR 05/02/25
== END 2025-05-03 14:54 | disposition home or self-care (01) ==
LOC: WC 09:00
PROVIDERS: PCP Family Medicine; Referring Provider Family Medicine; Visit Provider Podiatrist Foot & Ankle Surgery
DX: E11.621 Type 2 diabetes mellitus with foot ulcer (principal); L97.522 Non-pressure chronic ulcer of other part of left foot with fat layer exposed; E11.42 Type 2 diabetes mellitus with diabetic polyneuropathy; M24.575 Contracture, left foot
CPT/HCPCS: 11042; 99212; 99213; G0463